=== PATIENT | female | born 1960 | race Two or more races ===

== ENCOUNTER 2020-03-27 | Outpatient (REF) | payer OTHER, SELFPAY | END 2020-03-27 00:01 | disposition home or self-care (01) | LOC: HO.MDS | PROVIDERS: PCP Internal Medicine; Visit Provider Internal Medicine Medical Oncology | DX: D50.9 Iron deficiency anemia, unspecified (principal) | CPT/HCPCS: J2916 ==

== ENCOUNTER 2020-04-03 | Outpatient (REF) | payer OTHER, SELFPAY | END 2020-04-03 00:01 | disposition home or self-care (01) | LOC: HO.MDS | PROVIDERS: PCP Internal Medicine; Visit Provider Internal Medicine Medical Oncology | DX: D50.9 Iron deficiency anemia, unspecified (principal) | CPT/HCPCS: J2916 ==

== ENCOUNTER 2020-04-06 | Outpatient (REF) | payer OTHER, SELFPAY ==
[2020-04-06 12:04] LABS: Eosinophils Absolute Auto 0.1 X10*3/uL (0.0-0.4); Imm Gran Abs Auto 0.01 X10*3/uL (0.00-0.03); Imm Gran Pct Auto 0.2 % (0.0-0.4); MANUAL DIFF FLAG SCAN; PLT CLUMP 1; SCAN SMEAR FLAG 1
[2020-04-06 12:06] LABS: Basophils Percent Auto 0.2 % (0-2); Eosinophils Percent Auto 2.7 % (0-4); Hemoglobin 9.5 g/dl (12.0-16.0); Lymphocytes Absolute Auto 1.9 X10*3/uL (1.2-4.9); Lymphocytes Percent Auto 45.2 % (20-40); Mean Corpuscular HGB Conc 31.7 g/dl (31.0-35.0); Mean Corpuscular Hemoglobin 27.6 pg (27.0-33.0); Mean Corpuscular Volume 87.2 fL (80-98); Monocytes Absolute Auto 0.4 X10*3/uL (0.1-1.2); Monocytes Percent Auto 8.5 % (2-11); Neutrophils Absolute Auto 1.8 X10*3/uL (2.0-8.3); Neutrophils Percent Auto 43.2 % (45-73); Platelet Count 101 X10*3/uL (160-400); Red Blood Count 3.44 X10*6/uL (4.20-5.50); Red Cell Distribution Width 22.9 % (11.0-16.0); White Blood Count 4.1 X10*3/uL (4.8-10.8)
[2020-04-06 12:11] LABS: PLT ABN DIST 1
== END 2020-04-06 00:01 | disposition home or self-care (01) ==
LOC: HO.MDS
PROVIDERS: PCP Internal Medicine; Visit Provider Internal Medicine Medical Oncology
DX: D50.9 Iron deficiency anemia, unspecified (principal)
CPT/HCPCS: 36415; 85025; J2916

== ENCOUNTER 2020-04-08 | Outpatient (REF) | payer OTHER, SELFPAY | END 2020-04-08 00:01 | disposition home or self-care (01) | LOC: HO.MDS | PROVIDERS: PCP Internal Medicine; Visit Provider Internal Medicine Medical Oncology | DX: D50.9 Iron deficiency anemia, unspecified (principal) | CPT/HCPCS: J2916 ==

== ENCOUNTER 2020-04-08 09:43 | Outpatient (REF) | payer OTHER, SELFPAY | END 2020-04-08 09:44 | disposition home or self-care (01) | LOC: HO.MDS 09:43 | PROVIDERS: Visit Provider Internal Medicine Medical Oncology | DX: J45.909 Unspecified asthma, uncomplicated (principal) | CPT/HCPCS: J2916 ==

== ENCOUNTER 2020-04-13 08:36 | Outpatient (REF) | payer OTHER, SELFPAY | END 2020-04-13 08:37 | disposition home or self-care (01) | LOC: HO.MDS 08:36 | PROVIDERS: PCP Internal Medicine; Visit Provider Internal Medicine Gastroenterology | DX: D50.9 Iron deficiency anemia, unspecified (principal) | CPT/HCPCS: 96365; J2916 ==

== ENCOUNTER → 2020-04-20 10:18 | Outpatient (BNVA) | payer OTHER, SELFPAY | PROVIDERS: PCP Internal Medicine; Referring Provider Internal Medicine; Visit Provider Internal Medicine Gastroenterology | DX: Z76.89 Persons encountering health services in other specified circumstances (principal) ==

== ENCOUNTER 2020-04-20 14:00 | Outpatient (REF) | payer OTHER, SELFPAY | END 2020-04-20 14:01 | disposition home or self-care (01) | LOC: HO.MDS 14:00 | PROVIDERS: PCP Internal Medicine; Visit Provider Internal Medicine Medical Oncology | DX: D50.9 Iron deficiency anemia, unspecified (principal) | CPT/HCPCS: 96365; 99212; J2916 ==

== ENCOUNTER 2020-04-20 14:34 | Outpatient (REF) | payer OTHER, SELFPAY | END 2020-04-20 14:35 | disposition home or self-care (01) | LOC: HO.MDS 14:34 | PROVIDERS: PCP Internal Medicine; Visit Provider Internal Medicine Medical Oncology | DX: D50.9 Iron deficiency anemia, unspecified (principal) | CPT/HCPCS: 96365; J2916 ==

== ENCOUNTER 2020-04-21 13:45 | Outpatient (REF) | payer OTHER, SELFPAY | END 2020-04-21 13:46 | disposition home or self-care (01) | LOC: HO.MDS 13:45 | PROVIDERS: PCP Internal Medicine; Visit Provider Internal Medicine Medical Oncology | DX: D50.9 Iron deficiency anemia, unspecified (principal) | CPT/HCPCS: 96365; J2916 ==

== ENCOUNTER 2020-05-18 16:13 | Outpatient (REF) | payer OTHER, SELFPAY | END 2020-05-18 16:14 | disposition home or self-care (01) | LOC: HO.LAB 16:13 | PROVIDERS: PCP Internal Medicine; Visit Provider Internal Medicine | DX: Z20.828 Contact with and (suspected) exposure to other viral communicable diseases (principal) | CPT/HCPCS: C9803; U0003 ==

== ENCOUNTER → 2020-10-09 09:20 | Outpatient (BNV) | payer OTHER, SELFPAY | PROVIDERS: PCP Internal Medicine; Visit Provider Internal Medicine Medical Oncology | DX: D50.9 Iron deficiency anemia, unspecified (principal); Z86.711 Personal history of pulmonary embolism; K75.4 Autoimmune hepatitis | CPT/HCPCS: 99213; 99214 ==

== ENCOUNTER 2021-01-14 14:50 | Emergency (ER) | payer OTHER, SELFPAY ==
[2021-01-14 15:02] VITALS: BP 161/63; PULSE 62; RESP 18; TEMP 36.6; O2SAT 100; BMI 32.3
== END 2021-01-14 17:36 | disposition left against medical advice (07) ==
PROVIDERS: Emergency Provider Emergency Medicine; PCP Internal Medicine
DX: R79.89 Other specified abnormal findings of blood chemistry (principal)
CPT/HCPCS: 99282

== ENCOUNTER → 2021-03-22 13:37 | Outpatient (BNVA) | payer OTHER, SELFPAY | PROVIDERS: PCP Internal Medicine; Referring Provider Internal Medicine; Visit Provider Internal Medicine Gastroenterology | DX: K75.4 Autoimmune hepatitis (principal); K21.9 Gastro-esophageal reflux disease without esophagitis; K59.09 Other constipation; D50.9 Iron deficiency anemia, unspecified; D12.6 Benign neoplasm of colon, unspecified; Z83.71 Family history of colonic polyps | CPT/HCPCS: 99212 ==

== ENCOUNTER 2021-04-20 11:14 | Outpatient (REF) | payer OTHER, SELFPAY | END 2021-04-20 11:15 | disposition home or self-care (01) | LOC: HO.MDS 11:14 | PROVIDERS: PCP Internal Medicine; Visit Provider Internal Medicine Medical Oncology | DX: D50.9 Iron deficiency anemia, unspecified (principal) | CPT/HCPCS: 96365; J2916 ==

== ENCOUNTER 2021-05-10 16:43 | Outpatient (REF) | payer OTHER, SELFPAY ==
[2021-05-10 18:54] LABS: Influenza A PCR NEGATIVE (Negative); Influenza B PCR NEGATIVE (Negative); Resp Syncy Virus RNA Qual PCR NEGATIVE (Negative); SARS COV2 PCR INHOUSE NEGATIVE (Negative)
== END 2021-05-10 16:44 | disposition home or self-care (01) ==
LOC: HO.LNP 16:43
PROVIDERS: Visit Provider Internal Medicine
DX: Z20.822 Contact with and (suspected) exposure to COVID-19 (principal); R43.9 Unspecified disturbances of smell and taste
CPT/HCPCS: 0241U

== ENCOUNTER 2021-05-12 08:09 | Outpatient (REF) | payer OTHER, SELFPAY | END 2021-05-12 08:10 | disposition home or self-care (01) | LOC: HO.MDS 08:09 | PROVIDERS: PCP Internal Medicine; Visit Provider Internal Medicine Medical Oncology | DX: D50.9 Iron deficiency anemia, unspecified (principal) | CPT/HCPCS: 96365; 96366; J1200; J1750 ==

== ENCOUNTER 2021-10-11 11:12 | Outpatient (REF) | payer OTHER, SELFPAY ==
[2021-10-11 11:56] LABS: Estimated Average Glucose 100 mg/dL; Hemoglobin A1c % 5.1 %
[2021-10-11 11:58] LABS: Lymphocytes Percent Auto 27.8 % (20-40); Mean Corpuscular Hemoglobin 29.6 pg (27.0-33.0); PLT CLUMP 1; Red Blood Count 3.38 X10*6/uL (4.20-5.50); SCAN SMEAR FLAG 1
[2021-10-11 12:01] LABS: Basophils Percent Auto 0.3 % (0-2); Eosinophils Absolute Auto 0.1 X10*3/uL (0.0-0.4); Eosinophils Percent Auto 3.6 % (0-4); Hematocrit 31.2 % (37.0-47.0); Lymphocytes Absolute Auto 0.9 X10*3/uL (1.2-4.9); Mean Corpuscular HGB Conc 32.1 g/dl (31.0-35.0); Mean Corpuscular Volume 92.3 fL (80.0-98.0); Monocytes Absolute Auto 0.2 X10*3/uL (0.1-1.2); Monocytes Percent Auto 5.9 % (2-11); Neutrophils Absolute Auto 2.1 x10*3/uL (2.0-8.3); Neutrophils Percent Auto 62.4 % (45-73)
[2021-10-11 12:03] LABS: MANUAL DIFF FLAG NO; Platelet Count 70 X10*3/uL (160-400); White Blood Count 3.4 X10*3/uL (4.8-10.8)
[2021-10-11 12:24] LABS: Alanine Aminotransferase 31 U/L (0-31); Albumin Level 3.4 g/dL (3.5-5.0); Alkaline Phosphatase 117 U/L (39-117); Anion Gap 10 (12-20); Aspartate Amino Transferase 51 U/L (5-31); Bilirubin Total 0.4 mg/dL (0.0-1.0); Blood Urea Nitrogen 23 mg/dL (9-16); Calcium 9.5 mg/dL (8.4-10.2); Carbon Dioxide 18 mmol/L (22-29); Chloride 118 mmol/L (96-108); Cholesterol 232 mg/dL; Estimated Glomerular Filt Rate 23; Glucose Fasting 84 mg/dL (60-99); HDL Cholesterol 31 mg/dL; Iron 93 mcg/dL (30-160); LDL Cholesterol Calculated 171 mg/dl; Percent Iron Saturation 42 % (15-50); Potassium 4.2 mmol/L (3.3-5.1); Sodium 142 mmol/L (135-145); Total Iron Binding Capacity 224 mcg/dL (228-428); Total Protein 8.5 g/dL (6.5-8.0); Triglycerides 152 mg/dL; Unsaturated Iron Binding 131 ug/dL
[2021-10-11 12:46] LABS: Thyroid Stimulating Hormone 99.76 uIU/mL (0.32-4.0)
[2021-10-11 13:09] LABS: Folate 8.3 ng/mL (> or = 4.0); Vitamin B12 336 pg/mL (200-900)
[2021-10-11 13:49] LABS: TSH reflex Free T4 99.72 uIU/mL (0.32-4.0)
[2021-10-11 14:23] LABS: Free T4 (Free Thyroxine) 0.47 ng/dL (0.71-1.85)
[2021-10-13 05:57] LABS: Thyroglobulin Antibodies >1000 IU/mL (< or = 1); Thyroid Peroxidase Antibodies 184 IU/mL (<9)
[2021-10-15 12:47] LABS: Vitamin D 25-OH, D2 5 ng/mL; Vitamin D 25-OH, D3 24 ng/mL; Vitamin D 25-OH, Total 29 ng/mL (30-100)
== END 2021-10-11 11:13 | disposition home or self-care (01) ==
LOC: HO.LAB 11:12
PROVIDERS: PCP Internal Medicine; Visit Provider Nurse Practitioner Family
DX: E11.9 Type 2 diabetes mellitus without complications (principal); M79.671 Pain in right foot; M79.672 Pain in left foot; E03.9 Hypothyroidism, unspecified; E55.9 Vitamin D deficiency, unspecified; D64.9 Anemia, unspecified; K75.4 Autoimmune hepatitis; E78.5 Hyperlipidemia, unspecified
CPT/HCPCS: 36415; 80053; 80061; 82306; 82607; 82746; 83036; 83540; 84439; 84443; 85025; 86376; 86800

== ENCOUNTER 2021-10-13 13:21 | Outpatient (REF) | payer OTHER, SELFPAY ==
--- NOTE | ~2021-10-13 | MM_ITS ---
EXAMINATION: MM SCREENING DIGITAL BREAST TOMOSYNTHESIS, BILATERAL CLINICAL INFORMATION: Screening. Asymptomatic. The lifetime risk of breast cancer based on the Tyrer-Cuzick Model is 4%. COMPARISON: Mammography: 04/06/2018, 03/15/2017, 12/30/2015 TECHNIQUE: Digital breast tomosynthesis is performed in both the craniocaudal and mediolateral oblique views along with computer-aided detection (CAD). Synthesized 2D images are generated from the tomosynthesis. FINDINGS: There are scattered areas of fibroglandular density (ACR BI-RADS breast composition Category b). Breast tissue composition borders on predominantly fatty. Background stromal markings and some scattered fibroglandular densities anterior upper outer right breast are similar to prior exams. There is no significant mass or architectural abnormality. No abnormal calcifications. Skin contours are smooth. No significant changes. MM/MM tomosynthesis screening BI IMPRESSION: No mammographic evidence of malignancy. ASSESSMENT: BI-RADS 2: Benign RECOMMENDATION: Routine annual mammography screening. This patient's information was entered into a reminder system with a target due date for their next mammogram.
== END 2021-10-13 13:22 | disposition home or self-care (01) ==
LOC: HO.MAMMO 13:21
PROVIDERS: PCP Internal Medicine; Visit Provider Nurse Practitioner Family
DX: Z12.31 Encounter for screening mammogram for malignant neoplasm of breast (principal)
CPT/HCPCS: 77063; 77067

== ENCOUNTER 2021-10-25 07:55 | Outpatient (REF) | payer OTHER, SELFPAY | END 2021-10-25 07:56 | disposition home or self-care (01) | LOC: HO.MDS 07:55 | PROVIDERS: PCP Internal Medicine; Visit Provider Internal Medicine Medical Oncology | DX: D50.9 Iron deficiency anemia, unspecified (principal) | CPT/HCPCS: 96365; 96366; J1200; J1750; Q0163 ==

== ENCOUNTER 2022-01-14 12:09 | Emergency (ER) | payer OTHER, SELFPAY ==
--- NOTE | ~2022-01-14 | CT_ITS ---
EXAMINATION: CT ABDOMEN AND PELVIS WITHOUT CONTRAST CLINICAL INFORMATION: Left flank pain. COMPARISON: Abdominal ultrasound 02/05/2019. CT abdomen/pelvis 11/24/2017. TECHNIQUE: Multidetector volumetric imaging was performed from the superior aspect of the liver through the pubic symphysis. Sagittal and coronal reformatted images were obtained on the technologist's workstation. This CT examination was performed using dose optimization techniques as appropriate, variously including the following: *Automated exposure control *Adjustment of mA and/or kV according to patient size (this includes techniques or standardized protocols for targeted exams where dose is matched to indication/reason for exam; i.e. extremities or head) *Use of iterative reconstruction technique DLP: 460 mGy-cm FINDINGS: LUNG BASES: Focal parenchymal thickening in the lingula (6:91) favoring to represent subsegmental atelectasis or scarring. No focal consolidation or pleural effusion. LIVER, GALLBLADDER, AND BILIARY TREE: Increased heterogeneity of the liver parenchyma with multifocal band-like hypodensities, nodular contour and atrophic left hepatic lobe. Evaluation of liver lesions is limited in the absence of intravenous contrast. There is a 0.3 cm stone versus polyp in the gallbladder fundus. No evidence of gallbladder wall thickening or pericholecystic inflammatory changes. No biliary ductal dilatation. PANCREAS: Limited non-contrast examination. The main pancreatic duct is nondilated. Fullness of the ailyn hepatis with mild fat stranding and periportal lymphadenopathy. The pancreatic head and duodenum are not well delineated in the absence of intravenous contrast (3:30). SPLEEN: Limited non-contrast examination. No discrete focal abnormality. ADRENAL GLANDS: No adrenal mass. KIDNEYS AND URETERS: Limited non-contrast examination. No evidence of hydronephrosis or nephrolithiasis. No perinephric fat stranding. BLADDER: Unremarkable. GASTROINTESTINAL TRACT: The stomach and the small bowel are nondilated. Normal appendix. No evidence of acute colitis, diverticulitis or bowel obstruction. ABDOMINAL WALL: No significant hernia is appreciated. LYMPH NODES: Periportal lymphadenopathy, not significantly changed since 2018, for example a 0.9 cm short axis lymph node on image 21 of series 3 and a 0.8 cm short axis lymph node on image 25 of series 3. Lymphadenopathy along the epicardial fat pad, for instance a 1.8 x 0.7 cm lymph node on image 14 of series 3, is unchanged. Prominent retroperitoneal and pelvic lymph nodes are also not significantly changed, for example a 0.8 cm short axis right external iliac lymph node on image 81 of series 3. VASCULAR: Limited evaluation in the absence of intravenous contrast. IVC filter noted. Normal caliber of the abdominal aorta. Atherosclerotic disease of the aortoiliac vessels. PELVIC VISCERA: Trace amount of free fluid in the pelvis, nonspecific. OSSEOUS STRUCTURES: No acute or aggressive-appearing osseous abnormalities. CT/CT abdomen pelvis wo con IMPRESSION: No hydronephrosis or nephrolithiasis. Abnormal appearance of the liver with progression of left hepatic lobe atrophy and new heterogeneity of the right hepatic lobe with multiple band-like hypodensities and nodular contour concerning for hepatocellular disease and cirrhosis. Recommend correlation with an MR of the abdomen with and without intravenous contrast to further characterize and rule out underlying lesions which are not well assessed in this examination in the absence of intravenous contrast. Limited evaluation of the structures within the ailyn hepatis in the absence of intravenous contrast. There is mild fat stranding, nonspecific, and grossly stable lymphadenopathy. This region could be assessed further with the above recommended MRI of the abdomen. A 0.3 cm gallbladder fundal polyp versus stone.
[2022-01-14 12:11] VITALS: BP 176/83; PULSE 80; RESP 18; TEMP 36.8; O2SAT 100; BMI 30.2
[2022-01-14 12:22] LABS: Hematocrit 31.5 % (37.0-47.0); Hemoglobin 10.3 g/dl (12.0-16.0); Mean Corpuscular HGB Conc 32.7 g/dl (31.0-35.0); Mean Corpuscular Hemoglobin 31.6 pg (27.0-33.0); Mean Corpuscular Volume 96.6 fL (80.0-98.0); Mean Platelet Volume 10.9 fL (9.4-12.3); Red Blood Count 3.26 X10*6/uL (4.20-5.50); Red Cell Distribution Width 16.2 % (11.0-16.0); White Blood Count 5.3 X10*3/uL (4.8-10.8)
[2022-01-14 12:23] LABS: Platelet Count 99 X10*3/uL (160-400)
[2022-01-14 12:39] LABS: Anion Gap 14 (12-20); Blood Urea Nitrogen 30 mg/dL (9-16); Calcium 9.3 mg/dL (8.4-10.2); Carbon Dioxide 16 mmol/L (22-29); Chloride 113 mmol/L (96-108); Creatinine Clr Calc Pharmacy 23.5; Estimated Glomerular Filt Rate 24; Glucose Random 118 mg/dL (60-115); Potassium 3.8 mmol/L (3.3-5.1); Sodium 139 mmol/L (135-145)
[2022-01-14 12:49] LABS: Appearance Urine CLEAR; Color Urine YELLOW; Glucose Urine UA NEG (NEG); Leukocyte Esterase Urine 1+ (NEG); Nitrite Urine NEG (NEG); UACC Culture Trigger YES; Urine Blood NEG (NEG); Urine Ketones NEG (NEG); Urine Protein NEG (NEG-TRACE)
[2022-01-14 13:04] LABS: Bacteria Urine 1+ /LPF; RBC Urine 0 /HPF (0); Squamous Epithelial Cell Urine 2+ /LPF
--- NOTE | 2022-01-14 14:18 | ED.FEMALEGU ---
HPI - Female Genitourinary General Chief complaint: Urogenital-Female Stated complaint: kidney stones/UTI Time Seen by Provider: 01/14/22 13:14 History of Present Illness HPI Narrative: Patient complains of some left-sided back and flank pain over past several days, she was seen in an urgent care and is being treated with 750 of Levaquin once a day for a possible kidney infection. Patient does have pre-existing renal insufficiency, she denies any blood in the urine no vomiting and no dysuria today The only complaint today is some back pain with bending and moving, she is eating and drinking normally and feels in her normal state of health Related Data Home Medications Medication Instructions Recorded Confirmed escitalopram oxalate 10 mg tablet 10 mg PO DAILY 10/07/21 01/19/22 (Lexapro) metoclopramide HCl 5 mg tablet 5 mg PO BID 10/07/21 01/19/22 (Reglan) Previous Rx's Medication Instructions Recorded omeprazole 40 mg capsule,delayed 40 mg PO DAILY 90 days #90 caps 04/20/21 release cholecalciferol (vitamin D3) 50 50 mcg PO DAILY 90 days #90 caps 07/21/21 mcg (2,000 unit) capsule levothyroxine 100 mcg tablet 100 mcg PO QAM #30 tabs 10/13/21 sennosides 8.6 mg tablet (senna) 8.6 mg PO BID 30 days #60 tabs 01/05/22 linaclotide 145 mcg capsule 145 mcg PO DAILY 30 days #30 caps 01/10/22 (Linzess) loratadine 10 mg tablet 10 mg PO DAILY 90 days #90 tabs 01/10/22 tramadol 50 mg tablet 50 mg PO BID PRN pain 30 days #60 01/19/22 tabs Allergies Allergy/AdvReac Type Severity Reaction Status Date / Time cefuroxime [From Ceftin] Allergy Intermediate rash Verified 01/19/22 09:24 Gonfhro-SKG-UnO Reductase Allergy Intermediate transaminit Verified 01/19/22 09:24 Inhibitor is [Axznvus-Jnd-Onr Reductase Inhibitor] Review of Systems Review of Systems: Positive for back pain Negatives are no fever no chills no dizziness no confusion no weakness no fainting no feeling faint no headache no neck pain no chest pain no shortness of breath no abdominal pain no nausea vomiting or diarrhea no dysuria no incontinence no frequency, no radiation of back pain no numbness weakness or tingling no skin rash Yes all other systems are reviewed and are negative ON LICENSE OF [facility] Past Medical History Source: nursing notes reviewed Medical History Arthritis Asthma Autoimmune hepatitis Back pain Chest pain CKD (chronic kidney disease) Depression Elevated cholesterol GERD (gastroesophageal reflux disease) History of depression History of DVT (deep vein thrombosis) Hx pulmonary embolism Hypertension Hypothyroid Iron deficiency anemia Mild recurrent major depression Right ankle injury (~2000) Seasonal allergies Surgical History History of ankle surgery History of colonoscopy (~2018) History of liver biopsy Hx of endoscopy (06/26/17) Family History Family History Father Myocardial infarction Hypertension H/O ETOH abuse Mother Hypertension Stroke Diabetes High cholesterol Paternal Aunt Mental health disorder Paternal Uncle Mental health disorder Social History Social History Household Members: None Housing: Apartment Are you a primary medicare contact specialist to a significant other at home: No Do you presently have visiting nurse or other home services: Yes Alcohol intake: never Patient Tobacco Use Status: Never used Tobacco e-Cigarette/Vaping Use: Never Used Second Hand Smoke Exposure: No service: No Current occupational status: unemployed Cognitive needs: No Hearing needs: No Vision needs: Yes (glasses) Physical Exam Vital Signs: Vital Signs: Last Vital Signs Temp 98.1 F 01/14/22 15:03 Pulse 69 01/14/22 18:14 Resp 16 01/14/22 18:14 BP 172/68 H 01/14/22 18:14 Pulse Ox 99 01/14/22 18:14 O2 Del Method 01/14/22 18:14 BMI result Body Mass Index 30.2 General appearance is no acute distress The eyes pupils equal round reactive to light, anicteric no pallor The pharynx is clear no redness swelling or exudate, mucous membranes are moist Neck is supple Chest clear to auscultation bilateral Heart no murmur Abdomen soft nontender The back had left-sided lower and upper lumbar tenderness, pain is reproduced with movement, skin was normal, no focal bony tenderness Extremities full range of motion x4 Neuro no focal motor or sensory deficits Course Course Course Narrative: Patient has BUN of 30 and creatinine of 2.1, normal potassium on lab work done 01/14/2022 Patient had been prescribed Levaquin 750 once a day from urgent care I looked up adjusted dose for renal insufficiency and changed her dosing of Levaquin Patient is otherwise well with no urinary symptoms no fever no vomiting She will finish her adjusted course of antibiotics and is otherwise well appearing and is discharged MDM - Female Genitourinary Lab Data Attestation: I reviewed the patient's lab results. Result diagrams: 01/14/22 12:17 01/14/22 12:17 Labs: Lab Results 01/14/22 01/14/22 01/14/22 Range/Units 12:17 12:17 12:23 WBC 5.3 (4.8-10.8) X10*3/uL RBC 3.26 L (4.20-5.50) X10*6/uL Hgb 10.3 L (12.0-16.0) g/dl Hct 31.5 L (37.0-47.0) % MCV 96.6 (80.0-98.0) fL MCH 31.6 (27.0-33.0) pg MCHC 32.7 (31.0-35.0) g/dl RDW 16.2 H (11.0-16.0) % Plt Count 99 L D (160-400) X10*3/uL MPV 10.9 (9.4-12.3) fL Absolute Nucleated RBC 0.000 (0.0-0.012) X10*3/uL Nucleated RBC % (auto) 0.0 (0.0-0.2) /100WBC Sodium 139 (135-145) mmol/L Potassium 3.8 (3.3-5.1) mmol/L Chloride 113 H (96-108) mmol/L Carbon Dioxide 16 L (22-29) mmol/L Anion Gap 14 (12-20) BUN 30 H (9-16) mg/dL Creatinine 2.11 H (0.5-1.4) mg/dL Estim Creat Clear Calc 23.5 Estimated GFR 24 Random Glucose 118 H (60-115) mg/dL Calcium 9.3 (8.4-10.2) mg/dL Total Bilirubin 0.3 (0.0-1.0) mg/dL Direct Bilirubin 0.2 (0.0-0.5) mg/dL AST 23 D (5-31) U/L ALT 16 (0-31) U/L Alkaline Phosphatase 134 H (39-117) U/L Total Protein 8.7 H (6.5-8.0) g/dL Albumin 3.6 (3.5-5.0) g/dL Urine Color YELLOW Urine Appearance CLEAR Urine pH 6.0 (5.0-8.0) Ur Specific [place] 1.020 (1.005-1.025) Urine Protein NEG (NEG-TRACE) MG/DL Urine Glucose (UA) NEG (NEG) MG/DL Urine Ketones NEG (NEG) MG/DL Urine Blood NEG (NEG) Urine Nitrite NEG (NEG) Ur Leukocyte Esterase 1+ H (NEG) Urine RBC 0 (0) /HPF Urine WBC 1-4 (0-4) /HPF Ur Squamous Epith Cells 2+ /LPF Urine Bacteria 1+ /LPF Discharge Plan Discharge Clinical Impression: UTI (urinary tract infection), Back pain, Renal insufficiency Patient Disposition: Home, Self-Care Additional Instructions: We did a CT which did not find any kidney stones or any mass For the back pain which may be muscles or discs in her back follow with primary doctor use Tylenol as needed Levaquin 750 once a day should be stopped today no more of that as it can be damaging to her kidneys Best plan is do not take any antibiotic tomorrow and then Monday and Monday take once a day 250 mg of Levaquin Return any time any worse condition or any concerns Prescriptions: No Action omeprazole 40 mg capsule,delayed release(DR/EC) 40 mg PO DAILY 90 Days Qty: 90 2RF cholecalciferol (vitamin D3) 50 mcg (2,000 unit) capsule 50 mcg PO DAILY 90 Days Qty: 90 3RF levothyroxine 100 mcg tablet 100 mcg PO QAM Qty: 30 3RF sennosides [senna] 8.6 mg tablet 8.6 mg PO BID 30 Days Qty: 60 2RF Linzess 145 mcg capsule 145 mcg PO DAILY 30 Days Qty: 30 3RF loratadine 10 mg tablet 10 mg PO DAILY 90 Days Qty: 90 1RF metoclopramide HCl [Reglan] 5 mg tablet 5 mg PO BID escitalopram oxalate [Lexapro] 10 mg tablet 10 mg PO DAILY tramadol 50 mg tablet 50 mg PO BID PRN (Reason: pain) 30 Days Qty: 60 0RF Interventions: ED Discharge Assessment Last Done: 01/14/22 19:39 Discharge Date/Time: 01/14/22 19:51
--- NOTE | 2022-01-14 14:44 | PC.NURSE ---
pt ambulating at bedside, pt in no dsiress. pt reports pain to l upper back/flank. pt brotght to ct.
[2022-01-14 15:03] VITALS: BP 144/54; PULSE 68; RESP 18; TEMP 36.7; O2SAT 100
[2022-01-14 17:45] LABS: Alanine Aminotransferase 16 U/L (0-31); Albumin Level 3.6 g/dL (3.5-5.0); Alkaline Phosphatase 134 U/L (39-117); Aspartate Amino Transferase 23 U/L (5-31); Bilirubin Direct 0.2 mg/dL (0.0-0.5); Bilirubin Total 0.3 mg/dL (0.0-1.0); Total Protein 8.7 g/dL (6.5-8.0)
[2022-01-14 18:14] VITALS: BP 172/68; PULSE 69; RESP 16; O2SAT 99
== END 2022-01-14 19:51 | disposition home or self-care (01) ==
PROVIDERS: Physician Assistant Medical; Emergency Provider Student in an Organized Health Care Education/Training Program; PCP Internal Medicine
DX: N39.0 Urinary tract infection, site not specified (principal); M54.9 Dorsalgia, unspecified; R10.9 Unspecified abdominal pain; I12.9 Hypertensive chronic kidney disease with stage 1 through stage 4 chronic kidney disease, or unspecified chronic kidney disease; N18.4 Chronic kidney disease, stage 4 (severe); N28.9 Disorder of kidney and ureter, unspecified; E78.5 Hyperlipidemia, unspecified
CPT/HCPCS: 36415; 74176; 80048; 80076; 81001; 85027; 87086; 99282; 99284

== ENCOUNTER 2022-01-19 09:58 | Outpatient (REF) | payer OTHER, SELFPAY ==
[2022-01-19 11:12] LABS: Vitamin D 25-OH Total 19.5 ng/mL (>30)
[2022-01-19 11:15] LABS: Free T4 (Free Thyroxine) 1.37 ng/dL (0.71-1.85)
[2022-01-19 12:20] LABS: Thyroid Stimulating Hormone 4.62 uIU/mL (0.32-4.0)
== END 2022-01-19 09:59 | disposition home or self-care (01) ==
LOC: HO.LAB 09:58
PROVIDERS: Internal Medicine Endocrinology, Diabetes & Metabolism; PCP Internal Medicine; Visit Provider Internal Medicine
DX: E03.9 Hypothyroidism, unspecified (principal); E55.9 Vitamin D deficiency, unspecified
CPT/HCPCS: 36415; 82306; 84439; 84443

== ENCOUNTER → 2022-01-25 09:02 | Outpatient (BNVA) | payer OTHER, SELFPAY | PROVIDERS: PCP Internal Medicine; Referring Provider Internal Medicine; Visit Provider Surgery | DX: K74.60 Unspecified cirrhosis of liver (principal); K82.4 Cholesterolosis of gallbladder; K75.4 Autoimmune hepatitis; R10.11 Right upper quadrant pain; R63.4 Abnormal weight loss; R13.10 Dysphagia, unspecified; Z86.711 Personal history of pulmonary embolism; Z79.899 Other long term (current) drug therapy; Z79.891 Long term (current) use of opiate analgesic | CPT/HCPCS: 99202 ==

== ENCOUNTER 2022-02-09 07:43 | Outpatient (REF) | payer OTHER, SELFPAY ==
[2022-02-09 08:09] LABS: MANUAL DIFF FLAG NO
[2022-02-09 08:19] LABS: Basophils Percent Auto 0.3 % (0-2); Eosinophils Absolute Auto 0.1 X10*3/uL (0.0-0.4); Eosinophils Percent Auto 3.3 % (0-4); Hematocrit 30.4 % (37.0-47.0); Hemoglobin 10.2 g/dl (12.0-16.0); Imm Gran Abs Auto 0.01 X10*3/uL (0.00-0.03); Imm Gran Pct Auto 0.3 % (0.0-0.4); Lymphocytes Absolute Auto 0.9 X10*3/uL (1.2-4.9); Lymphocytes Percent Auto 30.7 % (20-40); Mean Corpuscular HGB Conc 33.6 g/dl (31.0-35.0); Mean Corpuscular Hemoglobin 32.6 pg (27.0-33.0); Mean Corpuscular Volume 97.1 fL (80.0-98.0); Mean Platelet Volume 12.1 fL (9.4-12.3); Monocytes Absolute Auto 0.2 X10*3/uL (0.1-1.2); Monocytes Percent Auto 7.3 % (2-11); Neutrophils Absolute Auto 1.8 x10*3/uL (2.0-8.3); Neutrophils Percent Auto 58.1 % (45-73); Red Blood Count 3.13 X10*6/uL (4.20-5.50); Red Cell Distribution Width 16.3 % (11.0-16.0)
[2022-02-09 08:28] LABS: Platelet Count 72 X10*3/uL (160-400)
[2022-02-09 08:45] LABS: Albumin Level 3.3 g/dL (3.5-5.0); Anion Gap 15 (12-20); Blood Urea Nitrogen 29 mg/dL (9-16); Calcium 9.1 mg/dL (8.4-10.2); Carbon Dioxide 16 mmol/L (22-29); Chloride 116 mmol/L (96-108); Estimated Glomerular Filt Rate 28; Magnesium 2.1 mg/dL (1.6-2.6); Phosphorus 4.2 mg/dL (2.7-4.5); Potassium 4.1 mmol/L (3.3-5.1); Sodium 143 mmol/L (135-145)
[2022-02-09 09:01] LABS: HBc Num1 0.11 S/CO (0.00-0.79); HBsAGNum1 0.19 S/CO (0.00-0.99); Hepatitis B Core Antibody Nonreactive (Nonreactive); Hepatitis B Surface Antigen Negative (Negative); ~HepC Num1 0.67 S/CO (0.00-0.79); ~Hepatitis B Surface Antibody NONREACTIVE (Nonreactive); ~Hepatitis C Antibody Nonreactive (Nonreactive)
[2022-02-09 09:07] LABS: Vitamin D 25-OH Total 19.3 ng/mL (>30)
[2022-02-09 10:20] LABS: Appearance Urine Clear; Color Urine Yellow; Glucose Urine UA Negative (Negative); Leukocyte Esterase Urine Small (1+) (Negative); Nitrite Urine Negative (Negative); Specific Gravity - Urine 1.015 (1.005-1.025); Urine Blood Negative (Negative); Urine Ketones Negative (Negative); Urine Protein Trace mg/dL (Neg-Trace)
[2022-02-09 10:31] LABS: Bacteria Urine None Seen (None Seen); Hyaline Casts Urine 0-2 /LPF (0-2); RBC Urine 0-2 /HPF (0-2); UACC Culture Trigger YES; WBC Urine 0-5 /HPF (0-5)
[2022-02-09 11:53] LABS: Microalbumin Urine < 5.0 mg/L; Protein/Creatinine Ratio, Ur 0.12 (<0.2); Total Protein Urine Random 13 mg/dL (<12)
[2022-02-10 13:07] LABS: Complement C3 80 mg/dL (83-193)
[2022-02-10 16:13] LABS: Calcium (PTHI) 9.3 mg/dL (8.6-10.4); PTHI 47 pg/mL (16-77)
[2022-02-12 19:17] LABS: Prot Elec - Albumin 3.4 g/dL (3.8-4.8); Prot Elec - Alpha1 0.3 g/dL (0.2-0.3); Prot Elec - Alpha2 0.8 g/dL (0.5-0.9); Prot Elec - Beta 1 0.5 g/dL (0.4-0.6); Prot Elec - Beta 2 0.8 g/dL (0.2-0.5); Prot Elec - Gamma 2.1 g/dL (0.8-1.7); Prot Elec - Total Protein 7.9 g/dL (6.1-8.1)
[2022-02-16 14:25] LABS: Anti Nuclear Antibody Pattern Nuclear, Speckled; Anti Nuclear Antibody Screen POSITIVE (NEGATIVE)
[2022-02-16 15:26] LABS: Kappa, Serum 504 mg/dL (176-443); Kappa/Lambda Ratio, Serum 1.28 (1.29-2.55); Lambda, Serum 394 mg/dL (91-240)
== END 2022-02-09 07:44 | disposition home or self-care (01) ==
LOC: HO.LAB 07:43
PROVIDERS: Internal Medicine Nephrology; PCP Internal Medicine; Visit Provider Internal Medicine Endocrinology, Diabetes & Metabolism
DX: E03.9 Hypothyroidism, unspecified (principal)
CPT/HCPCS: 36415; 80051; 81001; 81003; 82040; 82043; 82306; 82310; 82565; 83735; 83883; 83970; 84100; 84156; 84165; 84520; 85025; 86038; 86039; 86160; 86704; 86706; 86803; 87086; 87340

== ENCOUNTER 2022-02-14 08:25 | Outpatient (REF) | payer OTHER, SELFPAY ==
--- NOTE | ~2022-02-14 | US_ITS ---
EXAMINATION: US ABDOMEN COMPLETE CLINICAL INFORMATION: Autoimmune hepatitis. COMPARISON: CT abdomen and pelvis without contrast 01/14/2022. US abdomen complete 02/05/2019. US abdomen limited 10/22/2017. MRI abdomen without and with contrast 10/23/2017. TECHNIQUE: Real-time imaging of the abdominal viscera. Technically limited study secondary to body habitus. FINDINGS: PANCREAS: Normal. ABDOMINAL AORTA: The proximal, mid, and distal segments are normal in caliber. INFERIOR VENA CAVA: Visualized portions are normal. LIVER: The liver is somewhat diminutive, with a right longitudinal span of 13.2 cm and left of 6.9 cm. The hepatic contour is somewhat macrolobulated. Parenchymal echogenicity is normal. No focal hepatic lesion. There is no intrahepatic biliary duct dilatation seen. GALLBLADDER: There are shadowing gallstones. The gallbladder is physiologically distended. No evidence of gallbladder wall thickening or pericholecystic fluid. COMMON BILE DUCT: Normal in caliber measuring 0.3 cm in diameter. RIGHT KIDNEY: Normal. No hydronephrosis. No renal calculi or focal parenchymal lesions. The kidney measures 11.6 cm in maximum dimension. LEFT KIDNEY: Normal. No hydronephrosis. No renal calculi or focal parenchymal lesions. The kidney measures 9.8 cm in maximum dimension. SPLEEN: Normal. The spleen measures 11.7 cm in maximum dimension. FREE FLUID: None. US/US abdomen complete IMPRESSION: 1. Hepatic echotexture is unremarkable; however, the liver is somewhat diminutive and shows a macrolobulated border, which can be seen in association with cirrhosis. Further work-up may be indicated. No focal hepatic mass or intrahepatic biliary ductal dilatation is seen. 2. There is cholelithiasis, without cholecystitis or choledocholithiasis.
== END 2022-02-14 08:26 | disposition home or self-care (01) ==
LOC: HO.US 08:25
PROVIDERS: Visit Provider Surgery
DX: R10.11 Right upper quadrant pain (principal); K75.4 Autoimmune hepatitis
CPT/HCPCS: 76700

== ENCOUNTER 2022-02-17 11:28 | Outpatient (REF) | payer OTHER, SELFPAY ==
[2022-02-17 13:01] LABS: Free T4 (Free Thyroxine) 1.17 ng/dL (0.71-1.85); Thyroid Stimulating Hormone 1.69 uIU/mL (0.32-4.0)
== END 2022-02-17 11:29 | disposition home or self-care (01) ==
LOC: HO.LAB 11:28
PROVIDERS: Visit Provider Internal Medicine Endocrinology, Diabetes & Metabolism
DX: E03.9 Hypothyroidism, unspecified (principal)
CPT/HCPCS: 36415; 84439; 84443

== ENCOUNTER 2022-03-02 13:13 | Outpatient (REF) | payer OTHER, SELFPAY ==
[2022-03-02 14:02] LABS: Binax Internal Control QC Valid; Binax Now Covid-19 Ag Positive (Negative)
== END 2022-03-02 13:14 | disposition home or self-care (01) ==
LOC: HO.HMGCLDS 13:13
PROVIDERS: Visit Provider Emergency Medicine
DX: Z20.822 Contact with and (suspected) exposure to COVID-19 (principal); J06.9 Acute upper respiratory infection, unspecified
CPT/HCPCS: 87811; C9803

== ENCOUNTER 2022-03-10 20:25 | Inpatient (IN) | payer OTHER, SELFPAY ==
--- NOTE | ~2022-03-10 | CT_ITS ---
EXAMINATION: CT HEAD WITHOUT CONTRAST CLINICAL INFORMATION: Weakness. Altered mental status. COMPARISON: None. TECHNIQUE: Contiguous axial imaging was performed from the skull base to vertex without intravenous administration of contrast. Coronal and sagittal reformatted images are performed at the CT scanner. [This CT examination was performed using dose optimization techniques as appropriate, variously including the following: *Automated exposure control *Adjustment of mA and/or kV according to patient size (this includes techniques or standardized protocols for targeted exams where dose is matched to indication/reason for exam; i.e. extremities or head) *Use of iterative reconstruction technique] DLP: 677 mGy-cm. FINDINGS: There is no evidence of acute intracranial hemorrhage or territorial infarction. No abnormal mass-effect or midline shift is seen. [place] to white matter differentiation is well preserved. No extra-axial fluid collections are identified. The ventricles are normal in size. There is no abnormal attenuation within the brain parenchyma. There is no osseous abnormality. Mucosal disease and small fluid levels in the sphenoid sinuses bilateral. Mastoid air cells and middle ear cavities are normally aerated CT/CT head/brain wo IV con IMPRESSION: No acute intracranial abnormality.
[2022-03-10 21:05] VITALS: BP 129/62; BP 133/83; PULSE 69; PULSE 70; RESP 15; TEMP 37; O2SAT 100; O2SAT 96; BMI 29.2
[2022-03-10 21:08] VITALS: BP 129/62; PULSE 71; RESP 15; TEMP 37; O2SAT 100
--- NOTE | 2022-03-10 21:30 | ECG_ITS ---
Test Reason : WEAKNESS Blood Pressure : / mmHG Vent. Rate : 067 BPM Atrial Rate : 067 BPM P-R Int : 144 ms QRS Dur : 080 ms QT Int : 404 ms P-R-T Axes : 034 020 051 degrees QTc Int : 426 ms Normal sinus rhythm Normal ECG When compared with ECG of 26-OCT-2018 12:44, Vent. rate has decreased BY 45 BPM Referred By: Yfn Perez Electronically Signed By:ANA LONG
--- NOTE | 2022-03-10 21:36 | ED_ITS ---
HPI - General Adult General Chief complaint: Weakness Stated complaint: weakness Time Seen by Provider: 03/10/22 21:30 Source: patient and family Limitations: no limitations History of Present Illness HPI narrative: This is a 62-year-old female with history of autoimmune hepatitis, chronic kidney disease, anemia, Minal's disease, hypertension, depression, chronic constipation, dysphagia, depression, who had COVID 2 weeks ago and since then has been progressively weak. The patient usually speaks normally and is active, loves to cook and bake and speaks normally. More recently the patient has been more slow to speak, complained of weakness. Patient's niece notes that the patient was assessed at home and had a normal set of vital signs. She is chronically cold. Patient has a mild headache. She denies any nasal congestion or sore throat. She denies any cough or shortness of breath. She denies abdominal pain. She has had constipation, last bowel movement a few weeks ago. She denies any dysuria, fleas she is urinating less. Her appetite has been decreased. She denies any lower extremity swelling. Related Data Home Medications Medication Instructions Recorded Confirmed metoclopramide HCl 5 mg tablet 5 mg PO BID 10/07/21 03/08/22 (Reglan) Previous Rx's Medication Instructions Recorded cholecalciferol (vitamin D3) 50 50 mcg PO DAILY 90 days #90 caps 07/21/21 mcg (2,000 unit) capsule sennosides 8.6 mg tablet (senna) 8.6 mg PO BID 30 days #60 tabs 01/05/22 linaclotide 145 mcg capsule 145 mcg PO DAILY 30 days #30 caps 01/10/22 (Linzess) loratadine 10 mg tablet 10 mg PO DAILY 90 days #90 tabs 01/10/22 levothyroxine 100 mcg tablet 100 mcg PO QAM #30 tabs 02/03/22 omeprazole 40 mg capsule,delayed 40 mg PO DAILY 90 days #90 caps 02/06/22 release escitalopram oxalate 10 mg tablet 10 mg PO DAILY 90 days #90 tabs 02/24/22 guaifenesin 600 mg tablet, 600 mg PO BID 5 days #10 tabs 03/03/22 extended release 12 hr (Mucinex) Allergies Allergy/AdvReac Type Severity Reaction Status Date / Time cefuroxime [From Ceftin] Allergy Intermediate rash Verified 03/08/22 11:18 Ukcnwnb-MVC-ZfB Reductase Allergy Intermediate transaminit Verified 03/08/22 11:18 Inhibitor is [Gtwehbq-Epi-Fnq Reductase Inhibitor] Review of Systems Review of Systems: Yes all other systems are reviewed and are negative Constitutional: Constitutional: Reports as per HPI, Denies fever(s), Reports poor appetite and Reports weakness Eyes: Eyes: Reports as per HPI and Reports no additional eye complaints ENT: Reports system reviewed and no additional complaints, except as documented, Reports as per HPI, Denies nasal congestion, Denies nasal discharge and Denies sore throat Cardiovascular: Cardiovascular: Reports as per HPI, Denies chest pain and Denies dyspnea Respiratory: Respiratory: Reports as per HPI, Denies cough and Denies dyspnea Gastrointestinal: Gastrointestinal: Reports as per HPI, Denies abdominal pain, Reports constipation, Denies diarrhea and Denies vomiting Genitourinary: Genitourinary: Reports as per HPI, Denies hematuria, Denies urinary frequency and Denies dysuria Musculoskeletal: Musculoskeletal: Reports no additional musculoskeletal complaints and Denies numbness Integumentary/Breasts: Skin/Breast: Reports as per HPI and Denies rash Neurologic: Reports as per HPI, Denies focal weakness, Denies numbness and Reports weakness Psychiatric: Psychiatric: Reports no additional psychiatric complaints and Rep orts as per HPI Endocrine: Endocrine: Reports no additional endocrine complaints and Reports as per HPI Hematologic/Lymphatic: Hematologic/Lymphatic: Reports no additional hematologic/lymphatic complaints, Reports as per HPI and Reports other (No peripheral edema) [facility] Past Medical History Medical History Arthritis Asthma Autoimmune hepatitis Back pain Chest pain CKD (chronic kidney disease) Depression Elevated cholesterol GERD (gastroesophageal reflux disease) History of depression History of DVT (deep vein thrombosis) Hx pulmonary embolism Hypertension Hypothyroid Iron deficiency anemia Mild recurrent major depression Right ankle injury (~2000) Seasonal allergies Surgical History History of ankle surgery History of colonoscopy (~2018) History of liver biopsy Hx of endoscopy (06/26/17) Family History Family History Father Myocardial infarction Hypertension H/O ETOH abuse Mother Hypertension Stroke Diabetes High cholesterol Paternal Aunt Mental health disorder Paternal Uncle Mental health disorder Social History Social History Household Members: None Housing: Apartment Are you a primary medicare insurance specialist to a significant other at home: No Do you presently have visiting nurse or other home services: Yes Alcohol intake: never Patient Tobacco Use Status: Never used Tobacco e-Cigarette/Vaping Use: Never Used Second Hand Smoke Exposure: No Use of substances other than those prescribed or required for medical reasons: No Advance Directives: No Advance Directives Information Provided: No Patient : No service: No Current occupational status: unemployed Cognitive needs: No Hearing needs: No Vision needs: Yes (glasses) Physical Exam ED Vital Signs: Vital Signs - 24 hr 03/10/22 21:05 03/10/22 21:08 Temperature 98.6 F 98.6 F Pulse Rate 70 71 Respiratory Rate 15 15 Blood Pressure 129/62 129/62 Pulse Oximetry 100 100 Oxygen Delivery Method Room Air Room Air BMI result Body Mass Index 29.2 Const Other: Patient chronically ill appearing, has a depressed affect General: no acute distress Orientation/consciousness: patient oriented x3 HENMT Head: Yes normal to inspection General nose exam: Normal external nose present Mouth: moist mucous membranes Throat: Yes posterior oropharynx normal, Yes tonsils normal and Yes uvula midline Eyes Eyelids: Yes eyelids normal Conjunctivae: conjunctivae normal Pupils: Equal, round and reactive pupils present Neck Neck: Yes supple Resp Effort & Inspection: normal respiratory effort Auscultation: clear to auscultation bilaterally Cardio Rate: regular rate Rhythm: regular rhythm Heart sounds: S1 normal heart sound present, S2 normal heart sound present, no gallops, no murmurs and no rubs GI Inspection: No distended Palpation (GI): Soft to palpation and nontender Auscultation: normal bowel sounds Skin General skin exam: other (Warm and dry) Neuro General: patient oriented x3 and CN's II-XI intact bilaterally Cranial nerves: Yes Equal, round and reactive pupils present Extrem General: Yes no pedal edema Psych Speech and movement: Slowed speech present (Psych) and Other speech and movement exam findings present (Psych) (Low volume when vocalizing); No Normal speech and movement present Affect: normal affect and Depressed mood present Attitude: cooperative Medical Decision Making MDM Narrative Medical decision making narrative: Patient with multiple medical problems, including hypothyroidism, noted by Endocrine and her most recent note to be noncompliant with medication. Patient COVID 2 weeks ago and since then has had gradual decline in function, has been noted be weak, speaking more slowly, more withdrawn, has had falls. Patient does appear chronically ill and is somewhat slow to respond, has a somewhat faint voice. Vital signs normal. Anemia at baseline. Renal function about at baseline, perhaps mildly dehydrated. Patient also has history of depression but denies feeling depressed. She does admit to poor sleep, poor appetite, and there could be an element of major depressive episode. Patient's TSH is markedly elevated at 34, though the free T4 is 0.8 which is low normal. CT of the brain was negative. Patient is to be admitted to the Medical Service, Dr. Larsen accepting Lab Data Lab results reviewed: Yes I reviewed the patient's lab results. Result diagrams: 03/10/22 21:45 03/10/22 21:45 Labs: Lab Results 03/10/22 03/10/22 Range/Units 21:45 21:45 WBC 7.4 (4.8-10.8) X10*3/uL RBC 3.28 L (4.20-5.50) X10*6/uL Hgb 10.6 L (12.0-16.0) g/dl Hct 32.1 L (37.0-47.0) % MCV 97.9 (80.0-98.0) fL MCH 32.3 (27.0-33.0) pg MCHC 33.0 (31.0-35.0) g/dl RDW 17.2 H (11.0-16.0) % Plt Count 98 L D (160-400) X10*3/uL MPV 10.8 (9.4-12.3) fL Immature Gran % (Auto) 1.2 H (0.0-0.4) % Neut % (Auto) 66.2 (45-73) % Lymph % (Auto) 23.3 (20-40) % [place] % (Auto) 7.4 (2-11) % Eos % (Auto) 1.6 (0-4) % Baso % (Auto) 0.3 (0-2) % Lymph # (Auto) 1.7 (1.2-4.9) X10*3/uL [place] # (Auto) 0.6 (0.1-1.2) X10*3/uL Eos # (Auto) 0.1 (0.0-0.4) X10*3/uL Baso # (Auto) 0.0 (0.0-0.2) X10*3/uL Abs Immat Gran (auto) 0.09 H (0.00-0.03) X10*3/uL Absolute Neuts (auto) 4.9 (2.0-8.3) x10*3/uL Absolute Nucleated RBC 0.000 (0.0-0.012) X10*3/uL Nucleated RBC % (auto) 0.0 (0.0-0.2) /100WBC Sodium 138 (135-145) mmol/L Potassium 3.9 (3.3-5.1) mmol/L Chloride 115 H (96-108) mmol/L Carbon Dioxide 9 L* D (22-29) mmol/L Anion Gap 18 (12-20) BUN 37 H (9-16) mg/dL Creatinine 2.06 H (0.5-1.4) mg/dL Estim Creat Clear Calc 23.3 Estimated GFR 24 Random Glucose 85 (60-115) mg/dL Calcium 10.1 D (8.4-10.2) mg/dL Total Bilirubin 0.5 (0.0-1.0) mg/dL AST 23 (5-31) U/L ALT 11 (0-31) U/L Alkaline Phosphatase 203 H D (39-117) U/L Total Protein 8.7 H (6.5-8.0) g/dL Albumin 3.5 (3.5-5.0) g/dL TSH 34.22 H (0.32-4.0) uIU/mL Free T4 0.81 (0.71-1.85) ng/dL Imaging Data CT scan - head: Radiologist's impression: IMPRESSION: No acute intracranial abnormality. ECG Data Attestation: I personally reviewed and interpreted this ECG as follows: Interpretation: Sinus rhythm with a rate of 67. No ST elevation or depression. Normal QRS axis. Normal EKG. Discharge Plan Discharge Clinical Impression: Chronic iron deficiency anemia, Chronic constipation, Depression, Hypothyroidism, Chronic renal insufficiency Patient Disposition: Admitted As Inpatient
[2022-03-10 21:48] LABS: MANUAL DIFF FLAG NO
[2022-03-10 21:50] LABS: Basophils Percent Auto 0.3 % (0-2); Eosinophils Absolute Auto 0.1 X10*3/uL (0.0-0.4); Eosinophils Percent Auto 1.6 % (0-4); Hematocrit 32.1 % (37.0-47.0); Hemoglobin 10.6 g/dl (12.0-16.0); Imm Gran Abs Auto 0.09 X10*3/uL (0.00-0.03); Imm Gran Pct Auto 1.2 % (0.0-0.4); Lymphocytes Absolute Auto 1.7 X10*3/uL (1.2-4.9); Lymphocytes Percent Auto 23.3 % (20-40); Mean Corpuscular Hemoglobin 32.3 pg (27.0-33.0); Mean Corpuscular Volume 97.9 fL (80.0-98.0); Mean Platelet Volume 10.8 fL (9.4-12.3); Monocytes Absolute Auto 0.6 X10*3/uL (0.1-1.2); Monocytes Percent Auto 7.4 % (2-11); Neutrophils Absolute Auto 4.9 x10*3/uL (2.0-8.3); Neutrophils Percent Auto 66.2 % (45-73); Red Blood Count 3.28 X10*6/uL (4.20-5.50); Red Cell Distribution Width 17.2 % (11.0-16.0); White Blood Count 7.4 X10*3/uL (4.8-10.8)
[2022-03-10 21:52] LABS: Platelet Count 98 X10*3/uL (160-400)
[2022-03-10 22:29] LABS: Alanine Aminotransferase 11 U/L (0-31); Albumin Level 3.5 g/dL (3.5-5.0); Alkaline Phosphatase 203 U/L (39-117); Anion Gap 18 (12-20); Aspartate Amino Transferase 23 U/L (5-31); Bilirubin Total 0.5 mg/dL (0.0-1.0); Blood Urea Nitrogen 37 mg/dL (9-16); Calcium 10.1 mg/dL (8.4-10.2); Carbon Dioxide 9 mmol/L (22-29); Chloride 115 mmol/L (96-108); Creatinine Clr Calc Pharmacy 23.3; Estimated Glomerular Filt Rate 24; Glucose Random 85 mg/dL (60-115); Potassium 3.9 mmol/L (3.3-5.1); Sodium 138 mmol/L (135-145); Total Protein 8.7 g/dL (6.5-8.0)
[2022-03-10 22:36] LABS: TSH reflex Free T4 34.22 uIU/mL (0.32-4.0)
[2022-03-10] MEDS: 0.9 % Sodium Chloride 1,000 ML 999 ML IV (23:05)
[2022-03-10 23:28] LABS: Free T4 (Free Thyroxine) 0.81 ng/dL (0.71-1.85)
--- NOTE | 2022-03-10 23:33 | PM.IMHP ---
History of Present Illness Date of Service: 03/10/22 Chief Complaint: weakness this is a 62-year-old female with past medical history of hypothyroidism, CKD, history of Minal's disease, depression, HTN, chronic iron deficiency anemia, autoimmune hepatitis, GERD, around others who presents to the hospital with complaints of severe weakness. Patient reports that she was diagnosed with COVID infection about 2 weeks ago and ever since she has had worsening weakness to the point that she has not had the ability to get out of her bed or ambulate around her house for the past 1 week. She reports low appetite and decreased oral intake, patient also reports that she has not been compliant with any of her medications including her levothyroxine for unknown amount of time. She does not give a good reason for why she does not take her medications. she does report decreased urine output. Patient otherwise denies any chest pain, no shortness of breath, no abdominal pain, No diarrhea constipation, and no lower extremity edema. No headache or change in vision. No new numbness or tingling on arrival to the ED patient with dynamic least stable no significant abnormal vitals labs are significant for WBC count 7.4, hemoglobin 10.6, creatinine of 2.06 which is around her baseline, bicarb of 9, TSH of 34.2, UA shows positive leukocyte Estrace and WBC Head CT shows no acute intracranial abnormality given the severe depression and weakness this patient is experiencing she will be treated for hypothyroidism with IV levothyroxine, hydrocortisone, will be admitted for further management Review of Systems Review of Systems: Yes all other systems are reviewed and are negative [facility] Medical History Arthritis Asthma Autoimmune hepatitis Back pain Chest pain CKD (chronic kidney disease) Depression Elevated cholesterol GERD (gastroesophageal reflux disease) History of depression History of DVT (deep vein thrombosis) Hx pulmonary embolism Hypertension Hypothyroid Iron deficiency anemia Mild recurrent major depression Right ankle injury (~2000) Seasonal allergies Family History Father Myocardial infarction Hypertension H/O ETOH abuse Mother Hypertension Stroke Diabetes High cholesterol Paternal Aunt Mental health disorder Paternal Uncle Mental health disorder Surgical History History of ankle surgery History of colonoscopy (~2018) History of liver biopsy Hx of endoscopy (06/26/17) Social History Household Members: None Housing: Apartment Are you a primary children's zoo caretaker to a significant other at home: No Do you presently have visiting nurse or other home services: Yes Alcohol intake: never Patient Tobacco Use Status: Never used Tobacco e-Cigarette/Vaping Use: Never Used Second Hand Smoke Exposure: No Use of substances other than those prescribed or required for medical reasons: No Advance Directives: No Advance Directives Information Provided: No Patient : No service: No Current occupational status: unemployed Cognitive needs: No Hearing needs: No Vision needs: Yes (glasses) Meds Allergies Allergy/AdvReac Type Severity Reaction Status Date / Time cefuroxime [From Ceftin] Allergy Intermediate rash Verified 03/08/22 11:18 Yprlfvu-QCI-VzC Reductase Allergy Intermediate transaminit Verified 03/08/22 11:18 Inhibitor is [Gjdgtxo-Mwt-Khk Reductase Inhibitor] Active Medications: Current Medications Sodium Chloride (Ns) 1,000 mls @ 999 mls/hr IV .Q1H1M [place] Stop: 03/10/22 23:45 Last Admin: 03/10/22 23:05 Dose: 999 mls/hr Home Medications Medication Instructions Recorded Confirmed Last Taken Type metoclopramide HCl 5 mg tablet 5 mg PO BID 10/07/21 03/11/22 Unknown History (Reglan) tramadol 50 mg tablet 1 tab PO BID PRN pain 03/11/22 03/11/22 Unknown History Physical Exam Vital Signs and Narrative: Vital Signs: Last Vital Signs Temp 98.6 F 03/10/22 21:08 Pulse 71 03/10/22 21:08 Resp 15 03/10/22 21:08 BP 129/62 03/10/22 21:08 Pulse Ox 100 03/10/22 21:08 O2 Del Method 03/10/22 21:08 BMI result Body Mass Index 29.2 Const: Other: appears cachectic ill-appearing General: cooperative Orientation/consciousness: patient oriented x3 Eyes: General: appearance normal, both eyes and all related structures Resp: Effort & Inspection: normal respiratory effort Auscultation: clear to auscultation bilaterally Cardio: Rate: regular rate Rhythm: regular rhythm GI: Palpation (GI): Soft to palpation Auscultation: normal bowel sounds Skin: General skin exam: no rashes or lesions noted Neuro: General: patient oriented x3 Cognition (Neuro): normal cognition Extrem: General: Yes normal to inspection and Yes no pedal edema Psych: Other: significantly depressed mood Results Labs CBC and Chem 7: 03/10/22 21:45 03/10/22 21:45 Labs: Laboratory Results - last 24 hr 03/10/22 03/10/22 21:45 21:45 MCV 97.9 MCH 32.3 MCHC 33.0 RDW 17.2 H Plt Count 98 L D MPV 10.8 Immature Gran % (Auto) 1.2 H Neut % (Auto) 66.2 Lymph % (Auto) 23.3 [place] % (Auto) 7.4 Eos % (Auto) 1.6 Baso % (Auto) 0.3 Lymph # (Auto) 1.7 Will # (Auto) 0.6 Eos # (Auto) 0.1 Baso # (Auto) 0.0 Abs Immat Gran (auto) 0.09 H Absolute Neuts (auto) 4.9 Absolute Nucleated RBC 0.000 Nucleated RBC % (auto) 0.0 Anion Gap 18 Estim Creat Clear Calc 23.3 Estimated GFR 24 Random Glucose 85 Calcium 10.1 D Total Bilirubin 0.5 AST 23 ALT 11 Alkaline Phosphatase 203 H D Total Protein 8.7 H Albumin 3.5 TSH 34.22 H Free T4 0.81 Imaging Radiologist's Impressions: Impressions Head CT 03/10/22 22:30 IMPRESSION: No acute intracranial abnormality. Assessment and Plan (1) Myxedema coma: Status: Acute (2) Depression: Status: Acute (3) Hypothyroidism: Status: Acute (4) Noncompliance with medication regimen: Status: Acute Plan this is a 62-year-old female past medical history of hypothyroidism and history of noncompliance with medication presents to the hospital in severe weakness and depression found to have an elevated TSH level # hypothyroidism - patient has evidence of myxedema coma including depression, severe weakness, likely brought on by acute illness in the setting of recent COVID infection and noncompliance with medications - she has Hypoglycemia, hypertension, no bradycardia or hypothermia at this time - T3 pending, cortisol level pending - will treat with IV steroids, as well as IV levothyroxine high-dose - that IV levothyroxine daily, continue IV hydrocortisone q.8- until cortisol random level is resulted - monitor mental status - admit to telemetry # depression - likely multifactorial in the setting of hypothyroidism as well as underlying depressive disorder - psychiatry consulted # noncompliance with medications - history with noncompliance with her levothyroxine - psych consulted to evaluate underlying etiology for her depression/ noncompliance # CKD - stable at baseline - continue BMP daily DVT prophylaxis: Heparin subQ Pt will require a minimum 2 night hospital stay for myxedema coma Quality Stroke Does the patient have a stroke diagnosis?: No VTE Prior VTE?: No VTE Risk Level:: Medical - moderate - high VTE Device Contraindication: Treatment Not Indicated VTE Drug Contraindication: N/A - Med Ordered
[2022-03-10] MEDS: Heparin Sodium,Porcine 5,000 UNIT/ML VIAL 5000 UNIT SUBCUT (23:53)
[2022-03-10] MEDS: Hydrocortisone Sod Succ/PF 100 MG VIAL IVPUSH (23:54)
[2022-03-10] MEDS: Levothyroxine Sodium 100 MCG/5 ML VIAL 300 MCG IVPUSH (23:54)
[2022-03-11 00:28] VITALS: BP 140/58; PULSE 69; RESP 18; TEMP 37; O2SAT 100
[2022-03-11 01:04] LABS: Cortisol Random 10.2 ug/dL
[2022-03-11 01:31] LABS: Appearance Urine Clear; Color Urine Yellow; Glucose Urine UA Negative (Negative); Leukocyte Esterase Urine Small (1+) (Negative); Nitrite Urine Negative (Negative); Specific Gravity - Urine 1.015 (1.005-1.025); UMIC TRIGGER UACC YES; Urine Blood Negative (Negative); Urine Ketones Trace mg/dL (Negative); Urine Protein 30 (1+) mg/dL (Neg-Trace)
[2022-03-11 01:33] LABS: Bacteria Urine None Seen (None Seen); RBC Urine 0-2 /HPF (0-2); Squamous Epithelial Cell Urine 0-2 /HPF (0-2); UACC Culture Trigger YES
[2022-03-11 02:01] LABS: COVID-19 Test Negative (Negative); IDNOW Serial# 9DB6401D
[2022-03-11] MEDS: Lactated Ringers 1,000 ML 100 ML IVCONT ×2 (02:02→16:35)
--- NOTE | 2022-03-11 05:02 | PC.NURSE ---
Pt came in via EMS for weakness. Pt family stated she had covid 2 weeks ago and she has had increasing weakness since. Two weeks ago, pt was reportedly up, walking around, helping at a soup kitchen. Today, pt can hardly walk on her own. Pt is A&Ox4 but slow to answer Pt is very hushed and short with her responses. Pt has been comfortable in bed all nigth with no complaints.
[2022-03-11] MEDS: Levothyroxine Sodium 100 MCG/5 ML VIAL IVPUSH (06:18)
[2022-03-11] MEDS: levoFLOXacin/D5W 750 MG/150 ML PIGGYBACK 100 MG IV (06:40)
[2022-03-11 06:52] LABS: MANUAL DIFF FLAG NO
[2022-03-11 06:54] LABS: Basophils Percent Auto 0.4 % (0-2); Eosinophils Percent Auto 0.4 % (0-4); Hematocrit 28.8 % (37.0-47.0); Hemoglobin 9.4 g/dl (12.0-16.0); Imm Gran Abs Auto 0.17 X10*3/uL (0.00-0.03); Imm Gran Pct Auto 3.2 % (0.0-0.4); Lymphocytes Percent Auto 18.2 % (20-40); Mean Corpuscular HGB Conc 32.6 g/dl (31.0-35.0); Mean Corpuscular Hemoglobin 32.3 pg (27.0-33.0); Mean Platelet Volume 11.1 fL (9.4-12.3); Monocytes Absolute Auto 0.3 X10*3/uL (0.1-1.2); Monocytes Percent Auto 4.6 % (2-11); Neutrophils Percent Auto 73.2 % (45-73); Red Blood Count 2.91 X10*6/uL (4.20-5.50); Red Cell Distribution Width 16.6 % (11.0-16.0); White Blood Count 5.4 X10*3/uL (4.8-10.8)
[2022-03-11 06:55] LABS: Platelet Count 77 X10*3/uL (160-400)
[2022-03-11 06:56] LABS: Venous Blood Gas Refer to POC result
[2022-03-11 06:58] LABS: VBG Base Excess -16.7 mmol/L; VBG HCO3 9 mmol/L (22-26); VBG pCO2 25 mmHg; VBG pH 7.18 (7.32-7.43); VBG pO2 51 mmHg
--- NOTE | 2022-03-11 06:58 | PHA.MEDREC ---
Pharmacy Consult ? Medication Reconciliation Pharmacy has completed the medication reconciliation.Med rec done by nursing, verified by pharmacy Justyna Trinidad
[2022-03-11 07:40] LABS: Anion Gap 16 (12-20); Blood Urea Nitrogen 33 mg/dL (9-16); Calcium 9.2 mg/dL (8.4-10.2); Carbon Dioxide 9 mmol/L (22-29); Chloride 119 mmol/L (96-108); Creatinine Clr Calc Pharmacy 28.7; Estimated Glomerular Filt Rate 31; Glucose Random 99 mg/dL (60-115); Sodium 140 mmol/L (135-145)
--- NOTE | 2022-03-11 07:47 | PC.NURSE ---
Critical result received from the lab. Sodium Dioxide = 9. [place] text sent to Dr. Becker.
[2022-03-11 08:36] VITALS: BP 129/66; PULSE 74; RESP 19; TEMP 36.4; O2SAT 94
[2022-03-11] MEDS: Sodium Bicarbonate 8.4% 150 MEQ in Dextrose 5 % 850 ML 50 MEQ IV (08:36)
--- NOTE | 2022-03-11 09:18 | HO.PM.IMPN ---
Subjective Subjective Date of Service: 03/11/22 Interval History: Seen in f/u d/t weakness, metabolic acidosis and severe hypothyroidism interval history: bicab remains, she states she was not taking meds because she could not swallow Review of Systems weakness, no fever,no sob Physical Exam Vital Signs: Vital Signs: Last Vital Signs Temp 97.6 F 03/11/22 08:36 Pulse 74 03/11/22 08:36 Resp 19 03/11/22 08:36 BP 129/66 03/11/22 08:36 Pulse Ox 94 03/11/22 08:36 O2 Del Method 03/11/22 08:36 BMI result Body Mass Index 29.2 Const: Other: , General: AO X 3, no acute distress Resp: CTA bilateral CVS: S1,S2,RRR GI: +BS, NT, no distention Skin: No rash Neuro: motor grossly intact Psych: appropriate affect Objective Data Active Medications Acetaminophen (Acetaminophen 325 Mg Tablet) 650 mg PO Q6H PRN PRN Reason: Pain, Mild (Pain Scale 1-3) Docusate Sodium (Docusate Sodium 100 Mg Capsule) 100 mg PO DAILY PRN PRN Reason: Constipation Escitalopram Oxalate (Escitalopram Oxalate 10 Mg Tablet) 10 mg PO DAILY [facility] Heparin Sodium (Porcine) (Heparin Sodium,Porcine 5,000 Unit/Ml Vial) 5,000 unit SUBCUT Q12H [facility] Last Admin: 03/10/22 23:53 Dose: 5,000 unit Documented By: JENN Hydrocortisone Sodium Succinate (Hydrocortisone Sod Succ/Pf 100 Mg Vial) 100 mg IVPUSH Q8H [facility] Last Admin: 03/10/22 23:54 Dose: 100 mg Documented By: JENN Lactated Ringer's (Lr) 1,000 mls @ 100 mls/hr IVCONT .Q10H [facility] Last Admin: 03/11/22 02:02 Dose: 100 mls/hr Documented By: JENN Levofloxacin (Levaquin) 750 mg in 150 mls @ 100 mls/hr IV Q48H [facility] Last Admin: 03/11/22 06:40 Dose: 100 mls/hr Documented By: JENN Sodium Bicarbonate 150 meq/ (Dextrose) 1,000 mls @ 50 mls/hr IV .Q20H [facility] Last Admin: 03/11/22 08:36 Dose: 50 mls/hr Documented By: SELVIN Levothyroxine Sodium (Levothyroxine Sodium 100 Mcg/5 Ml Vial) 100 mcg IVPUSH DAILY@0600 [facility] Last Admin: 03/11/22 06:18 Dose: 100 mcg Documented By: JENN Loratadine (Loratadine 10 Mg Tablet) 10 mg PO DAILY [facility] Non-Formulary Medication (Linaclotide [Linzess]) 145 mcg PO DAILY [facility] Omeprazole (Omeprazole 40 Mg Capsule.Dr) 40 mg PO DAILY [facility] Ondansetron HCl (Ondansetron Hcl 4 Mg/2 Ml Vial) 4 mg IVPUSH Q8H PRN PRN Reason: Nausea and Vomiting Senna (Sennosides 8.6 Mg Tablet) 8.6 mg PO BID [facility] Sodium Chloride (0.9 % Sodium Chloride Flush 3 Ml Syringe) 3 ml IVFLUSH QSHIFT [facility] Last Admin: 03/11/22 01:36 Dose: Not Given Documented By: JENN Non-Admin Reason: IV Running Vitamin D (Cholecalciferol (Vitamin D3) 25 Mcg Tablet) 50 mcg PO DAILY [facility] Labs CBC & Chem 7: 03/11/22 06:08 03/11/22 06:08 Labs: Laboratory Results - last 24 hr 03/10/22 03/10/22 03/10/22 21:45 21:45 21:45 MCV 97.9 MCH 32.3 MCHC 33.0 RDW 17.2 H Plt Count 98 L D MPV 10.8 Immature Gran % (Auto) 1.2 H Neut % (Auto) 66.2 Lymph % (Auto) 23.3 [place] % (Auto) 7.4 Eos % (Auto) 1.6 Baso % (Auto) 0.3 Lymph # (Auto) 1.7 [place] # (Auto) 0.6 Eos # (Auto) 0.1 Baso # (Auto) 0.0 Abs Immat Gran (auto) 0.09 H Absolute Neuts (auto) 4.9 Absolute Nucleated RBC 0.000 Nucleated RBC % (auto) 0.0 VBG pH VBG pCO2 VBG pO2 VBG HCO3 VBG O2 Saturation VBG Base Excess Anion Gap 18 Estim Creat Clear Calc 23.3 Estimated GFR 24 Random Glucose 85 Calcium 10.1 D Total Bilirubin 0.5 AST 23 ALT 11 Alkaline Phosphatase 203 H D Total Protein 8.7 H Albumin 3.5 TSH 34.22 H Free T4 0.81 Random Cortisol 10.2 Urine Color Urine Appearance Urine pH Ur Specific [place] Urine Protein Urine Glucose (UA) Urine Ketones Urine Blood Urine Nitrite Ur Leukocyte Esterase Urine RBC Urine WBC Ur Squamous Epith Cells Urine Bacteria Hyaline Casts COVID-19 (ONUR) COVID-19 Clin Com 03/11/22 03/11/22 03/11/22 01:22 01:22 06:08 MCV 99.0 H MCH 32.3 MCHC 32.6 RDW 16.6 H Plt Count 77 L MPV 11.1 Immature Gran % (Auto) 3.2 H Neut % (Auto) 73.2 H Lymph % (Auto) 18.2 L [place] % (Auto) 4.6 Eos % (Auto) 0.4 Baso % (Auto) 0.4 Lymph # (Auto) 1.0 L [place] # (Auto) 0.3 Eos # (Auto) 0.0 Baso # (Auto) 0.0 Abs Immat Gran (auto) 0.17 H Absolute Neuts (auto) 4.0 Absolute Nucleated RBC 0.000 Nucleated RBC % (auto) 0.0 VBG pH VBG pCO2 VBG pO2 VBG HCO3 VBG O2 Saturation VBG Base Excess Anion Gap Estim Creat Clear Calc Estimated GFR Random Glucose Calcium Total Bilirubin AST ALT Alkaline Phosphatase Total Protein Albumin TSH Free T4 Random Cortisol Urine Color Yellow Urine Appearance Clear Urine pH 6.0 Ur Specific [place] 1.015 Urine Protein 30 (1+) H Urine Glucose (UA) Negative Urine Ketones Trace Urine Blood Negative Urine Nitrite Negative Ur Leukocyte Esterase Small (1+) H Urine RBC 0-2 Urine WBC 6-10 H Ur Squamous Epith Cells 0-2 Urine Bacteria None Seen Hyaline Casts 3-5 COVID-19 (ONUR) Negative COVID-19 Clin Com See Note 03/11/22 03/11/22 06:08 06:49 MCV MCH MCHC RDW Plt Count MPV Immature Gran % (Auto) Neut % (Auto) Lymph % (Auto) [place] % (Auto) Eos % (Auto) Baso % (Auto) Lymph # (Auto) [place] # (Auto) Eos # (Auto) Baso # (Auto) Abs Immat Gran (auto) Absolute Neuts (auto) Absolute Nucleated RBC Nucleated RBC % (auto) VBG pH 7.18 L* VBG pCO2 25 VBG pO2 51 VBG HCO3 9 L VBG O2 Saturation 80.0 VBG Base Excess -16.7 Anion Gap 16 Estim Creat Clear Calc 28.7 Estimated GFR 31 Random Glucose 99 Calcium 9.2 D Total Bilirubin AST ALT Alkaline Phosphatase Total Protein Albumin TSH Free T4 Random Cortisol Urine Color Urine Appearance Urine pH Ur Specific [place] Urine Protein Urine Glucose (UA) Urine Ketones Urine Blood Urine Nitrite Ur Leukocyte Esterase Urine RBC Urine WBC Ur Squamous Epith Cells Urine Bacteria Hyaline Casts COVID-19 (ONUR) COVID-19 Clin Com Assessment and Plan (1) Noncompliance with medication regimen: Status: Acute (2) Hypothyroidism: Status: Acute (3) Chronic renal insufficiency: Status: Acute Plan this is a 62-year-old female past medical history of hypothyroidism and history of noncompliance with medication presents to the hospital in severe weakness and depression found to have an elevated TSH level # hypothyroidism - patient has evidence of myxedema coma including depression, severe weakness, likely brought on by acute illness in the setting of recent COVID infection and noncompliance with medications - she has Hypoglycemia, hypertension, no bradycardia or hypothermia at this time ..T4 is normal at 0.81, [id number], random cortisol 10. Her TSH feb 1 was 1.69 - will treat with IV steroids for now, IV levothyroxine but can be changed to oral if able to swallow - monitor mental status - admit to telemetry #CKD3 with mild SHELLEY that has resolved with IVF #Metabolic acidosis with bicab of 9 -- Bicab replacement and Nephrology conslt # depression - likely multifactorial in the setting of hypothyroidism as well as underlying depressive disorder - psychiatry consulted # noncompliance with medications - history with noncompliance with her levothyroxine - psych consulted to evaluate underlying etiology for her depression/ noncompliance # Claim of not able to swallow, will get swallow eval DVT prophylaxis: Heparin subQ Need for inpatient : severe hypothyrosidims needing IV replacement, metabolic acidosis severe and need IVF and bicab replacement and close monitoring Quality Stroke Does the patient have a stroke diagnosis?: No VTE Prior VTE?: No VTE Risk Level:: Medical - moderate - high VTE Device Contraindication: Treatment Not Indicated VTE Drug Contraindication: N/A - Med Ordered
[2022-03-11] MEDS: Hydrocortisone Sod Succ/PF 100 MG VIAL 50 MG IVPUSH ×2 (10:02→21:31)
[2022-03-11] MEDS: Escitalopram Oxalate 10 MG TABLET PO (10:03)
[2022-03-11] MEDS: Omeprazole 40 MG CAPSULE.DR PO (10:03)
[2022-03-11] MEDS: Loratadine 10 MG TABLET PO (10:03)
[2022-03-11] MEDS: Cholecalciferol (Vitamin D3) 25 MCG TABLET 50 MCG PO (10:04)
[2022-03-11] MEDS: Sennosides 8.6 MG TABLET PO ×2 (10:04→21:30)
[2022-03-11] MEDS: 0.9 % Sodium Chloride Flush 3 ML SYRINGE IVFLUSH ×2 (10:05→21:31)
--- NOTE | 2022-03-11 11:25 | PC.NURSE ---
Pt being transferred to room 472. RN to RN report given to
--- NOTE | 2022-03-11 11:52 | MHC.CM.PN ---
met with pt an sister in ed pt has a check airman daily and a vna unsure of agencey pt covid vax x 3 pts pcp is esthela has transport home filed hcp naming sister
[2022-03-11 12:00] VITALS: BP 136/60; PULSE 61; RESP 17; TEMP 37; O2SAT 100
[2022-03-11] MEDS: Heparin Sodium,Porcine 5,000 UNIT/ML VIAL 5000 UNIT SUBCUT ×2 (12:33→21:30)
[2022-03-11 15:14] VITALS: BP 146/62; PULSE 61; RESP 18; TEMP 36.3; O2SAT 100
--- NOTE | 2022-03-11 16:25 | PM.PSYCN ---
History of Present Illness Date of Service: 03/11/2022 Chief Complaint: Severe Hypothyrodsim Reason for Consult: medication Requesting physician: Pascual Larsen Sources of Information: patient interviewed and chart reviewed HPI Narrative: Becky is a 62-year-old female with past medical history of hypothyroidism, CKD, history of Minal's disease, depression, HTN, chronic iron deficiency anemia, autoimmune hepatitis, and GERD. She presented to [facility] on 03/10/2022 due to severe weakness. Pt was positive for COVID infection about 2 weeks ago and felt weak to the point that she would not get out of her bed or ambulate around her house. She was not adequately feeding herself, non-adherent with her meds including levothyroxine and lexapro during this time. Pt was admitted to [facility] for hypothyroidism, s/s of myxedema coma including depression, severe weakness. Psych consult placed for medication due to pt presenting with depression. I spoke with pt?s RN, who reports pt presents with low affect, delayed responses. I spoke with the pt, she says ?Im okay.? She has not been taking lexapro 2 weeks, started by her PCP for worsening anxiety. Pt says she had actually stopped taking lexapro because she did not think it was working, however she had only been on it x one month, ?I dont see no difference so i stopped it.? She reports she has always been anxious and depressed but was able to cope through it and manage without psych attention. She denies hx of OP psych treatment or hx of psych IPLOC. Says she has always had issues with getting enough sleep, energy is low, this is a long standing issue. Her appetite is also low. Says she feels anxious before sleep, worries about her nephew who has cancer, misses her grandkids. She reports hx of panic attacks, ?I end up panicking when i go and take a bath and go into bed.? Also reports worsening agoraphobia x a few years due to panicking when she leaves the house. Says her sister helps her by bringing her groceries. She denies SI/SIB, protective factor includes her grandkids. Pt endorses AH, hears voices, ?they talk about my grandkids.? The voices are negative, she hears them when she watches tv. Says she can ignore them, ?I just tell them to knock it off and that?s it.? Has had AH for years, ?I get it when im depressed.?? Past Psychiatric History: -Denies Medical Evaluation Reviewed: Yes [facility] Medical History Arthritis Asthma Autoimmune hepatitis Back pain Chest pain CKD (chronic kidney disease) Depression Elevated cholesterol GERD (gastroesophageal reflux disease) History of depression History of DVT (deep vein thrombosis) Hx pulmonary embolism Hypertension Hypothyroid Iron deficiency anemia Mild recurrent major depression Right ankle injury (~2000) Seasonal allergies Surgical History History of ankle surgery History of colonoscopy (~2018) History of liver biopsy Hx of endoscopy (06/26/17) Diagnostics Vital Signs (24Hr): Vital Signs - 24 hr 03/10/22 21:05 03/10/22 21:08 03/11/22 00:28 Temperature 98.6 F 98.6 F 98.6 F Pulse Rate 70 71 69 Respiratory Rate 15 15 18 Blood Pressure 129/62 129/62 140/58 H Pulse Oximetry 100 100 100 Oxygen Delivery Method Room Air Room Air Room Air 03/11/22 08:36 03/11/22 12:00 03/11/22 15:14 Temperature 97.6 F 98.6 F 97.4 F Pulse Rate 74 61 61 Respiratory Rate 19 17 18 Blood Pressure 129/66 136/60 146/62 H Pulse Oximetry 94 100 100 Oxygen Delivery Method Room Air Room Air Room Air BMI result Body Mass Index 29.2 Labs Results: 03/11/22 06:08 03/11/22 06:08 Labs: Laboratory Results - last 48 hr 03/10/22 03/10/22 03/10/22 21:45 21:45 21:45 WBC 7.4 RBC 3.28 L Hgb 10.6 L Hct 32.1 L MCV 97.9 MCH 32.3 MCHC 33.0 RDW 17.2 H Plt Count 98 L D MPV 10.8 Immature Gran % (Auto) 1.2 H Neut % (Auto) 66.2 Lymph % (Auto) 23.3 [place] % (Auto) 7.4 Eos % (Auto) 1.6 Baso % (Auto) 0.3 Lymph # (Auto) 1.7 [place] # (Auto) 0.6 Eos # (Auto) 0.1 Baso # (Auto) 0.0 Abs Immat Gran (auto) 0.09 H Absolute Neuts (auto) 4.9 Absolute Nucleated RBC 0.000 Nucleated RBC % (auto) 0.0 VBG pH VBG pCO2 VBG pO2 VBG HCO3 VBG O2 Saturation VBG Base Excess Sodium 138 Potassium 3.9 Chloride 115 H Carbon Dioxide 9 L* D Anion Gap 18 BUN 37 H Creatinine 2.06 H Estim Creat Clear Calc 23.3 Estimated GFR 24 Random Glucose 85 Calcium 10.1 D Total Bilirubin 0.5 AST 23 ALT 11 Alkaline Phosphatase 203 H D Total Protein 8.7 H Albumin 3.5 TSH 34.22 H Free T4 0.81 Random Cortisol 10.2 Urine Color Urine Appearance Urine pH Ur Specific [place] Urine Protein Urine Glucose (UA) Urine Ketones Urine Blood Urine Nitrite Ur Leukocyte Esterase Urine RBC Urine WBC Ur Squamous Epith Cells Urine Bacteria Hyaline Casts COVID-19 (ONUR) COVID-19 Clin Com 03/11/22 03/11/22 03/11/22 01:22 01:22 06:08 WBC 5.4 RBC 2.91 L Hgb 9.4 L Hct 28.8 L MCV 99.0 H MCH 32.3 MCHC 32.6 RDW 16.6 H Plt Count 77 L MPV 11.1 Immature Gran % (Auto) 3.2 H Neut % (Auto) 73.2 H Lymph % (Auto) 18.2 L [place] % (Auto) 4.6 Eos % (Auto) 0.4 Baso % (Auto) 0.4 Lymph # (Auto) 1.0 L [place] # (Auto) 0.3 Eos # (Auto) 0.0 Baso # (Auto) 0.0 Abs Immat Gran (auto) 0.17 H Absolute Neuts (auto) 4.0 Absolute Nucleated RBC 0.000 Nucleated RBC % (auto) 0.0 VBG pH VBG pCO2 VBG pO2 VBG HCO3 VBG O2 Saturation VBG Base Excess Sodium Potassium Chloride Carbon Dioxide Anion Gap BUN Creatinine Estim Creat Clear Calc Estimated GFR Random Glucose Calcium Total Bilirubin AST ALT Alkaline Phosphatase Total Protein Albumin TSH Free T4 Random Cortisol Urine Color Yellow Urine Appearance Clear Urine pH 6.0 Ur Specific [place] 1.015 Urine Protein 30 (1+) H Urine Glucose (UA) Negative Urine Ketones Trace Urine Blood Negative Urine Nitrite Negative Ur Leukocyte Esterase Small (1+) H Urine RBC 0-2 Urine WBC 6-10 H Ur Squamous Epith Cells 0-2 Urine Bacteria None Seen Hyaline Casts 3-5 COVID-19 (ONUR) Negative COVID-19 Clin Com See Note 03/11/22 03/11/22 06:08 06:49 WBC RBC Hgb Hct MCV MCH MCHC RDW Plt Count MPV Immature Gran % (Auto) Neut % (Auto) Lymph % (Auto) [place] % (Auto) Eos % (Auto) Baso % (Auto) Lymph # (Auto) [place] # (Auto) Eos # (Auto) Baso # (Auto) Abs Immat Gran (auto) Absolute Neuts (auto) Absolute Nucleated RBC Nucleated RBC % (auto) VBG pH 7.18 L* VBG pCO2 25 VBG pO2 51 VBG HCO3 9 L VBG O2 Saturation 80.0 VBG Base Excess -16.7 Sodium 140 Potassium 4.0 Chloride 119 H Carbon Dioxide 9 L* Anion Gap 16 BUN 33 H Creatinine 1.67 H Estim Creat Clear Calc 28.7 Estimated GFR 31 Random Glucose 99 Calcium 9.2 D Total Bilirubin AST ALT Alkaline Phosphatase Total Protein Albumin TSH 14.80 H Free T4 Random Cortisol Urine Color Urine Appearance Urine pH Ur Specific [place] Urine Protein Urine Glucose (UA) Urine Ketones Urine Blood Urine Nitrite Ur Leukocyte Esterase Urine RBC Urine WBC Ur Squamous Epith Cells Urine Bacteria Hyaline Casts COVID-19 (ONUR) COVID-19 Clin Com Imaging Radiology Impressions: ITS Impressions Head CT 03/10/22 22:30 IMPRESSION: No acute intracranial abnormality. Mental Status Exam Mental Status Exam Patient Appearance: Fatigued Patient Orientation: Person, Place, Time and Situation Level of Consciousness: Awake and Drowsy Patient Behavior: Anxious and Fatigued Mood Description: Anxious Affect Description: Anxious Patient Cognition Impaired: No Ability to Follow Directions: Good Speech Pattern: Soft-Spoken and Delayed Memory Description: Intact Hallucinations: Auditory Delusions: Not Present Thought Process: Slowed Thinking Thought Content: positive for Preoccupation Depressive Symptoms: Increased Anxiety, Difficulty Sleeping, Increased Fatigue, Loss of Energy and Difficulty Concentrating Judgement: Fair Medications Medications Current Medications Acetaminophen (Acetaminophen 325 Mg Tablet) 650 mg PO Q6H PRN PRN Reason: Pain, Mild (Pain Scale 1-3) Docusate Sodium (Docusate Sodium 100 Mg Capsule) 100 mg PO DAILY PRN PRN Reason: Constipation Escitalopram Oxalate (Escitalopram Oxalate 10 Mg Tablet) 10 mg PO DAILY [facility] Last Admin: 03/11/22 10:03 Dose: 10 mg Heparin Sodium (Porcine) (Heparin Sodium,Porcine 5,000 Unit/Ml Vial) 5,000 unit SUBCUT Q12H [facility] Last Admin: 03/11/22 12:33 Dose: 5,000 unit Hydrocortisone Sodium Succinate (Hydrocortisone Sod Succ/Pf 100 Mg Vial) 50 mg IVPUSH Q12H [facility] Last Admin: 03/11/22 10:02 Dose: 50 mg Lactated Ringer's (Lr) 1,000 mls @ 100 mls/hr IVCONT .Q10H [facility] Last Admin: 03/11/22 02:02 Dose: 100 mls/hr Levofloxacin (Levaquin) 750 mg in 150 mls @ 100 mls/hr IV Q48H [facility] Last Infusion: 03/11/22 11:56 Dose: Infused Sodium Bicarbonate 150 meq/ (Dextrose) 1,000 mls @ 50 mls/hr IV .Q20H [facility] Last Admin: 03/11/22 08:36 Dose: 50 mls/hr Levothyroxine Sodium (Levothyroxine Sodium 100 Mcg/5 Ml Vial) 100 mcg IVPUSH DAILY@0600 [facility] Last Admin: 03/11/22 06:18 Dose: 100 mcg Loratadine (Loratadine 10 Mg Tablet) 10 mg PO DAILY [facility] Last Admin: 03/11/22 10:03 Dose: 10 mg Non-Formulary Medication (Linaclotide [Linzess]) 145 mcg PO DAILY [facility] Omeprazole (Omeprazole 40 Mg Capsule.Dr) 40 mg PO DAILY [facility] Last Admin: 03/11/22 10:03 Dose: 40 mg Ondansetron HCl (Ondansetron Hcl 4 Mg/2 Ml Vial) 4 mg IVPUSH Q8H PRN PRN Reason: Nausea and Vomiting Senna (Sennosides 8.6 Mg Tablet) 8.6 mg PO BID [facility] Last Admin: 03/11/22 10:04 Dose: 8.6 mg Sodium Chloride (0.9 % Sodium Chloride Flush 3 Ml Syringe) 3 ml IVFLUSH QSHIFT [facility] Last Admin: 03/11/22 16:02 Dose: Not Given Vitamin D (Cholecalciferol (Vitamin D3) 25 Mcg Tablet) 50 mcg PO DAILY [place] Last Admin: 03/11/22 10:04 Dose: 50 mcg Allergies Allergies Allergy/AdvReac Type Severity Reaction Status Date / Time cefuroxime [From Ceftin] Allergy Intermediate rash Verified 03/08/22 11:18 [id number] Reductase Allergy Intermediate transaminit Verified 03/08/22 11:18 Inhibitor is [Vnfrfmj-Gwk-Waj Reductase Inhibitor] Assessment & Plan Assessment & Plan (1) Myxedema coma: Status: Acute Code(s): E03.5 - Myxedema coma (2) MDD (major depressive disorder), recurrent, severe, with psychosis: Status: Acute Code(s): F33.3 - Major depressive disorder, recurrent, severe with psychotic symptoms (3) Panic disorder: Status: Acute Code(s): F41.0 - Panic disorder [episodic paroxysmal anxiety] Plan Plan: Discussed with pt that her trial on lexapro was probably too brief to notice a difference, as she was on it x one month and evidence based data shows for anxiety, medication may take 6-8 weeks. Pt is willing to re-trial it, was re-started on admission. Will start risperdal 0.5 mg BID for panic, agoraphobia, and AH. Discussed with pt risks and side effects. Will monitor for benefit. Attempted to obtain collateral info from pt's sister, however she did not answer phone and I left a VM. Psych will follow. At this time pt has capacity to make medical decisions. She is also not meeting criteria for IPLOC as there is no risk for imminent harm. However, pt may benefit from OP therapy and psych services, would consult CARE team for referrals upon medical clearance. Thank you for this consultation. If you have any questions or concerns, please do not hesitate to contact psychiatry service. I spent minutes with the patient and/or on the patient floor today, greater than?50% of which was spent counseling/coordinating care. Patient educated on: diagnosis, medication risk/benefits and therapeutic strategies
[2022-03-11 19:20] VITALS: BP 142/64; PULSE 56; RESP 17; TEMP 36.8; O2SAT 100
[2022-03-11] MEDS: risperiDONE 0.5 MG TABLET PO (21:30)
[2022-03-11] MEDS: Acetaminophen 325 MG TABLET 650 MG PO (21:36)
[2022-03-11 23:36] VITALS: BP 126/58; PULSE 58; RESP 18; TEMP 36.4; O2SAT 99
[2022-03-12] VITALS (7 sets, daily range): BP systolic 106–133; BP diastolic 53–63; PULSE 61–92; RESP 17–20; TEMP 36.3–36.9; O2SAT 92–100
[2022-03-12] MEDS: Sodium Bicarbonate 8.4% 150 MEQ in Dextrose 5 % 850 ML 50 MEQ IV (05:52)
[2022-03-12] MEDS: Levothyroxine Sodium 100 MCG/5 ML VIAL IVPUSH (05:52)
[2022-03-12] MEDS: Lactated Ringers 1,000 ML 100 ML IVCONT ×2 (05:52→16:28)
--- NOTE | 2022-03-12 09:09 | HO.PM.IMPN ---
Subjective Subjective Date of Service: 03/12/22 Interval History: Seen for followup for myxedema coma Pt reports fatigue and generalized weakness. Also constipation. Reports last BM 2 weeks ago. Denies abd pain, n/v. Physical Exam Vital Signs: Vital Signs: Last Vital Signs Temp 97.4 F 03/12/22 07:49 Pulse 63 03/12/22 07:49 Resp 20 03/12/22 07:49 BP 117/62 03/12/22 07:49 Pulse Ox 98 03/12/22 07:49 O2 Del Method 03/12/22 07:49 BMI result Body Mass Index 29.2 Constitutional - Awake and Alert, No apparent distress Eyes - PERRLA, EOMI Cardiovascular - S1S2, RRR, No edema Respiratory - Normal lung expansion, Normal respiratory effort, No respiratory distress, CTA bilaterally Gastrointestinal - b/l lower abd ttp without guarding or rebound. ND; +BS Skin - Warm/Dry. Hair thinning Neurological - Alert & oriented x3, CN II-XII in tact, 3/5 strength BUE and BLE Psychological -depressed mood, flat affect Objective Data Active Medications Acetaminophen (Acetaminophen 325 Mg Tablet) 650 mg PO Q6H PRN PRN Reason: Pain, Mild (Pain Scale 1-3) Last Admin: 03/11/22 21:36 Dose: 650 mg Documented By: ANTJULIA Docusate Sodium (Docusate Sodium 100 Mg Capsule) 100 mg PO DAILY PRN PRN Reason: Constipation Escitalopram Oxalate (Escitalopram Oxalate 10 Mg Tablet) 10 mg PO DAILY [facility] Last Admin: 03/11/22 10:03 Dose: 10 mg Documented By: SELVIN Heparin Sodium (Porcine) (Heparin Sodium,Porcine 5,000 Unit/Ml Vial) 5,000 unit SUBCUT Q12H [facility] Last Admin: 03/11/22 21:30 Dose: 5,000 unit Documented By: MADELYN Hydrocortisone Sodium Succinate (Hydrocortisone Sod Succ/Pf 100 Mg Vial) 50 mg IVPUSH Q12H [facility] Last Admin: 03/11/22 21:31 Dose: 50 mg Documented By: MADELYN Lactated Ringer's (Lr) 1,000 mls @ 100 mls/hr IVCONT .Q10H [facility] Last Admin: 03/12/22 05:52 Dose: 100 mls/hr Documented By: MOLINAOIC Levofloxacin (Levaquin) 750 mg in 150 mls @ 100 mls/hr IV Q48H [facility] Last Infusion: 03/11/22 11:56 Dose: 0 mls/hr Documented By: LEON Sodium Bicarbonate 150 meq/ (Dextrose) 1,000 mls @ 50 mls/hr IV .Q20H [facility] Last Admin: 03/12/22 05:52 Dose: 50 mls/hr Documented By: MADELYN Levothyroxine Sodium (Levothyroxine Sodium 100 Mcg/5 Ml Vial) 100 mcg IVPUSH DAILY@0600 [facility] Last Admin: 03/12/22 05:52 Dose: 100 mcg Documented By: MADELYN Loratadine (Loratadine 10 Mg Tablet) 10 mg PO DAILY [facility] Last Admin: 03/11/22 10:03 Dose: 10 mg Documented By: SELVIN Non-Formulary Medication (Linaclotide [Linzess]) 145 mcg PO DAILY [facility] Omeprazole (Omeprazole 40 Mg Capsule.Dr) 40 mg PO DAILY [facility] Last Admin: 03/11/22 10:03 Dose: 40 mg Documented By: SELVIN Ondansetron HCl (Ondansetron Hcl 4 Mg/2 Ml Vial) 4 mg IVPUSH Q8H PRN PRN Reason: Nausea and Vomiting Risperidone (Risperidone 0.5 Mg Tablet) 0.5 mg PO BID [facility] Last Admin: 03/11/22 21:30 Dose: 0.5 mg Documented By: MADELYN Senna (Sennosides 8.6 Mg Tablet) 8.6 mg PO BID [facility] Last Admin: 03/11/22 21:30 Dose: 8.6 mg Documented By: MADELYN Sodium Chloride (0.9 % Sodium Chloride Flush 3 Ml Syringe) 3 ml IVFLUSH QSHIFT [facility] Last Admin: 03/11/22 21:31 Dose: 3 ml Documented By: MADELYN Vitamin D (Cholecalciferol (Vitamin D3) 25 Mcg Tablet) 50 mcg PO DAILY [facility] Last Admin: 03/11/22 10:04 Dose: 50 mcg Documented By: SELVIN Labs CBC & Chem 7: 03/11/22 06:08 03/12/22 10:47 Labs: Laboratory Results - last 24 hr 03/11/22 06:08 TSH 14.80 H Assessment and Plan (1) Noncompliance with medication regimen: Status: Acute (2) Hypothyroidism: Status: Acute (3) Chronic renal insufficiency: Status: Acute Plan this is a 62-year-old female past medical history of hypothyroidism and history of noncompliance with medication presents to the hospital in severe weakness and depression found to have an elevated TSH level 1. hypothyroidism - patient has evidence of myxedema coma including depression, severe weakness, likely brought on by acute illness in the setting of recent COVID infection and noncompliance with medications - Vital signs improved- bradycardia and hypothermia resolved. Glucose 85, Cortisol 10.2. TSH continues to improve to 8.08, free T4 1.44, free T3 pending - Transition to PO levothyroxine tomorrow. Swallow eval passed - No adrenal insufficiency. D/C hydrocortisone - currently A&ox3. monitor mental status 2. CKD3 with mild SHELLEY that has resolved with IVF -Renal function improved, creat 1.46, BUN 32 -Metabolic acidosis with bicab of 9- bicarb improved 15. Recheck VBG. Consider addl bicarb if acidotic, otherwise continue LR. -Nephrology consult pending -Continue fluids 3. Hypokalemia secondary to bicarb infusion -Replete with 40meq potassium. Continue LR -Nephrology consult pending -Recheck chemistries 4. depression - likely multifactorial in the setting of hypothyroidism as well as underlying depressive disorder - psychiatry consulted 5. noncompliance with medications - history with noncompliance with her levothyroxine - psych consulted to evaluate underlying etiology for her depression/ noncompliance 6. Constipation -Continue senna and docusate and daily miralax 7. UA with 1+ leuks, no bacteria -Pt asymptomatic -UC still pending DVT prophylaxis: Heparin subQ Need for inpatient : severe hypothyrosidism needing IV replacement, metabolic acidosis severe and need IVF and bicab replacement and close monitoring Quality Stroke Does the patient have a stroke diagnosis?: No VTE Prior VTE?: No VTE Risk Level:: Medical - moderate - high VTE Device Contraindication: Treatment Not Indicated VTE Drug Contraindication: N/A - Med Ordered
[2022-03-12] MEDS: Hydrocortisone Sod Succ/PF 100 MG VIAL 50 MG IVPUSH (11:00)
[2022-03-12] MEDS: Omeprazole 40 MG CAPSULE.DR PO (11:01)
[2022-03-12] MEDS: Heparin Sodium,Porcine 5,000 UNIT/ML VIAL 5000 UNIT SUBCUT ×2 (11:01→20:04)
[2022-03-12] MEDS: risperiDONE 0.5 MG TABLET PO ×2 (11:02→20:04)
[2022-03-12] MEDS: Cholecalciferol (Vitamin D3) 25 MCG TABLET 50 MCG PO (11:02)
[2022-03-12] MEDS: Sennosides 8.6 MG TABLET PO ×2 (11:02→20:04)
[2022-03-12] MEDS: Escitalopram Oxalate 10 MG TABLET PO (11:02)
[2022-03-12] MEDS: Loratadine 10 MG TABLET PO (11:02)
[2022-03-12] MEDS: 0.9 % Sodium Chloride Flush 3 ML SYRINGE IVFLUSH ×3 (11:08→20:04)
[2022-03-12 11:33] LABS: Blood Urea Nitrogen 32 mg/dL (9-16); Calcium 9.3 mg/dL (8.4-10.2); Creatinine Clr Calc Pharmacy 32.9; Estimated Glomerular Filt Rate 36; Glucose Random 110 mg/dL (60-115)
[2022-03-12 11:46] LABS: TSH reflex Free T4 8.06 uIU/mL (0.32-4.0)
[2022-03-12 12:01] LABS: Anion Gap 19 (12-20); Carbon Dioxide 15 mmol/L (22-29); Chloride 109 mmol/L (96-108); Sodium 140 mmol/L (135-145)
[2022-03-12 12:32] LABS: Free T4 (Free Thyroxine) 1.44 ng/dL (0.71-1.85)
[2022-03-12 13:37] LABS: Magnesium 2.1 mg/dL (1.6-2.6)
[2022-03-12 13:52] LABS: VBG Base Excess -6.1 mmol/L; VBG HCO3 17 mmol/L (22-26); VBG pCO2 28 mmHg; VBG pH 7.39 (7.32-7.43); VBG pO2 71 mmHg
[2022-03-12 13:53] LABS: Venous Blood Gas Refer to POC result
[2022-03-12] MEDS: Potassium Chloride Packet 20 MEQ PACKET 40 MEQ PO (13:57)
[2022-03-12] MEDS: Acetaminophen 325 MG TABLET 650 MG PO (20:04)
--- NOTE | 2022-03-12 22:31 | P.CONNP_ITS ---
History of Present Illness Reason for Consult Consult date: 03/12/22 Reason for consult: SHELLEY, metabolic acidosis Chief Complaint Chief complaint: Severe Hypothyrodsim History of Present Illness Narrative: The patient is a 62-year-old female with past medical history of CKD IIIb, hypothyroidism, depression, HTN, chronic iron deficiency anemia, autoimmune hepatitis, GERD, and medication non- compliance who presented to [facility] with severe weakness and depression found to have an elevated TSH level. Review of chart reveals she had not been taking her levothyroxine for unknown amount of time. In the ED, workup revealed, creatinine of 2.06 bicarb of 9, TSH of 34.2, UA shows positive leukocyte Estrace and WBC Head CT shows no acute intracranial abnormality. She was started on IV levothyroxine, isotonic ivf's, and bicarbonate infusion. Her S-Cr has improved to 1.46 mg/dL and bicarbonate level is now 15. Patient appears fatigued and offers few complaints. ROS is otherwise negative. Review of Systems Constitutional: Reports as per HPI [facility] Past Medical History Medical History Arthritis Asthma Autoimmune hepatitis Back pain Chest pain CKD (chronic kidney disease) Depression Elevated cholesterol GERD (gastroesophageal reflux disease) History of depression History of DVT (deep vein thrombosis) Hx pulmonary embolism Hypertension Hypothyroid Iron deficiency anemia Mild recurrent major depression Right ankle injury (~2000) Seasonal allergies Family History Family History Father Myocardial infarction Hypertension H/O ETOH abuse Mother Hypertension Stroke Diabetes High cholesterol Paternal Aunt Mental health disorder Paternal Uncle Mental health disorder Surgical History Surgical History History of ankle surgery History of colonoscopy (~2018) History of liver biopsy Hx of endoscopy (06/26/17) Social History Social History Household Members: None Housing: Apartment Are you a primary career placement services counselor to a significant other at home: No Do you presently have visiting nurse or other home services: Yes Alcohol intake: never Patient Tobacco Use Status: Never used Tobacco e-Cigarette/Vaping Use: Never Used Second Hand Smoke Exposure: No service: No Current occupational status: unemployed Cognitive needs: No Hearing needs: No Vision needs: Yes (glasses) Meds Allergies Allergy/AdvReac Type Severity Reaction Status Date / Time cefuroxime [From Ceftin] Allergy Intermediate rash Verified 03/08/22 11:18 [id number] Reductase Allergy Intermediate transaminit Verified 03/08/22 11:18 Inhibitor is [[id number] Reductase Inhibitor] Active Medications: Current Medications Acetaminophen (Acetaminophen 325 Mg Tablet) 650 mg PO Q6H PRN PRN Reason: Pain, Mild (Pain Scale 1-3) Last Admin: 03/12/22 20:04 Dose: 650 mg Docusate Sodium (Docusate Sodium 100 Mg Capsule) 100 mg PO DAILY PRN PRN Reason: Constipation Escitalopram Oxalate (Escitalopram Oxalate 10 Mg Tablet) 10 mg PO DAILY [facility] Last Admin: 03/12/22 11:02 Dose: 10 mg Heparin Sodium (Porcine) (Heparin Sodium,Porcine 5,000 Unit/Ml Vial) 5,000 unit SUBCUT Q12H [facility] Last Admin: 03/12/22 20:04 Dose: 5,000 unit Lactated Ringer's (Lr) 1,000 mls @ 100 mls/hr IVCONT .Q10H [facility] Last Admin: 03/12/22 16:28 Dose: 100 mls/hr Levofloxacin (Levaquin) 750 mg in 150 mls @ 100 mls/hr IV Q48H [facility] Last Infusion: 03/11/22 11:56 Dose: Infused Levothyroxine Sodium (Levothyroxine Sodium 100 Mcg Tablet) 100 mcg PO DAILY@0600 [facility] Loratadine (Loratadine 10 Mg Tablet) 10 mg PO DAILY [facility] Last Admin: 03/12/22 11:02 Dose: 10 mg Non-Formulary Medication (Linaclotide [Linzess]) 145 mcg PO DAILY [facility] Omeprazole (Omeprazole 40 Mg Capsule.Dr) 40 mg PO DAILY [facility] Last Admin: 03/12/22 11:01 Dose: 40 mg Ondansetron HCl (Ondansetron Hcl 4 Mg/2 Ml Vial) 4 mg IVPUSH Q8H PRN PRN Reason: Nausea and Vomiting Polyethylene Glycol (Polyethylene Glycol 3350 17 Gm Powd.Pack) 17 gm PO DAILY [facility] Last Admin: 03/12/22 13:54 Dose: Not Given Risperidone (Risperidone 0.5 Mg Tablet) 0.5 mg PO BID [facility] Last Admin: 03/12/22 20:04 Dose: 0.5 mg Senna (Sennosides 8.6 Mg Tablet) 8.6 mg PO BID [facility] Last Admin: 03/12/22 20:04 Dose: 8.6 mg Sodium Chloride (0.9 % Sodium Chloride Flush 3 Ml Syringe) 3 ml IVFLUSH QSHIFT [facility] Last Admin: 03/12/22 20:04 Dose: 3 ml Vitamin D (Cholecalciferol (Vitamin D3) 25 Mcg Tablet) 50 mcg PO DAILY [facility] Last Admin: 03/12/22 11:02 Dose: 50 mcg Home Medications Medication Instructions Recorded Confirmed Last Taken Type tramadol 50 mg tablet 1 tab PO BID PRN pain 03/11/22 03/11/22 Unknown History Physical Exam Vital Signs: Last Vital Signs Temp 98.4 F 03/12/22 19:11 Pulse 92 03/12/22 19:11 Resp 18 03/12/22 19:11 BP 126/61 03/12/22 19:11 Pulse Ox 92 03/12/22 19:11 O2 Del Method 03/12/22 19:11 BMI result Body Mass Index 29.2 Const General: no acute distress HEENT Head: Yes normocephalic Neck Neck: Yes no JVD Resp Auscultation: clear to auscultation bilaterally Cardio Jugular venous distension: no JVD Rate: regular rate Rhythm: regular rhythm Heart sounds: S1 normal heart sound present and S2 normal heart sound present GI Auscultation: normal bowel sounds Neuro General: moves all extremities Extrem General: Yes no clubbing, cyanosis or edema Results Lab Results Result Diagrams: 03/11/22 06:08 03/12/22 10:47 Lab results: Chemistry 03/10/22 03/11/22 03/12/22 21:45 06:08 10:47 Sodium 138 140 140 Potassium 3.9 4.0 3.0 L D Carbon Dioxide 9 L* D 9 L* 15 L BUN 37 H 33 H 32 H Creatinine 2.06 H 1.67 H 1.46 H Calcium 10.1 D 9.2 D 9.3 Hematology 03/10/22 03/11/22 21:45 06:08 WBC 7.4 5.4 Hgb 10.6 L 9.4 L Plt Count 98 L D 77 L Urinalysis 03/11/22 01:22 Urine Color Yellow Urine Appearance Clear Urine pH 6.0 Ur Specific [place] 1.015 Urine Protein 30 (1+) H Urine Glucose (UA) Negative Urine Ketones Trace Urine Blood Negative Urine Nitrite Negative Ur Leukocyte Esterase Small (1+) H Urine RBC 0-2 Urine WBC 6-10 H Ur Squamous Epith Cells 0-2 Hyaline Casts 3-5 Assessment and Plan (1) Myxedema coma: Status: Acute (2) CKD (chronic kidney disease) stage 4, GFR 15-29 ml/min: Status: Acute Plan The patient is a 62-year-old female with past medical history of CKD IIIb, hypothyroidism, depression, HTN, chronic iron deficiency anemia, autoimmune hepatitis, GERD, and medication non- compliance who presented to [facility] with severe weakness and depression found to have an elevated TSH level. Review of chart reveals she had not been taking her levothyroxine for unknown amount of time. In the ED, workup revealed, creatinine of 2.06 bicarb of 9, TSH of 34.2, UA shows positive leukocyte Estrace and WBC Head CT shows no acute intracranial abnormality. She was started on IV levothyroxine, isotonic ivf's, and bicarbonate infusion. H er S-Cr has improved to 1.46 mg/dL and bicarbonate level is now 15. Problem List: HAGMA SHELLEY, non-oliguric CKD IIIb/IV (BL1.8-2.2 mg/dL) Anemia hypokalemia #) HAGMA: Patient has been receiving bicarbonate infusion with noted improvement in bicarbonate. Monitor K for prn replacement as metabolic acidosis resolves. #) SHELLEY, non-oliguric: continue to monitor I/O's. NO evidence of hydronephrosis, nephrolithiasis on CT WOuld monitor volume status and keep I=O. iF tolerating po she can be placed on 650 Na-HCO3 tabs tid. #) CKD IIb appears to now be at her prior BL. #) Anemia - chronic iron deficiency anemia. Can check iron stores. May benefit from darryl if iron replete Procedures Date of Service Date of Service: 03/12/22
[2022-03-13 04:00] VITALS: BP 103/53; PULSE 55; RESP 20; TEMP 36.9; O2SAT 97
[2022-03-13] MEDS: Levothyroxine Sodium 100 MCG TABLET PO (05:31)
[2022-03-13] MEDS: Lactated Ringers 1,000 ML 100 ML IVCONT (05:32)
[2022-03-13 07:19] LABS: Anion Gap 11 (12-20); Blood Urea Nitrogen 32 mg/dL (9-16); Carbon Dioxide 19 mmol/L (22-29); Chloride 115 mmol/L (96-108); Creatinine Clr Calc Pharmacy 35.9; Estimated Glomerular Filt Rate 40; Glucose Fasting 87 mg/dL (60-99); Potassium 3.1 mmol/L (3.3-5.1); Sodium 142 mmol/L (135-145); TSH reflex Free T4 8.47 uIU/mL (0.32-4.0)
[2022-03-13] MEDS: levoFLOXacin/D5W 750 MG/150 ML PIGGYBACK 100 MG IV (07:24)
[2022-03-13] MEDS: Escitalopram Oxalate 10 MG TABLET PO (07:25)
[2022-03-13] MEDS: Sennosides 8.6 MG TABLET PO ×2 (07:26→21:10)
[2022-03-13] MEDS: risperiDONE 0.5 MG TABLET PO ×2 (07:26→21:10)
[2022-03-13] MEDS: Loratadine 10 MG TABLET PO (07:26)
[2022-03-13] MEDS: Cholecalciferol (Vitamin D3) 25 MCG TABLET 50 MCG PO (07:26)
[2022-03-13] MEDS: Omeprazole 40 MG CAPSULE.DR PO (07:26)
[2022-03-13] MEDS: Potassium Chloride Packet 20 MEQ PACKET 40 MEQ PO ×2 (07:53→17:01)
[2022-03-13] MEDS: Sodium Bicarbonate 650 MG TABLET PO ×3 (07:53→21:10)
[2022-03-13] MEDS: Levothyroxine Sodium 25 MCG TABLET 12.5 MCG PO (07:55)
[2022-03-13 08:00] VITALS: BP 120/58; PULSE 62; RESP 20; TEMP 36.6; O2SAT 97
--- NOTE | 2022-03-13 10:00 | P.PNIM_ITS ---
Subjective Subjective Date of Service: 03/13/22 Interval History: Seen for followup for myxedema coma Pt reports fatigue and generalized weakness. Constipation resolved, BM this morning. Denies depression, wants to see her family. Review of Systems General: No fevers, malaise, unintentional weight loss HEENT: No blurred vision, diplopia Cardiovascular: No chest pain, palpitations, or leg edema Respiratory: No shortness of breath, wheezing, cough GI: No abdominal pain, nausea, vomiting, diarrhea, constipation, melena, hematochezia Neuro: +generalized weakness. No headaches, paresthesias Skin: No rashes or lesions Physical Exam Vital Signs: Vital Signs: Last Vital Signs Temp 97.8 F 03/13/22 08:00 Pulse 62 03/13/22 08:00 Resp 20 03/13/22 08:00 BP 120/58 L 03/13/22 08:00 Pulse Ox 97 03/13/22 08:00 O2 Del Method 03/13/22 08:00 BMI result Body Mass Index 29.2 Constitutional - Awake and tired/weak appearing Eyes - PERRLA, EOMI Cardiovascular - S1S2, RRR, No edema Respiratory - Normal lung expansion, Normal respiratory effort, No respiratory distress, CTA bilaterally Gastrointestinal - NT / ND; +BS; No rebound or guarding Extremities - no calf tenderness bilaterally, no swelling Skin - Warm/Dry Neurological - Alert & oriented x3, 3/5 strength BLE and BUE. Psychological - Appropriate affect Objective Data Active Medications Acetaminophen (Acetaminophen 325 Mg Tablet) 650 mg PO Q6H PRN PRN Reason: Pain, Mild (Pain Scale 1-3) Last Admin: 03/12/22 20:04 Dose: 650 mg Documented By: MADELYN Docusate Sodium (Docusate Sodium 100 Mg Capsule) 100 mg PO DAILY PRN PRN Reason: Constipation Escitalopram Oxalate (Escitalopram Oxalate 10 Mg Tablet) 10 mg PO DAILY [facility] Last Admin: 03/13/22 07:25 Dose: 10 mg Documented By: KHLOE Heparin Sodium (Porcine) (Heparin Sodium,Porcine 5,000 Unit/Ml Vial) 5,000 unit SUBCUT Q12H [facility] Last Admin: 03/12/22 20:04 Dose: 5,000 unit Documented By: MADELYN Lactated Ringer's (Lr) 1,000 mls @ 100 mls/hr IVCONT .Q10H [facility] Last Admin: 03/13/22 05:32 Dose: 100 mls/hr Documented By: MOLINAOIC Levofloxacin (Levaquin) 750 mg in 150 mls @ 100 mls/hr IV Q48H [facility] Last Admin: 03/13/22 07:24 Dose: 100 mls/hr Documented By: KHLOE Levothyroxine Sodium (Levothyroxine Sodium 112 Mcg Tablet) 112 mcg PO DAILY@0600 [facility] Loratadine (Loratadine 10 Mg Tablet) 10 mg PO DAILY [facility] Last Admin: 03/13/22 07:26 Dose: 10 mg Documented By: KHLOE Non-Formulary Medication (Linaclotide [Linzess]) 145 mcg PO DAILY [facility] Omeprazole (Omeprazole 40 Mg Capsule.Dr) 40 mg PO DAILY [facility] Last Admin: 03/13/22 07:26 Dose: 40 mg Documented By: KHLOE Ondansetron HCl (Ondansetron Hcl 4 Mg/2 Ml Vial) 4 mg IVPUSH Q8H PRN PRN Reason: Nausea and Vomiting Polyethylene Glycol (Polyethylene Glycol 3350 17 Gm Powd.Pack) 17 gm PO DAILY [facility] Last Admin: 03/13/22 07:25 Dose: Not Given Documented By: KHLOE Non-Admin Reason: Patient Refused Risperidone (Risperidone 0.5 Mg Tablet) 0.5 mg PO BID [facility] Last Admin: 03/13/22 07:26 Dose: 0.5 mg Documented By: KHLOE Senna (Sennosides 8.6 Mg Tablet) 8.6 mg PO BID [facility] Last Admin: 03/13/22 07:26 Dose: 8.6 mg Documented By: KHLOE Sodium Bicarbonate (Sodium Bicarbonate 650 Mg Tablet) 650 mg PO TID [facility] Last Admin: 03/13/22 07:53 Dose: 650 mg Documented By: KHLOE Sodium Chloride (0.9 % Sodium Chloride Flush 3 Ml Syringe) 3 ml IVFLUSH QSHIFT [facility] Last Admin: 03/13/22 07:24 Dose: Not Given Documented By: KHLOE Non-Admin Reason: IV Running Vitamin D (Cholecalciferol (Vitamin D3) 25 Mcg Tablet) 50 mcg PO DAILY [facility] Last Admin: 03/13/22 07:26 Dose: 50 mcg Documented By: KHLOE Labs CBC & Chem 7: 03/11/22 06:08 03/13/22 05:48 Labs: Laboratory Results - last 24 hr 03/12/22 03/12/22 03/12/22 10:47 10:47 13:47 VBG pH 7.39 VBG pCO2 28 VBG pO2 71 VBG HCO3 17 L VBG O2 Saturation 94.0 VBG Base Excess -6.1 Anion Gap 19 Estim Creat Clear Calc 32.9 Estimated GFR 36 Random Glucose 110 Fasting Glucose Calcium 9.3 Magnesium 2.1 TSH 8.06 H Free T4 1.44 03/13/22 05:48 VBG pH VBG pCO2 VBG pO2 VBG HCO3 VBG O2 Saturation VBG Base Excess Anion Gap 11 L Estim Creat Clear Calc 35.9 Estimated GFR 40 Random Glucose Fasting Glucose 87 Calcium 9.0 Magnesium TSH 8.47 H Free T4 Microbiology Microbiology Results: Microbiology 03/11/22 00:00 Urine Culture - Final Urine clean catch - Urine haas top Assessment and Plan (1) Noncompliance with medication regimen: Status: Acute (2) Hypothyroidism: Status: Acute (3) Chronic renal insufficiency: Status: Acute Plan this is a 62-year-old female past medical history of hypothyroidism and history of noncompliance with medication presents to the hospital in severe weakness and depression found to have an elevated TSH level 1. hypothyroidism - Myxedema coma resolved - TSH still mildly elevated, free T4 normal. Increase levothyroxine to 112mcg daily. Recheck TSH am - No adrenal insufficiency, hydrocortisone resolved - currently A&ox3. monitor mental status 2. CKD3 with mild SHELLEY that has resolved with IVF -Renal function improved to baseline, creat 1.34, BUN 32 -Continue LR -Follow BMP 3. HAGMA- resolved -VBG with pH 7.39, AG 11, bicarb still borderline low 19. Add Na-HCO3 PO TID per nephrology -Nephrology input appreciated -Continue fluids 3. Hypokalemia secondary to bicarb infusion -Minimal improvement in K, 3.1. Add 40meq potassium. Recheck K in couple of hours. -Nephrology input appreciated -Follow BMP 4. depression - likely multifactorial in the setting of hypothyroidism as well as underlying depressive disorder - psychiatry consulted 5. noncompliance with medications - history with noncompliance with her levothyroxine - psych consulted to evaluate underlying etiology for her depression/ noncompliance 6. Constipation -Pt with BM this morning, now soft/watery stool. Constipation possibly secondary to hypothyroidism that is improving -Docusate PRN. 7. UA with 1+ leuks, no bacteria -Pt asymptomatic -UC neagtive 8. Generalized weakness -possibly secondary to hypokalemia vs hypothyroidism -PT eval ordered DVT prophylaxis: Heparin subQ Need for inpatient : severe hypothyrosidism needing IV replacement, metabolic acidosis severe and need IVF and bicab replacement and close monitoring Quality Stroke Does the patient have a stroke diagnosis?: No VTE Prior VTE?: No VTE Risk Level:: Medical - moderate - high VTE Device Contraindication: Treatment Not Indicated VTE Drug Contraindication: N/A - Med Ordered
[2022-03-13 11:27] VITALS: BP 110/54; PULSE 57; RESP 18; TEMP 36.6; O2SAT 98
[2022-03-13] MEDS: Heparin Sodium,Porcine 5,000 UNIT/ML VIAL 5000 UNIT SUBCUT (11:50)
[2022-03-13 14:45] LABS: Potassium 3.4 mmol/L (3.3-5.1)
[2022-03-13 15:26] VITALS: BP 102/50; PULSE 64; RESP 17; TEMP 37.1; O2SAT 98
--- NOTE | 2022-03-13 15:35 | PM.EVENT ---
Event Note Date of Service: 03/13/22 Event Note: IV access lost. No further attempts to regain access per policy. Pt does not require PO meds at this time. IV levaquin dc'd. Urine culture negative for UTI and pt asymptomatic, afebrile. SHELLEY resolved, LR dc'd. Encourage PO fluids. Continue PO potassium repletion and PO Na-HCO3. If further IV needed, consider IJ.
[2022-03-13 19:47] LABS: Triiodothyronine T3 Free 1.7 pg/mL (2.3-4.2)
[2022-03-13 20:00] VITALS: BP 139/74; PULSE 84; RESP 18; TEMP 37.1; O2SAT 98
--- NOTE | 2022-03-13 21:02 | PM.PNNEP ---
Subjective Subjective Date of Service: 03/13/22 Interval history: Seen for followup for myxedema coma Pt reports fatigue and generalized weakness. Constipation resolved, BM this morning. Denies depression, wants to see her family. Physical Exam Vital Signs: Vital Signs: Last Vital Signs Temp 98.7 F 03/13/22 20:00 Pulse 84 03/13/22 20:00 Resp 18 03/13/22 20:00 BP 139/74 03/13/22 20:00 Pulse Ox 98 03/13/22 20:00 O2 Del Method 03/13/22 20:00 BMI result Body Mass Index 29.2 Objective Data Labs CBC & Chem 7: 03/11/22 06:08 03/13/22 14:23 Labs: Laboratory Results - last 24 hr 03/12/22 03/13/22 03/13/22 10:47 05:48 14:23 Sodium 142 Potassium 3.1 L 3.4 Chloride 115 H Carbon Dioxide 19 L Anion Gap 11 L BUN 32 H Creatinine 1.34 Estim Creat Clear Calc 35.9 Estimated GFR 40 Fasting Glucose 87 Calcium 9.0 TSH 8.47 H Free T3 1.7 L Microbiology Microbiology Results: Microbiology 03/11/22 00:00 Urine clean catch - Urine haas top Urine Culture - Final Procedures Date of Service Date of Service: 03/13/22 Assessment & Plan Assessment and plan (1) CKD (chronic kidney disease): Status: Acute Assessment and Plan: The patient is a 62-year-old female with past medical history of CKD IIIb, hypothyroidism, depression, HTN, chronic iron deficiency anemia, autoimmune hepatitis, GERD, and medication non-compliance who presented to [facility] ED with severe weakness and depression found to have an elevated TSH level. Review of chart reveals she had not been taking her levothyroxine for unknown amount of time. In the ED, workup revealed, creatinine of 2.06 bicarb of 9, TSH of 34.2, UA shows positive leukocyte Estrace and WBC Head CT shows no acute intracranial abnormality. She was started on IV levothyroxine, isotonic ivf's, and bicarbonate infusion. Her S-Cr has improved with ivf's. Problem List: HAGMA SHELLEY, non-oliguric CKD IIIb/IV (BL1.8-2.2 mg/dL) Anemia hypokalemia #) HAGMA: hagma secondary to shelley in setting of hypothyroidism Patient received bicarbonate infusion with noted improvement Cont. 650 Na-HCO3 tabs tid. Monitor K for prn replacement as metabolic acidosis resolves. #) SHELLEY, non-oliguric: continue to monitor I/O's. NO evidence of hydronephrosis, nephrolithiasis on CT Would monitor volume status and keep I=O. Cont. 650 Na-HCO3 tabs tid. Time Spent With Patient Time: Total time spent is greater than 50% in coordination of care (as documented) at patient's floor/unit and/or counseling patient: Progress Note: Quality Stroke Does the patient have a stroke diagnosis?: No
[2022-03-13 23:23] VITALS: BP 117/57; PULSE 67; RESP 20; TEMP 36.4; O2SAT 96
[2022-03-14] MEDS: Heparin Sodium,Porcine 5,000 UNIT/ML VIAL 5000 UNIT SUBCUT ×2 (00:30→16:54)
[2022-03-14 03:44] VITALS: BP 108/54; PULSE 60; RESP 20; TEMP 36.8; O2SAT 96
[2022-03-14] MEDS: Levothyroxine Sodium 112 MCG TABLET PO (05:53)
[2022-03-14 07:32] VITALS: BP 103/55; PULSE 68; RESP 16; TEMP 36.3; O2SAT 97
[2022-03-14] MEDS: Sodium Bicarbonate 650 MG TABLET PO ×2 (08:27→16:54)
[2022-03-14] MEDS: Cholecalciferol (Vitamin D3) 25 MCG TABLET 50 MCG PO (08:27)
[2022-03-14] MEDS: Omeprazole 40 MG CAPSULE.DR PO (08:28)
[2022-03-14] MEDS: Sennosides 8.6 MG TABLET PO (08:28)
[2022-03-14] MEDS: risperiDONE 0.5 MG TABLET PO (08:28)
[2022-03-14] MEDS: Loratadine 10 MG TABLET PO (08:28)
[2022-03-14] MEDS: Escitalopram Oxalate 10 MG TABLET PO (08:28)
[2022-03-14 08:29] LABS: Anion Gap 12 (12-20); Blood Urea Nitrogen 26 mg/dL (9-16); Calcium 8.7 mg/dL (8.4-10.2); Carbon Dioxide 19 mmol/L (22-29); Chloride 115 mmol/L (96-108); Creatinine Clr Calc Pharmacy 35.4; Estimated Glomerular Filt Rate 39; Glucose Random 85 mg/dL (60-115); Potassium 3.6 mmol/L (3.3-5.1); Sodium 142 mmol/L (135-145)
[2022-03-14 08:51] LABS: TSH reflex Free T4 9.23 uIU/mL (0.32-4.0)
[2022-03-14 09:35] LABS: Free T4 (Free Thyroxine) 1.37 ng/dL (0.71-1.85)
[2022-03-14 10:34] VITALS: BP 103/55; PULSE 68; O2SAT 97
[2022-03-14 11:12] VITALS: BP 129/60; PULSE 84; RESP 18; TEMP 36.6; O2SAT 99
--- NOTE | 2022-03-14 11:31 | PM.DS ---
DS: Providers Provider Date of Service: 03/14/22 Date of admission: 03/10/22 23:23 Primary care physician: Nanda Alaniz MD Consults: 03/10/22 23:30 Consult to Psychiatry Routine Consulting Provider: Psych Covering Reason for consultation: Depressed mood 03/11/22 08:26 Consult to Nephrology Routine Consulting Provider: Miguel Caldera Reason for consultation: renal failure with metabolic acidosis Has provider been notified: No Attending physician on discharge: Tereso Baker Discharging clinician: Tania Dorsey DS: Diagnosis Discharge Diagnosis (1) CKD (chronic kidney disease): Status: Acute DS: Summary Hospital Course Hospital Course: HP as per admitting provider this is a 62-year-old female with past medical history of hypothyroidism, CKD, history of Minal's disease, depression, HTN, chronic iron deficiency anemia, autoimmune hepatitis, GERD, around others who presents to the hospital with complaints of severe weakness.? Patient reports that she was diagnosed with COVID infection about 2 weeks ago and ever since she has had worsening weakness to the point that she has not had the ability to get out of her bed or ambulate around her house for the past 1 week.? She reports low appetite and decreased oral intake,? patient also reports that she has not been compliant with any of her medications including her levothyroxine for unknown amount of time.? She does not give a good reason for why she does not take her medications. ? she does report decreased urine output. Patient otherwise denies any chest pain, no shortness of breath, no abdominal pain,? No diarrhea constipation,? and no lower extremity edema.? No headache or change in vision.? No new numbness or tingling on arrival to the ED patient with dynamic least stable no significant abnormal vitals?labs are significant for WBC count 7.4, hemoglobin 10.6,? creatinine of 2.06? which is around her baseline, bicarb of 9, TSH of 34.2, UA shows positive leukocyte Estrace and WBC Head CT shows no acute intracranial abnormality given the severe depression and weakness this patient is experiencing she will be treated for hypothyroidism with IV? levothyroxine, hydrocortisone, will be admitted for further management . Myxedema coma secondary to hypothyroidism. Resolved. TSH 9.23 Normal free T4, national TSH 34.22 Non adherence to levothyroxine, increased to 112 mcg daily, encouraged to take daily SHELLEY on CKD stage resolved with IV fluids Follow-up with Nephrology outpatient for possible renal biopsy for SLE High anion gap metabolic acidosis. Resolved Secondary to myxedema Seen and evaluated by Nephrology with recommendation to continue oral bicarb t.i.d. Hypokalemia. Resolved Likely secondary to bicarb infusion Constipation. Secondary to hypothyroidism Positive bowel movement, continue Colace as needed Generalized weakness Secondary to myxedema Time Spent with Patient Time attestation: Total time spent providing and/or coordinating discharge services: Discharge coordination time: Greater than 30 minutes Quality: Safe Use of Opioids Does Pt have an Active Cancer Diagnosis on the Problem List?: No Quality: Stroke Does the patient have a stroke diagnosis?: No Physical Exam Vital Signs: Vital Signs: Last Vital Signs Temp 97.9 F 03/14/22 11:12 Pulse 84 03/14/22 11:12 Resp 18 03/14/22 11:12 BP 129/60 03/14/22 11:12 Pulse Ox 99 03/14/22 11:12 O2 Del Method 03/14/22 11:12 BMI result Body Mass Index 29.2 Appearing in no acute distress head is normocephalic atraumatic eyes pupils are PERRLA sclera is anicteric mouth throat mucous membranes are intact and moist neck is supple no lymphadenopathy, no JVD noted lung sounds are clear to auscultation heart regular rate rhythm, clear S1, S2 positive bowel sounds, abdomen is soft, nontender neuro patient is alert x3, no focal deficits DS: Data Data Completed and Pending Labs on day of discharge: Laboratory Results - last 24 hr 03/12/22 03/13/22 03/14/22 10:47 14:23 07:32 Sodium 142 Potassium 3.4 3.6 Chloride 115 H Carbon Dioxide 19 L Anion Gap 12 BUN 26 H Creatinine 1.36 Estim Creat Clear Calc 35.4 Estimated GFR 39 Random Glucose 85 Calcium 8.7 TSH 9.23 H Free T4 1.37 Free T3 1.7 L Discharge Plan Discharge Anticipated Discharge Date/Time: 03/14/22 11:33 Patient Disposition: Home Health Service Discharge Diagnosis: Myxedema coma SHELLEY on CKD Metabolic acidosis Hypokalemia Depression Referrals: Harshil DELATORRE [Outside] - 1 Week Nanda Fiore MD [Primary Care Provider] - 1 Week Miguel Caldera MD [Physician] - 1 Week (Outpatient renal biopsy) Discharge Medications: New sodium bicarbonate 650 mg Tablet 650 mg PO TID Qty: 12 0RF risperidone 0.5 mg Tablet 0.5 mg PO BID Qty: 60 0RF levothyroxine 112 mcg Tablet 112 mcg PO DAILY@0600 Qty: 30 0RF Continued cholecalciferol (vitamin D3) 50 mcg (2,000 unit) capsule 50 mcg PO DAILY 90 Days Qty: 90 3RF sennosides [senna] 8.6 mg tablet 8.6 mg PO BID 30 Days Qty: 60 2RF Linzess 145 mcg capsule 145 mcg PO DAILY 30 Days Qty: 30 3RF loratadine 10 mg tablet 10 mg PO DAILY 90 Days Qty: 90 1RF omeprazole 40 mg capsule,delayed release(DR/EC) 40 mg PO DAILY 90 Days Qty: 90 2RF escitalopram oxalate 10 mg tablet 10 mg PO DAILY 90 Days Qty: 90 1RF guaifenesin [Mucinex] 600 mg tablet extended release 12hr 600 mg PO BID 5 Days Qty: 10 0RF tramadol 50 mg tablet 1 tab PO BID PRN (Reason: pain) Discontinued levothyroxine 100 mcg tablet 100 mcg PO QAM Qty: 30 3RF Discharge Orders: Discharge Order (Routine); Ordered 03/14/22 Ordered By: Tania Dorsey Diet: Advance to usual diet Activity on Discharge: As tolerated Stand Alone Forms: Patient Portal Discharge page Other Ambulatory Orders: Basic Metabolic Panel (Routine) Timeframe: [id number] Facility: [facility] - Location: Laboratory Ordered By: Tania Dorsey Care Plan Goals: Take all medications as prescribed and on time to avoid side effects Health Concerns: Myxedema coma SHELLEY on CKD Metabolic acidosis Hypokalemia Depression Plan of Treatment: Follow-up with primary care provider as needed Please make a follow-up appointment with the snow plow operator Dr. Caldera Remember to take all medications as prescribed especially your levothyroxine which was increased continue Continue sodium bicarbonate tablets and check labs on Monday Assessment: See discharge summary
--- NOTE | 2022-03-14 11:34 | MHC.CM.PN ---
Per ROUNDS discussion, Patient is not yet medically cleared for dc (needs IV Replacement); PT is recommending STR and CM will continue to follow.
--- NOTE | 2022-03-14 11:40 | PM.PNNEP ---
Subjective Subjective Date of Service: 03/14/22 Interval history: Seen and examiend, zee espinoza Physical Exam Vital Signs: Vital Signs: Last Vital Signs Temp 97.9 F 03/14/22 11:12 Pulse 84 03/14/22 11:12 Resp 18 03/14/22 11:12 BP 129/60 03/14/22 11:12 Pulse Ox 99 03/14/22 11:12 O2 Del Method 03/14/22 11:12 BMI result Body Mass Index 29.2 Const: General: no acute distress HEENT: Head: Yes normocephalic Neck: Neck: Yes no JVD Resp: Auscultation: clear to auscultation bilaterally Cardio: Jugular venous distension: no JVD Rate: regular rate Rhythm: regular rhythm Heart sounds: S1 normal heart sound present and S2 normal heart sound present GI: Auscultation: normal bowel sounds Neuro: General: moves all extremities Extrem: General: Yes no clubbing, cyanosis or edema Objective Data Labs CBC & Chem 7: 03/11/22 06:08 03/14/22 07:32 Labs: Laboratory Results - last 24 hr 03/12/22 03/13/22 03/14/22 10:47 14:23 07:32 Sodium 142 Potassium 3.4 3.6 Chloride 115 H Carbon Dioxide 19 L Anion Gap 12 BUN 26 H Creatinine 1.36 Estim Creat Clear Calc 35.4 Estimated GFR 39 Random Glucose 85 Calcium 8.7 TSH 9.23 H Free T4 1.37 Free T3 1.7 L Microbiology Microbiology Results: Microbiology 03/11/22 00:00 Urine clean catch - Urine haas top Urine Culture - Final Procedures Date of Service Date of Service: 03/14/22 Assessment & Plan Assessment and plan (1) CKD (chronic kidney disease): Status: Acute Assessment and Plan: 1. SHELLEY: resolving with SCr better than her previous BSL ( Scr 1.5-2.0) 2. CKD 3/4: SCr has been 1.5-2.0 for past year and ? etiol 3. Hypothyroid 4. NAGMA REC: ocnt tot rack renal func; avoid NTOXINS; additional sero as ordered Time Spent With Patient Time: Total time spent is greater than 50% in coordination of care (as documented) at patient's floor/unit and/or counseling patient: Progress Note: Quality Stroke Does the patient have a stroke diagnosis?: No
--- NOTE | 2022-03-14 12:15 | MHC.CM.PN ---
Patient has been medically cleared for dc to home today with services. A referral has been made to [facility] who has been made aware of today's dc.,
[2022-03-14 15:18] VITALS: BP 116/57; PULSE 68; RESP 18; TEMP 36.2; O2SAT 100
--- NOTE | 2022-03-14 15:38 | W.MHC.F2F ---
Service Date Service Date: 03/14/22 Encounter Date of encounter: 03/14/22 Reasons for Services Signs and symptoms assessed: Weakness Reason for physical therapy: home safety and mobility Homebound: Leaving the home is medically contraindicated at this time without the asist of a device and/or another person due th the listed conditions above and below. Reason homebound: unsteady gait / fall risk Certification: Based on the above findings, I certify that this patient is confined to the home and needs intermittent penitentiary care, physical therapy and/or speech therapy, or continues to need occupational therapy. The patient is under my care, and I have initiated the establishment of the plan of care. The patient will be followed by a physician who will periodically review the plan of care.
[2022-03-14 19:42] LABS: Creatinine Urine 130.86 mg/dL; Microalbumin Urine < 5.0 mg/L; Total Protein Urine Random 18 mg/dL (<12)
[2022-03-15 10:22] LABS: Complement C3 59 mg/dL (83-193)
[2022-03-17 11:33] LABS: ANA Pattern 2 Nuclear, Homogeneous; Anti Nuclear Antibody Screen POSITIVE (NEGATIVE)
[2022-03-18 15:38] LABS: Anti DNA DS Antibody 19 IU/mL
== END 2022-03-14 19:15 | disposition home health service (06) | DRG 59 ==
LOC: HO.ED 22:29 → HO.EDOVER 23:37 → HO.IMC 03-11 11:13
PROVIDERS: Internal Medicine; Internal Medicine Nephrology; Physician Assistant; Admitting Provider Internal Medicine; Emergency Provider Emergency Medicine; PCP Internal Medicine; Visit Provider Nurse Practitioner Acute Care
DX: E03.5 Myxedema coma (principal); N17.9 Acute kidney failure, unspecified; E87.2 Acidosis; F33.3 Major depressive disorder, recurrent, severe with psychotic symptoms; D63.1 Anemia in chronic kidney disease; K75.4 Autoimmune hepatitis; E03.9 Hypothyroidism, unspecified; E86.0 Dehydration; M19.90 Unspecified osteoarthritis, unspecified site; D50.9 Iron deficiency anemia, unspecified; I12.9 Hypertensive chronic kidney disease with stage 1 through stage 4 chronic kidney disease, or unspecified chronic kidney disease; F41.0 Panic disorder [episodic paroxysmal anxiety]; K59.09 Other constipation; E87.6 Hypokalemia; Z20.822 Contact with and (suspected) exposure to COVID-19; Z86.16 Personal history of COVID-19; N18.32 Chronic kidney disease, stage 3b; Z91.14 Patient's other noncompliance with medication regimen; Z86.718 Personal history of other venous thrombosis and embolism; Z86.711 Personal history of pulmonary embolism; Z88.8 Allergy status to other drugs, medicaments and biological substances; Z79.890 Hormone replacement therapy; Z79.899 Other long term (current) drug therapy
CPT/HCPCS: 36415; 70450; 80048; 80053; 81001; 82043; 82533; 82803; 83735; 84132; 84156; 84439; 84443; 84481; 85025; 86038; 86039; 86160; 86225; 87086; 87635; 93005; 96374; 97116; 97162; 99285; J1956

== ENCOUNTER 2022-03-16 15:49 | Outpatient (REF) | payer OTHER, SELFPAY ==
[2022-03-16 16:18] LABS: Anion Gap 14 (12-20); Blood Urea Nitrogen 20 mg/dL (9-16); Calcium 8.9 mg/dL (8.4-10.2); Carbon Dioxide 19 mmol/L (22-29); Chloride 111 mmol/L (96-108); Estimated Glomerular Filt Rate 35; Glucose Random 85 mg/dL (60-115); Potassium 3.2 mmol/L (3.3-5.1); Sodium 141 mmol/L (135-145)
== END 2022-03-16 15:50 | disposition home or self-care (01) ==
LOC: HO.HVNA 15:49
PROVIDERS: Visit Provider Internal Medicine
DX: E03.9 Hypothyroidism, unspecified (principal)
CPT/HCPCS: 36415; 80048

== ENCOUNTER 2022-03-21 15:49 | Outpatient (REF) | payer OTHER, SELFPAY ==
[2022-03-21 16:06] LABS: MANUAL DIFF FLAG NO
[2022-03-21 16:19] LABS: Basophils Percent Auto 0.3 % (0-2); Eosinophils Percent Auto 1.4 % (0-4); Hematocrit 27.9 % (37.0-47.0); Hemoglobin 9.1 g/dl (12.0-16.0); Imm Gran Abs Auto 0.01 X10*3/uL (0.00-0.03); Imm Gran Pct Auto 0.3 % (0.0-0.4); Lymphocytes Absolute Auto 0.7 X10*3/uL (1.2-4.9); Lymphocytes Percent Auto 25.2 % (20-40); Mean Corpuscular HGB Conc 32.6 g/dl (31.0-35.0); Mean Corpuscular Hemoglobin 33.3 pg (27.0-33.0); Mean Corpuscular Volume 102.2 fL (80.0-98.0); Monocytes Absolute Auto 0.3 X10*3/uL (0.1-1.2); Monocytes Percent Auto 10.8 % (2-11); Neutrophils Absolute Auto 1.8 x10*3/uL (2.0-8.3); Red Blood Count 2.73 X10*6/uL (4.20-5.50); Red Cell Distribution Width 16.7 % (11.0-16.0); White Blood Count 2.9 X10*3/uL (4.8-10.8)
[2022-03-21 16:22] LABS: Prothrombin Time 11.7 SEC (10.0-13.1)
[2022-03-21 16:25] LABS: Platelet Count 61 X10*3/uL (160-400)
[2022-03-21 16:40] LABS: Anion Gap 15 (12-20); Blood Urea Nitrogen 17 mg/dL (9-16); Calcium 8.2 mg/dL (8.4-10.2); Carbon Dioxide 16 mmol/L (22-29); Chloride 113 mmol/L (96-108); Estimated Glomerular Filt Rate 34; Glucose Random 86 mg/dL (60-115); Potassium 3.6 mmol/L (3.3-5.1); Sodium 140 mmol/L (135-145)
[2022-03-21 16:48] LABS: Anion Gap 14 (12-20); Blood Urea Nitrogen 17 mg/dL (9-16); Calcium 8.1 mg/dL (8.4-10.2); Carbon Dioxide 16 mmol/L (22-29); Chloride 114 mmol/L (96-108); Estimated Glomerular Filt Rate 34; Potassium 3.4 mmol/L (3.3-5.1); Sodium 141 mmol/L (135-145)
[2022-03-21 17:16] LABS: Appearance Urine Cloudy; Color Urine Yellow; Glucose Urine UA Negative (Negative); Leukocyte Esterase Urine Moderate (2+) (Negative); Nitrite Urine Negative (Negative); UMIC TRIGGER UA YES; Urine Blood Negative (Negative); Urine Ketones Negative (Negative); Urine Protein Trace mg/dL (Neg-Trace)
[2022-03-21 17:33] LABS: Bacteria Urine 2+ (None Seen); Hyaline Casts Urine 0-2 /LPF (0-2); RBC Urine 0-2 /HPF (0-2); Renal Epithelial Cells Urine Present; Transitional Epi Cells Urine Present
[2022-03-21 17:48] LABS: Creatinine Urine 117.43 mg/dL; Microalbumin Urine < 5.0 mg/L; Protein/Creatinine Ratio, Ur 0.21 (<0.2); Total Protein Urine Random 25 mg/dL (<12)
== END 2022-03-21 15:50 | disposition home or self-care (01) ==
LOC: HO.LAB 15:49
PROVIDERS: Nurse Practitioner Acute Care; PCP Internal Medicine; Visit Provider Internal Medicine Nephrology
DX: N18.32 Chronic kidney disease, stage 3b (principal); N25.0 Renal osteodystrophy; D63.1 Anemia in chronic kidney disease; E87.20 Acidosis, unspecified
CPT/HCPCS: 36415; 80048; 80051; 81001; 82043; 82310; 82565; 84156; 84520; 85025; 85610

== ENCOUNTER 2022-04-24 16:39 | Emergency (ER) | payer OTHER, SELFPAY ==
--- NOTE | ~2022-04-24 | CT_ITS ---
EXAMINATION: CT SOFT TISSUE NECK WITHOUT CONTRAST CLINICAL INFORMATION: Right neck swelling, pain COMPARISON: None TECHNIQUE: Helical imaging was performed in the axial plane with generation of coronal and sagittal reformatted images. This CT examination was performed using dose optimization techniques as appropriate, variously including the following: *Automated exposure control *Adjustment of mA and/or kV according to patient size (this includes techniques or standardized protocols for targeted exams where dose is matched to indication/reason for exam; i.e. extremities or head) *Use of iterative reconstruction technique DLP: 458 mGy-cm FINDINGS: There is right-sided edema which appears most severe in the parotid gland, with stranding extending into the brake rider space, parapharyngeal fat, and submandibular region. Tiny right parotid calcification is noted. No discrete collection is seen, though assessment for this is limited without intravenous contrast. There are multiple mildly prominent cervical lymph nodes bilaterally, predominantly in the upper neck, favored to be reactive. The nasopharynx, oropharynx, and hypopharynx are patent. The thyroid gland is grossly unremarkable. The lung apices are aerated though detailed evaluation is limited due to motion artifact. Visualized portions of the brain parenchyma are grossly unremarkable. The mastoid air cells are well aerated. There is near complete opacification of the left maxillary sinus. Partially opacified sphenoid sinuses and left greater than right ethmoid air cells. Mucosal thickening of the left frontal sinus. The visualized orbits are unremarkable. The mandibular condyles are well-seated in the condylar fossa. Right-sided facet arthropathy in the mid cervical spine. No acute fracture is seen. CT/CT soft tissue neck wo IV con IMPRESSION: 1. Right-sided inflammation which appears most severe in the parotid gland concerning for parotitis, with stranding extending into the right brake rider space, parapharyngeal fat, and submandibular region. No discrete collection is seen, though assessment for this is limited without intravenous contrast. 2. Mildly prominent cervical lymph nodes bilaterally, favored to be reactive. 3. Paranasal sinus disease as described above.
[2022-04-24 18:11] VITALS: BP 159/62; PULSE 95; RESP 16; TEMP 37.9; O2SAT 100; BMI 28.3
[2022-04-24 19:29] LABS: Eosinophils Percent Auto 0.1 % (0-4); SCAN SMEAR FLAG 1
[2022-04-24 19:30] LABS: Basophils Percent Auto 0.2 % (0-2); Hematocrit 26.5 % (37.0-47.0); Hemoglobin 8.4 g/dl (12.0-16.0); Imm Gran Abs Auto 0.14 X10*3/uL (0.00-0.03); Imm Gran Pct Auto 1.2 % (0.0-0.4); Lymphocytes Absolute Auto 1.5 X10*3/uL (1.2-4.9); Lymphocytes Percent Auto 13.1 % (20-40); Mean Corpuscular HGB Conc 31.7 g/dl (31.0-35.0); Mean Corpuscular Hemoglobin 32.4 pg (27.0-33.0); Mean Corpuscular Volume 102.3 fL (80.0-98.0); Mean Platelet Volume 12.2 fL (9.4-12.3); Monocytes Absolute Auto 0.7 X10*3/uL (0.1-1.2); Monocytes Percent Auto 6.3 % (2-11); Neutrophils Absolute Auto 8.9 x10*3/uL (2.0-8.3); Neutrophils Percent Auto 79.1 % (45-73); Red Blood Count 2.59 X10*6/uL (4.20-5.50); Red Cell Distribution Width 16.3 % (11.0-16.0); White Blood Count 11.2 X10*3/uL (4.8-10.8)
[2022-04-24 19:34] LABS: INTERNATIONAL NORM RATIO 1.3 (0.9-1.1); Prothrombin Time 14.6 SEC (10.0-13.1)
[2022-04-24 19:36] LABS: MANUAL DIFF FLAG NO; PLT ABN DIST 1; Platelet Count 66 X10*3/uL (160-400)
[2022-04-24 19:42] LABS: Lactic Acid 1.5 mmol/L (0.5-2.0)
[2022-04-24 19:47] LABS: Alanine Aminotransferase 12 U/L (0-31); Albumin Level 3.1 g/dL (3.5-5.0); Alkaline Phosphatase 149 U/L (39-117); Anion Gap 16 (12-20); Aspartate Amino Transferase 22 U/L (5-31); Bilirubin Total 0.6 mg/dL (0.0-1.0); Blood Urea Nitrogen 18 mg/dL (9-16); C Reactive Protein 6.58 mg/dL (< or = 0.50); Calcium 8.6 mg/dL (8.4-10.2); Carbon Dioxide 11 mmol/L (22-29); Chloride 113 mmol/L (96-108); Creatinine Clr Calc Pharmacy 28.1; Estimated Glomerular Filt Rate 31; Glucose Random 101 mg/dL (60-115); Magnesium 1.8 mg/dL (1.6-2.6); Potassium 3.4 mmol/L (3.3-5.1); Sodium 137 mmol/L (135-145); Total Protein 7.8 g/dL (6.5-8.0)
[2022-04-24 19:50] LABS: COVID-19 Test Negative (Negative)
[2022-04-24 20:06] LABS: Erythrocyte Sedimentation Rate 114 MM/HR (0-20)
[2022-04-24 20:07] LABS: TSH reflex Free T4 0.22 uIU/mL (0.32-4.0)
[2022-04-24 20:43] LABS: Free T4 (Free Thyroxine) 1.36 ng/dL (0.71-1.85)
--- NOTE | 2022-04-24 21:18 | ED_ITS ---
HPI - General Adult General Chief complaint: General Medical Stated complaint: swelling under right ear Time Seen by Provider: 04/24/22 20:10 Source: patient Mode of arrival: ambulatory Limitations: no limitations History of Present Illness HPI narrative: 52-year-old female history of Minal's disease, CKD, colonic polyps, chronic anemia presents to the ED for swelling below right ear going into jaw and neck. Patient having symptosm since monday. Patient denies any drooling, shortness of breath, change in voice, fever, or chils. patient denies any headache, ear pain, ear dsicharge, Related Data Home Medications Medication Instructions Recorded Confirmed tramadol 50 mg tablet 1 tab PO BID PRN pain 03/11/22 04/04/22 Previous Rx's Medication Instructions Recorded cholecalciferol (vitamin D3) 50 50 mcg PO DAILY 90 days #90 caps 07/21/21 mcg (2,000 unit) capsule sennosides 8.6 mg tablet (senna) 8.6 mg PO BID 30 days #60 tabs 01/05/22 linaclotide 145 mcg capsule 145 mcg PO DAILY 30 days #30 caps 01/10/22 (Linzess) loratadine 10 mg tablet 10 mg PO DAILY 90 days #90 tabs 01/10/22 escitalopram oxalate 10 mg tablet 10 mg PO DAILY 90 days #90 tabs 02/24/22 levothyroxine 112 mcg tablet 112 mcg PO DAILY@0600 #30 tabs 04/06/22 walker #1 ea 04/06/22 omeprazole 40 mg capsule,delayed 40 mg PO DAILY 90 days #90 caps 04/20/22 release clindamycin HCl 300 mg capsule 300 mg PO QID 7 days #28 caps 04/25/22 oxycodone 5 mg capsule 5 mg PO TID PRN pain 3 days #9 caps 04/25/22 Allergies Allergy/AdvReac Type Severity Reaction Status Date / Time cefuroxime [From Ceftin] Allergy Intermediate rash Verified 04/04/22 13:29 [id number] Reductase Allergy Intermediate transaminit Verified 04/04/22 13:29 Inhibitor is [Ycumzyi-Dnn-Kmk Reductase Inhibitor] Review of Systems Review of Systems: right facial mass Yes all other systems are reviewed and are negative PMFSH Past Medical History Medical History (Updated 04/25/22 @ 00:41 by WILSON Perea) Arthritis Asthma Autoimmune hepatitis Back pain Chest pain Chronic constipation Chronic iron deficiency anemia Chronic renal insufficiency CKD (chronic kidney disease) CKD (chronic kidney disease) stage 4, GFR 15-29 ml/min Depression Depression Elevated cholesterol GERD (gastroesophageal reflux disease) History of depression History of DVT (deep vein thrombosis) Hx pulmonary embolism Hypertension Hypothyroid Hypothyroidism Iron deficiency anemia MDD (major depressive disorder), recurrent, severe, with psychosis Mild recurrent major depression Noncompliance with medication regimen Panic disorder Right ankle injury (~2000) Seasonal allergies Surgical History History of ankle surgery History of colonoscopy (~2018) History of liver biopsy Hx of endoscopy (06/26/17) Family History Family History Father Myocardial infarction H/O ETOH abuse Hypertension Mother Diabetes High cholesterol Hypertension Stroke Paternal Aunt Mental health disorder Paternal Uncle Mental health disorder Sister Cancer Ovarian cancer Social History Social History Household Members: None Housing: Apartment Are you a primary infant childcare provider to a significant other at home: No Do you presently have visiting nurse or other home services: Yes Alcohol intake: never Patient Tobacco Use Status: Never used Tobacco e-Cigarette/Vaping Use: Never Used Second Hand Smoke Exposure: No Advance Directives: No Advance Directives Information Provided: Yes service: No Current occupational status: unemployed Cognitive needs: No Hearing needs: No Vision needs: Yes (glasses) Physical Exam ED Vital Signs: Vital Signs - 24 hr 04/24/22 18:11 04/24/22 23:29 Temperature 100.2 F 101.4 F H Pulse Rate 95 91 Respiratory Rate 16 14 Blood Pressure 159/62 H 142/63 H Pulse Oximetry 100 100 Oxygen Delivery Method Room Air Room Air BMI result Body Mass Index 28.3 Const General: cooperative, healthy appearing, comfortable, no acute distress, well developed, alert and awake Orientation/consciousness: patient oriented x3 HENMT Other: Oral exam negative for swelling, redness drooling, change in voice, or gu m/dental abscesses. Negative for signs of HRIS ANALYST Head: Yes normal to inspection, Yes No palpable skull fracture present, Yes normocephalic, Yes atraumatic and No abrasion Head images: 1. swelling on palpation. NEgative for redness. Positive for slight tenderness on palpation. Eyes General: appearance normal, both eyes and all related structures Neck Neck: Yes normal visual inspection, Yes full ROM, Yes no lymphadenopathy, Yes no meningeal signs, Yes trachea midline, Yes supple, No anterior neck swelling and No tender Chest Chest palpation & inspection: normal inspection of the chest and normal palpation of entire chest wall Resp Effort & Inspection: normal respiratory effort and able to speak in complete sentences Auscultation: clear to auscultation bilaterally Cardio Jugular venous distension: no JVD Heart sounds: S1 normal heart sound present and S2 normal heart sound present GI Inspection: Yes normal to inspection and No abdominal wall ecchymosis Palpation (GI): Soft to palpation, not firm, nontender, no guarding and not rigid General: No CVA tenderness and Yes no CVA tenderness Back/Spine/Pelvis Back: no CVA tenderness, No CVA tenderness and No back tenderness Skin General skin exam: no rashes or lesions noted and elasticity normal Neuro General: patient oriented x3, gait normal, no meningeal signs and CN's II-XI intact bilaterally Cranial nerves: Yes CN's II-XII intact bilaterally Extrem General: Yes normal to inspection and Yes full ROM Psych Appearance: grossly normal, well kempt and not disheveled Course Course Course Narrative: Labs imaging ordered. Reevaluation(s) Reevaluation #1: Due to patient's kidney function not able to do CT scan with IV contrast. Case discussed with Dr. Baker radiology does not recommend IV contrast due to wilson read's creatinine clearance, creatinine and GFR. Patient is stable. Patient not in any respiratory distress Time: 23:21 Reevaluation #2: Patient labs at baseline. CT scan shows parotitis without any abscess. Patient will be given dose of clindamycin and told to follow-up with primary care provider for further workup may need biopsy. Patient informed to return to ED immediately 1st is swelling increased shortness of breath, drooling, change in voice, or any other concerning symptoms. case discussed with Dr. Viera who agreed with plan. Time: 00:30 Medical Decision Making MDM Narrative Medical decision making narrative: Parotitis Lab Data Result diagrams: 04/24/22 19:20 04/24/22 19:20 Labs: Lab Results 11/12/0804/24/22 04/24/22 Range/Units 19:20 19:20 19:20 WBC 11.2 H (4.8-10.8) X10*3/uL RBC 2.59 L (4.20-5.50) X10*6/uL Hgb 8.4 L (12.0-16.0) g/dl Hct 26.5 L (37.0-47.0) % MCV 102.3 H (80.0-98.0) fL MCH 32.4 (27.0-33.0) pg MCHC 31.7 (31.0-35.0) g/dl RDW 16.3 H (11.0-16.0) % Plt Count 66 L D (160-400) X10*3/uL MPV 12.2 (9.4-12.3) fL Immature Gran % (Auto) 1.2 H (0.0-0.4) % Neut % (Auto) 79.1 H (45-73) % Lymph % (Auto) 13.1 L (20-40) % [place] % (Auto) 6.3 (2-11) % Eos % (Auto) 0.1 (0-4) % Baso % (Auto) 0.2 (0-2) % Lymph # (Auto) 1.5 (1.2-4.9) X10*3/uL [place] # (Auto) 0.7 (0.1-1.2) X10*3/uL Eos # (Auto) 0.0 (0.0-0.4) X10*3/uL Baso # (Auto) 0.0 (0.0-0.2) X10*3/uL Abs Immat Gran (auto) 0.14 H (0.00-0.03) X10*3/uL Absolute Neuts (auto) 8.9 H (2.0-8.3) x10*3/uL Absolute Nucleated RBC 0.000 (0.0-0.012) X10*3/uL Nucleated RBC % (auto) 0.0 (0.0-0.2) /100WBC ESR 114 H (0-20) MM/HR PT 14.6 H (10.0-13.1) SEC INR 1.3 H (0.9-1.1) Sodium (135-145) mmol/L Potassium (3.3-5.1) mmol/L Chloride (96-108) mmol/L Carbon Dioxide (22-29) mmol/L Anion Gap (12-20) BUN (9-16) mg/dL Creatinine (0.5-1.4) mg/dL Estim Creat Clear Calc Estimated GFR Random Glucose (60-115) mg/dL Lactic Acid (0.5-2.0) mmol/L Calcium (8.4-10.2) mg/dL Magnesium (1.6-2.6) mg/dL Total Bilirubin (0.0-1.0) mg/dL AST (5-31) U/L ALT (0-31) U/L Alkaline Phosphatase (39-117) U/L C-Reactive Protein (< or = 0.50) mg/dL Total Protein (6.5-8.0) g/dL Albumin (3.5-5.0) g/dL TSH (0.32-4.0) uIU/mL Free T4 (0.71-1.85) ng/dL Urine Color Urine Appearance Urine pH (5.0-9.0) Ur Specific [place] (1.005-1.025) Urine Protein (Neg-Trace) mg/dL Urine Glucose (UA) (Negative) mg/dL Urine Ketones (Negative) mg/dL Urine Blood (Negative) Urine Nitrite (Negative) Ur Leukocyte Esterase (Negative) COVID-19 (ONUR) (Negative) COVID-19 Clin Com 04/24/22 04/24/22 04/24/22 Range/Units 19:20 19:20 19:20 WBC (4.8-10.8) X10*3/uL RBC (4.20-5.50) X10*6/uL Hgb (12.0-16.0) g/dl Hct (37.0-47.0) % MCV (80.0-98.0) fL MCH (27.0-33.0) pg MCHC (31.0-35.0) g/dl RDW (11.0-16.0) % Plt Count (160-400) X10*3/uL MPV (9.4-12.3) fL Immature Gran % (Auto) (0.0-0.4) % Neut % (Auto) (45-73) % Lymph % (Auto) (20-40) % [place] % (Auto) (2-11) % Eos % (Auto) (0-4) % Baso % (Auto) (0-2) % Lymph # (Auto) (1.2-4.9) X10*3/uL [place] # (Auto) (0.1-1.2) X10*3/uL Eos # (Auto) (0.0-0.4) X10*3/uL Baso # (Auto) (0.0-0.2) X10*3/uL Abs Immat Gran (auto) (0.00-0.03) X10*3/uL Absolute Neuts (auto) (2.0-8.3) x10*3/uL Absolute Nucleated RBC (0.0-0.012) X10*3/uL Nucleated RBC % (auto) (0.0-0.2) /100WBC ESR (0-20) MM/HR PT (10.0-13.1) SEC INR (0.9-1.1) Sodium 137 (135-145) mmol/L Potassium 3.4 (3.3-5.1) mmol/L Chloride 113 H (96-108) mmol/L Carbon Dioxide 11 L (22-29) mmol/L Anion Gap 16 (12-20) BUN 18 H (9-16) mg/dL Creatinine 1.68 H (0.5-1.4) mg/dL Estim Creat Clear Calc 28.1 Estimated GFR 31 Random Glucose 101 (60-115) mg/dL Lactic Acid 1.5 (0.5-2.0) mmol/L Calcium 8.6 (8.4-10.2) mg/dL Magnesium 1.8 (1.6-2.6) mg/dL Total Bilirubin 0.6 (0.0-1.0) mg/dL AST 22 (5-31) U/L ALT 12 (0-31) U/L Alkaline Phosphatase 149 H D (39-117) U/L C-Reactive Protein 6.58 H (< or = 0.50) mg/dL Total Protein 7.8 (6.5-8.0) g/dL Albumin 3.1 L (3.5-5.0) g/dL TSH 0.22 L (0.32-4.0) uIU/mL Free T4 1.36 (0.71-1.85) ng/dL Urine Color Urine Appearance Urine pH (5.0-9.0) Ur Specific [place] (1.005-1.025) Urine Protein (Neg-Trace) mg/dL Urine Glucose (UA) (Negative) mg/dL Urine Ketones (Negative) mg/dL Urine Blood (Negative) Urine Nitrite (Negative) Ur Leukocyte Esterase (Negative) COVID-19 (ONUR) Negative (Negative) COVID-19 Clin Com See Note 04/24/22 Range/Units 23:34 WBC (4.8-10.8) X10*3/uL RBC (4.20-5.50) X10*6/uL Hgb (12.0-16.0) g/dl Hct (37.0-47.0) % MCV (80.0-98.0) fL MCH (27.0-33.0) pg MCHC (31.0-35.0) g/dl RDW (11.0-16.0) % Plt Count (160-400) X10*3/uL MPV (9.4-12.3) fL Immature Gran % (Auto) (0.0-0.4) % Neut % (Auto) (45-73) % Lymph % (Auto) (20-40) % [place] % (Auto) (2-11) % Eos % (Auto) (0-4) % Baso % (Auto) (0-2) % Lymph # (Auto) (1.2-4.9) X10*3/uL [place] # (Auto) (0.1-1.2) X10*3/uL Eos # (Auto) (0.0-0.4) X10*3/uL Baso # (Auto) (0.0-0.2) X10*3/uL Abs Immat Gran (auto) (0.00-0.03) X10*3/uL Absolute Neuts (auto) (2.0-8.3) x10*3/uL Absolute Nucleated RBC (0.0-0.012) X10*3/uL Nucleated RBC % (auto) (0.0-0.2) /100WBC ESR (0-20) MM/HR PT (10.0-13.1) SEC INR (0.9-1.1) Sodium (135-145) mmol/L Potassium (3.3-5.1) mmol/L Chloride (96-108) mmol/L Carbon Dioxide (22-29) mmol/L Anion Gap (12-20) BUN (9-16) mg/dL Creatinine (0.5-1.4) mg/dL Estim Creat Clear Calc Estimated GFR Random Glucose (60-115) mg/dL Lactic Acid (0.5-2.0) mmol/L Calcium (8.4-10.2) mg/dL Magnesium (1.6-2.6) mg/dL Total Bilirubin (0.0-1.0) mg/dL AST (5-31) U/L ALT (0-31) U/L Alkaline Phosphatase (39-117) U/L C-Reactive Protein (< or = 0.50) mg/dL Total Protein (6.5-8.0) g/dL Albumin (3.5-5.0) g/dL TSH (0.32-4.0) uIU/mL Free T4 (0.71-1.85) ng/dL Urine Color Yellow Urine Appearance Clear Urine pH 6.5 (5.0-9.0) Ur Specific [place] 1.010 (1.005-1.025) Urine Protein Negative (Neg-Trace) mg/dL Urine Glucose (UA) Negative (Negative) mg/dL Urine Ketones Negative (Negative) mg/dL Urine Blood Negative (Negative) Urine Nitrite Negative (Negative) Ur Leukocyte Esterase Negative (Negative) COVID-19 (ONUR) (Negative) COVID-19 Clin Com Discharge Plan Discharge Clinical Impression: Acute parotitis Patient Disposition: Home, Self-Care Instructions: Sialoadenitis (ED) Additional Instructions: Your parotid gland was inflamed as per CT scan. There is no abscess collection. Recommend warm compression and massaged and swelling 4 times a day. You will be prescribed with antibiotics. Return to the ED immediately for increased swelling, drooling in injury voice, shortness of breath, chest pain, intractable fever, weakness, chills, or any other concerning symptoms. He will need follow- up with your primary care provider and there is no improvement for possible biopsy. Prescriptions: New clindamycin HCl 300 mg capsule 300 mg PO QID 7 Days Qty: 28 0RF oxycodone 5 mg capsule 5 mg PO TID PRN (Reason: pain) 3 Days Qty: 9 0RF Rx Instructions: Partial Fill upon patient request. No Action cholecalciferol (vitamin D3) 50 mcg (2,000 unit) capsule 50 mcg PO DAILY 90 Days Qty: 90 3RF sennosides [senna] 8.6 mg tablet 8.6 mg PO BID 30 Days Qty: 60 2RF Linzess 145 mcg capsule 145 mcg PO DAILY 30 Days Qty: 30 3RF loratadine 10 mg tablet 10 mg PO DAILY 90 Days Qty: 90 1RF escitalopram oxalate 10 mg tablet 10 mg PO DAILY 90 Days Qty: 90 1RF levothyroxine 112 mcg tablet 112 mcg PO DAILY@0600 Qty: 30 0RF (DME) walker Misc See Rx Instructions .Route Qty: 1 0RF Rx Instructions: As directed omeprazole 40 mg capsule,delayed release(DR/EC) 40 mg PO DAILY 90 Days Qty: 90 2RF tramadol 50 mg tablet 1 tab PO BID PRN (Reason: pain) Referrals: Nanda Fiore MD [Primary Care Provider] - (Parotitis. WIll need follow upw) Interventions: ED Discharge Assessment Last Done: 04/25/22 01:16 Discharge Date/Time: 04/25/22 01:18 Print Language: Portuguese
[2022-04-24 23:29] VITALS: BP 142/63; PULSE 91; RESP 14; TEMP 38.6; O2SAT 100
--- NOTE | 2022-04-24 23:43 | PC.NURSE ---
Notified Rob ORTIZ of elevated temp.
[2022-04-24 23:55] LABS: Appearance Urine Clear; Color Urine Yellow; Glucose Urine UA Negative (Negative); Leukocyte Esterase Urine Negative (Negative); Nitrite Urine Negative (Negative); PH 6.5 (5.0-9.0); Urine Blood Negative (Negative); Urine Ketones Negative (Negative); Urine Protein Negative (Neg-Trace)
[2022-04-25] MEDS: Acetaminophen 325 MG TABLET 650 MG PO (00:43)
--- NOTE | 2022-04-25 00:43 | PC.NURSE ---
waiting on cleocin to be brought by the supervisor carding.
[2022-04-25] MEDS: Clindamycin HCL 150 MG CAPSULE 450 MG PO (01:12)
[2022-04-26 18:56] LABS: Mumps Virus IgG Antibody >300.00 AU/mL
[2022-05-01 00:37] LABS: Mumps Virus IgM Antibody <1:20 titer
== END 2022-04-25 01:18 | disposition home or self-care (01) ==
PROVIDERS: Physician Assistant Medical; Emergency Provider Student in an Organized Health Care Education/Training Program; PCP Internal Medicine
DX: K11.21 Acute sialoadenitis (principal); H92.01 Otalgia, right ear; Z20.822 Contact with and (suspected) exposure to COVID-19; Z79.899 Other long term (current) drug therapy
CPT/HCPCS: 36415; 70490; 80053; 81003; 83605; 83735; 84439; 84443; 85025; 85610; 85652; 86140; 86735; 87635; 99283

== ENCOUNTER → 2022-04-25 10:10 | Outpatient (BNVA) | payer OTHER, SELFPAY | PROVIDERS: PCP Internal Medicine; Visit Provider Surgery | DX: K82.4 Cholesterolosis of gallbladder (principal); K74.60 Unspecified cirrhosis of liver; E06.3 Autoimmune thyroiditis; R13.10 Dysphagia, unspecified; R63.4 Abnormal weight loss; K11.21 Acute sialoadenitis | CPT/HCPCS: 99212 ==

== ENCOUNTER 2022-05-11 13:58 | Outpatient (REF) | payer OTHER, SELFPAY ==
--- NOTE | ~2022-05-11 | US_ITS ---
EXAMINATION: US VENOUS ULTRASOUND WITH DOPPLER LOWER EXTREMITY, LEFT CLINICAL INFORMATION: Swelling COMPARISON: 12/04/2017 TECHNIQUE: Ultrasound of the deep veins is performed from the hip to the calf with compression sonography and color and pulse Doppler assessment. Spectral analysis with color-flow imaging is performed. FINDINGS: There is normal venous compression and respiratory variation and augmented flow. The visualized common femoral vein, superficial femoral vein, profunda femoral vein, popliteal vein, and the trifurcation region shows no evidence of acute deep venous thrombosis. There does appear to be some peripheral thickening in the left tibioperitoneal trunk with incomplete total compression. I suspect this reflects chronic change .I do not see evidence of acute DVT There is no significant popliteal fossa cyst. Note is made of a prominent lymph node in the left inguinal region at 26 x 6 x 16 mm. If the patient's symptoms persist, followup ultrasound in 5 days 7 days might be of value to exclude proximal propagation from a non-visualized calf vein. US/US venous duplex LE LT IMPRESSION: No acute DVT demonstrated in the left lower extremity.
== END 2022-05-11 13:59 | disposition home or self-care (01) ==
LOC: HO.US 13:58
PROVIDERS: PCP Internal Medicine; Visit Provider Nurse Practitioner Family
DX: M79.662 Pain in left lower leg (principal)
CPT/HCPCS: 93971

== ENCOUNTER 2022-05-26 16:02 | Outpatient (REF) | payer OTHER, SELFPAY ==
[2022-05-26 17:06] LABS: Basophils Percent Auto 0.2 % (0-2); Lymphocytes Percent Auto 28.4 % (20-40); SCAN SMEAR FLAG 1
[2022-05-26 17:08] LABS: Eosinophils Absolute Auto 0.1 X10*3/uL (0.0-0.4); Eosinophils Percent Auto 2.1 % (0-4); Hematocrit 29.4 % (37.0-47.0); Hemoglobin 9.3 g/dl (12.0-16.0); Imm Gran Abs Auto 0.02 X10*3/uL (0.00-0.03); Imm Gran Pct Auto 0.5 % (0.0-0.4); Lymphocytes Absolute Auto 1.2 X10*3/uL (1.2-4.9); MANUAL DIFF FLAG SCAN; Mean Corpuscular HGB Conc 31.6 g/dl (31.0-35.0); Mean Corpuscular Hemoglobin 31.8 pg (27.0-33.0); Mean Corpuscular Volume 100.7 fL (80.0-98.0); Monocytes Absolute Auto 0.4 X10*3/uL (0.1-1.2); Monocytes Percent Auto 8.6 % (2-11); Neutrophils Absolute Auto 2.5 x10*3/uL (2.0-8.3); Neutrophils Percent Auto 60.2 % (45-73); Red Blood Count 2.92 X10*6/uL (4.20-5.50); Red Cell Distribution Width 14.9 % (11.0-16.0); White Blood Count 4.2 X10*3/uL (4.8-10.8)
[2022-05-26 17:11] LABS: Appearance Urine Clear; Color Urine Yellow; Glucose Urine UA Negative (Negative); Leukocyte Esterase Urine Trace (Negative); Nitrite Urine Negative (Negative); PH 6.5 (5.0-9.0); UMIC TRIGGER UA YES; Urine Blood Negative (Negative); Urine Ketones Negative (Negative); Urine Protein Trace mg/dL (Neg-Trace)
[2022-05-26 17:28] LABS: PLT ABN DIST 1
[2022-05-26 17:40] LABS: Platelet Count 63 X10*3/uL (160-400)
[2022-05-26 17:40] LABS: Bacteria Urine None Seen (None Seen); Hyaline Casts Urine 0-2 /LPF (0-2); RBC Urine 0-2 /HPF (0-2); Squamous Epithelial Cell Urine 0-2 /HPF (0-2); WBC Urine 0-5 /HPF (0-5)
[2022-05-26 17:42] LABS: SLIDE REVIEW VERIFIED
[2022-05-26 18:26] LABS: Creatinine Urine 80.34 mg/dL; Microalbum/Creatinine Ratio Ur 9.9 ug/mg cr; Protein/Creatinine Ratio, Ur 0.19 (<0.2); Total Protein Urine Random 15 mg/dL (<12)
[2022-05-26 18:43] LABS: Albumin Level 3.1 g/dL (3.5-5.0); Anion Gap 12 (12-20); Blood Urea Nitrogen 20 mg/dL (9-16); Calcium 9.1 mg/dL (8.4-10.2); Carbon Dioxide 19 mmol/L (22-29); Chloride 116 mmol/L (96-108); Estimated Glomerular Filt Rate 33; Ferritin 674 ng/mL (10-250); Iron 59 mcg/dL (30-160); Magnesium 1.9 mg/dL (1.6-2.6); Percent Iron Saturation 35 % (15-50); Phosphorus 3.2 mg/dL (2.7-4.5); Potassium 3.5 mmol/L (3.3-5.1); Sodium 143 mmol/L (135-145); Total Iron Binding Capacity 168 mcg/dL (228-428); Unsaturated Iron Binding 109 ug/dL; Vitamin D 25-OH Total 30.1 ng/mL (>30)
[2022-05-26 18:58] LABS: Folate 9.5 ng/mL (> or = 4.0); Vitamin B12 407 pg/mL (200-900)
[2022-05-27 11:58] LABS: Calcium (PTHI) 9.1 mg/dL (8.6-10.4); PTHI 34 pg/mL (16-77)
== END 2022-05-26 16:03 | disposition home or self-care (01) ==
LOC: HO.LAB 16:02
PROVIDERS: PCP Internal Medicine; Visit Provider Internal Medicine Nephrology
DX: I12.9 Hypertensive chronic kidney disease with stage 1 through stage 4 chronic kidney disease, or unspecified chronic kidney disease (principal); N18.32 Chronic kidney disease, stage 3b; D63.1 Anemia in chronic kidney disease; N25.0 Renal osteodystrophy
CPT/HCPCS: 36415; 80051; 81001; 82040; 82043; 82306; 82310; 82565; 82607; 82728; 82746; 83540; 83735; 83970; 84100; 84156; 84520; 85025; 87086

== ENCOUNTER 2022-07-01 12:02 | Outpatient (REF) | payer OTHER, SELFPAY | END 2022-07-01 12:03 | disposition home or self-care (01) | LOC: HO.MDS 12:02 | PROVIDERS: Visit Provider Internal Medicine Medical Oncology | DX: D50.9 Iron deficiency anemia, unspecified (principal) | CPT/HCPCS: 96365; J1756 ==

== ENCOUNTER 2022-07-05 13:59 | Outpatient (REF) | payer OTHER, SELFPAY | END 2022-07-05 14:00 | disposition home or self-care (01) | LOC: HO.MDS 13:59 | PROVIDERS: Visit Provider Internal Medicine Medical Oncology | DX: D50.9 Iron deficiency anemia, unspecified (principal) | CPT/HCPCS: 96365 ==

== ENCOUNTER 2022-07-27 12:07 | Outpatient (REF) | payer OTHER, SELFPAY ==
[2022-07-27 12:25] LABS: MANUAL DIFF FLAG NO
[2022-07-27 13:22] LABS: Basophils Percent Auto 0.2 % (0-2); Eosinophils Absolute Auto 0.2 X10*3/uL (0.0-0.4); Eosinophils Percent Auto 3.5 % (0-4); Hematocrit 32.2 % (37.0-47.0); Hemoglobin 10.3 g/dl (12.0-16.0); Imm Gran Abs Auto 0.01 X10*3/uL (0.00-0.03); Imm Gran Pct Auto 0.2 % (0.0-0.4); Lymphocytes Absolute Auto 1.4 X10*3/uL (1.2-4.9); Lymphocytes Percent Auto 32.2 % (20-40); Mean Corpuscular Hemoglobin 31.2 pg (27.0-33.0); Mean Corpuscular Volume 97.6 fL (80.0-98.0); Mean Platelet Volume 14.1 fL (9.4-12.3); Monocytes Absolute Auto 0.3 X10*3/uL (0.1-1.2); Monocytes Percent Auto 7.7 % (2-11); Neutrophils Absolute Auto 2.4 x10*3/uL (2.0-8.3); Neutrophils Percent Auto 56.2 % (45-73); Red Cell Distribution Width 13.6 % (11.0-16.0); White Blood Count 4.3 X10*3/uL (4.8-10.8)
[2022-07-27 13:24] LABS: Platelet Count 50 X10*3/uL (160-400)
[2022-07-27 14:03] LABS: Alanine Aminotransferase 15 U/L (0-31); Albumin Level 3.2 g/dL (3.5-5.0); Alkaline Phosphatase 150 U/L (39-117); Anion Gap 14 (12-20); Aspartate Amino Transferase 30 U/L (5-31); Bilirubin Total 0.5 mg/dL (0.0-1.0); Blood Urea Nitrogen 24 mg/dL (9-16); Calcium 9.3 mg/dL (8.4-10.2); Carbon Dioxide 18 mmol/L (22-29); Chloride 115 mmol/L (96-108); Cholesterol 205 mg/dL; Estimated Glomerular Filt Rate 33; Glucose Random 75 mg/dL (60-115); HDL Cholesterol 29 mg/dL; LDL Cholesterol Calculated 145 mg/dl; Potassium 3.8 mmol/L (3.3-5.1); Sodium 143 mmol/L (135-145); Total Protein 7.9 g/dL (6.5-8.0); Triglycerides 159 mg/dL
[2022-07-27 14:21] LABS: TSH reflex Free T4 7.28 uIU/mL (0.32-4.0)
== END 2022-07-27 12:08 | disposition home or self-care (01) ==
LOC: HO.LAB 12:07
PROVIDERS: Internal Medicine Medical Oncology; Absent Provider Nurse Practitioner Family; PCP Internal Medicine; Referring Provider Internal Medicine; Visit Provider Nurse Practitioner Family
DX: Z00.00 Encounter for general adult medical examination without abnormal findings (principal); I10 Essential (primary) hypertension
CPT/HCPCS: 36415; 80053; 80061; 84439; 84443; 85025

== ENCOUNTER 2022-07-27 12:51 | Outpatient (REF) | payer OTHER, SELFPAY | END 2022-07-27 12:52 | disposition home or self-care (01) | LOC: HO.MDS 12:51 | PROVIDERS: Visit Provider Internal Medicine Medical Oncology | DX: D50.9 Iron deficiency anemia, unspecified (principal) | CPT/HCPCS: 96365; J1756 ==

== ENCOUNTER 2022-08-03 13:23 | Inpatient (IN) | payer OTHER, SELFPAY ==
--- NOTE | ~2022-08-03 | US_ITS ---
EXAMINATION: US SOFT TISSUE NECK CLINICAL INFORMATION: Swelling at the left lower neck at the angle of the jaw COMPARISON: CT neck 04/24/2022 TECHNIQUE: High-frequency linear ultrasound transducer was utilized. FINDINGS: There is a solid complex vascular mass seen at left upper jaw thought to be arising from the parotid gland which measures 5.8 x 2.5 x 2.5 cm. . Normal parotid gland is not identified. There are prominent lymph nodes present in this area, the largest measuring 1.5 x 0.7 x 1.2 cm. No fluid collections are seen. US/US soft tiss head and/or neck Impression: Large vascular parotid mass. Better evaluation could be performed with neck MRI or contrast-enhanced CT scan.
[2022-08-03 13:36] VITALS: BP 146/67; PULSE 96; RESP 26; TEMP 39.6; O2SAT 100; BMI 28.3
[2022-08-03] MEDS: Acetaminophen 325 MG TABLET 650 MG PO ×2 (13:43→19:33)
--- NOTE | 2022-08-03 13:51 | ED.GENADULT ---
HPI - General Adult General Chief complaint: Fever Stated complaint: Fever ?Abscess L Side of Neck Time Seen by Provider: 08/03/22 13:36 Source: patient Mode of arrival: ambulatory History of Present Illness HPI narrative: 62-year-old female, nondiabetic, history of thyroid dysfunction presents with 2 days of worsening swelling at the left angle of her jaw and states that she has been treated at [facility] for a similar episode that occurred on the right. Patient is able to open her mouth fully and handle her secretions but states she has had fevers and chills. Related Data Previous Rx's Medication Instructions Recorded linaclotide 145 mcg capsule 145 mcg PO DAILY 30 days #30 caps 01/10/22 (Linzess) loratadine 10 mg tablet 10 mg PO DAILY 90 days #90 tabs 01/10/22 escitalopram oxalate 10 mg tablet 10 mg PO DAILY 90 days #90 tabs 02/24/22 walker #1 ea 04/06/22 omeprazole 40 mg capsule,delayed 40 mg PO DAILY 90 days #90 caps 04/20/22 release sennosides 8.6 mg tablet (Senna 8.6 mg PO BID #60 tabs 05/04/22 Laxative) cholecalciferol (vitamin D3) 50 50 mcg PO DAILY 90 days #90 caps 06/28/22 mcg (2,000 unit) capsule levothyroxine 125 mcg tablet 125 mcg PO DAILY 90 days #90 tabs 07/27/22 Allergies Allergy/AdvReac Type Severity Reaction Status Date / Time cefuroxime [From Ceftin] Allergy Intermediate rash Verified 07/19/22 15:13 Wrhpmwr-GJX-SxF Reductase Allergy Intermediate transaminit Verified 07/19/22 15:13 Inhibitor is [Ehdeiqp-Iwt-Frp Reductase Inhibitor] Review of Systems Review of Systems: Pertinent positives and negatives as stated in HPI PMFSH Past Medical History Source: nursing notes reviewed Medical History Arthritis Asthma Autoimmune hepatitis Back pain Chest pain Chronic constipation Chronic iron deficiency anemia Chronic renal insufficiency CKD (chronic kidney disease) CKD (chronic kidney disease) stage 4, GFR 15-29 ml/min Depression Depression Elevated cholesterol GERD (gastroesophageal reflux disease) History of depression History of DVT (deep vein thrombosis) Hx pulmonary embolism Hypertension Hypothyroid Hypothyroidism Iron deficiency anemia MDD (major depressive disorder), recurrent, severe, with psychosis Mild recurrent major depression Noncompliance with medication regimen Panic disorder Right ankle injury (~2000) Seasonal allergies Surgical History History of ankle surgery History of colonoscopy (~2018) History of liver biopsy Hx of endoscopy (06/26/17) Family History Family History Father Myocardial infarction H/O ETOH abuse Hypertension Mother Diabetes High cholesterol Hypertension Stroke Paternal Aunt Mental health disorder Paternal Uncle Mental health disorder Sister Cancer Ovarian cancer Social History Social History Household Members: None Housing: Apartment Are you a primary health care administrator to a significant other at home: No Do you presently have visiting nurse or other home services: Yes Alcohol intake: never Patient Tobacco Use Status: Never used Tobacco e-Cigarette/Vaping Use: Never Used Second Hand Smoke Exposure: No Advance Directives: Yes Advance Directives Information Provided: No Advance Directives on File: No service: No Current occupational status: unemployed Cognitive needs: No Hearing needs: No Vision needs: Yes (glasses) Physical Exam ED Vital Signs: Vital Signs - 24 hr 08/03/22 13:36 08/03/22 14:15 08/03/22 15:04 Temperature 103.3 F H 103.3 F H 100.7 F H Pulse Rate 96 109 H 87 Respiratory Rate 26 H 20 20 Blood Pressure 146/67 H 126/57 L Pulse Oximetry 100 99 98 Oxygen Delivery Method Room Air Room Air Room Air BMI result Body Mass Index 28.3 VITAL SIGNS: Reviewed. GENERAL: Well developed, well nourished, in moderate distress. HEAD: Normocephalic/atraumatic EYES: PERRLA, EOMI EARS: Ext canals without abnormality, TMs non-bulging and non-erythematous NOSE: Nares patent bilateral FACE: THERE IS SWELLING NOTED AT THE LEFT ANGLE OF THE JAW JUST INFERIOR THAT IS TENDER TO PALPATION, ERYTHEMATOUS, WARM OROPHARYNX: no oral lesions noted, posterior pharynx clear, no uvula deviation, no tonsillar pillar abnormalities, and non-erythematous without noted tonsillar enlargement/erythema/exudates, no trismus NECK: Supple, no adenopathy LUNGS: Normal breath sounds. No adventitious sounds or accessory muscle use. SpO2<100> CARDIOVASCULAR: Regular rate and rhythm without noted murmurs ABDOMEN: Soft, non-tender, non-distended with bowel sounds. MUSCULOSKELETAL: No tenderness, deformities, or effusions noted on gross inspection. EXTREMITIES: No cyanosis, clubbing or edema. SKIN: Inspection of the skin reveals no rashes NEUROLOGIC: Alert and oriented x 4. Medications Administered Discontinued Medications Generic Name Dose Route Start Last Admin Trade Name Freq PRN Reason Stop Dose Admin Acetaminophen 650 mg 08/03/22 13:40 08/03/22 13:43 Acetaminophen 325 Mg Tablet PO 08/03/22 13:41 650 mg ONCE ONE Administration Acetaminophen 975 mg 08/03/22 13:48 08/03/22 14:08 Acetaminophen 325 Mg Tablet PO 08/03/22 13:49 Not Given ONCE ONE Sodium Chloride 1,000 mls @ 999 mls/hr 08/03/22 14:00 08/03/22 14:12 Ns IV 08/03/22 15:00 999 mls/hr .Q1H1M [place] Administration Piperacillin Sod/Tazobactam 50 mls @ 100 mls/hr 08/03/22 14:16 08/03/22 15:04 Sod 3.375 gm/ Sodium Chloride IV 08/03/22 14:45 100 mls/hr ONCE ONE Administration Ketorolac Tromethamine 15 mg 08/03/22 13:53 08/03/22 14:12 Ketorolac Tromethamine 30 Mg/Ml Vial IVPUSH 08/03/22 13:54 15 mg ONCE ONE Administration Medical Decision Making Medical Decision Making [facility] Narrative: 62-year-old female who presents with suspected parotitis. Patient will be treated with antipyretics, blood cultures and lab workup. I do not think that imaging studies are necessary at this time, records have been requested from [facility]. Patient is allergic to cefuroxime and the mainstay of treatment includes beta lactams/cephalosporins. I reviewed all investigations and my interpretation is that patient has a significant parotitis without evidence of airway or swallowing compromise but will need ongoing IV antibiotics. Remaining investigations are consistent with patient's baseline thrombocytopenia an underlying thyroid condition. Differential Diagnosis Differential Diagnoses: The differential diagnosis associated with the presentation includes Please see the discussion above Consult Healthcare Provider Management of the patient was discussed with: Hospitalist [id number]: I discussed the case with inpatient hospitalist. Lab Data [facility] Lab Attestation statement: I reviewed the patient's lab results. Please see the discussion above 08/03/22 14:01 08/03/22 14:01 Labs: Lab Results 08/03/22 08/03/22 08/03/22 Range/Units 14:01 14:01 14:01 WBC 9.6 (4.8-10.8) X10*3/uL RBC 3.64 L (4.20-5.50) X10*6/uL Hgb 11.3 L (12.0-16.0) g/dl Hct 35.4 L (37.0-47.0) % MCV 97.3 (80.0-98.0) fL MCH 31.0 (27.0-33.0) pg MCHC 31.9 (31.0-35.0) g/dl RDW 13.3 (11.0-16.0) % Plt Count 79 L D (160-400) X10*3/uL MPV 12.8 H (9.4-12.3) fL Immature Gran % (Auto) 0.7 H (0.0-0.4) % Neut % (Auto) 81.5 H (45-73) % Lymph % (Auto) 12.6 L (20-40) % [place] % (Auto) 4.9 (2-11) % Eos % (Auto) 0.1 (0-4) % Baso % (Auto) 0.2 (0-2) % Lymph # (Auto) 1.2 (1.2-4.9) X10*3/uL [place] # (Auto) 0.5 (0.1-1.2) X10*3/uL Eos # (Auto) 0.0 (0.0-0.4) X10*3/uL Baso # (Auto) 0.0 (0.0-0.2) X10*3/uL Abs Immat Gran (auto) 0.07 H (0.00-0.03) X10*3/uL Absolute Neuts (auto) 7.8 (2.0-8.3) x10*3/uL Absolute Nucleated RBC 0.000 (0.0-0.012) X10*3/uL Nucleated RBC % (auto) 0.0 (0.0-0.2) /100WBC PT 13.4 H (10.0-13.1) SEC INR 1.2 H (0.9-1.1) Sodium 140 (135-145) mmol/L Potassium 4.2 (3.3-5.1) mmol/L Chloride 113 H (96-108) mmol/L Carbon Dioxide 17 L (22-29) mmol/L Anion Gap 14 (12-20) BUN 25 H (9-16) mg/dL Creatinine 1.79 H (0.5-1.4) mg/dL Estim Creat Clear Calc 26.4 Estimated GFR 29 Random Glucose 102 (60-115) mg/dL Lactic Acid (0.5-2.0) mmol/L Calcium 9.2 (8.4-10.2) mg/dL Total Bilirubin 0.6 (0.0-1.0) mg/dL AST 31 (5-31) U/L ALT 17 (0-31) U/L Alkaline Phosphatase 181 H (39-117) U/L Total Protein 8.4 H (6.5-8.0) g/dL Albumin 3.3 L (3.5-5.0) g/dL COVID-19 (ONUR) (Negative) COVID-19 Clin Com Influenza Type A (LESLIE) (Negative) Influenza Type B (LESLIE) (Negative) Influenza A & B Note 08/03/22 08/03/22 08/03/22 Range/Units 14:01 14:01 14:01 WBC (4.8-10.8) X10*3/uL RBC (4.20-5.50) X10*6/uL Hgb (12.0-16.0) g/dl Hct (37.0-47.0) % MCV (80.0-98.0) fL MCH (27.0-33.0) pg MCHC (31.0-35.0) g/dl RDW (11.0-16.0) % Plt Count (160-400) X10*3/uL MPV (9.4-12.3) fL Immature Gran % (Auto) (0.0-0.4) % Neut % (Auto) (45-73) % Lymph % (Auto) (20-40) % [place] % (Auto) (2-11) % Eos % (Auto) (0-4) % Baso % (Auto) (0-2) % Lymph # (Auto) (1.2-4.9) X10*3/uL [place] # (Auto) (0.1-1.2) X10*3/uL Eos # (Auto) (0.0-0.4) X10*3/uL Baso # (Auto) (0.0-0.2) X10*3/uL Abs Immat Gran (auto) (0.00-0.03) X10*3/uL Absolute Neuts (auto) (2.0-8.3) x10*3/uL Absolute Nucleated RBC (0.0-0.012) X10*3/uL Nucleated RBC % (auto) (0.0-0.2) /100WBC PT (10.0-13.1) SEC INR (0.9-1.1) Sodium (135-145) mmol/L Potassium (3.3-5.1) mmol/L Chloride (96-108) mmol/L Carbon Dioxide (22-29) mmol/L Anion Gap (12-20) BUN (9-16) mg/dL Creatinine (0.5-1.4) mg/dL Estim Creat Clear Calc Estimated GFR Random Glucose (60-115) mg/dL Lactic Acid 1.0 (0.5-2.0) mmol/L Calcium (8.4-10.2) mg/dL Total Bilirubin (0.0-1.0) mg/dL AST (5-31) U/L ALT (0-31) U/L Alkaline Phosphatase (39-117) U/L Total Protein (6.5-8.0) g/dL Albumin (3.5-5.0) g/dL COVID-19 (ONUR) Negative (Negative) COVID-19 Clin Com See Note Influenza Type A (LESILE) Negative (Negative) Influenza Type B (LESLIE) Negative (Negative) Influenza A & B Note See Note External Record Review External record reviewed: Outpatient record, Prior outpatient labs and Outside ED record Chronic Conditions Patient?s care impacted by: Hypertension Critical Care Time Critical Care Time Critical Care Time: Yes Total Critical Care Time: 30 Attestation: I personally attest to this time spent taking care of the patient. Discharge Plan Discharge Clinical Impression: Sepsis, Acute parotitis Patient Disposition: Admitted As Inpatient Prescriptions: No Action Linzess 145 mcg capsule 145 mcg PO DAILY 30 Days Qty: 30 3RF loratadine 10 mg tablet 10 mg PO DAILY 90 Days Qty: 90 1RF escitalopram oxalate 10 mg tablet 10 mg PO DAILY 90 Days Qty: 90 1RF (REJI Dexter See Rx Instructions .Route Qty: 1 0RF Rx Instructions: As directed omeprazole 40 mg capsule,delayed release(DR/EC) 40 mg PO DAILY 90 Days Qty: 90 2RF sennosides [Senna Laxative] 8.6 mg tablet 8.6 mg PO BID Qty: 60 2RF cholecalciferol (vitamin D3) 50 mcg (2,000 unit) capsule 50 mcg PO DAILY 90 Days Qty: 90 3RF levothyroxine 125 mcg tablet 125 mcg PO DAILY 90 Days Qty: 90 0RF
[2022-08-03 14:07] LABS: MANUAL DIFF FLAG NO
[2022-08-03 14:10] LABS: Basophils Percent Auto 0.2 % (0-2); Eosinophils Percent Auto 0.1 % (0-4); Hematocrit 35.4 % (37.0-47.0); Hemoglobin 11.3 g/dl (12.0-16.0); Imm Gran Abs Auto 0.07 X10*3/uL (0.00-0.03); Imm Gran Pct Auto 0.7 % (0.0-0.4); Lymphocytes Absolute Auto 1.2 X10*3/uL (1.2-4.9); Lymphocytes Percent Auto 12.6 % (20-40); Mean Corpuscular HGB Conc 31.9 g/dl (31.0-35.0); Mean Corpuscular Volume 97.3 fL (80.0-98.0); Mean Platelet Volume 12.8 fL (9.4-12.3); Monocytes Absolute Auto 0.5 X10*3/uL (0.1-1.2); Monocytes Percent Auto 4.9 % (2-11); Neutrophils Absolute Auto 7.8 x10*3/uL (2.0-8.3); Neutrophils Percent Auto 81.5 % (45-73); Red Blood Count 3.64 X10*6/uL (4.20-5.50); Red Cell Distribution Width 13.3 % (11.0-16.0); White Blood Count 9.6 X10*3/uL (4.8-10.8)
[2022-08-03 14:12] LABS: Platelet Count 79 X10*3/uL (160-400)
[2022-08-03] MEDS: Ketorolac Tromethamine 30 MG/ML VIAL 15 MG IVPUSH (14:12)
[2022-08-03] MEDS: 0.9 % Sodium Chloride 1,000 ML 999 ML IV (14:12)
[2022-08-03 14:14] LABS: INTERNATIONAL NORM RATIO 1.2 (0.9-1.1); Prothrombin Time 13.4 SEC (10.0-13.1)
[2022-08-03 14:15] VITALS: PULSE 109; RESP 20; TEMP 39.6; O2SAT 99
[2022-08-03 14:25] LABS: Alanine Aminotransferase 17 U/L (0-31); Albumin Level 3.3 g/dL (3.5-5.0); Alkaline Phosphatase 181 U/L (39-117); Anion Gap 14 (12-20); Aspartate Amino Transferase 31 U/L (5-31); Bilirubin Total 0.6 mg/dL (0.0-1.0); Blood Urea Nitrogen 25 mg/dL (9-16); Calcium 9.2 mg/dL (8.4-10.2); Carbon Dioxide 17 mmol/L (22-29); Chloride 113 mmol/L (96-108); Creatinine Clr Calc Pharmacy 26.4; Estimated Glomerular Filt Rate 29; Glucose Random 102 mg/dL (60-115); Potassium 4.2 mmol/L (3.3-5.1); Sodium 140 mmol/L (135-145); Total Protein 8.4 g/dL (6.5-8.0)
[2022-08-03 14:30] LABS: COVID-19 Test Negative (Negative); IDNOW Serial# 16C4AD1C; IDNOW Serial# BCCEAD1C; Influenza A Negative (Negative); Influenza B2 Negative (Negative)
[2022-08-03 15:04] VITALS: BP 126/57; PULSE 87; RESP 20; TEMP 38.2; O2SAT 98
[2022-08-03] MEDS: Piperacillin Sodium/Tazobactam 3.375 GM in 0.9 % Sodium Chloride 50 ML IV (15:04)
[2022-08-03 15:42] VITALS: TEMP 38.2
[2022-08-03] MEDS: vancomycin HCL 1,500 MG in 0.9 % Sodium Chloride 500 ML 333.33 MG IV (15:57)
--- NOTE | 2022-08-03 16:02 | PC.NURSE ---
Alert and oriented, respirations even and unlabored. IV established, fluids and antibiotics infusing. Hospitalist at the bedside to admit pt. Ultrasound obtained. Pt noted to have large, painful lump behind left ear. States it has been hurting for past two days and causing discomfort with swallowing. Airway open and intact, speaking in full clear sentences. Call red within reach.
--- NOTE | 2022-08-03 16:16 | P.HPHOSP_ITS ---
History of Present Illness Date of Service: 08/03/22 Attending physician on admission: Richar Orozco Chief Complaint: Left neck swelling and fever 62-year-old female patient with past medical history significant for autoimmune hepatitis, Minla's thyroiditis, chronic constipation, asthma, hypertension, chronic anemia and chronic kidney disease who presented to [facility] with 2-3 days history of fever chills and left facial swelling with decreased by mouth intake prior to that 1 week ago patient had cough productive of yellowish- green phlegm associated with shortness of breath, patient did not seek treatment for that, patient had similar symptoms 3 months ago on right-side on neck required hospitalization at [facility] dx with right parotitis,and was treated with IV fluids and antibiotics and was recommended outpatient ENT follow-up, in the ER patient was noted to have fever of 103.3, tachycardia and tachypnea, normal WBC count, stable kidney function with baseline chronic kidney disease, patient treated in the emergency room with IV fluid, IV vancomycin and Zosyn, blood cultures x2 obtained, head and neck ultrasound obtained report pending patient will be admitted with a diagnosis of sepsis due to left parotitis. Review of Systems Review of Systems: General no headache no dizziness + fever, chills. CVS no chest pain, no palpitation. Respiratory dry cough, no shortness of breath Gastrointestinal no nausea no vomiting, chronic left upper abdominal pain no urinary urgency, no frequency Skin no rash Yes all other systems are reviewed and are negative [facility] Medical History Arthritis Asthma Autoimmune hepatitis Back pain Chest pain Chronic constipation Chronic iron deficiency anemia Chronic renal insufficiency CKD (chronic kidney disease) CKD (chronic kidney disease) stage 4, GFR 15-29 ml/min Depression Depression Elevated cholesterol GERD (gastroesophageal reflux disease) History of depression History of DVT (deep vein thrombosis) Hx pulmonary embolism Hypertension Hypothyroid Hypothyroidism Iron deficiency anemia MDD (major depressive disorder), recurrent, severe, with psychosis Mild recurrent major depression Noncompliance with medication regimen Panic disorder Right ankle injury (~2000) Seasonal allergies Family History Father Myocardial infarction H/O ETOH abuse Hypertension Mother Diabetes High cholesterol Hypertension Stroke Paternal Aunt Mental health disorder Paternal Uncle Mental health disorder Sister Cancer Ovarian cancer Surgical History History of ankle surgery History of colonoscopy (~2019) History of liver biopsy Hx of endoscopy (06/26/17) Social History Household Members: None Housing: Apartment Are you a primary child care counselor to a significant other at home: No Do you presently have visiting nurse or other home services: Yes Alcohol intake: never Patient Tobacco Use Status: Never used Tobacco e-Cigarette/Vaping Use: Never Used Second Hand Smoke Exposure: No Advance Directives: Yes Advance Directives Information Provided: No Advance Directives on File: No service: No Current occupational status: disabled Cognitive needs: No Hearing needs: No Vision needs: Yes (glasses) Meds Allergies Allergy/AdvReac Type Severity Reaction Status Date / Time cefuroxime [From Ceftin] Allergy Intermediate rash Verified 07/19/22 15:13 Fvbopav-UCA-TmE Reductase Allergy Intermediate transaminit Verified 07/19/22 15:13 Inhibitor is [Xodailo-Gdq-Lbe Reductase Inhibitor] Active Medications: Current Medications Acetaminophen (Acetaminophen 325 Mg Tablet) 650 mg PO Q6H PRN PRN Reason: Pain, Mild (Pain Scale 1-3) Piperacillin Sod/Tazobactam (Sod 2.25 gm/ Sodium Chloride) 50 mls @ 100 mls/hr IV Q6H [place] Lactated Ringer's (Lr) 1,000 mls @ 100 mls/hr IVCONT .Q10H [place] Melatonin (Melatonin 3 Mg Tablet) 3 mg PO BEDTIME PRN PRN Reason: Insomnia Ondansetron HCl (Ondansetron Hcl 4 Mg/2 Ml Vial) 4 mg IVPUSH Q8H PRN PRN Reason: Nausea and Vomiting Oxycodone HCl (Oxycodone Hcl Immed Release 5 Mg Tablet) 5 mg PO Q6H PRN PRN Reason: Pain, Severe (Pain Scale 7-10) Pharmacy Consult (Consult Rx Perform Med Rec) 1 each MISCELLANE ONCE PRN PRN Reason: Consult order Sodium Chloride (0.9 % Sodium Chloride Flush 3 Ml Syringe) 3 ml IVFLUSH QSHIFT [facility] Home Medications Medication Instructions Recorded Confirmed Last Taken Type sennosides 8.6 mg tablet (Senna 8.6 mg PO DAILY 08/03/22 08/03/2208/03/23 History Laxative) Physical Exam Vital Signs and Narrative: Vital Signs: Last Vital Signs Temp 100.7 F H 08/03/22 15:42 Pulse 87 08/03/22 15:04 Resp 20 08/03/22 15:04 BP 126/57 L 08/03/22 15:04 Pulse Ox 98 08/03/22 15:04 O2 Del Method 08/03/22 15:04 BMI result Body Mass Index 28.3 Const: Other: General awake alert x3 resting comfortably in no acute distress. Neck left parotid swelling with warmth and tenderness to palpation, no redness, no fluctuation CVS regular rate rhythm, Respiratory lungs clear to auscultation, no respiratory distress, no wheeze, no rhonchi. Gastrointestinal abdomen soft, mild left upper quadrant tenderness, bowel sounds audible, no guarding , no rigidity. Extremities no edema. Neuro nonfocal Skin no rash Psych appropriate affect Results Labs 08/03/22 14:01 08/03/22 14:01 Labs: Laboratory Results - last 24 hr 08/03/22 08/03/22 08/03/22 14:01 14:01 14:01 MCV 97.3 MCH 31.0 MCHC 31.9 RDW 13.3 Plt Count 79 L D MPV 12.8 H Immature Gran % (Auto) 0.7 H Neut % (Auto) 81.5 H Lymph % (Auto) 12.6 L [place] % (Auto) 4.9 Eos % (Auto) 0.1 Baso % (Auto) 0.2 Lymph # (Auto) 1.2 [place] # (Auto) 0.5 Eos # (Auto) 0.0 Baso # (Auto) 0.0 Abs Immat Gran (auto) 0.07 H Absolute Neuts (auto) 7.8 Absolute Nucleated RBC 0.000 Nucleated RBC % (auto) 0.0 PT 13.4 H INR 1.2 H Anion Gap 14 Estim Creat Clear Calc 26.4 Estimated GFR 29 Random Glucose 102 Lactic Acid Calcium 9.2 Total Bilirubin 0.6 AST 31 ALT 17 Alkaline Phosphatase 181 H Total Protein 8.4 H Albumin 3.3 L COVID-19 (ONUR) COVID-19 Clin Com Influenza Type A (LESLIE) Influenza Type B (LESLIE) Influenza A & B Note 08/03/22 08/03/22 08/03/22 14:01 14:01 14:01 MCV MCH MCHC RDW Plt Count MPV Immature Gran % (Auto) Neut % (Auto) Lymph % (Auto) [place] % (Auto) Eos % (Auto) Baso % (Auto) Lymph # (Auto) [place] # (Auto) Eos # (Auto) Baso # (Auto) Abs Immat Gran (auto) Absolute Neuts (auto) Absolute Nucleated RBC Nucleated RBC % (auto) PT INR Anion Gap Estim Creat Clear Calc Estimated GFR Random Glucose Lactic Acid 1.0 Calcium Total Bilirubin AST ALT Alkaline Phosphatase Total Protein Albumin COVID-19 (ONUR) Negative COVID-19 Clin Com See Note Influenza Type A (LESLIE) Negative Influenza Type B (LESLIE) Negative Influenza A & B Note See Note Assessment and Plan (1) Sepsis: Status: Acute (2) Acute parotitis: Status: Acute (3) CKD (chronic kidney disease) stage 3, GFR 30-59 ml/min: Status: Acute Plan 62-year-old female patient with past medical history of autoimmune hepatitis, she motors thyroiditis in chronic kidney disease presented to [facility] with left facial swelling fever and chills of 2-3 days duration and diagnosed to have acute left parotitis will be admitted to [facility]. Sepsis due to left acute parotitis Patient had a recent episode of right acute parotitis requiring hospitalization to [facility] question autoimmune parotitis with underlying history of Minal's thyroiditis and autoimmune hepatitis Will treat with IV fluids, full liquid diet, analgesics recommend to suck on hard candy Continue IV Zosyn and vancomycin Follow-up on head and neck ultrasound, follow blood cultures Follow BMP and CMP ID consult Hypothyroidism continue Synthroid Chronic kidney disease stage 3 stable renal function Chronic thrombocytopenia likely due to autoimmune hepatitis Code status full code DVT prophylaxis with compression boot due to thrombocytopenia Patient will need 2 night inpatient stay due to sepsis requiring IV antibiotics and close clinical follow-up Time Spent With Patient Time: Total time managing care of this patient today ____ minutes. Quality Stroke Does the patient have a stroke diagnosis?: No VTE Prior VTE?: No VTE Risk Level:: Medical - moderate - high VTE Device Contraindication: N/A - Device Ordered VTE Drug Contraindication: Treatment Not Indicated
--- NOTE | 2022-08-03 16:27 | PHA.MEDREC ---
Pharmacy Consult ? Medication Reconciliation Pharmacy has completed the medication reconciliation.
[2022-08-03 17:22] LABS: Lactic Acid 0.8 mmol/L (0.5-2.0)
[2022-08-03 19:17] VITALS: BP 133/57; PULSE 73; RESP 20; TEMP 37.6; O2SAT 98
[2022-08-03] MEDS: Lactated Ringers 1,000 ML 100 ML IVCONT (19:26)
[2022-08-03 19:30] VITALS: BP 141/64; PULSE 75; RESP 18; TEMP 37.3; O2SAT 98
--- NOTE | 2022-08-03 19:35 | PC.NURSE ---
This repairer typewriter assumed care of this PT at 1900. PT A&Ox4, reports 8/10 L ear pain. L upper neck area swollen, red and warm to touch. IV fluids running. Meds given as documented.
[2022-08-03] MEDS: Piperacillin Sodium/Tazobactam 2.25 GM in 0.9 % Sodium Chloride 50 ML IV (21:26)
[2022-08-04 00:01] VITALS: BP 140/62; PULSE 79; RESP 18; TEMP 37.2; O2SAT 98
--- NOTE | 2022-08-04 01:32 | PC.NURSE ---
PT ambulated to BR with stand by assist, urine sample collected and sent to lab.
[2022-08-04 01:39] LABS: Appearance Urine Clear; Color Urine Yellow; Glucose Urine UA Negative (Negative); Leukocyte Esterase Urine Small (1+) (Negative); Nitrite Urine Negative (Negative); Specific Gravity - Urine 1.015 (1.005-1.025); UMIC TRIGGER UACC YES; Urine Blood Negative (Negative); Urine Ketones Negative (Negative); Urine Protein Negative (Neg-Trace)
[2022-08-04] MEDS: traMADoL HCL 50 MG TABLET PO (01:39)
[2022-08-04 01:46] LABS: Bacteria Urine None Seen (None Seen); Hyaline Casts Urine 0-2 /LPF (0-2); RBC Urine 0-2 /HPF (0-2); Squamous Epithelial Cell Urine 0-2 /HPF (0-2); UACC Culture Trigger YES; WBC Urine 0-5 /HPF (0-5)
[2022-08-04] MEDS: Piperacillin Sodium/Tazobactam 2.25 GM in 0.9 % Sodium Chloride 50 ML IV ×4 (03:31→21:36)
[2022-08-04] MEDS: Lactated Ringers 1,000 ML 100 ML IVCONT ×2 (05:42→17:11)
[2022-08-04] MEDS: Levothyroxine Sodium 125 MCG TABLET PO (05:43)
[2022-08-04 06:46] VITALS: BP 145/71; PULSE 76; RESP 21; TEMP 37.4; O2SAT 98
[2022-08-04] MEDS: Omeprazole 40 MG CAPSULE.DR PO (07:01)
[2022-08-04 07:45] LABS: Hematocrit 28.9 % (37.0-47.0); Hemoglobin 9.2 g/dl (12.0-16.0); Mean Corpuscular HGB Conc 31.8 g/dl (31.0-35.0); Mean Corpuscular Hemoglobin 31.1 pg (27.0-33.0); Mean Corpuscular Volume 97.6 fL (80.0-98.0); Mean Platelet Volume 12.8 fL (9.4-12.3); Red Blood Count 2.96 X10*6/uL (4.20-5.50); Red Cell Distribution Width 13.6 % (11.0-16.0); White Blood Count 8.8 X10*3/uL (4.8-10.8)
[2022-08-04 07:47] LABS: Platelet Count 66 X10*3/uL (160-400)
[2022-08-04 07:59] LABS: Anion Gap 12 (12-20); Blood Urea Nitrogen 23 mg/dL (9-16); Calcium 8.3 mg/dL (8.4-10.2); Carbon Dioxide 15 mmol/L (22-29); Chloride 118 mmol/L (96-108); Creatinine Clr Calc Pharmacy 32.3; Estimated Glomerular Filt Rate 36; Glucose Random 72 mg/dL (60-115); Potassium 3.8 mmol/L (3.3-5.1); Sodium 141 mmol/L (135-145)
[2022-08-04] MEDS: Sennosides 8.6 MG TABLET PO (09:27)
[2022-08-04] MEDS: Escitalopram Oxalate 10 MG TABLET PO (09:27)
[2022-08-04] MEDS: Cholecalciferol (Vitamin D3) 25 MCG TABLET 50 MCG PO (09:27)
[2022-08-04 10:08] VITALS: BP 137/61; PULSE 75; RESP 14; TEMP 37.2; O2SAT 97
[2022-08-04] MEDS: 0.9 % Sodium Chloride Flush 3 ML SYRINGE IVFLUSH ×2 (10:29→17:20)
--- NOTE | 2022-08-04 11:33 | MHC.CM.PN ---
Patient will be staying with her Sister/Elida at time of dc. 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 Home/self care is the goal and CM has initiated and will follow for dc planning. Patient sunita received Covid vax x4 and her PCP is Dr. Nanda Alaniz. Patient's Niece/Shaina is her HCP.
--- NOTE | 2022-08-04 11:55 | PC.NURSE ---
RESUMED CARE OF PT AT 7A THIS MORNING, NICARDIPINE GTT STOPPED WHEN PO MEDS GIVEN LAST BP 129/99
--- NOTE | 2022-08-04 13:15 | P.PNIM_ITS ---
Subjective Subjective Date of Service: 08/04/22 Interval History: Complaining of persistent left neck discomfort unable to swallow due to pain, no fever, since last evening no chills, no shortness of breath no headache, no dizziness, no nausea, no vomiting, no abdominal pain. Review of Systems Review of Systems: Yes all other systems are reviewed and are negative Physical Exam Vital Signs: Vital Signs: Last Vital Signs Temp 98.9 F 08/04/22 10:08 Pulse 75 08/04/22 10:08 Resp 14 08/04/22 10:08 BP 137/61 08/04/22 10:08 Pulse Ox 97 08/04/22 10:08 O2 Del Method 08/04/22 10:08 BMI result Body Mass Index 28.3 Const: Other: General awake alert x3 resting comfortably in no acute distress.? Neck left parotid swelling with warmth and tenderness to palpation, no redness, no fluctuation, slightly better since yesterday CVS? regular rate rhythm, Respiratory lungs clear to auscultation, no respiratory distress, no wheeze, no rhonchi. Gastrointestinal abdomen soft, mild left upper quadrant tenderness ( chronic per patient) bowel sounds audible, no guarding , no rigidity. Extremities no? edema. Neuro nonfocal Skin no rash Psych appropriate affect Objective Data Active Medications Acetaminophen (Acetaminophen 325 Mg Tablet) 650 mg PO Q6H PRN PRN Reason: Pain, Mild (Pain Scale 1-3) Last Admin: 08/03/22 19:33 Dose: 650 mg Documented By: RANDALL Benzocaine (Throat Lozenge, Medicated Lozenge) 1 lozenge MUCOUS MEM Q2H REPLACED BY [facility] Stop: 08/05/22 00:01 Escitalopram Oxalate (Escitalopram Oxalate 10 Mg Tablet) 10 mg PO DAILY REPLACED BY [facility] Last Admin: 08/04/22 09:27 Dose: 10 mg Documented By: DILAN Piperacillin Sod/Tazobactam (Sod 2.25 gm/ Sodium Chloride) 50 mls @ 100 mls/hr IV Q6H REPLACED BY [facility] Last Admin: 08/04/22 10:29 Dose: 100 mls/hr Documented By: DILAN Lactated Ringer's (Lr) 1,000 mls @ 100 mls/hr IVCONT .Q10H REPLACED BY [facility] Last Admin: 08/04/22 05:42 Dose: 100 mls/hr Documented By: RANDALL Levothyroxine Sodium (Levothyroxine Sodium 125 Mcg Tablet) 125 mcg PO DAILY@0600 REPLACED BY [facility] Last Admin: 08/04/22 05:43 Dose: 125 mcg Documented By: RANDALL Melatonin (Melatonin 3 Mg Tablet) 3 mg PO BEDTIME PRN PRN Reason: Insomnia Omeprazole (Omeprazole 40 Mg Capsule.Dr) 40 mg PO DAILY@0630 REPLACED BY [facility] Last Admin: 08/04/22 07:01 Dose: 40 mg Documented By: RANDALL Ondansetron HCl (Ondansetron Hcl 4 Mg/2 Ml Vial) 4 mg IVPUSH Q8H PRN PRN Reason: Nausea and Vomiting Oxycodone HCl (Oxycodone Hcl Immed Release 5 Mg Tablet) 5 mg PO Q6H PRN PRN Reason: Pain, Severe (Pain Scale 7-10) Pharmacy Consult (Consult Rx Perform Med Rec) 1 each MISCELLANE ONCE PRN PRN Reason: Consult order Senna (Sennosides 8.6 Mg Tablet) 8.6 mg PO DAILY REPLACED BY [facility] Last Admin: 08/04/22 09:27 Dose: 8.6 mg Documented By: DILAN Sodium Chloride (0.9 % Sodium Chloride Flush 3 Ml Syringe) 3 ml IVFLUSH QSHIFT REPLACED BY [facility] Last Admin: 08/04/22 10:29 Dose: 3 ml Documented By: DILAN Vitamin D (Cholecalciferol (Vitamin D3) 25 Mcg Tablet) 50 mcg PO DAILY REPLACED BY [facility] Last Admin: 08/04/22 09:27 Dose: 50 mcg Documented By: DILAN Labs 08/04/22 07:31 08/04/22 07:31 Labs: Laboratory Results - last 24 hr 08/03/22 08/03/22 08/03/22 14:01 14:01 14:01 MCV 97.3 MCH 31.0 MCHC 31.9 RDW 13.3 Plt Count 79 L D MPV 12.8 H Immature Gran % (Auto) 0.7 H Neut % (Auto) 81.5 H Lymph % (Auto) 12.6 L [place] % (Auto) 4.9 Eos % (Auto) 0.1 Baso % (Auto) 0.2 Lymph # (Auto) 1.2 [place] # (Auto) 0.5 Eos # (Auto) 0.0 Baso # (Auto) 0.0 Abs Immat Gran (auto) 0.07 H Absolute Neuts (auto) 7.8 Absolute Nucleated RBC 0.000 Nucleated RBC % (auto) 0.0 PT 13.4 H INR 1.2 H Anion Gap 14 Estim Creat Clear Calc 26.4 Estimated GFR 29 Random Glucose 102 Lactic Acid Calcium 9.2 Total Bilirubin 0.6 AST 31 ALT 17 Alkaline Phosphatase 181 H Total Protein 8.4 H Albumin 3.3 L Urine Color Urine Appearance Urine pH Ur Specific [place] Urine Protein Urine Glucose (UA) Urine Ketones Urine Blood Urine Nitrite Ur Leukocyte Esterase Urine RBC Urine WBC Ur Squamous Epith Cells Urine Bacteria Hyaline Casts COVID-19 (ONUR) COVID-19 Clin Com Influenza Type A (LESLIE) Influenza Type B (LESLIE) Influenza A & B Note 08/03/22 08/03/22 08/03/22 14:01 14:01 14:01 MCV MCH MCHC RDW Plt Count MPV Immature Gran % (Auto) Neut % (Auto) Lymph % (Auto) [place] % (Auto) Eos % (Auto) Baso % (Auto) Lymph # (Auto) [place] # (Auto) Eos # (Auto) Baso # (Auto) Abs Immat Gran (auto) Absolute Neuts (auto) Absolute Nucleated RBC Nucleated RBC % (auto) PT INR Anion Gap Estim Creat Clear Calc Estimated GFR Random Glucose Lactic Acid 1.0 Calcium Total Bilirubin AST ALT Alkaline Phosphatase Total Protein Albumin Urine Color Urine Appearance Urine pH Ur Specific [place] Urine Protein Urine Glucose (UA) Urine Ketones Urine Blood Urine Nitrite Ur Leukocyte Esterase Urine RBC Urine WBC Ur Squamous Epith Cells Urine Bacteria Hyaline Casts COVID-19 (ONUR) Negative COVID-19 Clin Com See Note Influenza Type A (LESLIE) Negative Influenza Type B (LESLIE) Negative Influenza A & B Note See Note 08/03/22 08/04/22 08/04/22 16:59 01:34 07:31 MCV 97.6 MCH 31.1 MCHC 31.8 RDW 13.6 Plt Count 66 L MPV 12.8 H Immature Gran % (Auto) Neut % (Auto) Lymph % (Auto) [place] % (Auto) Eos % (Auto) Baso % (Auto) Lymph # (Auto) [place] # (Auto) Eos # (Auto) Baso # (Auto) Abs Immat Gran (auto) Absolute Neuts (auto) Absolute Nucleated RBC 0.000 Nucleated RBC % (auto) 0.0 PT INR Anion Gap Estim Creat Clear Calc Estimated GFR Random Glucose Lactic Acid 0.8 Calcium Total Bilirubin AST ALT Alkaline Phosphatase Total Protein Albumin Urine Color Yellow Urine Appearance Clear Urine pH 6.0 Ur Specific [place] 1.015 Urine Protein Negative Urine Glucose (UA) Negative Urine Ketones Negative Urine Blood Negative Urine Nitrite Negative Ur Leukocyte Esterase Small (1+) H Urine RBC 0-2 Urine WBC 0-5 Ur Squamous Epith Cells 0-2 Urine Bacteria None Seen Hyaline Casts 0-2 COVID-19 (ONUR) COVID-19 Clin Com Influenza Type A (LESLIE) Influenza Type B (LESLIE) Influenza A & B Note 08/04/22 07:31 MCV MCH MCHC RDW Plt Count MPV Immature Gran % (Auto) Neut % (Auto) Lymph % (Auto) [place] % (Auto) Eos % (Auto) Baso % (Auto) Lymph # (Auto) [place] # (Auto) Eos # (Auto) Baso # (Auto) Abs Immat Gran (auto) Absolute Neuts (auto) Absolute Nucleated RBC Nucleated RBC % (auto) PT INR Anion Gap 12 Estim Creat Clear Calc 32.3 Estimated GFR 36 Random Glucose 72 Lactic Acid Calcium 8.3 L D Total Bilirubin AST ALT Alkaline Phosphatase Total Protein Albumin Urine Color Urine Appearance Urine pH Ur Specific [place] Urine Protein Urine Glucose (UA) Urine Ketones Urine Blood Urine Nitrite Ur Leukocyte Esterase Urine RBC Urine WBC Ur Squamous Epith Cells Urine Bacteria Hyaline Casts COVID-19 (ONUR) COVID-19 Clin Com Influenza Type A (LESLIE) Influenza Type B (LESLIE) Influenza A & B Note Assessment and Plan (1) Acute parotitis: Status: Acute (2) Sepsis: Status: Acute Plan 62-year-old female patient with past medical history of autoimmune hepatitis, she motors thyroiditis in chronic kidney disease presented to [facility] with left facial swelling fever and chills of 2-3 days duration and diagnosed to have acute left parotitis will be admitted to [facility]. Sepsis due to left acute parotitis Sepsis resolved Status post 1 dose of IV vancomycin, Continue IV Zosyn, IV fluids, full liquid diet, will add Cepacol lozenges to suck s/p recent episode of right acute parotitis requiring hospitalization to [facility] question autoimmune parotitis with underlying history of Minal's thyroiditis and autoimmune hepatitis head and neck ultrasound showed large vascular parotid mass, IR recommended neck MRI or contrast enhanced CT spoke with interventional radiologist Dr. Cason since patient is febrile and had similar episode on right-side seems more likely infection, follow blood cultures will Repeat ultrasound of neck after clearance of swelling for follow-up Await ID input Follow BMP and CBC Hypothyroidism continue Synthroid Chronic kidney disease stage 3 stable renal function Chronic thrombocytopenia likely due to autoimmune hepatitis Code status full code DVT prophylaxis with compression boot due to thrombocytopenia Patient will need continued inpatient stay due to sepsis requiring IV antibiotics and close clinical follow-up Time Spent With Patient Time: Total time managing care of this patient today ____ minutes. Quality Stroke Does the patient have a stroke diagnosis?: No VTE Prior VTE?: No VTE Risk Level:: Medical - moderate - high VTE Device Contraindication: N/A - Device Ordered VTE Drug Contraindication: Treatment Not Indicated
[2022-08-04 14:28] VITALS: BP 132/56; PULSE 67; RESP 18; TEMP 37.4; O2SAT 96
--- NOTE | 2022-08-04 15:25 | PHA.PROG ---
Admission Date/Time: August 03, 2022 16:09 Indication: Sepsis due to left acute parotitis Weight in k.503 kg Adjusted body weight in K.503 [place] body weight in Kg: Obesity Dosing Indication % IBW: Serum Creatinine - Last 168 Hours 08/03/22 08/04/22 14:01 07:31 Creatinine 1.79 H 1.46 H Estimated CrCl and GFR - Last 168 Hours 08/03/22 08/04/22 14:01 07:31 Estim Creat Clear Calc 26.4 32.3 Estimated GFR 29 36 Vancomycin Loading Dose: 1500 mg Current Vancomycin Dosing Regimen: 1000 mg Q24H Date and Time for next Vancomycin Level to be drawn: 08/06 @ 1400 Pharmacist Comments on Vancomycin Plan: Patient received an adequate loading dose of vanomcyin 1500 mg on 08/03 @ 1557. Maintenance dose vancomcyin 1000 mg Q24H is schedule to start 08/04 @ 1600. Expected AUC 517 with a trough of 16.2 Trough is schedule to be drawn prior to 4th dose Pharmacy to monitor renal function daily Saloni Tapia PharmD Vancomycin dosing will take advantage of [employer] as a clinical decision support tool that uses Bayesian modeling to calculate individual patient's pharmacokinetic parameters and forecast the patient's drug concentration time course with the target goal AUC 24 range of 400 - 600 mg/L/hr.
[2022-08-04 16:44] VITALS: BMI 28.0
[2022-08-04 16:52] VITALS: BP 151/69; PULSE 72; RESP 18; TEMP 37.4; O2SAT 98
[2022-08-04] MEDS: Throat Lozenge, Medicated LOZENGE 1 LOZENGE MUCOUS MEM (17:10)
[2022-08-04] MEDS: vancomycin HCL 1,000 MG in 0.9 % Sodium Chloride 250 ML 270 MG IV (17:11)
[2022-08-04 20:00] VITALS: BP 138/62; PULSE 69; RESP 18; TEMP 37.4; O2SAT 96
[2022-08-05] VITALS: BP 139/65; PULSE 73; RESP 18; TEMP 36.9; O2SAT 95
[2022-08-05] MEDS: oxyCODONE HCl Immed Release 5 MG TABLET PO ×2 (01:29→14:36)
[2022-08-05] MEDS: Piperacillin Sodium/Tazobactam 2.25 GM in 0.9 % Sodium Chloride 50 ML IV ×4 (02:52→20:55)
[2022-08-05] MEDS: Lactated Ringers 1,000 ML 100 ML IVCONT (03:36)
[2022-08-05 04:00] VITALS: BP 129/59; PULSE 70; RESP 18; TEMP 36.4; O2SAT 94
[2022-08-05] MEDS: Levothyroxine Sodium 125 MCG TABLET PO (05:33)
[2022-08-05] MEDS: Omeprazole 40 MG CAPSULE.DR PO (05:33)
[2022-08-05 06:50] LABS: Anion Gap 14 (12-20); Blood Urea Nitrogen 22 mg/dL (9-16); Calcium 8.5 mg/dL (8.4-10.2); Carbon Dioxide 15 mmol/L (22-29); Chloride 116 mmol/L (96-108); Creatinine Clr Calc Pharmacy 33.8; Estimated Glomerular Filt Rate 38; Glucose Random 58 mg/dL (60-115); Sodium 141 mmol/L (135-145)
[2022-08-05 07:12] LABS: Glucose, Whole Blood 75 mg/dL (60-115)
--- NOTE | 2022-08-05 07:15 | PC.NURSE ---
Lab called with a critical glucose =58 at 0647, pt is alert and oriented, denies any complaints, [place] juice 250 mls given and tolerated, to check POC at 0705, Dr. Macias was made aware, report given to incoming RN and stressed to follow up on POC and pt.
[2022-08-05 08:00] VITALS: BP 118/56; PULSE 62; RESP 18; TEMP 36.1; O2SAT 94
[2022-08-05] MEDS: Escitalopram Oxalate 10 MG TABLET PO (09:06)
[2022-08-05] MEDS: Sennosides 8.6 MG TABLET PO (09:06)
[2022-08-05] MEDS: Cholecalciferol (Vitamin D3) 25 MCG TABLET 50 MCG PO (09:06)
[2022-08-05] MEDS: 0.9 % Sodium Chloride Flush 3 ML SYRINGE IVFLUSH ×3 (09:07→20:55)
[2022-08-05] MEDS: Throat Lozenge, Medicated LOZENGE 1 LOZENGE MUCOUS MEM ×4 (09:24→16:51)
--- NOTE | 2022-08-05 10:35 | P.PNIM_ITS ---
Subjective Subjective Date of Service: 08/05/22 Interval History: Complaining of less neck discomfort tolerating full liquid diet no fevers, no chills , no lightheadedness, no dizziness no other acute issues overnight. Review of Systems [employer] no headache no dizziness CVS no chest pain Respiratory no cough, no sob Review of Systems: Yes all other systems are reviewed and are negative Physical Exam Vital Signs: Vital Signs: Last Vital Signs Temp 96.9 F 08/05/22 08:00 Pulse 62 08/05/22 08:00 Resp 18 08/05/22 08:00 BP 118/56 L 08/05/22 08:00 Pulse Ox 94 08/05/22 08:00 O2 Del Method 08/05/22 08:00 BMI result Body Mass Index 28.0 Const: Other: General awake alert x3 , in no acute distress.? Neck left parotid swelling firm,tender ,no redness, no fluctuation, slightly better since yesterday CVS? regular rate rhythm, Respiratory lungs clear to auscultation, no respiratory distress, no wheeze, no rhonchi. Gastrointestinal abdomen soft, , bowel sounds audible, no guarding , no rigidity. Extremities no? edema. Neuro nonfocal Skin no rash Psych appropriate affect Objective Data Active Medications Acetaminophen (Acetaminophen 325 Mg Tablet) 650 mg PO Q6H PRN PRN Reason: Pain, Mild (Pain Scale 1-3) Last Admin: 08/03/22 19:33 Dose: 650 mg Documented By: RANDALL Benzocaine (Throat Lozenge, Medicated Lozenge) 1 lozenge MUCOUS MEM Q2H PRN PRN Reason: Sore Throat Last Admin: 08/05/22 09:24 Dose: 1 lozenge Documented By: JARRED Escitalopram Oxalate (Escitalopram Oxalate 10 Mg Tablet) 10 mg PO DAILY [facility] Last Admin: 08/05/22 09:06 Dose: 10 mg Documented By: JARRED Piperacillin Sod/Tazobactam (Sod 2.25 gm/ Sodium Chloride) 50 mls @ 100 mls/hr IV Q6H [facility] Last Infusion: 08/05/22 09:49 Dose: 0 mls/hr Documented By: JARRED Lactated Ringer's (Lr) 1,000 mls @ 100 mls/hr IVCONT .Q10H [facility] Last Admin: 08/05/22 03:36 Dose: 100 mls/hr Documented By: MARRY Vancomycin HCl 1,000 mg/ (Sodium Chloride) 270 mls @ 270 mls/hr IV Q24H [facility] Last Infusion: 08/04/22 18:59 Dose: 0 mls/hr Documented By: SHERRI Levothyroxine Sodium (Levothyroxine Sodium 125 Mcg Tablet) 125 mcg PO DAILY@0600 [facility] Last Admin: 08/05/22 05:33 Dose: 125 mcg Documented By: MARRY Melatonin (Melatonin 3 Mg Tablet) 3 mg PO BEDTIME PRN PRN Reason: Insomnia Omeprazole (Omeprazole 40 Mg Capsule.Dr) 40 mg PO DAILY@0630 [facility] Last Admin: 08/05/22 05:33 Dose: 40 mg Documented By: MARRY Ondansetron HCl (Ondansetron Hcl 4 Mg/2 Ml Vial) 4 mg IVPUSH Q8H PRN PRN Reason: Nausea and Vomiting Oxycodone HCl (Oxycodone Hcl Immed Release 5 Mg Tablet) 5 mg PO Q6H PRN PRN Reason: Pain, Severe (Pain Scale 7-10) Last Admin: 08/05/22 01:29 Dose: 5 mg Documented By: MARRY Pharmacy Consult (Consult Rx Perform Med Rec) 1 each MISCELLANE ONCE PRN PRN Reason: Consult order Pharmacy Consult (Consult Rx Vancomycin Dosing) 1 each MISCELLANE DAILY PRN PRN Reason: Consult order Senna (Sennosides 8.6 Mg Tablet) 8.6 mg PO DAILY [facility] Last Admin: 08/05/22 09:06 Dose: 8.6 mg Documented By: JARRED Sodium Chloride (0.9 % Sodium Chloride Flush 3 Ml Syringe) 3 ml IVFLUSH QSHIFT [facility] Last Admin: 08/05/22 09:07 Dose: 3 ml Documented By: JARRED Vitamin D (Cholecalciferol (Vitamin D3) 25 Mcg Tablet) 50 mcg PO DAILY [facility] Last Admin: 08/05/22 09:06 Dose: 50 mcg Documented By: JARRED Labs 08/04/22 07:31 08/05/22 05:13 Labs: Laboratory Results - last 24 hr 08/05/22 08/05/22 05:13 07:09 Anion Gap 14 Estim Creat Clear Calc 33.8 Estimated GFR 38 POC Glucose 75 Random Glucose 58 L* Calcium 8.5 Microbiology Microbiology Results: Microbiology 08/03/22 14:01 Blood Culture - Preliminary Blood - Venous No growth after 24 hours. 08/03/22 14:01 Blood Culture - Preliminary Blood - Venous No growth after 24 hours. Assessment and Plan (1) Acute parotitis: Status: Acute (2) Sepsis: Status: Acute Plan 62-year-old female patient with past medical history of autoimmune hepatitis, she motors thyroiditis in chronic kidney disease presented to [facility] with left facial swelling fever and chills of 2-3 days duration and diagnosed to have acute left parotitis will be admitted to [facility]. Sepsis due to left acute parotitis. Sepsis resolved, tolerating full liquid diet,bcx2 neg. on IV vancomycin, IV Zosyn day 3, continue IV fluids, advanced diet to pureed , continue Cepacol lozenges to suck s/p recent episode of right acute parotitis treated at [facility] question autoimmune parotitis with underlying history of Minal's thyroiditis and autoimmune hepatitis head and neck ultrasound showed large vascular parotid mass, IR recommended neck MRI or contrast enhanced CT spoke with interventional radiologist Dr. Cason since patient is febrile and had similar episode on right-side seems more likely infection,will Repeat ultrasound of neck after clearance of swelling for follow-up Await ID input stable BMP and CBC Hypothyroidism continue Synthroid Chronic kidney disease stage 3 stable renal function Chronic thrombocytopenia likely due to autoimmune hepatitis Code status full code DVT prophylaxis with compression boot due to thrombocytopenia, recommend ambulation Patient will need continued inpatient stay due to sepsis requiring IV antibiotics and close clinical follow-up Time Spent With Patient Time: Total time managing care of this patient today ____ minutes. Quality Stroke Does the patient have a stroke diagnosis?: No VTE Prior VTE?: No VTE Risk Level:: Medical - moderate - high VTE Device Contraindication: N/A - Device Ordered VTE Drug Contraindication: Treatment Not Indicated
--- NOTE | 2022-08-05 10:54 | MHC.CM.PN ---
PT NOT YET MEDICALLY CLEARED PT WILL DC TO SISTERS HOME ONCE CLEARED SISTER WILL TRANSPORT
--- NOTE | 2022-08-05 13:54 | MHC.CLN ---
NUTRITION CONSULT FOR WEIGHT LOSS. PATIENT WITH RECENT RIGHT PAROTITIS AND NOW WITH LEFT PAROTITIS. REVIEW OF WEIGHT HISTORY SHOWS -4.7% WEIGHT LOSS X 3 MONTHS; -6.3% WEIGHT LOSS X 6 MONTHS. WEIGHT LOSS NOT SIGNIFICANT. DIET ADVANCED FROM FULL LIQUID TO PUREE. PATIENT DID NOT EAT ANYTHING THIS LUNCH. WOULD LIKE ENSURE BID. PROVIDES ADDITIONAL 700 KCALS, [address] TO FOLLOW UP WEEKLY.
[2022-08-05 15:37] VITALS: BP 158/70; PULSE 60; RESP 18; TEMP 36.7; O2SAT 96
--- NOTE | 2022-08-05 16:06 | P.CNID_ITS ---
History of Present Illness Data of Consult Service Date: 08/05/22 Requesting physician: Richar Orozco Primary Care Provider: Nanda Alaniz MD HPI Reason for consult: left parotitis She presents with pain and swelling for three days worsening on left side She has no fever or chills. She had admission [facility] 05/03/2022 concern over right sided parotid swelling and received Augmentin on dicharge. Review of Systems Review of Systems: Yes all other systems are reviewed and are negative [facility] Past Medical History Medical History Arthritis Asthma Autoimmune hepatitis Back pain Chest pain Chronic constipation Chronic iron deficiency anemia Chronic renal insufficiency CKD (chronic kidney disease) CKD (chronic kidney disease) stage 4, GFR 15-29 ml/min Depression Depression Elevated cholesterol GERD (gastroesophageal reflux disease) History of depression History of DVT (deep vein thrombosis) Hx pulmonary embolism Hypertension Hypothyroid Hypothyroidism Iron deficiency anemia MDD (major depressive disorder), recurrent, severe, with psychosis Mild recurrent major depression Noncompliance with medication regimen Panic disorder Right ankle injury (~2000) Seasonal allergies Family History Family History Father Myocardial infarction H/O ETOH abuse Hypertension Mother Diabetes High cholesterol Hypertension Stroke Paternal Aunt Mental health disorder Paternal Uncle Mental health disorder Sister Cancer Ovarian cancer Family history: reviewed and not pertinent Surgical History Surgical History History of ankle surgery History of colonoscopy (~2018) History of liver biopsy Hx of endoscopy (06/26/17) Social History Social History Household Members: Family Housing: Apartment Are you a primary animal caregiver to a significant other at home: No Do you presently have visiting nurse or other home services: Yes Alcohol intake: never Patient Tobacco Use Status: Never used Tobacco e-Cigarette/Vaping Use: Never Used Second Hand Smoke Exposure: No Advance Directives Date on File: 07/21/21 service: No Current occupational status: disabled Cognitive needs: No Hearing needs: No Vision needs: Yes (glasses) Meds Allergies Allergy/AdvReac Type Severity Reaction Status Date / Time cefuroxime [From Ceftin] Allergy Intermediate rash Verified 07/19/22 15:13 [id number] Reductase Allergy Intermediate transaminit Verified 07/19/22 15:13 Inhibitor is [Osmzmlb-Ldx-Rsp Reductase Inhibitor] Active Medications: Current Medications Acetaminophen (Acetaminophen 325 Mg Tablet) 650 mg PO Q6H PRN PRN Reason: Pain, Mild (Pain Scale 1-3) Last Admin: 08/03/22 19:33 Dose: 650 mg Benzocaine (Throat Lozenge, Medicated Lozenge) 1 lozenge MUCOUS MEM Q2H PRN PRN Reason: Sore Throat Last Admin: 08/05/22 09:24 Dose: 1 lozenge Benzocaine (Throat Lozenge, Medicated Lozenge) 1 lozenge MUCOUS MEM Q3H [facility] Stop: 08/06/22 19:46 Last Admin: 08/05/22 14:35 Dose: 1 lozenge Escitalopram Oxalate (Escitalopram Oxalate 10 Mg Tablet) 10 mg PO DAILY [facility] Last Admin: 08/05/22 09:06 Dose: 10 mg Piperacillin Sod/Tazobactam (Sod 2.25 gm/ Sodium Chloride) 50 mls @ 100 mls/hr IV Q6H [facility] Last Admin: 08/05/22 14:36 Dose: 100 mls/hr Lactated Ringer's (Lr) 1,000 mls @ 80 mls/hr IVCONT .[id number] [facility] Last Admin: 08/05/22 03:36 Dose: 100 mls/hr Vancomycin HCl 1,000 mg/ (Sodium Chloride) 270 mls @ 270 mls/hr IV Q24H [facility] Last Infusion: 08/04/22 18:59 Dose: Infused Levothyroxine Sodium (Levothyroxine Sodium 125 Mcg Tablet) 125 mcg PO DAILY@0600 [facility] Last Admin: 08/05/22 05:33 Dose: 125 mcg Melatonin (Melatonin 3 Mg Tablet) 3 mg PO BEDTIME PRN PRN Reason: Insomnia Omeprazole (Omeprazole 40 Mg Capsule.Dr) 40 mg PO DAILY@0630 [facility] Last Admin: 08/05/22 05:33 Dose: 40 mg Ondansetron HCl (Ondansetron Hcl 4 Mg/2 Ml Vial) 4 mg IVPUSH Q8H PRN PRN Reason: Nausea and Vomiting Oxycodone HCl (Oxycodone Hcl Immed Release 5 Mg Tablet) 5 mg PO Q6H PRN PRN Reason: Pain, Severe (Pain Scale 7-10) Last Admin: 08/05/22 14:36 Dose: 5 mg Pharmacy Consult (Consult Rx Perform Med Rec) 1 each MISCELLANE ONCE PRN PRN Reason: Consult order Pharmacy Consult (Consult Rx Vancomycin Dosing) 1 each MISCELLANE DAILY PRN PRN Reason: Consult order Senna (Sennosides 8.6 Mg Tablet) 8.6 mg PO DAILY [facility] Last Admin: 08/05/22 09:06 Dose: 8.6 mg Sodium Bicarbonate (Sodium Bicarbonate 650 Mg Tablet) 650 mg PO BID [facility] Sodium Chloride (0.9 % Sodium Chloride Flush 3 Ml Syringe) 3 ml IVFLUSH QSHIFT [facility] Last Admin: 08/05/22 09:07 Dose: 3 ml Vitamin D (Cholecalciferol (Vitamin D3) 25 Mcg Tablet) 50 mcg PO DAILY [facility] Last Admin: 08/05/22 09:06 Dose: 50 mcg Home Medications Medication Instructions Recorded Confirmed Last Taken Type sennosides 8.6 mg tablet (Senna 8.6 mg PO DAILY 08/03/22 08/03/22 08/03/22 History Laxative) Physical Exam Vital Signs: Vital Signs: Last Vital Signs Temp 98.0 F 08/05/22 15:37 Pulse 60 08/05/22 15:37 Resp 18 08/05/22 15:37 BP 158/70 H 08/05/22 15:37 Pulse Ox 96 08/05/22 15:37 O2 Del Method 08/05/22 15:37 BMI result Body Mass Index 28.0 Const: General: cooperative HEENT: Other: left 5 cm firm area parotid gland Face and sinus: Yes normal facial exam Mouth: Normal oral and palatal mucosa present Teeth and gingiva: dentition normal Eyes: General: appearance normal, both eyes and all related structures Pupils: Equal, round and reactive pupils present Resp: Effort & Inspection: normal respiratory effort Cardio: Rate: regular rate Rhythm: regular rhythm GI: Palpation (GI): Soft to palpation and nontender : General: Yes no CVA tenderness Back/Spine/Pelvis: Back: no CVA tenderness Skin: General skin exam: no rashes or lesions noted Neuro: General: moves all extremities Cranial nerves: Yes Equal, round and reactive pupils present Extrem: General: Yes normal to inspection Psych: Appearance: grossly normal Results Labs 08/04/22 07:31 08/05/22 05:13 Labs: BMP 08/05/22 05:13 Sodium 141 Potassium 4.0 Chloride 116 H Carbon Dioxide 15 L BUN 22 H Creatinine 1.39 Calcium 8.5 Microbiology Microbiology Results: Microbiology 08/03/22 14:01 Blood - Venous Blood Culture - Preliminary No growth after 48 hours. 08/04/22 00:00 Urine clean catch - Clean Catch Midstream Urine Culture - Final 08/03/22 14:01 Blood - Venous Blood Culture - Preliminary No growth after 24 hours. Assessment and Plan (1) Sepsis: Status: Acute (2) Acute parotitis: Status: Acute She has possible infectious or autoimmune parotitis. She had similar presentation [facility] in April Plan Check HIV test. Continue Vancomycin and Zosyn and likely po Augmentin and Doxycycline for total 14 days antibiotics. Time Spent With Patient Time: Total time managing care of this patient today ____ minutes.
[2022-08-05] MEDS: vancomycin HCL 1,000 MG in 0.9 % Sodium Chloride 250 ML 270 MG IV (16:45)
[2022-08-05 19:37] VITALS: BP 147/67; PULSE 62; RESP 18; TEMP 36.9; O2SAT 97
[2022-08-05] MEDS: Sodium Bicarbonate 650 MG TABLET PO (20:55)
[2022-08-05 23:49] VITALS: BP 132/61; PULSE 61; RESP 17; TEMP 36.9; O2SAT 96
[2022-08-06] MEDS: Lactated Ringers 1,000 ML 100 ML IVCONT (01:17)
[2022-08-06] MEDS: Piperacillin Sodium/Tazobactam 2.25 GM in 0.9 % Sodium Chloride 50 ML IV ×4 (03:16→20:35)
[2022-08-06 03:40] VITALS: BP 150/69; PULSE 61; RESP 18; TEMP 36.8; O2SAT 95
[2022-08-06] MEDS: Levothyroxine Sodium 125 MCG TABLET PO (06:11)
[2022-08-06] MEDS: Omeprazole 40 MG CAPSULE.DR PO (06:11)
[2022-08-06 06:48] LABS: Creatinine Clr Calc Pharmacy 32.6; Estimated Glomerular Filt Rate 37
[2022-08-06 08:00] VITALS: BP 134/63; PULSE 67; RESP 18; TEMP 36.9; O2SAT 98
[2022-08-06 08:08] LABS: Anion Gap 15 (12-20); Blood Urea Nitrogen 19 mg/dL (9-16); C Reactive Protein 8.04 mg/dL (< or = 0.50); Calcium 8.5 mg/dL (8.4-10.2); Carbon Dioxide 16 mmol/L (22-29); Chloride 113 mmol/L (96-108); Glucose Random 70 mg/dL (60-115); Sodium 140 mmol/L (135-145)
[2022-08-06] MEDS: Throat Lozenge, Medicated LOZENGE 1 LOZENGE MUCOUS MEM ×2 (09:16→16:28)
[2022-08-06] MEDS: Escitalopram Oxalate 10 MG TABLET PO (09:17)
[2022-08-06] MEDS: Cholecalciferol (Vitamin D3) 25 MCG TABLET 50 MCG PO (09:17)
[2022-08-06] MEDS: 0.9 % Sodium Chloride Flush 3 ML SYRINGE IVFLUSH ×2 (09:17→15:18)
[2022-08-06] MEDS: Sodium Bicarbonate 650 MG TABLET PO ×2 (09:17→20:36)
[2022-08-06] MEDS: Sennosides 8.6 MG TABLET PO (09:17)
--- NOTE | 2022-08-06 11:37 | HO.PM.IMPN ---
Subjective Subjective Date of Service: 08/06/22 Interval History: This history was taken in Chinese from the patient. parotid swelling improved poor appetite no fever Review of Systems Review of Systems: Yes all other systems are reviewed and are negative Physical Exam Vital Signs: Vital Signs: Last Vital Signs Temp 98.5 F 08/06/22 08:00 Pulse 67 08/06/22 08:00 Resp 18 08/06/22 08:00 BP 134/63 08/06/22 08:00 Pulse Ox 98 08/06/22 08:00 O2 Del Method 08/06/22 08:00 BMI result Body Mass Index 28.0 Const: Other: General awake alert x3 , in no acute distress.? Neck left parotid swelling firm,tender ,no redness, no fluctuation CVS? regular rate rhythm, Respiratory lungs clear to auscultation, no respiratory distress, no wheeze, no rhonchi. Gastrointestinal abdomen soft, , bowel sounds audible, no guarding , no rigidity. Extremities no? edema. Neuro nonfocal Skin no rash Psych appropriate affect Objective Data Active Medications Acetaminophen (Acetaminophen 325 Mg Tablet) 650 mg PO Q6H PRN PRN Reason: Pain, Mild (Pain Scale 1-3) Last Admin: 08/03/22 19:33 Dose: 650 mg Documented By: RANDALL Benzocaine (Throat Lozenge, Medicated Lozenge) 1 lozenge MUCOUS MEM Q2H PRN PRN Reason: Sore Throat Last Admin: 08/05/22 09:24 Dose: 1 lozenge Documented By: JARRED Benzocaine (Throat Lozenge, Medicated Lozenge) 1 lozenge MUCOUS MEM Q3H [place] Stop: 08/06/22 19:46 Last Admin: 08/06/22 10:58 Dose: Not Given Documented By: JARRED Non-Admin Reason: Patient Refused Escitalopram Oxalate (Escitalopram Oxalate 10 Mg Tablet) 10 mg PO DAILY [facility] Last Admin: 08/06/22 09:17 Dose: 10 mg Documented By: JARRED Piperacillin Sod/Tazobactam (Sod 2.25 gm/ Sodium Chloride) 50 mls @ 100 mls/hr IV Q6H [facility] Last Infusion: 08/06/22 10:53 Dose: 0 mls/hr Documented By: JARRED Vancomycin HCl 1,000 mg/ (Sodium Chloride) 270 mls @ 270 mls/hr IV Q24H [facility] Last Infusion: 08/05/22 18:03 Dose: 0 mls/hr Documented By: JARRED Levothyroxine Sodium (Levothyroxine Sodium 125 Mcg Tablet) 125 mcg PO DAILY@0600 [facility] Last Admin: 08/06/22 06:11 Dose: 125 mcg Documented By: NATTY Melatonin (Melatonin 3 Mg Tablet) 3 mg PO BEDTIME PRN PRN Reason: Insomnia Omeprazole (Omeprazole 40 Mg Capsule.Dr) 40 mg PO DAILY@0630 [facility] Last Admin: 08/06/22 06:11 Dose: 40 mg Documented By: NATTY Ondansetron HCl (Ondansetron Hcl 4 Mg/2 Ml Vial) 4 mg IVPUSH Q8H PRN PRN Reason: Nausea and Vomiting Oxycodone HCl (Oxycodone Hcl Immed Release 5 Mg Tablet) 5 mg PO Q6H PRN PRN Reason: Pain, Severe (Pain Scale 7-10) Last Admin: 08/05/22 14:36 Dose: 5 mg Documented By: JARRED Pharmacy Consult (Consult Rx Perform Med Rec) 1 each MISCELLANE ONCE PRN PRN Reason: Consult order Pharmacy Consult (Consult Rx Vancomycin Dosing) 1 each MISCELLANE DAILY PRN PRN Reason: Consult order Senna (Sennosides 8.6 Mg Tablet) 8.6 mg PO DAILY [facility] Last Admin: 08/06/22 09:17 Dose: 8.6 mg Documented By: JARRED Sodium Bicarbonate (Sodium Bicarbonate 650 Mg Tablet) 650 mg PO BID [facility] Last Admin: 08/06/22 09:17 Dose: 650 mg Documented By: JARRED Sodium Chloride (0.9 % Sodium Chloride Flush 3 Ml Syringe) 3 ml IVFLUSH QSHIFT [facility] Last Admin: 08/06/22 09:17 Dose: 3 ml Documented By: JARRED Vitamin D (Cholecalciferol (Vitamin D3) 25 Mcg Tablet) 50 mcg PO DAILY [facility] Last Admin: 08/06/22 09:17 Dose: 50 mcg Documented By: JARRED Labs 08/04/22 07:31 08/06/22 05:34 Labs: Laboratory Results - last 24 hr 08/06/22 05:34 Anion Gap 15 Estim Creat Clear Calc 32.6 Estimated GFR 37 Random Glucose 70 Calcium 8.5 C-Reactive Protein 8.04 H Microbiology Microbiology Results: Microbiology 08/03/22 14:01 Blood Culture - Preliminary Blood - Venous No growth after 48 hours. 08/03/22 14:01 Blood Culture - Preliminary Blood - Venous No growth after 48 hours. 08/04/22 00:00 Urine Culture - Final Urine clean catch - Clean Catch Midstream Assessment and Plan (1) Acute parotitis: Status: Acute (2) Sepsis: Status: Acute Plan hospital d#4 62-year-old female patient with past medical history of autoimmune hepatitis, Hashimotos thyroiditis, and chronic kidney disease presented to [facility] with left facial swelling fever and chills of 2-3 days duration and diagnosed to have acute left parotitis # sepsis due to left acute parotitis. - sepsis resolved, tolerating regular diet, BCx2 neg. - on IV vancomycin + Zosyn day 4, continue IV fluids, continue Cepacol lozenges to suck - s/p recent episode of right acute parotitis treated at ; question autoimmune parotitis with underlying history of Minal's thyroiditis and autoimmune hepatitis - head and neck ultrasound showed large vascular parotid mass, IR recommended neck MRI or contrast enhanced CT; spoke with interventional radiologist Dr. Cason since patient is afebrile and had similar episode on right-side seems more likely infection; will repeat ultrasound of neck after clearance of swelling for follow-up - ID consulted, HIV pending # Hypothyroidism - continue Synthroid # Chronic kidney disease stage 3 - stable renal function # Chronic thrombocytopenia - likely due to autoimmune hepatitis Code status full code DVT prophylaxis with compression boot due to thrombocytopenia; recommend ambulation Patient will need continued inpatient stay due to sepsis requiring IV antibiotics and close clinical follow-up Time Spent With Patient Time: Total time managing care of this patient today __45__ minutes. Quality Stroke Does the patient have a stroke diagnosis?: No VTE Prior VTE?: No VTE Risk Level:: Medical - moderate - high VTE Device Contraindication: N/A - Device Ordered VTE Drug Contraindication: Treatment Not Indicated
[2022-08-06 14:58] LABS: Vancomycin Trough 15.9 mcg/mL (10.0-20.0)
--- NOTE | 2022-08-06 15:09 | HE.PHANOTE ---
Vancomycin Dosing Addendum Vancomycin Trough 15.9. continue with current regimen. Predicted AUC 537 , tox 12 %, trough 16.8. Continue to monitor renal function and obtain level 08/07/22 @1400.
[2022-08-06 15:34] VITALS: BP 152/69; PULSE 58; RESP 17; TEMP 36.8; O2SAT 98
[2022-08-06] MEDS: vancomycin HCL 1,000 MG in 0.9 % Sodium Chloride 250 ML 270 MG IV (16:28)
[2022-08-06 20:00] VITALS: BP 145/78; PULSE 62; RESP 16; TEMP 37; O2SAT 97
[2022-08-06 23:54] VITALS: BP 145/65; PULSE 70; RESP 18; TEMP 36.2; O2SAT 98
[2022-08-07] MEDS: 0.9 % Sodium Chloride Flush 3 ML SYRINGE IVFLUSH ×4 (00:21→20:12)
[2022-08-07] MEDS: Piperacillin Sodium/Tazobactam 2.25 GM in 0.9 % Sodium Chloride 50 ML IV ×4 (03:20→20:11)
[2022-08-07 03:30] VITALS: BP 122/57; PULSE 56; RESP 18; TEMP 36.1; O2SAT 97
[2022-08-07] MEDS: Levothyroxine Sodium 125 MCG TABLET PO (05:17)
[2022-08-07] MEDS: Omeprazole 40 MG CAPSULE.DR PO (05:17)
[2022-08-07 06:40] LABS: Hematocrit 28.6 % (37.0-47.0); Hemoglobin 9.3 g/dl (12.0-16.0); Mean Corpuscular HGB Conc 32.5 g/dl (31.0-35.0); Mean Corpuscular Hemoglobin 30.8 pg (27.0-33.0); Mean Corpuscular Volume 94.7 fL (80.0-98.0); Mean Platelet Volume 12.8 fL (9.4-12.3); Red Blood Count 3.02 X10*6/uL (4.20-5.50); Red Cell Distribution Width 13.2 % (11.0-16.0); White Blood Count 4.9 X10*3/uL (4.8-10.8)
[2022-08-07 06:42] LABS: Platelet Count 69 X10*3/uL (160-400)
[2022-08-07 07:02] LABS: Anion Gap 13 (12-20); Blood Urea Nitrogen 18 mg/dL (9-16); Calcium 8.4 mg/dL (8.4-10.2); Carbon Dioxide 19 mmol/L (22-29); Chloride 112 mmol/L (96-108); Creatinine Clr Calc Pharmacy 37.3; Estimated Glomerular Filt Rate 43; Glucose Random 72 mg/dL (60-115); Potassium 3.7 mmol/L (3.3-5.1); Sodium 140 mmol/L (135-145)
[2022-08-07 08:00] VITALS: BP 155/70; PULSE 59; RESP 17; TEMP 37.4; O2SAT 96
[2022-08-07] MEDS: Cholecalciferol (Vitamin D3) 25 MCG TABLET 50 MCG PO (09:51)
[2022-08-07] MEDS: Escitalopram Oxalate 10 MG TABLET PO (09:51)
[2022-08-07] MEDS: Sodium Bicarbonate 650 MG TABLET PO ×2 (09:52→20:12)
[2022-08-07] MEDS: Sennosides 8.6 MG TABLET PO (09:52)
--- NOTE | 2022-08-07 11:29 | P.PNIM_ITS ---
Subjective Subjective Date of Service: 08/07/22 Interval History: History obtained via cardiopulmonary technician and eeg tech, mild throat discomfort decreased by mouth intake, decrease swelling, no fevers no chills, no acute issues overnight. Review of Systems Review of Systems: Yes all other systems are reviewed and are negative Physical Exam Vital Signs: Vital Signs: Last Vital Signs Temp 99.4 F 08/07/22 08:00 Pulse 59 08/07/22 08:00 Resp 17 08/07/22 08:00 BP 155/70 H 08/07/22 08:00 Pulse Ox 96 08/07/22 08:00 O2 Del Method 08/07/22 08:00 BMI result Body Mass Index 28.0 Const: Other: General awake alert x3 , in no acute distress.? Neck left parotid swelling improving, firm,tender ,no redness, no fluctuation CVS? regular rate rhythm, Respiratory lungs clear to auscultation, no respiratory distress, no wheeze, no rhonchi. Gastrointestinal abdomen soft, , bowel sounds audible, no guarding , no rigidity. Extremities no? edema. Neuro nonfocal Skin no rash Psych appropriate affect Objective Data Active Medications Acetaminophen (Acetaminophen 325 Mg Tablet) 650 mg PO Q6H PRN PRN Reason: Pain, Mild (Pain Scale 1-3) Last Admin: 08/03/22 19:33 Dose: 650 mg Documented By: RANDALL Benzocaine (Throat Lozenge, Medicated Lozenge) 1 lozenge MUCOUS MEM Q2H PRN PRN Reason: Sore Throat Last Admin: 08/05/22 09:24 Dose: 1 lozenge Documented By: JARRED Escitalopram Oxalate (Escitalopram Oxalate 10 Mg Tablet) 10 mg PO DAILY [facility] Last Admin: 08/07/22 09:51 Dose: 10 mg Documented By: JARRED Piperacillin Sod/Tazobactam (Sod 2.25 gm/ Sodium Chloride) 50 mls @ 100 mls/hr IV Q6H [facility] Last Infusion: 08/07/22 10:28 Dose: 0 mls/hr Documented By: JARRED Vancomycin HCl 1,000 mg/ (Sodium Chloride) 270 mls @ 270 mls/hr IV Q24H [facility] Last Infusion: 08/06/22 17:33 Dose: 0 mls/hr Documented By: JARRED Levothyroxine Sodium (Levothyroxine Sodium 125 Mcg Tablet) 125 mcg PO DAILY@0600 [facility] Last Admin: 08/07/22 05:17 Dose: 125 mcg Documented By: BUZZ Melatonin (Melatonin 3 Mg Tablet) 3 mg PO BEDTIME PRN PRN Reason: Insomnia Omeprazole (Omeprazole 40 Mg Capsule.Dr) 40 mg PO DAILY@0630 [facility] Last Admin: 08/07/22 05:17 Dose: 40 mg Documented By: BUZZ Ondansetron HCl (Ondansetron Hcl 4 Mg/2 Ml Vial) 4 mg IVPUSH Q8H PRN PRN Reason: Nausea and Vomiting Oxycodone HCl (Oxycodone Hcl Immed Release 5 Mg Tablet) 5 mg PO Q6H PRN PRN Reason: Pain, Severe (Pain Scale 7-10) Last Admin: 08/05/22 14:36 Dose: 5 mg Documented By: JARRED Pharmacy Consult (Consult Rx Perform Med Rec) 1 each MISCELLANE ONCE PRN PRN Reason: Consult order Pharmacy Consult (Consult Rx Vancomycin Dosing) 1 each MISCELLANE DAILY PRN PRN Reason: Consult order Senna (Sennosides 8.6 Mg Tablet) 8.6 mg PO DAILY [facility] Last Admin: 08/07/22 09:52 Dose: 8.6 mg Documented By: JARRED Sodium Bicarbonate (Sodium Bicarbonate 650 Mg Tablet) 650 mg PO BID [facility] Last Admin: 08/07/22 09:52 Dose: 650 mg Documented By: JARRED Sodium Chloride (0.9 % Sodium Chloride Flush 3 Ml Syringe) 3 ml IVFLUSH [facility] Last Admin: 08/07/22 09:52 Dose: 3 ml Documented By: JARRED Vitamin D (Cholecalciferol (Vitamin D3) 25 Mcg Tablet) 50 mcg PO DAILY [facility] Last Admin: 08/07/22 09:51 Dose: 50 mcg Documented By: JARRED Labs 08/07/22 06:09 08/07/22 06:09 Labs: Laboratory Results - last 24 hr 08/06/22 08/07/22 08/07/22 14:31 06:09 06:09 MCV 94.7 MCH 30.8 MCHC 32.5 RDW 13.2 Plt Count 69 L MPV 12.8 H Absolute Nucleated RBC 0.000 Nucleated RBC % (auto) 0.0 Anion Gap 13 Estim Creat Clear Calc 37.3 Estimated GFR 43 Random Glucose 72 Calcium 8.4 Vancomycin Trough 15.9 Assessment and Plan (1) Acute parotitis: Status: Acute (2) Sepsis: Status: Acute Plan 62-year-old female patient with past medical history of autoimmune hepatitis, Hashimotos thyroiditis, and chronic kidney disease presented to [facility] with left facial swelling fever and chills of 2-3 days duration and diagnosed to have acute left parotitis # sepsis due to left acute parotitis. - sepsis resolved, tolerating regular diet, BCx2 neg. - on IV vancomycin + Zosyn day 5, recommend hard candy to suck - s/p recent episode of right acute parotitis treated at ; question autoimmune parotitis with underlying history of Minal's thyroiditis and autoimmune hepatitis - head and neck ultrasound showed large vascular parotid mass, IR recommended neck MRI or contrast enhanced CT; spoke with interventional radiologist Dr. Cason since patient is afebrile and had similar episode on right-side seems more likely infection; will repeat ultrasound of neck after clearance of infection for follow-up - ID recommend doxycycline and Augmentin times 14 days, HIV pending On pureed diet will advance to mechanical ground,if able to tolerate will discharge home on by mouth antibiotics. # Hypothyroidism - continue Synthroid # Chronic kidney disease stage 3 - stable renal function # Chronic thrombocytopenia - likely due to autoimmune hepatitis Code status full code DVT prophylaxis with compression boot due to thrombocytopenia; recommend ambulation Patient will need continued inpatient stay due to sepsis requiring IV antibiotics and close clinical follow-up Time Spent With Patient Time: Total time managing care of this patient today ____ minutes. Quality Stroke Does the patient have a stroke diagnosis?: No VTE Prior VTE?: No VTE Risk Level:: Medical - moderate - high VTE Device Contraindication: N/A - Device Ordered VTE Drug Contraindication: Treatment Not Indicated
[2022-08-07 14:09] LABS: Vancomycin Trough 16.6 mcg/mL (10.0-20.0)
--- NOTE | 2022-08-07 14:16 | HE.PHANOTE ---
Vanco Dosing Level 16.6 today. Continue current regimen. Next level 08/09 @ 1400. Saloni Tapia, SebastienD
[2022-08-07 16:00] VITALS: BP 174/80; PULSE 56; RESP 14; TEMP 36.7; O2SAT 96
[2022-08-07] MEDS: vancomycin HCL 1,000 MG in 0.9 % Sodium Chloride 250 ML 270 MG IV (16:23)
[2022-08-07 19:05] VITALS: BP 190/81; PULSE 52; RESP 18; TEMP 36.5; O2SAT 98
[2022-08-07 20:27] VITALS: BP 180/82; PULSE 61
[2022-08-07] MEDS: hydrALAZINE HCl 20 MG/ML VIAL 10 MG IVPUSH (21:37)
[2022-08-07 23:58] VITALS: BP 140/66; PULSE 65; RESP 18; TEMP 36.5; O2SAT 96
[2022-08-08 00:01] VITALS: BP 157/69; PULSE 67
--- NOTE | 2022-08-08 00:37 | PC.NURSE ---
Pt had BP= 190/81 with machine and 180/82 manual, rest of vitals WNL, pt denies any symptoms, Dr. Gilberto paul made aware, Hydralazine 10 mg IV given, BP rechecked after = 157/69.
[2022-08-08] MEDS: Piperacillin Sodium/Tazobactam 2.25 GM in 0.9 % Sodium Chloride 50 ML IV (02:50)
[2022-08-08 03:41] VITALS: BP 143/64; PULSE 63; RESP 18; TEMP 36.4; O2SAT 98
[2022-08-08] MEDS: Omeprazole 40 MG CAPSULE.DR PO (05:44)
[2022-08-08] MEDS: Levothyroxine Sodium 125 MCG TABLET PO (05:44)
[2022-08-08 07:51] VITALS: BP 125/58; PULSE 60; RESP 18; TEMP 37.2; O2SAT 97
[2022-08-08 07:52] VITALS: BP 125/58; PULSE 58; RESP 18; TEMP 37.2; O2SAT 97
[2022-08-08 08:10] LABS: HIV AB/AG Nonreactive (Nonreactive); HIV Num 1 0.09 S/CO (0.00-0.99)
[2022-08-08] MEDS: Sodium Bicarbonate 650 MG TABLET PO (08:51)
[2022-08-08] MEDS: Doxycycline Monohydrate 100 MG CAPSULE PO (08:51)
[2022-08-08] MEDS: Escitalopram Oxalate 10 MG TABLET PO (08:51)
[2022-08-08] MEDS: Cholecalciferol (Vitamin D3) 25 MCG TABLET 50 MCG PO (08:52)
[2022-08-08] MEDS: Sennosides 8.6 MG TABLET PO (08:52)
[2022-08-08] MEDS: 0.9 % Sodium Chloride Flush 3 ML SYRINGE IVFLUSH (10:29)
--- NOTE | 2022-08-08 10:55 | PM.DS ---
DS: Providers Provider Date of Service: 08/08/22 Date of admission: 08/03/22 16:09 Primary care physician: Nanda Alaniz MD Consults: 08/03/22 14:18 Consult to Infectious Diseases Stat Consulting Provider: Shruthi Levy Reason for consultation: recurrent parotitis DS: Diagnosis Discharge Diagnosis (1) Acute parotitis: Status: Acute (2) Sepsis: Status: Acute DS: Summary Hospital Course Hospital Course: Date of Service: 08/03/22 Attending physician on admission: Richar Orozco Chief Complaint: Left neck swelling and fever 62-year-old female patient with past medical history significant for autoimmune hepatitis, Minal's thyroiditis, chronic constipation, asthma, hypertension, chronic anemia and chronic kidney disease who presented to [facility] with 2-3 days history of fever, chills ,and left facial swelling with decreased by mouth intake, prior to that 1 week ago patient had cough productive of yellowish-green phlegm, associated with shortness of breath, patient did not seek treatment for that, patient had similar symptoms 3 months ago on right-side on neck required hospitalization at [facility] dx with right parotitis,and was treated with IV fluids and antibiotics and was recommended outpatient ENT follow-up, in the ER patient was noted to have fever of 103.3, tachycardia and tachypnea, normal WBC count, stable kidney function with baseline chronic kidney disease, patient treated in the emergency room with IV fluid, IV vancomycin and Zosyn, blood cultures x2 obtained, head and neck ultrasound obtained report pending patient will be admitted with a diagnosis of sepsis due to left parotitis. 62-year-old female patient with past medical history of autoimmune hepatitis, Hashimotos thyroiditis, and chronic kidney disease presented to [facility] with left facial swelling fever and chills of 2-3 days duration and diagnosed to have acute left parotitis # sepsis due to left acute parotitis, patient admitted to medical floor was treated with IV vancomycin and IV Zosyn, had normal WBC count, blood cultures x2 negative,head and neck ultrasound showed large vascular parotid mass, IR recommended neck MRI or contrast enhanced CT; spoke with interventional radiologist Dr. Cason since patient is febrile and had similar episode on right-side,felt more likely infection, therefore was treated with antibiotics with significant improvement in swelling, patient seen by infectious disease HIV test negative, is being discharged home on by mouth Augmentin and doxycycline for total 14 days strongly recommend to follow up with PCP and obtain a repeat ultrasound of neck after clearance of infection for follow-up. Patient tolerating ground mechanical diet and clear liquids with no difficulty # Hypothyroidism- continue Synthroid. # Chronic kidney disease stage 3 with acidosis- stable renal function, added soda bicarb 650 mg 1 tablet twice daily recommend outpatient renal follow-up. # Chronic thrombocytopenia no bleeding noted, platelets stable, likely due to autoimmune hepatitis Time Spent with Patient Time attestation: Total time managing care of this patient today ____ minutes. Discharge coordination time: Greater than 30 minutes Quality: Safe Use of Opioids Does Pt have an Active Cancer Diagnosis on the Problem List?: No Quality: Stroke Does the patient have a stroke diagnosis?: No Physical Exam Vital Signs: Vital Signs: Last Vital Signs Temp 98.9 F 08/08/22 07:52 Pulse 58 08/08/22 07:52 Resp 18 08/08/22 07:52 BP 125/58 L 08/08/22 07:52 Pulse Ox 97 08/08/22 07:52 O2 Del Method 08/08/22 07:52 BMI result Body Mass Index 28.0 Const: Other: General awake alert x3 , in no acute distress.? Neck left parotid swelling significant leave improved, small nontender swelling persists. CVS? regular rate rhythm, Respiratory lungs clear to auscultation, no respiratory distress, no wheeze, no rhonchi. Gastrointestinal abdomen soft, , bowel sounds audible, no guarding , no rigidity. Extremities no? edema. Neuro nonfocal Skin no rash Psych appropriate affect DS: Data Data Completed and Pending Labs on day of discharge: Laboratory Results - last 24 hr 08/06/22 08/07/22 08/07/22 05:34 06:09 13:35 Iron Cancelled TIBC Cancelled % Saturation Cancelled Unsat Iron Binding Cancelled Ferritin Cancelled Vancomycin Trough 16.6 HIV 1&2 Ab/P24 Ag 4thGn Nonreactive Preliminary micro results at discharge 08/03/22 14:01 Blood Culture - Preliminary Blood - Venous No growth after 48 hours. 08/03/22 14:01 Blood Culture - Preliminary Blood - Venous No growth after 48 hours. Discharge Plan Discharge Anticipated Discharge Date/Time: 08/08/22 10:47 Patient Disposition: Home, Self-Care Discharge Diagnosis: Acute parotitis Referrals: Nanda Fiore MD [Primary Care Provider] - 1 Week Discharge Medications: New sodium bicarbonate 650 mg Tablet 650 mg PO BID Qty: 60 0RF doxycycline monohydrate 100 mg Capsule 100 mg PO Q12H Qty: 18 0RF amoxicillin-pot clavulanate 875-125 mg tablet 1 tab PO BID Qty: 18 0RF Continued escitalopram oxalate 10 mg tablet 10 mg PO DAILY 90 Days Qty: 90 1RF (DME) jeri Dexter See Rx Instructions .Route Qty: 1 0RF Rx Instructions: As directed omeprazole 40 mg capsule,delayed release(DR/EC) 40 mg PO DAILY 90 Days Qty: 90 2RF cholecalciferol (vitamin D3) 50 mcg (2,000 unit) capsule 50 mcg PO DAILY 90 Days Qty: 90 3RF levothyroxine 125 mcg tablet 125 mcg PO DAILY 90 Days Qty: 90 0RF sennosides [Senna Laxative] 8.6 mg tablet 8.6 mg PO DAILY Discharge Orders: Discharge Order (Routine); Ordered 08/08/22 Ordered By: Richar Orozco Diet: Advance to usual diet Activity on Discharge: As tolerated Stand Alone Forms: Patient Portal Discharge page Care Plan Goals: Take by mouth antibiotic doxycycline 100 mg twice daily and Augmentin 875 mg twice daily for 9 more days Rinse mouth after each meal, suck on hard candy Return to check with worsening left facial swelling or difficulty swallowing Need out of patient head and neck ultrasound for follow-up on abnormality in 7-10 days Health Concerns: Take all home medications as prescribed started on soda bicarb 1 tablet twice daily due to acidosis Plan of Treatment: Follow-up with primary care physician call for appointment in 1 week to obtain head and neck ultrasound for follow-up on acute parotitis Assessment: As above Discharge Date/Time: 08/08/22 11:54
--- NOTE | 2022-08-08 11:02 | MHC.CM.PN ---
PT WILL DC HOME TODAY WITH NO SERVICES FAMILY TO TRANSPORT
== END 2022-08-08 11:54 | disposition home or self-care (01) | DRG 720 ==
LOC: HO.ED 15:40 → HO.EDOVER 16:22 → HO.S3 08-04 14:21
PROVIDERS: Family Medicine; Admitting Provider Hospitalist; Emergency Provider Student in an Organized Health Care Education/Training Program; PCP Internal Medicine; Visit Provider Hospitalist
DX: A41.9 Sepsis, unspecified organism (principal); D69.59 Other secondary thrombocytopenia; K75.4 Autoimmune hepatitis; E06.3 Autoimmune thyroiditis; K11.22 Acute recurrent sialoadenitis; N18.30 Chronic kidney disease, stage 3 unspecified; I12.9 Hypertensive chronic kidney disease with stage 1 through stage 4 chronic kidney disease, or unspecified chronic kidney disease; K59.09 Other constipation; Z20.822 Contact with and (suspected) exposure to COVID-19; Z86.718 Personal history of other venous thrombosis and embolism; Z86.711 Personal history of pulmonary embolism; Z88.1 Allergy status to other antibiotic agents; Z88.8 Allergy status to other drugs, medicaments and biological substances; Z79.890 Hormone replacement therapy; Z79.899 Other long term (current) drug therapy
CPT/HCPCS: 36415; 76536; 80048; 80053; 80202; 81001; 82565; 82947; 83605; 85025; 85027; 85610; 86140; 87040; 87086; 87389; 87502; 87635; 99221; 99285; J1885; J2543; J3370; J3371

== ENCOUNTER 2022-09-16 14:18 | Outpatient (REF) | payer OTHER, SELFPAY ==
--- NOTE | ~2022-09-16 | US_ITS ---
EXAMINATION: US RETROPERITONEAL LIMITED (RENAL ONLY) CLINICAL INFORMATION: CKD stage 4. COMPARISON: Ultrasound abdomen complete 02/14/2022 TECHNIQUE: Real-time imaging of the kidneys. FINDINGS: RIGHT KIDNEY: 11.3 x 4.4 x 4.2 cm (SAG x AP x TRV). The kidney is normal in size and contour. Increased parenchymal echogenicity. No calculi or focal parenchymal lesions. No hydronephrosis. LEFT KIDNEY: 9.5 x 4.5 x 4.4 cm (SAG x AP x TRV). The kidney is normal in size and contour. Increased parenchymal echogenicity. No calculi or focal parenchymal lesions. No hydronephrosis. US/US renal BI IMPRESSION: Echogenic kidneys suggesting chronic medical renal disease.
== END 2022-09-16 14:19 | disposition home or self-care (01) ==
LOC: HO.US 14:18
PROVIDERS: PCP Internal Medicine; Visit Provider Internal Medicine Nephrology
DX: N18.4 Chronic kidney disease, stage 4 (severe) (principal); N25.0 Renal osteodystrophy
CPT/HCPCS: 76775

== ENCOUNTER 2022-09-16 14:41 | Outpatient (REF) | payer OTHER, SELFPAY ==
[2022-09-16 16:08] LABS: Alanine Aminotransferase 26 U/L (0-31); Albumin Level 3.1 g/dL (3.5-5.0); Alkaline Phosphatase 188 U/L (39-117); Anion Gap 13 (12-20); Aspartate Amino Transferase 38 U/L (5-31); Bilirubin Total 0.5 mg/dL (0.0-1.0); Blood Urea Nitrogen 35 mg/dL (9-16); Calcium 9.2 mg/dL (8.4-10.2); Carbon Dioxide 14 mmol/L (22-29); Chloride 117 mmol/L (96-108); Estimated Glomerular Filt Rate 31; Glucose Random 85 mg/dL (60-115); Potassium 4.9 mmol/L (3.3-5.1); Sodium 139 mmol/L (135-145); Total Protein 7.7 g/dL (6.5-8.0)
[2022-09-16 16:20] LABS: Thyroid Stimulating Hormone 0.51 uIU/mL (0.32-4.0)
== END 2022-09-16 14:42 | disposition home or self-care (01) ==
LOC: HO.LAB 14:41
PROVIDERS: Nurse Practitioner Family; PCP Internal Medicine; Visit Provider Internal Medicine
DX: N18.30 Chronic kidney disease, stage 3 unspecified (principal); E06.3 Autoimmune thyroiditis
CPT/HCPCS: 36415; 80053; 84443

== ENCOUNTER 2022-10-24 13:50 | Outpatient (REF) | payer OTHER, SELFPAY ==
--- NOTE | ~2022-10-24 | CT_ITS ---
EXAMINATION: CT SOFT TISSUE NECK WITHOUT CONTRAST CLINICAL INFORMATION: Other disease of the salivary glands COMPARISON: Previous soft tissue head and neck ultrasound July [address] of the soft tissues of the neck April 2022 TECHNIQUE: Helical imaging was performed in the axial plane with generation of coronal and sagittal reformatted images. This CT examination was performed using dose optimization techniques as appropriate, variously including the following: *Automated exposure control *Adjustment of mA and/or kV according to patient size (this includes techniques or standardized protocols for targeted exams where dose is matched to indication/reason for exam; i.e. extremities or head) *Use of iterative reconstruction technique DLP: 292 mGy-cm FINDINGS: There is a small calcification in the right parotid gland. This is similar to previous exam April 2022. The parotid glands are otherwise unremarkable. No mass is seen. Previously identified enlargement of the right parotid gland and stranding of the surrounding fat April 2022 CT is no longer seen. The parotid glands are normal in size. The fat surrounding the parotid glands is normal. Findings on prior ultrasound July 2022 may have represented parotiditis. The salivary glands are otherwise unremarkable. The thyroid gland appears small. No nodule is appreciated by CT. Visualized intracranial structures are normal. The orbits are normal. Visualized paranasal sinuses, mastoid air cells and middle ears are clear. The naso, faboi-and hypopharynx and larynx are normal. There are small bilateral cervical lymph nodes. No enlarged lymph nodes are seen. There is bilateral carotid calcification. There are small lymph nodes seen in the superior mediastinum. No enlarged lymph nodes are seen. Visualized lung apices are clear. Mild degenerative changes of the cervical spine. CT/CT soft tissue neck wo IV con IMPRESSION: Small calcification in the right parotid gland. Parotid glands are otherwise normal. Findings on July 2022 left neck ultrasound may have corresponded to parotiditis.
== END 2022-10-24 13:51 | disposition home or self-care (01) ==
LOC: HO.CT 13:50
PROVIDERS: PCP Internal Medicine; Visit Provider Internal Medicine
DX: K11.8 Other diseases of salivary glands (principal)
CPT/HCPCS: 70490

== ENCOUNTER 2022-11-04 10:07 | Outpatient (REF) | payer OTHER, SELFPAY ==
--- NOTE | ~2022-11-04 | MM_ITS ---
EXAMINATION: MM SCREENING DIGITAL BREAST TOMOSYNTHESIS, BILATERAL CLINICAL INFORMATION: Screening. Asymptomatic. The lifetime risk of breast cancer based on the Tyrer-Cuzick Model is 4%. COMPARISON: Mammography: 10/13/2021, 04/06/2018 TECHNIQUE: Digital breast tomosynthesis is performed in both the craniocaudal and mediolateral oblique views along with computer-aided detection (CAD). Synthesized 2D images are generated from the tomosynthesis. Additional bilateral CC views are provided. FINDINGS: There are scattered areas of fibroglandular density (ACR BI-RADS breast composition Category b). No architectural abnormality or developing density or significant change from prior studies. There are no significant masses, abnormal calcifications, or other abnormalities. The axilla and skin contours are unremarkable. MM/MM tomosynthesis screening BI IMPRESSION: No mammographic evidence of malignancy. ASSESSMENT: BI-RADS 1: Negative RECOMMENDATION: Routine annual mammography screening. This patient's information was entered into a reminder system with a target due date for their next mammogram.
== END 2022-11-04 10:08 | disposition home or self-care (01) ==
LOC: HO.MAMMO 10:07
PROVIDERS: PCP Internal Medicine; Visit Provider Internal Medicine
DX: Z12.31 Encounter for screening mammogram for malignant neoplasm of breast (principal)
CPT/HCPCS: 77063; 77067

== ENCOUNTER 2022-11-08 12:04 | Outpatient (REF) | payer OTHER, SELFPAY | END 2022-11-08 12:05 | disposition home or self-care (01) | LOC: HO.MDS 12:04 | PROVIDERS: Visit Provider Internal Medicine Medical Oncology | DX: D50.9 Iron deficiency anemia, unspecified (principal) | CPT/HCPCS: 96365; J1756 ==

== ENCOUNTER 2022-11-15 11:52 | Outpatient (REF) | payer OTHER, SELFPAY | END 2022-11-15 11:53 | disposition home or self-care (01) | LOC: HO.MDS 11:52 | PROVIDERS: Visit Provider Internal Medicine Medical Oncology | DX: D50.9 Iron deficiency anemia, unspecified (principal) | CPT/HCPCS: 96365; J1756 ==

== ENCOUNTER 2022-11-24 12:01 | Outpatient (REF) | payer OTHER, SELFPAY | END 2022-11-24 12:02 | disposition home or self-care (01) | LOC: HO.MDS 12:01 | PROVIDERS: Visit Provider Internal Medicine Medical Oncology | DX: D50.9 Iron deficiency anemia, unspecified (principal) | CPT/HCPCS: 96365; J1756 ==

== ENCOUNTER 2022-12-01 09:51 | Outpatient (REF) | payer OTHER, SELFPAY ==
[2022-12-01 10:41] LABS: Basophils Percent Auto 0.3 % (0-2); Eosinophils Absolute Auto 0.1 X10*3/uL (0.0-0.4); Eosinophils Percent Auto 2.9 % (0-4); Hematocrit 26.5 % (37.0-47.0); Hemoglobin 8.9 g/dl (12.0-16.0); Imm Gran Abs Auto 0.01 X10*3/uL (0.00-0.03); Imm Gran Pct Auto 0.3 % (0.0-0.4); Lymphocytes Absolute Auto 1.3 X10*3/uL (1.2-4.9); Lymphocytes Percent Auto 38.6 % (20-40); Mean Corpuscular HGB Conc 33.6 g/dl (31.0-35.0); Mean Corpuscular Hemoglobin 32.2 pg (27.0-33.0); Monocytes Absolute Auto 0.3 X10*3/uL (0.1-1.2); Monocytes Percent Auto 8.8 % (2-11); Neutrophils Absolute Auto 1.7 x10*3/uL (2.0-8.3); Neutrophils Percent Auto 49.1 % (45-73); Red Blood Count 2.76 X10*6/uL (4.20-5.50); Red Cell Distribution Width 14.8 % (11.0-16.0)
[2022-12-01 10:42] LABS: Platelet Count 58 X10*3/uL (160-400); White Blood Count 3.4 X10*3/uL (4.8-10.8)
[2022-12-01 11:18] LABS: Ferritin 1458 ng/mL (10-250)
== END 2022-12-01 09:52 | disposition home or self-care (01) ==
LOC: HO.MDS 09:51
PROVIDERS: Visit Provider Internal Medicine Medical Oncology
DX: D50.9 Iron deficiency anemia, unspecified (principal)
CPT/HCPCS: 36415; 82728; 85025; 96365; J1756

== ENCOUNTER 2022-12-02 08:54 | Outpatient (AMB) | payer OTHER, SELFPAY ==
--- NOTE | 2022-12-02 09:02 | MHC.OFFVIS ---
Intake Vital Signs 12/02/22 09:10 Height 4 ft 11 in Weight 138 lb BMI 27.9 BP 115/53 L Blood Pressure Location Lt brachial Position Sitting Pulse 70 Intake Visit Reasons: Anemia Intake Note: Patient follow up for Anemia. Patient cc: abdominal pain with bloating, constipation, light headaches and also dysphagia with solid food. Compound Machine Operator Required: No Accompanied by: Sister Allergies cefuroxime [From Ceftin] Allergy (Intermediate, Verified 12/13/22 10:37) rash Izejvkz-SBB-UaA Reductase Inhibitor [Ntrxsqg-Fma-Lzg Reductase Inhibitor] Allergy (Intermediate, Verified 12/13/22 10:37) transaminitis Medication List - Last Reconciled 12/02/22 by Tamar Negrete MD cetirizine 10 mg PO DAILY PRN 90 days cholecalciferol (vitamin D3) 50 mcg PO DAILY 90 days escitalopram oxalate 10 mg PO DAILY 90 days levothyroxine 125 mcg PO DAILY 90 days omeprazole 40 mg PO DAILY 90 days sennosides (Senna Laxative) 8.6 mg PO DAILY sodium bicarbonate 650 mg PO BID walker As directed HPI Anemia HPI Details GI CLINIC VISIT FOR THIS 62-YEAR-OLD FEMALE FOR FOLLOW-UP OF IRON DEFICIENCY ANEMIA, CHRONIC CONSTIPATION AND AUTOIMMUNE HEPATITIS. Pt returns after a hiatus of 20 months [facility]?07/08 H&H OF 10.6 AND 32.1 (IMPROVED FROM 30/2 0.1 ON 03/14), PLATELET 123 ? BUN 31CREATININE 1.72, AST 86, ALT 39, ALKALINE PHOSPHATASE 148, ALBUMIN 3.5 ? 03/14/19 STOOL OCCULT BLOOD X3 WERE NEGATIVE ? IMAGING STUDIES:?02/05/19 ABDOMINAL ULTRASOUND SHOWED: ? IMPRESSION: ? Stable appearance of the liver with an increased echotexture. Atrophy ? of the left hepatic lobe. ? Nonspecific conspicuous appearance of the medullary pyramids in the ? kidneys without evidence of hydronephrosis. Question mildly increased ? renal cortical echogenicity bilaterally as well. ?ENDOSCOPIC STUDIES: 11/2017 egd SHOWED: ? ESOPHAGUS - normal ? STOMACH - Two benign appearing nodule with clean based ulcers in the center - ? biopsies showed hyperplastic polyp and negative for H Pylori ? No clear source of bleeding seen in the upper GI tract during EGD. ? Melena probably related to LGI source. ? 11/2017 COLONOSCOPY SHOWED: Terminal Ileum Distal 10 cms examined and appeared normal Cecum a 3-4 mm sessile polyp removed with cold biopsy and a 2 cms polyp raised with 2 cc on normal saline and removed with hot snare. (TA on bx) Ascending Colon - normal Transverse Colon - A 3-4 mm sessile polyp removed with cold biopsy (TA on bx) Descending Colon Normal Sigmoid Colon Moderate diverticulosis. Rectum A 7- 8- mm sessile polyp removed with cold snare and polyp was not retrieved and a 3-4 mm sessile polyp removed with cold biopsy. Anorectum - Moderate non inflammed internal hemorrhoids Colon preparation: Good after flushing and suctioning ? Five polyps removed - rectal polyp not retrieved ? Moderate Diverticulosis seen in the sigmoid colon ? Moderate hemorrhoids on retroflexed exam. ? Mild diffuse melanosis coli ? GI Bleed likely from Gastric ulcer in the setting of elevated INR. ? Plan: Repeat Colonoscopy interval based on path results - if cecal polyp is ? adenomatous, recommend repeat colonoscopy in 2 years to check polypectomy site. ? OK to discharge home since she has not had any further bleeding. ? If she has recurrent melena or anemia, further evaluation with capsule endoscopy can be considered. ?biopsies showed: ? A. TUBULAR ADENOMAS. ? B. TUBULAR ADENOMA. ? C. MINUTE SPECIMEN; DID NOT SURVIVE PROCESSING. ?TODAY'S VISIT Pt is accompanied by her sister. Pt reports intermittent abd pain and constipation Denies black stools or rectal bleeding. Eats very little since she has dysphagia. Dysphagia to solids and is able to take mashed potatoes. wt loss of 15 lbs over the past 2 years. PAST VISIT: Lab results were reviewed with the patient. Had an episode of abdominal pain, nausea and vomiting which resolved spontaneously after 2 weeks. No BM for 4 days if she forgets to take the pills. Has a BM every 2 days if she takes the Senna. Cancelled her EGD and Colon appt in Jun, 2020 due to concern for COVID. Vaccinated for COVID 4 months ago. ? She is getting iron infusion twice a week,? last infusion is on ? Mostly staying home and sometimes goes to get groceries with her sister ? Notes improvement in fatigue and dizziness. ? Sometimes she has black?stools PFSH Medical History (Updated 02/02/23 @ 17:31 by Tamar Negrete MD) Arthritis Asthma Autoimmune hepatitis Back pain Chest pain Chronic constipation Chronic iron deficiency anemia CKD (chronic kidney disease) stage 3, GFR 30-59 ml/min CKD (chronic kidney disease) stage 4, GFR 15-29 ml/min Elevated cholesterol GERD (gastroesophageal reflux disease) History of COVID-19 History of DVT (deep vein thrombosis) Hx pulmonary embolism Hypertension Hypothyroid Iron deficiency anemia MDD (major depressive disorder), recurrent, severe, with psychosis Noncompliance with medication regimen Panic disorder Right ankle injury (~2000) Seasonal allergies Surgical History (Updated 02/01/23 @ 10:52 by Sol Monk RN) History of ankle surgery History of colonoscopy (~2018) History of liver biopsy Hx of endoscopy (06/26/17) S/P insertion of inferior vena caval filter Family History Father Myocardial infarction H/O ETOH abuse Hypertension Mother Diabetes High cholesterol Hypertension Stroke Paternal Aunt Mental health disorder Paternal Uncle Mental health disorder Sister Cancer Ovarian cancer Social History Household Members: Family Housing: Apartment Are you a primary healthcare economics manager to a significant other at home: No Do you presently have visiting nurse or other home services: Yes Alcohol intake: never Patient Tobacco Use Status: Never used Tobacco e-Cigarette/Vaping Use: Never Used Second Hand Smoke Exposure: No Advance Directives Date on File: 07/21/21 service: No Current occupational status: disabled Cognitive needs: No Hearing needs: No Vision needs: Yes (glasses) Review of Systems Const All systems reviewed & are unremarkable except as noted in HPI and below Physical Exam Vital Signs: Last Vital Signs Pulse 70 12/02/22 09:10 BP 115/53 L 12/02/22 09:10 BMI result Body Mass Index 27.9 Const General: no acute distress Nutritional Appearance: overweight Orientation/consciousness: patient oriented x3 Limitations: no limitations HEENT Head: Yes normal to inspection Ears: hearing grossly normal bilaterally Eyes Sclerae: sclerae normal Pupils: Equal, round and reactive pupils present Neck Neck: Yes normal visual inspection Chest Chest palpation & inspection: normal inspection of the chest Resp Effort & Inspection: normal respiratory effort Auscultation: clear to auscultation bilaterally Cardio Palpation: normal PMI Rate: regular rate Rhythm: regular rhythm Heart sounds: S1 normal heart sound present, S2 normal heart sound present and no murmurs GI Palpation (GI): Soft to palpation, nontender and No hepatosplenomegaly present Auscultation: normal bowel sounds Rectal Exam - Female: deferred Skin General skin exam: no rashes or lesions noted Neuro General: patient oriented x3, gait normal and moves all extremities Cranial nerves: Yes Equal, round and reactive pupils present Psych Appearance: grossly normal Mental Status: mental status grossly normal Assessment & Plan Assessment & Plan (1) Chronic constipation: Comment: continue Linzess and senna Code(s): K59.09 - Other constipation (2) Screening for colon cancer: Code(s): Z12.11 - Encounter for screening for malignant neoplasm of colon (3) Gallbladder polyp: Code(s): K82.4 - Cholesterolosis of gallbladder (4) Cirrhosis: Code(s): K74.60 - Unspecified cirrhosis of liver (5) Autoimmune hepatitis: Comment: monitor LFTs every 4 months. Code(s): K75.4 - Autoimmune hepatitis (6) GERD (gastroesophageal reflux disease): Comment: Continue omeprazole 40 mg twice daily Code(s): K21.9 - Gastro-esophageal reflux disease without esophagitis Qualifiers: Esophagitis presence: esophagitis presence not specified Qualified Code(s): K21.9 - Gastro-esophageal reflux disease without esophagitis (7) History of colon polyps: Code(s): Z86.010 - Personal history of colonic polyps Plan 62 YF with depression (past suicide attempt ), hypertension, Hypothyroidism, vitamin D deficiency PE (pulmonary thromboembolism) and DVT followed in GI for autoimmune hepatitis, iron deficiency anemia and chronic constipation. Patient was treated with prednisone 20 mg daily for 10 months for autoimmune hepatitis. Her prednisone was discontinued in August for unclear reasons. Recent LFTs are minimally elevated. Patient was advised to have her LFTs monitored every 3-4 months. If her LFTs are increasing I will restart prednisone and azathioprine for autoimmune hepatitis. No clear etiology for iron deficiency anemia was found on upper endoscopy and colonoscopy last year.? Patient continues to refuse to undergo capsule endoscopy. Continue Linzess and Senna for constipation since symptoms have improved. 11/28/17 Five polyps were removed during colonoscopy including a 2 cms polyp in the cecum). ? follow-up colonoscopy was advised in 2 years and patient missed several of her Fu appt and is overdue. Patient was advised to schedule an upper endoscopy (MARTY) and colonoscopy (FU of multiple colon polyps) during her last visit in 2020 and procedures were not scheduled.? Pt was advised to reschedule EGD and Colon Follow-up in 3 months Orders: Orders US abdomen kyle w elastography 12/02/22 K75.4 - Autoimmune hepatitis Medications: New dicyclomine 10 mg PO TID PRN 30 caps 1RF esophageal spasm 30 days R10.13 - Epigastric pain bisacodyl (Dulcolax (bisacodyl)) Take 2 tablets at 12 pm daily starting 2 days before colonoscopy appointment 10 mg (2 x 5 mg) PO ONCE 4 tabs 0RF colon prep 2 days polyethylene glycol 3350 (Miralax) Mix Miralax with 64 oz(8 cups) of Crystal light. Take 2 tablets of Dulcolax qt 12 pm. Wait to have your 1st bowel movement, then begin drinking Miralax. Drink a glass of Miralax every 10-15 minutes until you are finished. You will drink at least another 4 cups of clear liquid of your choice over the next 2 hours. Please drink as many clear liquids as possible You may have clear liquids up to four hours before your procedure 17 grams PO ONCE 17 grams 0RF 1 day Coding Level of Care Code Est Pt Level 4 (35421) Diagnoses Chronic constipation K59.09 Screening for colon cancer Z12.11 Gallbladder polyp K82.4 Cirrhosis K74.60 Autoimmune hepatitis K75.4 GERD (gastroesophageal reflux disease) K21.9 Esophagitis presence: esophagitis presence not specified History of colon polyps Z86.010 Time Spent (min) 27
[2022-12-02 09:10] VITALS: BP 115/53; PULSE 70; BMI 27.9
== END 2022-12-02 11:24 | disposition home or self-care (01) ==
PROVIDERS: PCP Internal Medicine; Visit Provider Internal Medicine Gastroenterology
DX: K59.09 Other constipation (principal); Z12.11 Encounter for screening for malignant neoplasm of colon; K82.4 Cholesterolosis of gallbladder; K74.60 Unspecified cirrhosis of liver; K75.4 Autoimmune hepatitis; K21.9 Gastro-esophageal reflux disease without esophagitis; Z86.010 Personal history of colon polyps
CPT/HCPCS: 99214

== ENCOUNTER → 2022-12-02 08:54 | Outpatient (BNVA) | payer OTHER, SELFPAY | PROVIDERS: PCP Internal Medicine; Visit Provider Internal Medicine Gastroenterology | DX: Z12.11 Encounter for screening for malignant neoplasm of colon (principal); K59.09 Other constipation; K82.4 Cholesterolosis of gallbladder; K74.60 Unspecified cirrhosis of liver; K75.4 Autoimmune hepatitis; K21.9 Gastro-esophageal reflux disease without esophagitis; Z86.010 Personal history of colon polyps | CPT/HCPCS: 99212 ==

== ENCOUNTER 2022-12-06 12:36 | Outpatient (REF) | payer OTHER, SELFPAY | END 2022-12-06 12:37 | disposition home or self-care (01) | LOC: HO.MDS 12:36 | PROVIDERS: Visit Provider Internal Medicine Medical Oncology | DX: D50.9 Iron deficiency anemia, unspecified (principal) | CPT/HCPCS: 96374; J1756 ==

== ENCOUNTER 2022-12-13 10:26 | Outpatient (REF) | payer OTHER, SELFPAY ==
[2022-12-15 21:17] LABS: HPV mRNA E6/E7 rflx Not Detected (Not Detected)
== END 2022-12-13 10:27 | disposition home or self-care (01) ==
LOC: HO.LNP 10:26
PROVIDERS: PCP Internal Medicine; Visit Provider Advanced Practice Midwife
DX: Z01.419 Encounter for gynecological examination (general) (routine) without abnormal findings (principal); Z11.51 Encounter for screening for human papillomavirus (HPV)
CPT/HCPCS: 87624; 88142

== ENCOUNTER 2023-02-03 09:31 | Day surgery (SDC) | payer OTHER, SELFPAY ==
[2023-02-01 10:50] VITALS: BMI 27.9
--- NOTE | 2023-02-02 09:39 | HO.ANESPROP2 ---
Documented by User: Valerie Copeland NP 02/02/23 09:42 HPI - Anesthesia Eval Consult details Narrative: 62yo F for Upper Endoscopy and Colonoscopy Hx PE. IVC filter in situ. No longer on OAC PMFSH Active Problems Active Problems: All Active Problems (Updated 02/01/23 @ 10:54 by Sol Monk RN) Depression (Acute) Hypothyroidism (Acute) Vitamin deficiency (Acute) History of pulmonary embolism (Acute) Family history of colonic polyps (Acute) GERD (gastroesophageal reflux disease) (Acute) Adenomatous colon polyp (Acute) Mild recurrent major depression (Acute) Upper respiratory tract infection (Acute) Bilateral foot pain (Acute) Elevated serum creatinine (Acute) Numbness and tingling of both feet (Acute) Cirrhosis (Acute) Gallbladder polyp (Acute) Back pain (Acute) Hospital discharge follow-up (Acute) Minal's disease (Acute) Weight loss (Acute) Dysphagia (Acute) COVID-19 (Acute) High anion gap metabolic acidosis (Acute) Lumbar pain (Acute) Parotid swelling (Acute) Cervical cancer screening (Acute) Screening for colon cancer (Acute) Adult general medical exam (Acute) Acute parotitis (Acute) Parotid mass (Acute) Chronic constipation (Acute) Arthritis (Acute) Chest pain (Acute) Hypertension (Acute) Autoimmune hepatitis (Acute) Past Medical History Medical History Arthritis Asthma Autoimmune hepatitis Back pain Chest pain Chronic constipation Chronic iron deficiency anemia CKD (chronic kidney disease) stage 3, GFR 30-59 ml/min CKD (chronic kidney disease) stage 4, GFR 15-29 ml/min Elevated cholesterol GERD (gastroesophageal reflux disease) History of COVID-19 History of DVT (deep vein thrombosis) Hx pulmonary embolism Hypertension Hypothyroid Iron deficiency anemia MDD (major depressive disorder), recurrent, severe, with psychosis Noncompliance with medication regimen Panic disorder Right ankle injury (~2000) Seasonal allergies Family History Family History Father Myocardial infarction H/O ETOH abuse Hypertension Mother Diabetes High cholesterol Hypertension Stroke Paternal Aunt Mental health disorder Paternal Uncle Mental health disorder Sister Cancer Ovarian cancer Surgical History Surgical History History of ankle surgery History of colonoscopy (~2019) History of liver biopsy Hx of endoscopy (06/26/17) S/P insertion of inferior vena caval filter Social History Social History Household Members: Family Housing: Apartment Are you a primary furnace caretaker to a significant other at home: No Do you presently have visiting nurse or other home services: Yes Alcohol intake: never Patient Tobacco Use Status: Never used Tobacco e-Cigarette/Vaping Use: Never Used Second Hand Smoke Exposure: No Use of substances other than those prescribed or required for medical reasons: No Are you DNR?: Yes Advance Directives: No Advance Directives Information Provided: Yes Advance Directives Date on File: 07/21/21 service: No Current occupational status: disabled Cognitive needs: No Hearing needs: No Vision needs: Yes (glasses) Meds Allergies Allergy/AdvReac Type Severity Reaction Status Date / Time cefuroxime [From Ceftin] Allergy Intermediate rash Verified 12/13/22 10:37 Ezedkxp-BYF-ItV Reductase Allergy Intermediate transaminit Verified 12/13/22 10:37 Inhibitor is [Xgzirvo-Wwo-Dvu Reductase Inhibitor] Exam Exam Date and Time: February 02, 2023 0939 Height,Weight and Vital Signs: Height 4 ft 11 in Weight 62.596 kg Pertinent Lab Results Pertinent Lab Results: Laboratory Tests 10/27/22 11:23 Sodium 142 Potassium 4.4 Chloride 117 H Carbon Dioxide 18 L BUN 33 H Creatinine 1.96 H Assessment and Plan Assessment Anesthesia Assessment: Chart Reviewed Documented by User: Jessica Dykes MD 02/03/23 11:55 PMFSH Past Medical History Medical History Arthritis Asthma Autoimmune hepatitis Back pain Chest pain Chronic constipation Chronic iron deficiency anemia CKD (chronic kidney disease) stage 3, GFR 30-59 ml/min CKD (chronic kidney disease) stage 4, GFR 15-29 ml/min Elevated cholesterol GERD (gastroesophageal reflux disease) History of COVID-19 History of DVT (deep vein thrombosis) Hx pulmonary embolism Hypertension Hypothyroid Iron deficiency anemia MDD (major depressive disorder), recurrent, severe, with psychosis Noncompliance with medication regimen Panic disorder Right ankle injury (~2000) Seasonal allergies Family History Family History Father Myocardial infarction H/O ETOH abuse Hypertension Mother Diabetes High cholesterol Hypertension Stroke Paternal Aunt Mental health disorder Paternal Uncle Mental health disorder Sister Cancer Ovarian cancer Family history of problems with anesthesia: No Surgical History Surgical History History of ankle surgery History of colonoscopy (~2018) History of liver biopsy Hx of endoscopy (06/26/17) S/P insertion of inferior vena caval filter History of Problems with Anesthesia: No Social History Social History Household Members: Family Housing: Apartment Are you a primary furnace caretaker to a significant other at home: No Do you presently have visiting nurse or other home services: Yes Alcohol intake: never Patient Tobacco Use Status: Never used Tobacco e-Cigarette/Vaping Use: Never Used Second Hand Smoke Exposure: No Use of substances other than those prescribed or required for medical reasons: No Are you DNR?: Yes Advance Directives: No Advance Directives Information Provided: Yes Advance Directives Date on File: 07/21/21 service: No Current occupational status: disabled Cognitive needs: No Hearing needs: No Vision needs: Yes (glasses) Meds Allergies Allergy/AdvReac Type Severity Reaction Status Date / Time cefuroxime [From Ceftin] Allergy Intermediate rash Verified 12/13/22 10:37 Yvaqxay-XJB-HuN Reductase Allergy Intermediate transaminit Verified 12/13/22 10:37 Inhibitor is [Ntuaujv-Xvn-Gij Reductase Inhibitor] Exam Airway Mallampati Class: II TM Dist: >3cm Neck ROM: Full Heart: rrr Lungs: cta Assessment and Plan Assessment Anesthesia Assessment: Anesthesia Plan Discussed Final Anesthetic Review Family History of Problems with Anesthesia: No History of Problems with Anesthesia: No NPO: Yes ASA Class: III Final Preanesthetic Review: No Changes in Pt Med Stat, Meds/Allgs Chart Reviewed, Consent Obtained/Reviewed and Anes Risks/Benef Reviewed Patient Risk: Intermediate Procedure Risk: Low Anesthetic Plan Anesthetic Plan: MAC: Disposition: Standard PACU
[2023-02-03 10:45] LABS: Hematocrit 34.5 % (37.0-47.0); Hemoglobin 11.3 g/dl (12.0-16.0); Mean Corpuscular HGB Conc 32.8 g/dl (31.0-35.0); Mean Corpuscular Hemoglobin 31.5 pg (27.0-33.0); Mean Corpuscular Volume 96.1 fL (80.0-98.0); Mean Platelet Volume 11.7 fL (9.4-12.3); Red Blood Count 3.59 X10*6/uL (4.20-5.50); White Blood Count 3.7 X10*3/uL (4.8-10.8)
[2023-02-03 10:46] LABS: Platelet Count 68 X10*3/uL (160-400)
[2023-02-03 10:49] LABS: Prothrombin Time 12.2 SEC (11.1-13.3)
[2023-02-03 10:51] VITALS: BP 130/54; PULSE 65; RESP 16; TEMP 37.1; O2SAT 98
[2023-02-03] MEDS: Lactated Ringers 1,000 ML 100 ML IVCONT (10:52)
--- NOTE | 2023-02-03 11:05 | MHC.SHP ---
Pre-Procedural Eval Section A Date of Service: 02/03/23 The patient is an INPATIENT: No The History & Physical has been completed within 30 days and I have reviewed it.: No Section B Chief Complaint: fu of colon polyps, MARTY, dysphagia Relevant Family History (Specify if Yes): No Relevant Social History: None Present Medications: see Short Stay Collaborative assessment Medical History: Significant History (Autoimmune hepatitis Back pain Chest pain Chronic constipation Chronic iron deficiency anemia CKD (chronic kidney disease) stage 3, GFR 30-59 ml/min CKD (chronic kidney disease) stage 4, GFR 15-29 ml/min Elevated cholesterol GERD (gastroesophageal reflux disease) History of COVID-19 History of DVT () History of Previous Operations: Relevant previous surgery/procedure and date(s) (History of ankle surgery History of colonoscopy (~2018) History of liver biopsy Hx of endoscopy (06/26/17) S/P insertion of inferior vena caval filte) Allergies: Allergies Allergy/AdvReac Type Severity Reaction Status Date / Time cefuroxime [From Ceftin] Allergy Intermediate rash Verified 12/13/22 10:37 Rcuuonn-ZOR-JqY Reductase Allergy Intermediate transaminit Verified 12/13/22 10:37 Inhibitor is [Knbrnly-Bet-Ggy Reductase Inhibitor] Review of Systems Sugical H&P ROS: Negative: Constitution, Cardiovascular and Respiratory and Yes, Specify: Gastrointestinal (dysphagia) Exam Surgical H&P Exam: Normal: Heart, Normal: Lungs, Normal: Extremities and Normal: Abdomen Plan Diagnosis/Plan: Unchanged I have reviewed the history and physical and performed a pertinent physical examination on my patient. No changes have occurred unless specified. Time Spent With Patient Time: Total time managing care of this patient today ____ minutes.
--- NOTE | 2023-02-03 12:07 | P.OP_ITS ---
Operative Note Operative Note Date of Service: 02/03/23 Narrative: FLEXIBLE TRANSORAL UPPER GASTROINTESTINAL ENDOSCOPY WITH BIOPSIES AND ESOPHAGEAL BALLOON DILATION AND COLONOSCOPY TILL CECUM WITH BIOPSIES, SNARE POLYPECTOMY AND SUBMUCOSAL INJECTION Pre-op diagnosis: Surveillance for colon polyps, GERD, iron deficiency anemia, dysphagia Post-op diagnosis: Colon polyps, diverticulosis, hemorrhoids, gastric polyps, gastritis? Endoscopist:? Tamar Negrete MD Anesthesia:?MAC UPPER ENDOSCOPY Consent: Indications for the procedure and potential complications of bleeding, perforation, reaction to medications and missed diagnosis were discussed with the patient and informed consent was obtained. Instrument: Olympus GIF H 190 mid size upper endoscope Monitoring: Vital signs and clinical assessment, continuous EKG monitoring, Pulse oximetry, Carbon Dioxide monitoring and blood pressure monitoring were done throughout the procedure. Procedure: The patient was placed in the left lateral decubitis position and pre-procedure medications were administered and a bite block was placed. The endoscope was inserted into the mouth and advanced under direct vision to the third part of duodenum. A careful inspection was made as the upper endoscope was withdrawn including a retroflexed examination of the proximal stomach; Findings and interventions are described below. Findings: Larynx: Normal Esophagus: GE junction at 35 cms. No esophagitis or De Jesus's. No stricture or ring seen - empiric balloon dilation was performed with a 20 mm (60 F) CRE balloon x 60 seconds Stomach: Two 7-8 mm benign appearing polyps in the gastric body - biopsied. Mild gastric erythema. Biopsies were obtained. Decreased fundal folds and grade 2 flap valve on retroflexed examination of the cardia. Duodenum: Normal bulb and descending duodenum Intervention: Biopsies as noted above COLONOSCOPY PROCEDURE NOTE Consent: Indications for the procedure and potential complications of bleeding, perforation, reaction to medications and missed diagnosis were discussed with the patient and informed consent was obtained. Instrument: Olympus PCF H 190 L variable stiffness pediatric colonoscope Monitoring: Vital signs and clinical assessment, intermittent blood pressure monitoring, continuous EKG monitoring, Pulse oximetry and Carbon Dioxide monitoring were done throughout the procedure. Colon withdrawl time was 18 minutes. Procedure: The patient was placed in the left lateral decubitis position and pre-procedure medications were administered. After a digital rectal examination of the ano-rectum, the video colonoscope was inserted into the rectum and advanced through the colon to the cecum. The colonoscope was slowly withdrawn in a retrograde panoramic fashion and the colon mucosa was carefully examined including a retroflexed view of the rectum. Findings and interventions are described below. Procedure Difficulty: colon was long and there was some loop formation. left lower quadrant pressure was applied to intubate the cecum Findings: Terminal Ileum: Not evaluated Cecum: Normal Ascending Colon: A 15-18 mm sessile polyp in the mid ascending colon at 80 cms - removed with a hot snare. polypectomy site was marked with Kathy ink. Two 10-12 mm sessile polyps in the distal ascending colon - removed with a cold snare Mild melanosis coli throughout the colon - random biopsies were obtained from the right colon Transverse Colon: Normal Descending Colon: moderate diverticulosis Sigmoid Colon: Moderate diverticulosis Rectum: Normal Ano-rectum: Moderate internal hemorrhoids Colon preparation: Good after some irrigation Impression and Post Procedure Diagnosis: Endoscopy Findings: ESOPHAGUS: No stricture or ring seen - empiric balloon dilation was performed with a 20 mm (60 F) CRE balloon x 60 seconds Dysphagia is likely due to esophageal motility disorder. STOMACH: Benign-appearing gastric polyps and mild gastritis Colonoscopy Findings: Three medium sized polyps removed Moderate diverticulosis seen in the left colon Moderate hemorrhoids on retroflexed exam. Plan: Await pathology results Patient has an appointment on 03/23/23 in the GI Clinic with Tamar Negrete M.D. Repeat Colonoscopy interval based on path results - in 2-3 years if polyps are adenomatous and 5 years if polyps are hyperplastic (due to a hx of adenomatous colon polyps). Above findings were reviewed with the patient and colon polyps and diverticulosis handouts were given in the discharge area ?BIOPSIES SHOWED: A. Stomach, antrum, biopsy: Gastric antral mucosa with mild chronic inactive gastritis; negative for Helicobacter pylori, intestinal metaplasia and dysplasia. B. Stomach, polyps, biopsy: Hyperplastic gastric polyp (s). C. Colon, ascending, polypectomy x2: Tubular adenoma (2); negative for high- grade dysplasia. D. Colon mid-ascending, polypectomy: Sessile serrated polyp/lesion without d ysplasia. E. Colon, right, biopsy: Colonic mucosa with melanosis coli, otherwise within normal limits; negative for active, chronic or microscopic colitis Patient placed on a 2 year recall list for follow-up colonoscopy
[2023-02-03 13:08] VITALS: BP 104/54; PULSE 74; RESP 17; TEMP 36.3; O2SAT 100
[2023-02-03 13:23] VITALS: BP 112/55; PULSE 75; RESP 16; TEMP 36.4; O2SAT 99
[2023-02-03 13:38] VITALS: BP 115/55; PULSE 70; RESP 18; TEMP 36.5; O2SAT 100
[2023-02-03 13:53] VITALS: BP 120/60; PULSE 60; RESP 18; TEMP 36.5; O2SAT 100
== END 2023-02-03 14:30 | disposition home or self-care (01) ==
PROVIDERS: Anesthesiology; Nurse Practitioner; PCP Internal Medicine; Visit Provider Internal Medicine Gastroenterology
PROC: (CPT 45385; principal; 2023-02-03 11:30)
DX: Z12.11 Encounter for screening for malignant neoplasm of colon (principal); D12.2 Benign neoplasm of ascending colon; K57.30 Diverticulosis of large intestine without perforation or abscess without bleeding; K64.8 Other hemorrhoids; Z86.010 Personal history of colon polyps; Z83.71 Family history of colonic polyps; K22.82 Esophagogastric junction polyp; K29.60 Other gastritis without bleeding; K21.9 Gastro-esophageal reflux disease without esophagitis; D64.9 Anemia, unspecified; K59.09 Other constipation; K82.4 Cholesterolosis of gallbladder; K74.60 Unspecified cirrhosis of liver; D50.9 Iron deficiency anemia, unspecified; K75.4 Autoimmune hepatitis; R13.14 Dysphagia, pharyngoesophageal phase; E03.9 Hypothyroidism, unspecified; E56.9 Vitamin deficiency, unspecified; I12.9 Hypertensive chronic kidney disease with stage 1 through stage 4 chronic kidney disease, or unspecified chronic kidney disease; N18.4 Chronic kidney disease, stage 4 (severe); J45.909 Unspecified asthma, uncomplicated; Z86.711 Personal history of pulmonary embolism; Z86.718 Personal history of other venous thrombosis and embolism; Z79.899 Other long term (current) drug therapy
CPT/HCPCS: 45385; 45380; 45381; 43239; 43249; 36415; 85027; 85610; 88305; 88342; C1726

== ENCOUNTER → 2023-02-03 09:31 | Outpatient (BNV) | payer OTHER, SELFPAY | PROVIDERS: PCP Internal Medicine; Visit Provider Internal Medicine Gastroenterology | DX: Z12.11 Encounter for screening for malignant neoplasm of colon (principal); Z86.010 Personal history of colon polyps; K21.9 Gastro-esophageal reflux disease without esophagitis; K63.5 Polyp of colon | CPT/HCPCS: 99499 ==

== ENCOUNTER 2023-02-13 14:46 | Outpatient (AMB) | payer OTHER, SELFPAY ==
[2023-02-13 14:51] VITALS: BP 124/82; PULSE 65; O2SAT 97; BMI 27.9
--- NOTE | 2023-02-13 14:51 | A.OFFPC_ITS ---
Vital Signs 02/13/23 14:51 Height 4 ft 11 in Weight 138 lb BMI 27.9 BP 124/82 Blood Pressure Location Lt brachial Position Sitting Pulse 65 Pulse Source Pulse Oximeter Pulse Oximetry (%) 97 Oxygen Delivery Method Room Air Intake Visit Reasons: thyroid,liver Allergies cefuroxime [From Ceftin] Allergy (Intermediate, Verified 02/13/23 14:51) rash Vybubwf-IGZ-DmA Reductase Inhibitor [Cabaewg-Exg-Ykc Reductase Inhibitor] Allergy (Intermediate, Verified 02/13/23 14:51) transaminitis Medication List - Last Reconciled 02/13/23 by Elle Crooks MD cetirizine 10 mg PO DAILY PRN 90 days cholecalciferol (vitamin D3) 50 mcg PO DAILY 90 days dicyclomine 10 mg PO TID PRN escitalopram oxalate 10 mg PO DAILY 90 days levothyroxine 125 mcg PO DAILY 90 days linaclotide (Linzess) 145 mcg PO DAILY omeprazole 40 mg PO DAILY 90 days sennosides (senna) 8.6 mg PO BID sodium bicarbonate 650 mg PO BID walker As directed Tobacco use date assessed: 07/19/22 Dental Screening Dental Screen Date: 02/13/23 Did you have a dental visit in the last 12 months?: No Did you have a dental problem in the last 6 months where you did not have access to dental care?: No Was dental information given to patient?: No HPI thyroid,liver HPI Details 63-year-old overweight female recently had a endoscopy and colonoscopy January 2023 noted polyp. Patient also follows up with Nephrology has chronic kidney disease 3 hypertensive question of Rheumatology problem and has anemia of chronic kidney disease. Patient has a history of hypertension, cirrhosis GERD history of pulmonary embolism hypothyroidism and depression. Patient is here for follow-up [facility] Medical History Arthritis Asthma Autoimmune hepatitis Back pain Chest pain Chronic constipation Chronic iron deficiency anemia CKD (chronic kidney disease) stage 3, GFR 30-59 ml/min CKD (chronic kidney disease) stage 4, GFR 15-29 ml/min Elevated cholesterol GERD (gastroesophageal reflux disease) History of COVID-19 History of DVT (deep vein thrombosis) Hx pulmonary embolism Hypertension Hypothyroid Iron deficiency anemia MDD (major depressive disorder), recurrent, severe, with psychosis Noncompliance with medication regimen Panic disorder Right ankle injury (~2000) Seasonal allergies Surgical History History of ankle surgery History of colonoscopy (~2018) History of liver biopsy Hx of endoscopy (06/26/17) S/P insertion of inferior vena caval filter Family History Father Myocardial infarction H/O ETOH abuse Hypertension Mother Diabetes High cholesterol Hypertension Stroke Paternal Aunt Mental health disorder Paternal Uncle Mental health disorder Sister Cancer Ovarian cancer Social History Household Members: Family Housing: Apartment Are you a primary long term care phlebotomist to a significant other at home: No Do you presently have visiting nurse or other home services: Yes Alcohol intake: never Patient Tobacco Use Status: Never used Tobacco e-Cigarette/Vaping Use: Never Used Second Hand Smoke Exposure: No Advance Directives Date on File: 07/21/21 service: No Current occupational status: disabled Cognitive needs: No Hearing needs: No Vision needs: Yes (glasses) Questionnaire PHQ-9 Over the last 2 weeks, how often have you been bothered by any of the following problems? 1. Little interest or pleasure in doing things: not at all 2. Feeling down, depressed, or hopeless: not at all 3. Trouble falling or staying asleep, or sleeping too much: not at all 4. Feeling tired or having little energy: not at all 5. Poor appetite or overeating: not at all 6. Feeling bad about yourself - or that you are a failure or have let yourself or your family down: not at all 7. Trouble concentrating on things, such as reading the newspaper or watching television: not at all 8. Moving or speaking so slowly that other people could have noticed. Or the opposite - being so fidgety or restless that you have been moving around a lot more than usual: not at all 9. Thoughts that you would be better off or of hurting yourself in some way: not at all Total score: 0 Depression Screening Interpretation: Negative 19296 - PHQ-9 Billing: Yes Source: Developed by Drs. Kwame Granda, Elida B.Robert Hale and colleagues, with an educational severino from [employer]. Thrive Questionnaire Date Thrive assessed: 07/19/22 AUDIT C Alcohol Use Questionnaire (AUDIT-C) 1. How often do you have a drink containing alcohol?: Never Total Score: 0 Score Reviewed/Action Taken: No TIFFANY-7 AMB Questionnaire TIFFANY-7 Date TIFFANY - 7 assessed: 07/19/22 Source: Developed by Drs. Kwame Granda, Robert Olvera and colleagues, with an educational severino from [employer]. Physical exam (Primary Care) Vital Signs: Last Vital Signs Pulse 65 02/13/23 14:51 BP 124/82 02/13/23 14:51 Pulse Ox 97 02/13/23 14:51 Oxygen Delivery Method Room Air 02/13/23 14:51 BMI result Body Mass Index 27.9 Tobacco/Smoking Status: Tobacco use Status Tobacco use date assessed 07/19/22 02/13/23 14:56 Patient Tobacco Use Status Never used Tobacco 02/13/23 14:56 e-Cigarette/Vaping Use Never Used 02/13/23 14:56 PHQ-9: PHQ-9 Score PHQ-9: Total score 0 02/13/23 14:56 Depression Screening Interpretation: Negative Thrive Assessment: Date of Thrive Assessment Date Thrive assessed 07/19/22 02/13/23 14:56 Const General: alert; No acute distress Eyes Conjunctivae: conjunctivae normal Resp Auscultation: clear to auscultation bilaterally Cardio Rate: regular rate Rhythm: regular rhythm GI Inspection: Yes normal to inspection Extrem General: Yes normal to inspection and No edema Assessment and Plan Assessment & Plan (1) History of colon polyps: Comment: January 2023 colonoscopy Code(s): Z86.010 - Personal history of colonic polyps Plan: Patient follows up with Gastroenterology status post colonoscopy (2) Depression: Comment: history of suicide attempt Code(s): F32.9 - Major depressive disorder, single episode, unspecified Plan: Continue with Lexapro 10 mg once a day. decline counselling referral (3) Hypothyroidism: Code(s): E03.9 - Hypothyroidism, unspecified Qualifiers: Hypothyroidism type: unspecified Qualified Code(s): E03.9 - Hypothyroidism, unspecified Plan: Continue with thyroid medication August 2022 last blood work. blood work need to be done. reminded (4) GERD (gastroesophageal reflux disease): Comment: Continue omeprazole 40 mg twice daily Code(s): K21.9 - Gastro-esophageal reflux disease without esophagitis Qualifiers: Esophagitis presence: esophagitis presence not specified Qualified Code(s): K21.9 - Gastro-esophageal reflux disease without esophagitis Plan: Avoid the foods that causes that usually spicy foods, tomato products, juices, coffee, soda and foods that your sensitive to. After eating do not lie down, allow 3-4 hours before in lie down. And keep the head of bed above 30 degrees to avoid the acid from going up. (5) Cirrhosis: Code(s): K74.60 - Unspecified cirrhosis of liver (6) Hypertension: Code(s): I10 - Essential (primary) hypertension Plan: Blood pressure is under control without any medication Medications: New linaclotide (Linzess) 145 mcg PO DAILY 30 caps 3RF K59.09 - Other constipation Coding Level of Care Code Est Pt Level 4 (72527) Diagnoses History of colon polyps Z86.010 Depression F32.9 Hypothyroidism E03.9 Hypothyroidism type: unspecified GERD (gastroesophageal reflux disease) K21.9 Esophagitis presence: esophagitis presence not specified Cirrhosis K74.60 Hypertension I10
== END 2023-02-13 15:52 | disposition home or self-care (01) ==
PROVIDERS: PCP Internal Medicine; Visit Provider Internal Medicine
DX: E03.9 Hypothyroidism, unspecified (principal); K74.60 Unspecified cirrhosis of liver; F33.0 Major depressive disorder, recurrent, mild; K21.9 Gastro-esophageal reflux disease without esophagitis; I10 Essential (primary) hypertension
CPT/HCPCS: 99214

== ENCOUNTER 2023-04-03 09:38 | Outpatient (REF) | payer OTHER, SELFPAY ==
[2023-04-03 10:35] LABS: MANUAL DIFF FLAG NO
[2023-04-03 10:43] LABS: Appearance Urine Cloudy; Color Urine Yellow; Glucose Urine UA Negative (Negative); Leukocyte Esterase Urine Large (3+) (Negative); Nitrite Urine Negative (Negative); Specific Gravity - Urine 1.015 (1.005-1.025); UMIC TRIGGER UA YES; Urine Blood Negative (Negative); Urine Ketones Negative (Negative); Urine Protein Negative (Neg-Trace)
[2023-04-03 10:46] LABS: Bacteria Urine 4+ (None Seen); RBC Urine 0-2 /HPF (0-2); Squamous Epithelial Cell Urine 0-2 /HPF (0-2); WBC Urine >50 /HPF (0-5)
[2023-04-03 10:50] LABS: Basophils Percent Auto 0.3 % (0-2); Eosinophils Absolute Auto 0.1 X10*3/uL (0.0-0.4); Hematocrit 32.3 % (37.0-47.0); Hemoglobin 10.3 g/dl (12.0-16.0); Lymphocytes Absolute Auto 0.9 X10*3/uL (1.2-4.9); Lymphocytes Percent Auto 29.6 % (20-40); Mean Corpuscular HGB Conc 31.9 g/dl (31.0-35.0); Mean Corpuscular Hemoglobin 31.5 pg (27.0-33.0); Mean Corpuscular Volume 98.8 fL (80.0-98.0); Mean Platelet Volume 11.4 fL (9.4-12.3); Monocytes Absolute Auto 0.3 X10*3/uL (0.1-1.2); Monocytes Percent Auto 9.1 % (2-11); Neutrophils Absolute Auto 1.7 x10*3/uL (2.0-8.3); Platelet Count 79 X10*3/uL (160-400); Red Blood Count 3.27 X10*6/uL (4.20-5.50); Red Cell Distribution Width 13.9 % (11.0-16.0)
[2023-04-03 12:08] LABS: Creatinine Urine 118.19 mg/dL; Microalbum/Creatinine Ratio Ur 11.8 ug/mg cr (<30); Protein/Creatinine Ratio, Ur 0.11 (<0.2); Total Protein Urine Random 13 mg/dL (<12)
[2023-04-03 13:05] LABS: Albumin Level 3.4 g/dL (3.5-5.0); Anion Gap 12 (12-20); Blood Urea Nitrogen 42 mg/dL (9-16); Calcium 9.7 mg/dL (8.4-10.2); Carbon Dioxide 18 mmol/L (22-29); Chloride 114 mmol/L (96-108); Estimated Glomerular Filt Rate 29; Magnesium 2.3 mg/dL (1.6-2.6); Phosphorus 4.3 mg/dL (2.7-4.5); Potassium 4.1 mmol/L (3.3-5.1); Sodium 140 mmol/L (135-145); Vitamin D 25-OH Total 29.5 ng/mL (>30)
[2023-04-04 15:48] LABS: Calcium (PTHI) 9.1 mg/dL (8.6-10.4); PTHI 38 pg/mL (16-77)
== END 2023-04-03 09:39 | disposition home or self-care (01) ==
LOC: HO.10HDL 09:38
PROVIDERS: Visit Provider Internal Medicine Nephrology
DX: N18.32 Chronic kidney disease, stage 3b (principal); N25.0 Renal osteodystrophy; D68.62 Lupus anticoagulant syndrome
CPT/HCPCS: 36415; 80051; 81001; 82040; 82043; 82306; 82310; 82565; 82570; 83735; 83970; 84100; 84156; 84520; 85025

== ENCOUNTER 2023-05-17 12:51 | Outpatient (AMB) | payer OTHER, SELFPAY ==
--- NOTE | 2023-05-17 12:56 | A.OFFPC_ITS ---
Vital Signs 05/17/23 12:57 Height 4 ft 11 in Weight 137 lb BMI 27.7 BP 126/70 Blood Pressure Location Lt brachial Position Sitting Pulse 63 Pulse Source Pulse Oximeter Pulse Oximetry (%) 99 Oxygen Delivery Method Room Air Intake Visit Reasons: HTN, CKD Intake Note: Patient here for a follow up CKD, HTN Health Care Marketing Manager Required: No Accompanied by: Self / Same As Patient Allergies cefuroxime [From Ceftin] Allergy (Intermediate, Verified 05/17/23 13:14) rash Wztwnux-FXK-YdE Reductase Inhibitor [Zuxydkr-Nbj-Beu Reductase Inhibitor] Allergy (Intermediate, Verified 05/17/23 13:14) transaminitis Medication List - Last Reconciled 05/17/23 by Nanda Alaniz MD cetirizine 10 mg PO DAILY PRN 90 days cholecalciferol (vitamin D3) 50 mcg PO DAILY 90 days dicyclomine 10 mg PO TID PRN escitalopram oxalate 10 mg PO DAILY 90 days levothyroxine 125 mcg PO DAILY 90 days linaclotide (Linzess) 145 mcg PO DAILY omeprazole 40 mg PO DAILY 90 days sennosides (senna) 8.6 mg PO BID sodium bicarbonate 650 mg PO BID walker As directed Tobacco use date assessed: 07/19/22 Dental Screening Dental Screen Date: 05/17/23 Did you have a dental visit in the last 12 months?: No Did you have a dental problem in the last 6 months where you did not have access to dental care?: No Was dental information given to patient?: Patient has dentist HPI HPI Comments History of Present Illness Details This is a 63-year-old female with hypothyroidism, GERD, chronic kidney disease stage 4 and mild recurrent major depression that comes today for follow- up on her conditions. TSH was ordered. GERD stable with PPIs. Has chronic kidney disease which is stage IV but GFR has improved to 29. This is follow by Nephrology which recently did a kidney biopsy but results are not available for me to see. Depression stable with escitalopram. She does have cirrhosis and follows with Gastroenterology. [facility] Medical History (Updated 05/17/23 @ 14:11 by Nanda Alaniz MD) CKD (chronic kidney disease) stage 4, GFR 15-29 ml/min History of COVID-19 CKD (chronic kidney disease) stage 3, GFR 30-59 ml/min Panic disorder MDD (major depressive disorder), recurrent, severe, with psychosis Noncompliance with medication regimen Chest pain Elevated cholesterol Back pain Arthritis Seasonal allergies Hypothyroid GERD (gastroesophageal reflux disease) Hx pulmonary embolism Iron deficiency anemia Asthma Autoimmune hepatitis Chronic constipation Chronic iron deficiency anemia Right ankle injury (~2000) History of DVT (deep vein thrombosis) Hypertension Surgical History History of esophagogastroduodenoscopy (EGD) S/P insertion of inferior vena caval filter History of liver biopsy History of ankle surgery Hx of endoscopy (06/26/17) History of colonoscopy (~2018) Family History Father Myocardial infarction H/O ETOH abuse Hypertension Mother Diabetes High cholesterol Hypertension Stroke Paternal Aunt Mental health disorder Paternal Uncle Mental health disorder Sister Cancer Ovarian cancer Social History Household Members: Family Housing: Apartment Are you a primary nurse behavioral health care to a significant other at home: No Do you presently have visiting nurse or other home services: Yes Alcohol intake: never Patient Tobacco Use Status: Never used Tobacco e-Cigarette/Vaping Use: Never Used Second Hand Smoke Exposure: No Advance Directives Date on File: 07/21/21 service: No Current occupational status: disabled Cognitive needs: No Hearing needs: No Vision needs: Yes (glasses) Questionnaire Thrive Questionnaire Date Thrive assessed: 07/19/22 TIFFANY-7 AMB Questionnaire TIFFANY-7 Date TIFFANY - 7 assessed: 07/19/22 Source: Developed by Drs. Kwame Granda, Elida Mccullough, Robert Sosa and colleagues, with an educational severino from [employer]. Review of Systems Const All systems reviewed & are unremarkable except as noted in HPI and below Eyes Reports no additional complaints, Denies change in vision and Denies other visual disturbances Card Denies chest pain at rest, Denies chest pain with activity, Denies edema, Denies irregular heart rhythm, Denies claudication, Denies dyspnea, Denies dyspnea on exertion, Denies orthopnea, Denies paroxysmal nocturnal dyspnea and Denies slow heart rate Resp Denies cough, Denies dyspnea and Denies dyspnea on exertion GI Denies abdominal pain, Denies change in bowel habits, Denies excessive flatus, Denies nausea and Denies vomiting Denies urinary incontinence, Denies urinary hesitancy and Denies urinary urgency Musc Denies abnormal gait, Denies atrophy, Denies deformity and Denies limited range of motion Skin/Breast Denies bleeding lesions, Denies changing lesions and Denies rash Neuro Denies abnormal gait and Denies lack of coordination Physical exam (Primary Care) Vital Signs: Last Vital Signs Pulse 63 05/17/23 12:57 BP 126/70 05/17/23 12:57 Pulse Ox 99 05/17/23 12:57 Oxygen Delivery Method Room Air 05/17/23 12:57 BMI result Body Mass Index 27.7 Tobacco/Smoking Status: Tobacco use Status Tobacco use date assessed 07/19/22 05/17/23 13:01 Patient Tobacco Use Status Never used Tobacco 05/17/23 13:01 e-Cigarette/Vaping Use Never Used 05/17/23 13:01 Thrive Assessment: Date of Thrive Assessment Date Thrive assessed 07/19/22 05/17/23 13:01 Eyes General: appearance normal, both eyes and all related structures Eyelids: Yes eyelids normal Conjunctivae: conjunctivae normal Neck Neck: Yes normal visual inspection and Yes supple Resp Effort & Inspection: normal respiratory effort Auscultation: clear to auscultation bilaterally Cardio Jugular venous distension: no JVD Rate: regular rate Rhythm: regular rhythm Heart sounds: S1 normal heart sound present and S2 normal heart sound present Extrem General: Yes full ROM Office Procedures Flu Questionnaire Does the patient have a severe egg allergy?: No Immunizations flu vacc [id number] 6mos up(PF) 60 mcg(15 mcgx4)/0.5 mL IM syringe Performing Provider: Nanda Alaniz MD [facility] Documented (not given) by: TOMMY Perez on 05/17/23 13:02 Reason Not Given: Patient Refused Assessment and Plan Assessment & Plan (1) Mild recurrent major depression: Code(s): F33.0 - Major depressive disorder, recurrent, mild Plan: Continue escitalopram. (2) CKD (chronic kidney disease) stage 4, GFR 15-29 ml/min: Code(s): N18.4 - Chronic kidney disease, stage 4 (severe) Plan: Avoid NSAIDs. Keep blood pressure less than 130/80. Follow-up with nephrology. (3) Hypothyroidism: Code(s): E03.9 - Hypothyroidism, unspecified Qualifiers: Hypothyroidism type: unspecified Qualified Code(s): E03.9 - Hypothyroidism, unspecified Plan: Continue levothyroxine. Monitor TSH. (4) GERD (gastroesophageal reflux disease): Comment: Continue omeprazole 40 mg twice daily Code(s): K21.9 - Gastro-esophageal reflux disease without esophagitis Qualifiers: Esophagitis presence: esophagitis presence not specified Qualified Code(s): K21.9 - Gastro-esophageal reflux disease without esophagitis Plan: Continue PPIs. Orders: Orders Thyroid Stimulating Hormone Today E03.9 - Hypothyroidism, unspecified Lipid Panel 2 Months E78.5 - Hyperlipidemia, unspecified Influenza [id number] Immunization Today Z23 - Encounter for immunization Vitamin D 25-OH Total Today E55.9 - Vitamin D deficiency, unspecified Comprehensive Evarts. Panel Fast 2 Months K21.9 - Gastro-esophageal reflux disease without esophagitis Coding Level of Care Code Est Pt Level 4 (72039) Diagnoses Mild recurrent major depression F33.0 CKD (chronic kidney disease) stage 4, GFR 15-29 ml/min N18.4 Hypothyroidism, unspecified type E03.9 Hypothyroidism type: unspecified Gastroesophageal reflux disease, unspecified whether esophagitis present K21.9 Esophagitis presence: esophagitis presence not specified Time Spent (min) 22
[2023-05-17 12:57] VITALS: BP 126/70; PULSE 63; O2SAT 99; BMI 27.7
== END 2023-05-17 13:21 | disposition home or self-care (01) ==
PROVIDERS: PCP Internal Medicine; Visit Provider Internal Medicine
DX: E03.9 Hypothyroidism, unspecified (principal); F33.0 Major depressive disorder, recurrent, mild; N18.4 Chronic kidney disease, stage 4 (severe); K21.9 Gastro-esophageal reflux disease without esophagitis
CPT/HCPCS: 99214

== ENCOUNTER 2023-08-11 10:52 | Outpatient (AMB) | payer OTHER, SELFPAY ==
--- NOTE | 2023-08-11 11:04 | A.OFFVIS_ITS ---
Intake Vital Signs 08/11/23 11:06 Height 4 ft 11 in Weight 136 lb 0.403 oz BMI 27.5 BP 116/72 Blood Pressure Location Rt brachial Position Sitting Pulse 74 Pulse Source Pulse Oximeter Temp 97.4 F Temp Source Skin Pulse Oximetry (%) 98 Oxygen Delivery Method Room Air Intake Visit Reasons: Joint Pain Intake Note: New patient, internally referred, presents to office today for joint pain. Joints affected: legs, knees, elbows, hands, back, fingers Pain began approx: years ago, mid 50's Has tried: oral meds and patches Seam Steamer Required: No Accompanied by: Sister Allergies cefuroxime [From Ceftin] Allergy (Intermediate, Verified 08/11/23 11:05) rash Plavqus-PQW-DpD Reductase Inhibitor [Bczrwak-Caz-Poa Reductase Inhibitor] Allergy (Intermediate, Verified 08/11/23 11:05) transaminitis HPI HPI Comments History of Present Illness Details Ms. Salas is a 63-year-old female dense today accompanied by her sister Elida. She was referred by Nephrology for evaluation to determine if an autoimmune connective tissue disease, such as SLE, underlies her kidney disease. She has a PMH significant for hypothyroidism, GERD, chronic kidney disease stage 4, autoimmune cirrhosis and mild recurrent major depression. The patient has had declining kidney function for the last 2 years and has been worked up for cause. She has had 2 the biopsies of the left kidney in February and April of 2023. Upon inquiry the patient admits to severe dry eyes and dry mouth. She uses eyedrops 3-4 times per day. She has increased cavities due to the dry mouth. She has had an episode of parotitis and was hospitalized for 3 days in July of 2022. At that time she could only eats soup and smooth foods such as mashed potato. She reports that her mandibular area was very swollen. She has chronic mouth sores, can not expose herself to the sun or else she will feel weak and tired. She also develop rashes on her face and any exposed areas. She has to wear long sleeves, pants and a hat whenever she goes in the sun. She describes possible Raynaud's when her fingers are cold. She says they turn very white and then bluish, so does her toes. Patient denies butterfly rash on face; denies blood or froth in urine. She does not think she has had Carditis or Pleuritis. Patient endorses history of DVT, but never had miscarriages or have had to take aspirin or a blood thinner during the successful pregnancies. Denies fevers, but has excessive fatigue, unexplained weight-loss of 40 lbs, thinning hair and hair loss. Her joints do hurt and sometimes feel swollen. --cirrhosis follows with Gastroenterolog y 04/2022 Walk [facility] Intake Notes: Patient presents today with left calf pain. She was admitted to [facility] 04/29 through 05/03, and received IV antibiotics for a parotitis diagnosis. she was discharged on p.o. Augmentin, and is on day 8 of 10 of that prescription currently. She reports that since discharge from the hospital she has had bilateral lower extremity swelling, which she has not had previously. She also reports left calf pain and swelling. She reports having a DVT in her right leg about 2 years ago. REPLACED BY [facility] Medical History (Updated 08/14/23 @ 22:45 by AILIN Bowling-JANNA) Low complement measurement History of elevated antinuclear antibody (WILFRED) Pain in joint involving multiple sites SLE (systemic lupus erythematosus related syndrome) CKD (chronic kidney disease) stage 4, GFR 15-29 ml/min History of COVID-19 CKD (chronic kidney disease) stage 3, GFR 30-59 ml/min Panic disorder MDD (major depressive disorder), recurrent, severe, with psychosis Noncompliance with medication regimen Chest pain Elevated cholesterol Back pain Arthritis Seasonal allergies Hypothyroid GERD (gastroesophageal reflux disease) Hx pulmonary embolism Iron deficiency anemia Asthma Autoimmune hepatitis Chronic constipation Chronic iron deficiency anemia Right ankle injury (~2000) History of DVT (deep vein thrombosis) Hypertension Surgical History History of esophagogastroduodenoscopy (EGD) S/P insertion of inferior vena caval filter History of liver biopsy History of ankle surgery Hx of endoscopy (06/26/17) History of colonoscopy (~2018) Family History Father Myocardial infarction H/O ETOH abuse Hypertension Mother Diabetes High cholesterol Hypertension Stroke Arthritis Paternal Aunt Mental health disorder Paternal Uncle Mental health disorder Sister Cancer Ovarian cancer Social History Household Members: Family Housing: Apartment Are you a primary skin care specialist to a significant other at home: No Do you presently have visiting nurse or other home services: Yes Alcohol intake: never Patient Tobacco Use Status: Never used Tobacco e-Cigarette/Vaping Use: Never Used Second Hand Smoke Exposure: No Advance Directives Date on File: 07/21/21 service: No Current occupational status: disabled Cognitive needs: No Hearing needs: No Vision needs: Yes (glasses) Female Reproductive History Menstrual Total pregnancies: 2 Ab spontaneous: 0 Review of Systems Const All systems reviewed & are unremarkable except as noted in HPI and below Physical Exam Vital Signs: Last Vital Signs Temp 97.4 F 08/11/23 11:06 Pulse 74 08/11/23 11:06 BP 116/72 08/11/23 11:06 Pulse Ox 98 08/11/23 11:06 Oxygen Delivery Method Room Air 08/11/23 11:06 BMI result Body Mass Index 27.5 APPEARANCE: Patient in no acute distress, but sad affect, groomed and emaciated. EYES no redness, normal EARS:? External ear normal. NOSE/SINUS:? Airflow through both nares, no nasal discharge, no bleeding THROAT:? Dry mucosa moist, no ulcerations NECK:? No thyromegaly or masses, no adenopathy, trachea midline. HEART:? Regular rhythm, S1-S2 heard, no murmurs, rubs or gallops. LUNG:? Clear to percussion and auscultation EXTREMITIES:? No edema, no calf tenderness, normal peripheral pulses. NEURO:? Oriented and alert x3.? No focal weakness.? Reflexes symmetric.? Gait normal. SKIN:? There are no skin lesions evident. No objective signs of Raynaud's phenomenon but patient will take picture of next subjective occurrence. Thinning hair with scalp areas quite visible. No skin lesions or skin atrophy seen JOINT EXAM: Cervical Spine:.? Full range of motion without pain; no tenderness. Thoracic Spine:.? No scoliosis.? No tenderness on palpation. Lumbar Spine:.? Alignment normal.? Full range of motion without pain, no tenderness. Chest Wall:.? No tenderness, swelling, increased warmth or erythema. Hands:.? Normal pain-free range of motion without tenderness, swelling, incre ased warmth or erythema. Able to make a full fist and has a good bi report developer strength. Wrists:.? Normal pain-free range of motion without tenderness, swelling, increased warmth or erythema. Elbows:. Normal pain-free range of motion without tenderness, swelling, increased warmth or erythema. Shoulders:.?? Full range of motion without pain. No tenderness, weakness, swelling, increased warmth or erythema. Hips:.? Full range of motion without pain. Hip bursa:.? No tenderness. Knees:.?? Normal pain-free range of motion without tenderness, swelling, increased warmth or erythema.? There is no effusion or crepitation Ankles:.? Normal pain-free range of motion without tenderness, swelling, increased warmth or erythema. Feet:.? Normal pain-free range of motion without tenderness, swelling, increased warmth or erythema. Tender points:? No tenderness to digital palpation at the occiput, trapezius, second rib, lateral epicondyle, knees, greater trochanter and gluteal area bilaterally. ? Results Reviewed Results Reviewed: Laboratory Tests 02/09/22 02/09/22 02/09/22 08:08 08:08 08:08 WILFRED Titer 1:320 H WILFRED Pattern Nuclear, Speckled A WILFRED Pattern 2 Complement C3 80 L Complement C4 02/09/22 03/14/22 03/14/22 08:08 12:33 12:33 WILFRED Titer 1:1280 H WILFRED Pattern WILFRED Pattern 2 Nuclear, Homogeneous A Complement C3 Complement C4 11 L 03/14/22 03/14/22 12:33 12:33 WILFRED Titer WILFRED Pattern WILFRED Pattern 2 Complement C3 59 L Complement C4 8 L Laboratory Tests 03/14/22 12:33 Double Strand DNA Ab 19 H Laboratory Tests 10/27/18 05:23 Anti-Cardiolipin IgG Ab <14 Anti-Cardiolipin IgM Ab 21 H Assessment & Plan Assessment & Plan (1) CKD (chronic kidney disease) stage 4, GFR 15-29 ml/min: Code(s): N18.4 - Chronic kidney disease, stage 4 (severe) (2) Pain in joint involving multiple sites: Code(s): M25.50 - Pain in unspecified joint (3) History of elevated antinuclear antibody (WILFRED): Code(s): Z87.898 - Personal history of other specified conditions (4) Low complement measurement: Code(s): R79.89 - Other specified abnormal findings of blood chemistry (5) SLE (systemic lupus erythematosus related syndrome): Code(s): M32.9 - Systemic lupus erythematosus, unspecified Plan is here for evaluation to determine if her kidney condition caused by lupus. Based the HPI and PE, I can see that she certainly has clinical presentation that would favor a connective tissue disease process. A review of past lab results show that she has a high titer WILFRED (1:1280) with, +anti-dsDNA (19) and low complement back in January and February 2022. At least based on labs, at that time, she would have met the criteria for SLE. Simultaneously she was found to have thyroid antibodies so that might have become the focus of the positive WILFRED? Additionally, lab results showed elevated kappa and lambda light chains and which can be seen in the setting of Kidney disease, chronic inflammation or an immune system disorder. There is a lab result from October 2018 that shows elevated anti-cardiolipin IgM antibodies and KYLIE Specific and Polyspecific in VIVO were also positive. It was around this time also the patient's were starting to show low platelets. The levels of these antibodies can be high in people with?abnormal blood clotting, autoimmune diseases like systemic lupus erythematosus (SLE), or repeated miscarriages. Per HPI, the patient also reported episode of DVT but denies miscarriages. Incidental finding of IVC filter noted on 01/14/2022 CT Abdomen/Pelvis. In 04/2022 and 07/2022, patient was treated for episodes of parotitis which can be seen with Sjogren's and Sjogren's often is comorbid with SLE as secondary sjogren's. As reported in HPI, she has dry eyes eye dros 3-4 times per day) and dry mouth - dry oral mucosa on PE. In light of all this, it is highly possible that the patient's liver and kidney pathology is incited or complicated by lupus. The GI visit notes from 04/2020 to 11/2022 inferred that at some point she was on Azathioprine and Prednisone for autoimmune Hepatitis (Plan excerpt: Recent LFTs are minimally elevated. Patient was advised to have her LFTs monitored every 3-4 months. If her LFTs are increasing I will restart prednisone and azathioprine for autoimmune hepatitis . ) It is not clear when the Prednisone and azathoprine were stopped but it is possible that this combination may have been incidentally addressing the lupus. I will obtain updated labs for, among other things, SLE, APS, Lupus anticoagulants and Sjogren's. If the new labs are similar to the 2021 findings, in combination with her current clinical presentation, it will affirm that the patient has SLE. Nonetheless, given her overall clinical presentation, even in the absence of updated labs, It is reasonable to say that the patient does have SLE. I spent 90 minutes, reviewing history, evaluating and counseling patient and ordering and documenting. f/u in three weeks. Orders: Orders Complement C3 08/11/23 M32.9 - Systemic lupus erythematosus, unspecified, N18.4 - Chronic kidney disease, stage 4 (severe) Anti Extractable Nuclear Ag 08/11/23 M32.9 - Systemic lupus erythematosus, unspecified, N18.4 - Chronic kidney disease, stage 4 (severe) Complement C4 08/11/23 M3.9 - Systemic lupus erythematosus, unspecified, N18.4 - Chronic kidney disease, stage 4 (severe) DNA Double Stranded-Crithidia 08/11/23 M32.9 - Systemic lupus erythematosus, unspecified, N18.4 - Chronic kidney disease, stage 4 (severe) Erythrocyte Sedimentation Rate 08/11/23 M32.9 - Systemic lupus erythematosus, unspecified, N18.4 - Chronic kidney disease, stage 4 (severe) Cyclic Citrullinated Peptide 08/11/23 M32.9 - Systemic lupus erythematosus, unspecified, N18.4 - Chronic kidney disease, stage 4 (severe) Rheumatoid Factor 08/11/23 M32.9 - Systemic lupus erythematosus, unspecified, N18.4 - Chronic kidney disease, stage 4 (severe) Beta-2 Glycoprotein Antibody 08/11/23 M32.9 - Systemic lupus erythematosus, unspecified, N18.4 - Chronic kidney disease, stage 4 (severe) Cardiolipin Antibodies 08/11/23 M32.9 - Systemic lupus erythematosus, unspecified, N18.4 - Chronic kidney disease, stage 4 (severe) Sjogren's Antibodies 08/11/23 M32.9 - Systemic lupus erythematosus, unspecified, N18.4 - Chronic kidney disease, stage 4 (severe) Scleroderma 70 Antibody 08/11/23 M32.9 - Systemic lupus erythematosus, unspecified, N18.4 - Chronic kidney disease, stage 4 (severe) XR hand RT min 3V 08/11/23 M25.50 - Pain in unspecified joint, M32.9 - Systemic lupus erythematosus, unspecified XR lumbar spine 2-3V 08/11/23 M25.50 - Pain in unspecified joint, M32.9 - Systemic lupus erythematosus, unspecified C Reactive Protein 08/11/23 M32.9 - Systemic lupus erythematosus, unspecified, N18.4 - Chronic kidney disease, stage 4 (severe) UA w Microscopic 08/11/23 M32.9 - Systemic lupus erythematosus, unspecified, N18.4 - Chronic kidney disease, stage 4 (severe) Lupus Anticoagulant Panel 08/11/23 M32.9 - Systemic lupus erythematosus, unspecified, N18.4 - Chronic kidney disease, stage 4 (severe) WILFRED Reflex Titer and Pattern 08/11/23 M32.9 - Systemic lupus erythematosus, unspecified, N18.4 - Chronic kidney disease, stage 4 (severe) Anti-Centromere B Antibodies 08/11/23 M32.9 - Systemic lupus erythematosus, unspecified, N18.4 - Chronic kidney disease, stage 4 (severe) Anti DNA DS Antibody 08/11/23 M32.9 - Systemic lupus erythematosus, unspecified, N18.4 - Chronic kidney disease, stage 4 (severe) XR hand LT min 3V 08/11/23 M25.50 - Pain in unspecified joint, M32.9 - Systemic lupus erythematosus, unspecified Coding Level of Care Code New Pt Level 5 (73310) Diagnoses CKD (chronic kidney disease) stage 4, GFR 15-29 ml/min N18.4 Pain in joint involving multiple sites M25.50 History of elevated antinuclear antibody (WILFRED) Z87.898 Low complement measurement R79.89 SLE (systemic lupus erythematosus related syndrome) M32.9
[2023-08-11 11:06] VITALS: BP 116/72; PULSE 74; TEMP 36.3; O2SAT 98; BMI 27.5
== END 2023-08-11 12:11 | disposition home or self-care (01) ==
PROVIDERS: PCP Internal Medicine; Visit Provider Nurse Practitioner Family
DX: N18.4 Chronic kidney disease, stage 4 (severe) (principal); M32.9 Systemic lupus erythematosus, unspecified; R79.89 Other specified abnormal findings of blood chemistry; M25.59 Pain in other specified joint; Z87.898 Personal history of other specified conditions
CPT/HCPCS: 99205

== ENCOUNTER → 2023-08-11 10:52 | Outpatient (BNVA) | payer OTHER, SELFPAY | PROVIDERS: PCP Internal Medicine; Visit Provider Nurse Practitioner Family | DX: N18.4 Chronic kidney disease, stage 4 (severe) (principal); M25.50 Pain in unspecified joint; M32.9 Systemic lupus erythematosus, unspecified; R79.89 Other specified abnormal findings of blood chemistry; Z87.898 Personal history of other specified conditions | CPT/HCPCS: 99202 ==

== ENCOUNTER 2023-08-17 11:05 | Outpatient (REF) | payer OTHER, SELFPAY ==
--- NOTE | ~2023-08-17 | XR_ITS ---
EXAMINATION: XR LUMBOSACRAL SPINE CLINICAL INFORMATION: Systemic lupus unspecified. COMPARISON: CT abdomen and pelvis of 01/14/2022. TECHNIQUE: 3 views of the lumbosacral spine. FINDINGS: Rightward curvature of the lumbar spine. Moderate degenerative changes on limited views of the bilateral hips. IVC filter projects over the upper lumbar spine on the right. Facet arthritis in the lower lumbar spine. Mild multilevel lumbar spondylosis. XR/XR lumbar spine 2-3V IMPRESSION: Mild multilevel lumbar spondylosis.
--- NOTE | ~2023-08-17 | XR_ITS ---
EXAMINATION: XR HAND, BILATERAL CLINICAL INFORMATION: Systemic lupus erythematosus. COMPARISON: Bilateral hands of 11/01/2007. TECHNIQUE: PA, lateral, and oblique views of the each hand. FINDINGS: Right Hand: Mild osteoarthritic changes in the first carpometacarpal joint. Redemonstration of small ossicles adjacent to the right radial styloid and ulnar styloid, possibly representing accessory ossification centers or old, healed avulsion fractures. Left Hand: Mild osteoarthritic changes in the first carpometacarpal joint. Alignment preserved. No displaced fracture. XR/XR hand RT min 3V IMPRESSION: 1. Mild osteoarthritic changes in the bilateral first carpometacarpal joints. 2. Redemonstration of small ossicles adjacent to the right radial styloid and ulnar styloid, possibly representing accessory ossification centers or old, healed avulsion fractures. 3. No acute displaced fracture. Recommend follow-up imaging in 10-14 days if fracture is suspected.
--- NOTE | ~2023-08-17 | XR_ITS ---
EXAMINATION: XR HAND, BILATERAL CLINICAL INFORMATION: Systemic lupus erythematosus. COMPARISON: Bilateral hands of 11/01/2007. TECHNIQUE: PA, lateral, and oblique views of the each hand. FINDINGS: Right Hand: Mild osteoarthritic changes in the first carpometacarpal joint. Redemonstration of small ossicles adjacent to the right radial styloid and ulnar styloid, possibly representing accessory ossification centers or old, healed avulsion fractures. Left Hand: Mild osteoarthritic changes in the first carpometacarpal joint. Alignment preserved. No displaced fracture. XR/XR hand LT min 3V IMPRESSION: 1. Mild osteoarthritic changes in the bilateral first carpometacarpal joints. 2. Redemonstration of small ossicles adjacent to the right radial styloid and ulnar styloid, possibly representing accessory ossification centers or old, healed avulsion fractures. 3. No acute displaced fracture. Recommend follow-up imaging in 10-14 days if fracture is suspected.
[2023-08-17 12:11] LABS: C Reactive Protein 0.52 mg/dL (< or = 0.50)
[2023-08-17 12:17] LABS: Rheumatoid Factor 63.3 IU/mL (<15.0)
[2023-08-17 12:29] LABS: Erythrocyte Sedimentation Rate 105 MM/HR (0-20)
[2023-08-17 12:43] LABS: Appearance Urine Clear; Color Urine Yellow; Glucose Urine UA Negative (Negative); Leukocyte Esterase Urine Moderate (2+) (Negative); Nitrite Urine Negative (Negative); Specific Gravity - Urine 1.015 (1.005-1.025); UMIC TRIGGER UA YES; Urine Blood Negative (Negative); Urine Ketones Negative (Negative); Urine Protein Negative (Neg-Trace)
[2023-08-17 12:48] LABS: Bacteria Urine 4+ (None Seen); Hyaline Casts Urine 0-2 /LPF (0-2); RBC Urine 0-2 /HPF (0-2)
[2023-08-21 12:59] LABS: Anti-Centromere B Antibodies <1.0 NEG AI (<1.0 NEG); Cardiolipin IgG Ab <2.0 GPL-U/mL; Cardiolipin IgM Ab <2.0 MPL-U/mL
[2023-08-21 14:29] LABS: PTT (LAC) Screen 37 sec (<=40)
[2023-08-21 15:08] LABS: Cyclic Citrullinated Peptide <16 UNITS
[2023-08-21 20:19] LABS: Anti DNA DS Antibody 6 IU/mL; Antibody to SS-A Antigen >8.0 POS AI (<1.0 NEG); Antibody to SS-B Antigen >8.0 POS AI (<1.0 NEG); SM/Ribonucleoprotein Ab <1.0 NEG AI (<1.0 NEG); Scleroderma 70 Antibody <1.0 NEG AI (<1.0 NEG); Smith Protein <1.0 NEG AI (<1.0 NEG)
[2023-08-22 06:34] LABS: Complement C3 102 mg/dL (83-193)
[2023-08-22 21:04] LABS: Beta-2 Glycoprotein IgA 5.3 U/mL (<20.0); Beta-2 Glycoprotein IgG <2.0 U/mL (<20.0); Beta-2 Glycoprotein IgM 2.1 U/mL (<20.0)
[2023-08-24 13:59] LABS: DNAds, Crithidia Antibody Negative (Negative)
[2023-08-25 11:29] LABS: ANA Pattern 2 Nuclear, Homogeneous; Anti Nuclear Antibody Pattern Nuclear, Speckled; Anti Nuclear Antibody Screen POSITIVE (NEGATIVE)
== END 2023-08-17 11:06 | disposition home or self-care (01) ==
LOC: HO.LAB 11:05
PROVIDERS: Visit Provider Nurse Practitioner Family
DX: M54.50 Low back pain, unspecified (principal); M79.642 Pain in left hand; M79.641 Pain in right hand; N18.4 Chronic kidney disease, stage 4 (severe); M32.9 Systemic lupus erythematosus, unspecified; R79.89 Other specified abnormal findings of blood chemistry; Z87.898 Personal history of other specified conditions
CPT/HCPCS: 36415; 72100; 73130; 81001; 85597; 85598; 85613; 85652; 85730; 86038; 86039; 86140; 86146; 86147; 86160; 86200; 86225; 86235; 86255; 86431

== ENCOUNTER 2023-09-08 09:25 | Outpatient (AMB) | payer OTHER, SELFPAY ==
--- NOTE | 2023-09-08 09:32 | A.OFFVIS_ITS ---
Intake Vital Signs 09/08/23 09:38 Height 4 ft 11 in Weight 142 lb 10.225 oz BMI 28.8 BP 138/78 Blood Pressure Location Rt brachial Position Sitting Pulse 87 Pulse Source Pulse Oximeter Temp 97 F Temp Source Skin Pulse Oximetry (%) 100 Oxygen Delivery Method Room Air Intake Visit Reasons: RA/Stopped/CONFIRMED Intake Note: Patient presents today for RA follow up. Engineer Exhauster Required: No Accompanied by: Sister Allergies cefuroxime [From Ceftin] Allergy (Intermediate, Verified 09/08/23 09:32) rash Eetwckh-ZJV-VuQ Reductase Inhibitor [Eakdesu-Skd-Qbr Reductase Inhibitor] Allergy (Intermediate, Verified 09/08/23 09:32) transaminitis HPI HPI Comments History of Present Illness Details Ms. Salas is a 63-year-old female dense today accompanied by her sister Elida. She is here to review results and discuss treatment. She continues with joint pain and depression. No new visits or hospitalization since last visit. Initial Visit: Ms. Salas is a 63-year-old female dense today accompanied by her sister Elida. She was referred by Nephrology for evaluation to determine if an autoimmune connective tissue disease, such as SLE, underlies her kidney disease. She has a PMH significant for hypothyroidism, GERD, chronic kidney disease stage 4, autoimmune cirrhosis and mild recurrent major depression. The patient has had declining kidney function for the last 2 years and has been worked up for cause. She has had 2 the biopsies of the left kidney in February and April of 2023. Upon inquiry the patient admits to severe dry eyes and dry mouth. She uses eyedrops 3-4 times per day. She has increased cavities due to the dry mouth. She has had an episode of parotitis and was hospitalized for 3 days in July of 2022. At that time she could only eats soup and smooth foods such as mashed potato. She reports that her mandibular area was very swollen. She has chronic mouth sores, can not expose herself to the sun or else she will feel weak and tired. She also develop rashes on her face and any exposed areas. She has to wear long sleeves, pants and a hat whenever she goes in the sun. She describes possible Raynaud's when her fingers are cold. She says they turn very white and then bluish, so does her toes. Patient denies butterfly rash on face; denies blood or froth in urine. She does not think she has had Carditis or Pleuritis. Patient endorses history of DVT, but never had miscarriages or have had to take aspirin or a blood thinner during the successful pregnancies. Denies fevers, but has excessive fatigue, unexplained weight-loss of 40 lbs, thinning hair and hair loss. Her joints do hurt and sometimes feel swollen. --cirrhosis follows with Gastroenterolog y 04/2022 Walk [facility] Intake Notes: Patient presents today with left calf pain. She was admitted to [facility] 04/29 through 05/03, and received IV antibiotics for a parotitis diagnosis. she was discharged on p.o. Augmentin, and is on day 8 of 10 of that prescription currently. She reports that since discharge from the hospital she has had bilateral lower extremity swelling, which she has not had previously. She also reports left calf pain and swelling. She reports having a DVT in her right leg about 2 years ago. [facility] Medical History (Updated 09/08/23 @ 09:37 by KALI Bowling) Mixed connective tissue disease Low complement measurement History of elevated antinuclear antibody (WILFRED) Pain in joint involving multiple sites SLE (systemic lupus erythematosus related syndrome) CKD (chronic kidney disease) stage 4, GFR 15-29 ml/min History of COVID-19 CKD (chronic kidney disease) stage 3, GFR 30-59 ml/min Panic disorder MDD (major depressive disorder), recurrent, severe, with psychosis Noncompliance with medication regimen Chest pain Elevated cholesterol Back pain Arthritis Seasonal allergies Hypothyroid GERD (gastroesophageal reflux disease) Hx pulmonary embolism Iron deficiency anemia Asthma Autoimmune hepatitis Chronic constipation Chronic iron deficiency anemia Right ankle injury (~2000) History of DVT (deep vein thrombosis) Hypertension Surgical History History of esophagogastroduodenoscopy (EGD) S/P insertion of inferior vena caval filter History of liver biopsy History of ankle surgery Hx of endoscopy (06/26/17) History of colonoscopy (~2018) Family History Father Myocardial infarction H/O ETOH abuse Hypertension Mother Diabetes High cholesterol Hypertension Stroke Arthritis Paternal Aunt Mental health disorder Paternal Uncle Mental health disorder Sister Cancer Ovarian cancer Social History Household Members: Family Housing: Apartment Are you a primary care manager to a significant other at home: No Do you presently have visiting nurse or other home services: Yes Alcohol intake: never Patient Tobacco Use Status: Never used Tobacco e-Cigarette/Vaping Use: Never Used Second Hand Smoke Exposure: No Advance Directives Date on File: 07/21/21 service: No Current occupational status: disabled Cognitive needs: No Hearing needs: No Vision needs: Yes (glasses) Review of Systems Const All systems reviewed & are unremarkable except as noted in HPI and below Physical Exam Vital Signs: Last Vital Signs Temp 97 F 09/08/23 09:38 Pulse 87 09/08/23 09:38 BP 138/78 09/08/23 09:38 Pulse Ox 100 09/08/23 09:38 Oxygen Delivery Method Room Air 09/08/23 09:38 BMI result Body Mass Index 28.8 HEENT: Normocephalic and atraumatic. External auditory canals without erythema or edema bilaterally. Dry mucous membranes. Skin: Warm and dry. No rashes or lesions noted. Neck: Full and painless range of motion. No cervical lymphadenopathy. Cardio: Regular rate and rhythm. No murmurs, gallops, or rubs. No lower extremity edema. No JVD. Pulmonary: No respiratory distress. No accessory muscle usage. Musculoskeletal: Normal range of motion in joints throughout the body. No deformity or other signs of injury. generalizes tenderness Neuro: Alert and oriented x4. Cranial nerves 2-12 grossly intact. No focal deficits appreciated. Assessment & Plan Assessment & Plan (1) SLE (systemic lupus erythematosus related syndrome): Code(s): M32.9 - Systemic lupus erythematosus, unspecified (2) Mixed connective tissue disease: Code(s): M35.1 - Other overlap syndromes (3) Pain in joint involving multiple sites: Code(s): M25.50 - Pain in unspecified joint (4) Low complement measurement: Code(s): R79.89 - Other specified abnormal findings of blood chemistry Plan Today we will start Ms. Salas on hydroxychloroquine to treat her lupus and overlap syndrome. The patient has labs significant for lupus and rheumatoid arthritis. At this time it is not definitive that she has lupus nephritis. However, in the event that it becomes necessary, the in home sales consultant will increase immunosuppression if more is needed in addition to her treatment for SLE. Today we will treatment for lupus. We will start her with hydroxychloroquine 200 mg per day and prednisone taper. The prednisone should help with her joint pain and stiffness. If she finds the hydroxychloroquine tolerable then we will increase to 200 mg b.i.d.. The goal is to improve her functioning by reducing her joint pain and stabilize her disease process and mitigate any possible negative impact to her kidneys. Patient will come back to visit in 9 weeks and do her labs 1 week before that visit. Initial assessment July 2023 Ms. Salas is here for evaluation to determine if her kidney condition caused by lupus. Based the HPI and PE, I can see that she certainly has clinical presentation that would favor a connective tissue disease process. A review of past lab results show that she has a high titer WILFRED (1:1280) with, +anti-dsDNA (19) and low complement back in January and February 2022. At least based on labs, at that time, she would have met the criteria for SLE. Simultaneously she was found to have thyroid antibodies so that might have become the focus of the positive WILFRED? Additionally, lab results showed elevated kappa and lambda light chains and which can be seen in the setting of Kidney disease, chronic inflammation or an immune system disorder. There is a lab result from October 2018 that shows elevated anti-cardiolipin IgM antibodies and KYLIE Specific and Polyspecific in VIVO were also positive. It was around this time also the patient's were starting to show low platelets. The levels of these antibodies can be high in people with?abnormal blood clotting, autoimmune diseases like systemic lupus erythematosus (SLE), or repeated miscarriages. Per HPI, the patient also reported episode of DVT but denies miscarriages. Incidental finding of IVC filter noted on 01/14/2022 CT Abdomen/Pelvis. In 04/2022 and 07/2022, patient was treated for episodes of parotitis which can be seen with Sjogren's and Sjogren's often is comorbid with SLE as secondary sjogren's. As reported in HPI, she has dry eyes eye dros 3-4 times per day) and dry mouth - dry oral mucosa on PE. In light of all this, it is highly possible that the patient's liver and kidney pathology is incited or complicated by lupus. The GI visit notes from 04/2020 to 11/2022 inferred that at some point she was on Azathioprine and Prednisone for autoimmune Hepatitis (Plan excerpt: Recent LFTs are minimally elevated. Patient was advised to have her LFTs monitored every 3-4 months. If her LFTs are increasing I will restart prednisone and azathioprine for autoimmune hepatitis . ) It is not clear when the Prednisone and azathoprine were stopped but it is possible that this combination may have been incidentally addressing the lupus. I will obtain updated labs for, among other things, SLE, APS, Lupus anticoagulants and Sjogren's. If the new labs are similar to the 2021 findings, in combination with her current clinical presentation, it will affirm that the patient has SLE. Nonetheless, given her overall clinical presentation, even in the absence of updated labs, It is reasonable to say that the patient does have SLE. Orders: Orders Complement C3 09/08/23 M32.9 - Systemic lupus erythematosus, unspecified, M35.1 - Other overlap syndromes Complement C4 09/08/23 M32.9 - Systemic lupus erythematosus, unspecified, M35.1 - Other overlap syndromes C Reactive Protein 09/08/23 M32.9 - Systemic lupus erythematosus, unspecified, M35.1 - Other overlap syndromes Erythrocyte Sedimentation Rate 09/08/23 M32.9 - Systemic lupus erythematosus, unspecified, M35.1 - Other overlap syndromes UA w Microscopic 09/08/23 M32.9 - Systemic lupus erythematosus, unspecified, M35.1 - Other overlap syndromes Comprehensive Met. Panel 09/08/23 M32.9 - Systemic lupus erythematosus, unspecified, M35.1 - Other overlap syndromes Complete Blood Count Auto Diff 09/08/23 M32.9 - Systemic lupus erythematosus, unspecified, M35.1 - Other overlap syndromes Medications: New prednisone 5 tablets x per day x 7 days 4 tablets x per day x 7 days 3 tablets x per day x 7 days 2 tablets x per day x 7 days 1 tablets x per day 100 tabs 1RF M32.9 - Systemic lupus erythematosus, unspecified, M35.1 - Other overlap syndromes hydroxychloroquine 200 mg PO DAILY 90 tabs 1RF M32.9 - Systemic lupus erythematosus, unspecified, M35.1 - Other overlap syndromes Coding Level of Care Code Est Pt Level 3 (94253) Diagnoses SLE (systemic lupus erythematosus related syndrome) M32.9 Mixed connective tissue disease M35.1 Pain in joint involving multiple sites M25.50 Low complement measurement R79.89
[2023-09-08 09:38] VITALS: BP 138/78; PULSE 87; TEMP 36.1; O2SAT 100; BMI 28.8
== END 2023-09-08 10:03 | disposition home or self-care (01) ==
PROVIDERS: PCP Internal Medicine; Visit Provider Nurse Practitioner Family
DX: M32.9 Systemic lupus erythematosus, unspecified (principal); M35.1 Other overlap syndromes; M25.50 Pain in unspecified joint; R79.89 Other specified abnormal findings of blood chemistry
CPT/HCPCS: 99213

== ENCOUNTER → 2023-09-08 09:25 | Outpatient (BNVA) | payer OTHER, SELFPAY | PROVIDERS: PCP Internal Medicine; Visit Provider Nurse Practitioner Family | DX: M35.1 Other overlap syndromes (principal); M32.9 Systemic lupus erythematosus, unspecified; N18.4 Chronic kidney disease, stage 4 (severe); M25.50 Pain in unspecified joint; R79.89 Other specified abnormal findings of blood chemistry | CPT/HCPCS: 99212 ==

== ENCOUNTER 2023-09-23 19:17 | Emergency (ER) | payer OTHER, SELFPAY ==
--- NOTE | ~2023-09-23 | CT_ITS ---
EXAMINATION: CT ABDOMEN AND PELVIS WITHOUT CONTRAST CLINICAL INFORMATION: Abdominal pain COMPARISON: 01/14/2022 TECHNIQUE: Multidetector volumetric imaging was performed from the superior aspect of the liver through the pubic symphysis. Sagittal and coronal reformatted images were obtained on the technologist's workstation. This CT examination was performed using dose optimization techniques as appropriate, variously including the following: *Automated exposure control *Adjustment of mA and/or kV according to patient size (this includes techniques or standardized protocols for targeted exams where dose is matched to indication/reason for exam; i.e. extremities or head) *Use of iterative reconstruction technique DLP: 457 mGy-cm FINDINGS: LUNG BASES: The visualized lung bases are unremarkable. LIVER, GALLBLADDER, AND BILIARY TREE: Left lobe is atrophic. Nodular liver contour. No significant change Small calcified stone again seen in the fundus of the gallbladder. No inflammatory changes or wall thickening PANCREAS: Unremarkable. SPLEEN: Unremarkable. ADRENAL GLANDS: Unremarkable. KIDNEYS AND URETERS: The kidneys are normal in size, shape, and attenuation. No hydronephrosis, hydroureter, or calculi seen. No perinephric stranding. BLADDER: Unremarkable. GASTROINTESTINAL TRACT: The small and large bowel are unremarkable. The appendix is unremarkable. ABDOMINAL WALL: No significant hernia is appreciated. LYMPH NODES: Normal. VASCULAR: Scattered atherosclerotic wall calcifications. IVC filter is in place PELVIC VISCERA: The uterus and adnexa are unremarkable. OSSEOUS STRUCTURES: Unremarkable. CT/CT abdomen pelvis wo IV con IMPRESSION: No acute process. Stable chronic changes
[2023-09-23 19:49] VITALS: BP 157/67; PULSE 83; RESP 18; TEMP 36.2; O2SAT 98; BMI 28.3
--- NOTE | 2023-09-23 19:49 | ED_ITS ---
HPI - Abdominal Pain General Chief Complaint: Abdominal Pain Stated Complaint: ride side pain/vomiting Time Seen by Provider: 09/24/23 00:03 Related Data Home Medications ?Medication ?Instructions ?Recorded ?Confirmed acetaminophen 325 mg capsule 325 mg PO ONCE PRN 08/11/23 (Tylenol) Previous Rx's ?Medication ?Instructions ?Recorded walker #1 ea 04/06/22 sodium bicarbonate 650 mg tablet 650 mg PO BID #60 tabs 08/08/22 escitalopram oxalate 10 mg tablet 10 mg PO DAILY 90 days #90 tabs 09/17/22 dicyclomine 10 mg capsule 10 mg PO TID PRN abdominal pain 01/25/23 #30 caps cetirizine 10 mg tablet 10 mg PO DAILY PRN allergy 02/02/23 symptoms 90 days #90 tabs linaclotide 145 mcg capsule 145 mcg PO DAILY 90 days #90 caps 06/19/23 (Linzess) levothyroxine 125 mcg tablet 125 mcg PO DAILY 90 days #90 tabs 06/20/23 cholecalciferol (vitamin D3) 50 50 mcg PO DAILY 90 days #90 caps 08/18/23 mcg (2,000 unit) capsule hydroxychloroquine 200 mg tablet 200 mg PO DAILY #90 tabs 09/08/23 prednisone 5 mg tablet See Rx Instructions PO DAILY #100 09/08/23 tabs sennosides 8.6 mg tablet (senna) 8.6 mg PO BID #180 tabs 09/11/23 omeprazole 40 mg capsule,delayed 40 mg PO DAILY 90 days #90 caps 09/21/23 release sulfamethoxazole 800 1 tab PO BID #14 tabs 09/24/23 mg-trimethoprim 160 mg tablet (Bactrim DS) Allergies Allergy/AdvReac Type Severity Reaction Status Date / Time cefuroxime [From Ceftin] Allergy Intermediate rash Verified 09/23/23 19:51 Tslzduz-ZUV-HuR Reductase Allergy Intermediate transaminit Verified 09/23/23 19:51 Inhibitor is [Pnjazaa-Qgz-Xsl Reductase Inhibitor] [facility] Past Medical History Medical History Mixed connective tissue disease Low complement measurement History of elevated antinuclear antibody (NANDA) Pain in joint involving multiple sites SLE (systemic lupus erythematosus related syndrome) CKD (chronic kidney disease) stage 4, GFR 15-29 ml/min History of COVID-19 CKD (chronic kidney disease) stage 3, GFR 30-59 ml/min Panic disorder MDD (major depressive disorder), recurrent, severe, with psychosis Noncompliance with medication regimen Chest pain Elevated cholesterol Back pain Arthritis Seasonal allergies Hypothyroid GERD (gastroesophageal reflux disease) Hx pulmonary embolism Iron deficiency anemia Asthma Autoimmune hepatitis Chronic constipation Chronic iron deficiency anemia Right ankle injury (~2000) History of DVT (deep vein thrombosis) Hypertension Surgical History History of esophagogastroduodenoscopy (EGD) S/P insertion of inferior vena caval filter History of liver biopsy History of ankle surgery Hx of endoscopy (06/26/17) History of colonoscopy (~2018) Family History Family History Father Myocardial infarction H/O ETOH abuse Hypertension Mother Diabetes High cholesterol Hypertension Stroke Arthritis Paternal Aunt Mental health disorder Paternal Uncle Mental health disorder Sister Cancer Ovarian cancer Social History Social History Household Members: Family Housing: Apartment Are you a primary ocular care technician to a significant other at home: No Do you presently have visiting nurse or other home services: Yes Alcohol intake: never Patient Tobacco Use Status: Never used Tobacco e-Cigarette/Vaping Use: Never Used Second Hand Smoke Exposure: No Advance Directives: Yes Advance Directives on File: Yes Advance Directives Date on File: 07/21/21 service: No Current occupational status: disabled Cognitive needs: No Hearing needs: No Vision needs: Yes (glasses) Physical Exam ED Vital Signs: Vital Signs - 24 hr 09/23/23 19:49 09/23/23 22:08 09/24/23 00:05 Temperature 97.2 F 98.2 F 98.3 F Pulse Rate 83 77 67 Respiratory Rate 18 18 16 Blood Pressure 157/67 H 164/72 H 158/76 H Pulse Oximetry 98 98 97 Oxygen Delivery Method Room Air Room Air Room Air BMI result Body Mass Index 28.3 Course Course Course Narrative: 63 y/o patient with history of SLE, HTN, GERD, CKD, gallbladder polyp presenting today for evaluation of lower abdominal pain for 5 days and diarrhea starting today. Reports that prior to the episode of diarrhea, she was constipated for 3 days. Abdominal pain starts in the mid abdomen and travel down and to her right flank. Plan: viral panel, labs Medical Decision Making Lab Data 09/23/23 20:19 09/23/23 20:19 Labs: Lab Results 09/23/23 Range/Units 20:19 WBC 11.9 H (4.8-10.8) X10*3/uL RBC 3.22 L (4.20-5.50) X10*6/uL Hgb 10.8 L (12.0-16.0) g/dl Hct 32.6 L (37.0-47.0) % MCV 101.2 H (80.0-98.0) fL MCH 33.5 H (27.0-33.0) pg MCHC 33.1 (31.0-35.0) g/dl RDW 13.1 (11.0-16.0) % Plt Count 89 L (160-400) X10*3/uL MPV 11.1 (9.4-12.3) fL Immature Gran % (Auto) 0.3 (0.0-0.4) % Neut % (Auto) 85.4 H (45-73) % Lymph % (Auto) 7.2 L (20-40) % [place] % (Auto) 6.7 (2-11) % Eos % (Auto) 0.2 (0-4) % Baso % (Auto) 0.2 (0-2) % Lymph # (Auto) 0.9 L (1.2-4.9) X10*3/uL [place] # (Auto) 0.8 (0.1-1.2) X10*3/uL Eos # (Auto) 0.0 (0.0-0.4) X10*3/uL Baso # (Auto) 0.0 (0.0-0.2) X10*3/uL Abs Immat Gran (auto) 0.03 (0.00-0.03) X10*3/uL Absolute Neuts (auto) 10.1 H (2.0-8.3) x10*3/uL Absolute Nucleated RBC 0.000 (0.0-0.012) X10*3/uL Nucleated RBC % (auto) 0.0 (0.0-0.2) /100WBC Smear Tech's Comments VERIFIED Sodium 138 (135-145) mmol/L Potassium 4.7 (3.3-5.1) mmol/L Chloride 115 H (96-108) mmol/L Carbon Dioxide 16 L (22-29) mmol/L Anion Gap 12 (12-20) BUN 37 H (9-16) mg/dL Creatinine 2.22 H (0.5-1.4) mg/dL Estim Creat Clear Calc 21.0 Estimated GFR 22 Random Glucose 124 H (60-115) mg/dL Calcium 9.3 (8.4-10.2) mg/dL Magnesium 2.1 (1.6-2.6) mg/dL Total Bilirubin 0.4 (0.0-1.0) mg/dL Direct Bilirubin 0.1 (0.0-0.5) mg/dL AST 32 H (5-31) U/L ALT 27 (0-31) U/L Alkaline Phosphatase 102 (39-117) U/L Total Protein 7.7 (6.5-8.0) g/dL Albumin 3.4 L (3.5-5.0) g/dL Lipase 42 (8-78) U/L Urine Color Yellow Urine Appearance Clear Urine pH 5.5 (5.0-9.0) Ur Specific [place] 1.020 (1.005-1.025) Urine Protein Negative (Neg-Trace) mg/dL Urine Glucose (UA) Negative (Negative) mg/dL Urine Ketones Negative (Negative) mg/dL Urine Blood Negative (Negative) Urine Nitrite Negative (Negative) Ur Leukocyte Esterase Moderate (2+) H (Negative) Urine RBC 0-2 (0-2) /HPF Urine WBC 11-20 H (0-5) /HPF Ur Squamous Epith Cells 0-2 (0-2) /HPF Urine Bacteria None Seen (None Seen) Hyaline Casts 0-2 (0-2) /LPF Influenza Type A (PCR) NEGATIVE (Negative) Influenza Type B (PCR) NEGATIVE (Negative) RSV RNA Qual (PCR) NEGATIVE (Negative) SARS-CoV-2 RNA (RT-PCR) NEGATIVE (Negative) Discharge Plan Discharge Clinical Impression: Urinary tract infection, Renal failure Patient Disposition: Home, Self-Care Instructions: Urinary Tract Infection in Women (DC) Prescriptions: New sulfamethoxazole-trimethoprim [Bactrim DS] 800-160 mg tablet 1 tab PO BID Qty: 14 0RF No Action (DME) walker Misc See Rx Instructions .Route Qty: 1 0RF Rx Instructions: As directed escitalopram oxalate 10 mg tablet 10 mg PO DAILY 90 Days Qty: 90 1RF dicyclomine 10 mg capsule 10 mg PO TID PRN (Reason: abdominal pain) Qty: 30 1RF cetirizine 10 mg tablet 10 mg PO DAILY PRN (Reason: allergy symptoms) 90 Days Qty: 90 1RF Linzess 145 mcg capsule 145 mcg PO DAILY 90 Days Qty: 90 1RF levothyroxine 125 mcg tablet 125 mcg PO DAILY 90 Days Qty: 90 3RF cholecalciferol (vitamin D3) 50 mcg (2,000 unit) capsule 50 mcg PO DAILY 90 Days Qty: 90 3RF sennosides [senna] 8.6 mg tablet 8.6 mg PO BID Qty: 180 0RF omeprazole 40 mg capsule,delayed release(DR/EC) 40 mg PO DAILY 90 Days Qty: 90 2RF sodium bicarbonate 650 mg Tablet 650 mg PO BID Qty: 60 0RF acetaminophen [Tylenol] 325 mg capsule 325 mg PO ONCE PRN hydroxychloroquine 200 mg tablet 200 mg PO DAILY Qty: 90 1RF prednisone 5 mg tablet See Rx Instructions PO DAILY Qty: 100 1RF Rx Instructions: 5 tablets x per day x 7 days 4 tablets x per day x 7 days 3 tablets x per day x 7 days 2 tablets x per day x 7 days 1 tablets x per day Referrals: Nanda Fiore MD [Primary Care Provider] - 09/27/23 Print Language: Tanzanian
--- NOTE | 2023-09-23 20:21 | MHC.EDTECH ---
Patient brought into triage area,labs,and urine obtained and sent to lab.
[2023-09-23 20:34] LABS: Appearance Urine Clear; Color Urine Yellow; Glucose Urine UA Negative (Negative); Leukocyte Esterase Urine Moderate (2+) (Negative); Nitrite Urine Negative (Negative); PH 5.5 (5.0-9.0); UMIC TRIGGER UACC YES; Urine Blood Negative (Negative); Urine Ketones Negative (Negative); Urine Protein Negative (Neg-Trace)
[2023-09-23 20:37] LABS: Bacteria Urine None Seen (None Seen); Hyaline Casts Urine 0-2 /LPF (0-2); RBC Urine 0-2 /HPF (0-2); Squamous Epithelial Cell Urine 0-2 /HPF (0-2); UACC Culture Trigger YES
[2023-09-23 20:40] LABS: Basophils Percent Auto 0.2 % (0-2); Eosinophils Percent Auto 0.2 % (0-4); PLT CLUMP 1; SCAN SMEAR FLAG 1
[2023-09-23 20:42] LABS: Hematocrit 32.6 % (37.0-47.0); Hemoglobin 10.8 g/dl (12.0-16.0); Imm Gran Abs Auto 0.03 X10*3/uL (0.00-0.03); Imm Gran Pct Auto 0.3 % (0.0-0.4); Lymphocytes Absolute Auto 0.9 X10*3/uL (1.2-4.9); Lymphocytes Percent Auto 7.2 % (20-40); MANUAL DIFF FLAG SCAN; Mean Corpuscular HGB Conc 33.1 g/dl (31.0-35.0); Mean Corpuscular Hemoglobin 33.5 pg (27.0-33.0); Mean Corpuscular Volume 101.2 fL (80.0-98.0); Mean Platelet Volume 11.1 fL (9.4-12.3); Monocytes Absolute Auto 0.8 X10*3/uL (0.1-1.2); Monocytes Percent Auto 6.7 % (2-11); Neutrophils Absolute Auto 10.1 x10*3/uL (2.0-8.3); Neutrophils Percent Auto 85.4 % (45-73); Red Blood Count 3.22 X10*6/uL (4.20-5.50); Red Cell Distribution Width 13.1 % (11.0-16.0)
[2023-09-23 20:45] LABS: Alanine Aminotransferase 27 U/L (0-31); Albumin Level 3.4 g/dL (3.5-5.0); Alkaline Phosphatase 102 U/L (39-117); Anion Gap 12 (12-20); Aspartate Amino Transferase 32 U/L (5-31); Bilirubin Direct 0.1 mg/dL (0.0-0.5); Bilirubin Total 0.4 mg/dL (0.0-1.0); Blood Urea Nitrogen 37 mg/dL (9-16); Calcium 9.3 mg/dL (8.4-10.2); Carbon Dioxide 16 mmol/L (22-29); Chloride 115 mmol/L (96-108); Estimated Glomerular Filt Rate 22; Glucose Random 124 mg/dL (60-115); Lipase 42 U/L (8-78); Magnesium 2.1 mg/dL (1.6-2.6); Potassium 4.7 mmol/L (3.3-5.1); Sodium 138 mmol/L (135-145); Total Protein 7.7 g/dL (6.5-8.0)
[2023-09-23 21:06] LABS: Influenza A PCR NEGATIVE (Negative); Influenza B PCR NEGATIVE (Negative); Resp Syncy Virus RNA Qual PCR NEGATIVE (Negative); SARS COV2 PCR INHOUSE NEGATIVE (Negative)
[2023-09-23 21:07] LABS: Platelet Count 89 X10*3/uL (160-400); White Blood Count 11.9 X10*3/uL (4.8-10.8)
[2023-09-23 21:09] LABS: SLIDE REVIEW VERIFIED
[2023-09-23 22:08] VITALS: BP 164/72; PULSE 77; RESP 18; TEMP 36.8; O2SAT 98
[2023-09-24 00:05] VITALS: BP 158/76; PULSE 67; RESP 16; TEMP 36.8; O2SAT 97
--- NOTE | 2023-09-24 00:48 | ED_ITS ---
HPI - Abdominal Pain General Chief Complaint: Abdominal Pain Stated Complaint: ride side pain/vomiting Time Seen by Provider: 09/24/23 00:03 History of Present Illness HPI narrative: Patient is a 63-year-old female with a history of lupus history of rheumatoid arthritis presents today with having abdominal pain diffuse over the entire abdomen. Had a bowel movement yesterday it was somewhat hard. Patient denies any fever chills. Denies any nausea vomiting. Denies any pain on urination. Patient's pain goes to the right flank area. There was no coughing or congestion or upper respiratory symptoms. There has no vaginal bleeding. No history of bowel obstructions in the past. No history of abdominal surgery in the past. Related Data Home Medications ?Medication ?Instructions ?Recorded ?Confirmed acetaminophen 325 mg capsule 325 mg PO ONCE PRN 08/11/23 (Tylenol) Previous Rx's ?Medication ?Instructions ?Recorded walker #1 ea 04/06/22 sodium bicarbonate 650 mg tablet 650 mg PO BID #60 tabs 08/08/22 escitalopram oxalate 10 mg tablet 10 mg PO DAILY 90 days #90 tabs 09/17/22 dicyclomine 10 mg capsule 10 mg PO TID PRN abdominal pain 01/25/23 #30 caps cetirizine 10 mg tablet 10 mg PO DAILY PRN allergy 02/02/23 symptoms 90 days #90 tabs linaclotide 145 mcg capsule 145 mcg PO DAILY 90 days #90 caps 06/19/23 (Linzess) levothyroxine 125 mcg tablet 125 mcg PO DAILY 90 days #90 tabs 06/20/23 cholecalciferol (vitamin D3) 50 50 mcg PO DAILY 90 days #90 caps 08/18/23 mcg (2,000 unit) capsule hydroxychloroquine 200 mg tablet 200 mg PO DAILY #90 tabs 09/08/23 prednisone 5 mg tablet See Rx Instructions PO DAILY #100 09/08/23 tabs sennosides 8.6 mg tablet (senna) 8.6 mg PO BID #180 tabs 09/11/23 omeprazole 40 mg capsule,delayed 40 mg PO DAILY 90 days #90 caps 09/21/23 release sulfamethoxazole 800 1 tab PO BID #14 tabs 09/24/23 mg-trimethoprim 160 mg tablet (Bactrim DS) Allergies Allergy/AdvReac Type Severity Reaction Status Date / Time cefuroxime [From Ceftin] Allergy Intermediate rash Verified 09/23/23 19:51 Bhlhlwe-JED-TiW Reductase Allergy Intermediate transaminit Verified 09/23/23 19:51 Inhibitor is [Bhmdejm-Smx-Siy Reductase Inhibitor] Review of Systems Review of Systems No fever no chills no diaphoresis Yes all other systems are reviewed and are negative [facility] Past Medical History Medical History Mixed connective tissue disease Low complement measurement History of elevated antinuclear antibody (NANDA) Pain in joint involving multiple sites SLE (systemic lupus erythematosus related syndrome) CKD (chronic kidney disease) stage 4, GFR 15-29 ml/min History of COVID-19 CKD (chronic kidney disease) stage 3, GFR 30-59 ml/min Panic disorder MDD (major depressive disorder), recurrent, severe, with psychosis Noncompliance with medication regimen Chest pain Elevated cholesterol Back pain Arthritis Seasonal allergies Hypothyroid GERD (gastroesophageal reflux disease) Hx pulmonary embolism Iron deficiency anemia Asthma Autoimmune hepatitis Chronic constipation Chronic iron deficiency anemia Right ankle injury (~2000) History of DVT (deep vein thrombosis) Hypertension Surgical History History of esophagogastroduodenoscopy (EGD) S/P insertion of inferior vena caval filter History of liver biopsy History of ankle surgery Hx of endoscopy (06/26/17) History of colonoscopy (~2018) Family History Family History Father Myocardial infarction H/O ETOH abuse Hypertension Mother Diabetes High cholesterol Hypertension Stroke Arthritis Paternal Aunt Mental health disorder Paternal Uncle Mental health disorder Sister Cancer Ovarian cancer Social History Social History Household Members: Family Housing: Apartment Are you a primary senior care manager to a significant other at home: No Do you presently have visiting nurse or other home services: Yes Alcohol intake: never Patient Tobacco Use Status: Never used Tobacco e-Cigarette/Vaping Use: Never Used Second Hand Smoke Exposure: No Advance Directives: Yes Advance Directives on File: Yes Advance Directives Date on File: 07/21/21 service: No Current occupational status: disabled Cognitive needs: No Hearing needs: No Vision needs: Yes (glasses) Physical Exam ED Vital Signs: Vital Signs - 24 hr 09/23/23 19:49 09/23/23 22:08 09/24/23 00:05 Temperature 97.2 F 98.2 F 98.3 F Pulse Rate 83 77 67 Respiratory Rate 18 18 16 Blood Pressure 157/67 H 164/72 H 158/76 H Pulse Oximetry 98 98 97 Oxygen Delivery Method Room Air Room Air Room Air BMI result Body Mass Index 28.3 Appearance: Alert. Oriented X3. No acute distress. Eyes: Pupils equal, round and reactive to light. ENT: Pharynx normal. Neck: Normal inspection. Neck supple. No lymph nodes noted. No crepitus CVS: Normal heart rate and rhythm. Pulses normal. Normal S1 and S2 Respiratory: No respiratory distress. Breath sounds normal. No Wheezing. No rales Abdomen: Soft and nontender. No rigidity. No distention. good BS x4 Skin: Skin warm and dry. Normal skin color. Normal skin turgor. Extremities: No lower extremity edema. Neurovascular intact to all extremities. No Lacerations. No Rash Neuro: Oriented X 3. No motor deficit. No sensory deficit. Moving all extermities. No slurred speech Medical Decision Making Medical Decision Making MDM Narrative: Patient presented today with having abdominal pain. History of rheumatoid arthritis history of lupus. Patient's creatinine is 2 this is approximately baseline. Patient's urine showed a question urinary tract infection. Her white count is 12. Hemoglobin is 10.9. Her electrolytes shows an elevated BUN and creatinine. Have a patient has a history of this in the past. LFTs are normal. CT scan of the abdomen pelvis was done. It showed no acute evidence of obstruction no abscess no perforation. Patient's flu COVID RSV were all negative. Will give a dose of antibiotic here in the emergency department. Patient has an allergy to cephalosporin in the past. Will give a dose of Bactrim and give additional doses of Bactrim on an outpatient basis. Differential Diagnosis Differential Diagnoses: The differential diagnosis associated with the presentation includes Obstruction, abscess, perforation, diverticulitis, UTI, kidney stone Admission/Observation Consideration of admission/observation: Escalation of care including admission/observation considered Lab Data [facility] Lab Attestation statement: I reviewed the patient's lab results. 09/23/23 20:19 09/23/23 20:19 Labs: Lab Results 04/06/24 Range/Units 20:19 WBC 11.9 H (4.8-10.8) X10*3/uL RBC 3.22 L (4.20-5.50) X10*6/uL Hgb 10.8 L (12.0-16.0) g/dl Hct 32.6 L (37.0-47.0) % MCV 101.2 H (80.0-98.0) fL MCH 33.5 H (27.0-33.0) pg MCHC 33.1 (31.0-35.0) g/dl RDW 13.1 (11.0-16.0) % Plt Count 89 L (160-400) X10*3/uL MPV 11.1 (9.4-12.3) fL Immature Gran % (Auto) 0.3 (0.0-0.4) % Neut % (Auto) 85.4 H (45-73) % Lymph % (Auto) 7.2 L (20-40) % [place] % (Auto) 6.7 (2-11) % Eos % (Auto) 0.2 (0-4) % Baso % (Auto) 0.2 (0-2) % Lymph # (Auto) 0.9 L (1.2-4.9) X10*3/uL [place] # (Auto) 0.8 (0.1-1.2) X10*3/uL Eos # (Auto) 0.0 (0.0-0.4) X10*3/uL Baso # (Auto) 0.0 (0.0-0.2) X10*3/uL Abs Immat Gran (auto) 0.03 (0.00-0.03) X10*3/uL Absolute Neuts (auto) 10.1 H (2.0-8.3) x10*3/uL Absolute Nucleated RBC 0.000 (0.0-0.012) X10*3/uL Nucleated RBC % (auto) 0.0 (0.0-0.2) /100WBC Smear Tech's Comments VERIFIED Sodium 138 (135-145) mmol/L Potassium 4.7 (3.3-5.1) mmol/L Chloride 115 H (96-108) mmol/L Carbon Dioxide 16 L (22-29) mmol/L Anion Gap 12 (12-20) BUN 37 H (9-16) mg/dL Creatinine 2.22 H (0.5-1.4) mg/dL Estim Creat Clear Calc 21.0 Estimated GFR 22 Random Glucose 124 H (60-115) mg/dL Calcium 9.3 (8.4-10.2) mg/dL Magnesium 2.1 (1.6-2.6) mg/dL Total Bilirubin 0.4 (0.0-1.0) mg/dL Direct Bilirubin 0.1 (0.0-0.5) mg/dL AST 32 H (5-31) U/L ALT 27 (0-31) U/L Alkaline Phosphatase 102 (39-117) U/L Total Protein 7.7 (6.5-8.0) g/dL Albumin 3.4 L (3.5-5.0) g/dL Lipase 42 (8-78) U/L Urine Color Yellow Urine Appearance Clear Urine pH 5.5 (5.0-9.0) Ur Specific [place] 1.020 (1.005-1.025) Urine Protein Negative (Neg-Trace) mg/dL Urine Glucose (UA) Negative (Negative) mg/dL Urine Ketones Negative (Negative) mg/dL Urine Blood Negative (Negative) Urine Nitrite Negative (Negative) Ur Leukocyte Esterase Moderate (2+) H (Negative) Urine RBC 0-2 (0-2) /HPF Urine WBC 11-20 H (0-5) /HPF Ur Squamous Epith Cells 0-2 (0-2) /HPF Urine Bacteria None Seen (None Seen) Hyaline Casts 0-2 (0-2) /LPF Influenza Type A (PCR) NEGATIVE (Negative) Influenza Type B (PCR) NEGATIVE (Negative) RSV RNA Qual (PCR) NEGATIVE (Negative) SARS-CoV-2 RNA (RT-PCR) NEGATIVE (Negative) Independent Interpretation I performed an independent interpretation of an: CT Scan (No overt obstruction noted) Radiology Impression Discussion of test interpretation with radiology: I have reviewed the radiologist's reading. Independent Historian Clinical information obtained from an independent historian. History obtained from or confirmed by: Other (Family) External Record Review External record reviewed: Inpatient record and Office record Chronic Conditions Lupus, rheumatoid arthritis Social Determinants Patient?s care significantly limited by Social Determinants of Health including: Problems related to primary support group Discharge Plan Discharge Clinical Impression: Urinary tract infection Patient Disposition: Home, Self-Care Instructions: Urinary Tract Infection in Women (DC) Prescriptions: New sulfamethoxazole-trimethoprim [Bactrim DS] 800-160 mg tablet 1 tab PO BID Qty: 14 0RF No Action (DME) jeri Misc See Rx Instructions .Route Qty: 1 0RF Rx Instructions: As directed escitalopram oxalate 10 mg tablet 10 mg PO DAILY 90 Days Qty: 90 1RF dicyclomine 10 mg capsule 10 mg PO TID PRN (Reason: abdominal pain) Qty: 30 1RF cetirizine 10 mg tablet 10 mg PO DAILY PRN (Reason: allergy symptoms) 90 Days Qty: 90 1RF Linzess 145 mcg capsule 145 mcg PO DAILY 90 Days Qty: 90 1RF levothyroxine 125 mcg tablet 125 mcg PO DAILY 90 Days Qty: 90 3RF cholecalciferol (vitamin D3) 50 mcg (2,000 unit) capsule 50 mcg PO DAILY 90 Days Qty: 90 3RF sennosides [senna] 8.6 mg tablet 8.6 mg PO BID Qty: 180 0RF omeprazole 40 mg capsule,delayed release(DR/EC) 40 mg PO DAILY 90 Days Qty: 90 2RF sodium bicarbonate 650 mg Tablet 650 mg PO BID Qty: 60 0RF acetaminophen [Tylenol] 325 mg capsule 325 mg PO ONCE PRN hydroxychloroquine 200 mg tablet 200 mg PO DAILY Qty: 90 1RF prednisone 5 mg tablet See Rx Instructions PO DAILY Qty: 100 1RF Rx Instructions: 5 tablets x per day x 7 days 4 tablets x per day x 7 days 3 tablets x per day x 7 days 2 tablets x per day x 7 days 1 tablets x per day Referrals: Nanda Fiore MD [Primary Care Provider] - 09/27/23 Print Language: Malian
[2023-09-24] MEDS: Sulfamethox/Trimeth 800/160 TABLET 1 TAB PO (01:13)
[2023-09-24 01:14] VITALS: BP 158/76; PULSE 67; RESP 18; TEMP 36.6; O2SAT 97
== END 2023-09-24 01:17 | disposition home or self-care (01) ==
PROVIDERS: Physician Assistant; Emergency Provider Emergency Medicine Emergency Medical Services; PCP Internal Medicine
DX: N39.0 Urinary tract infection, site not specified (principal); R10.2 Pelvic and perineal pain; Z79.899 Other long term (current) drug therapy; Z11.52 Encounter for screening for COVID-19; Z20.828 Contact with and (suspected) exposure to other viral communicable diseases
CPT/HCPCS: 0241U; 36415; 74176; 80048; 80076; 81001; 83690; 83735; 85025; 87086; 99283; 99284

== ENCOUNTER 2023-11-03 10:20 | Outpatient (REF) | payer OTHER, SELFPAY ==
[2023-11-03 10:34] LABS: MANUAL DIFF FLAG NO
[2023-11-03 11:05] LABS: Appearance Urine Cloudy; Color Urine Yellow; Glucose Urine UA Negative (Negative); Leukocyte Esterase Urine Large (3+) (Negative); Nitrite Urine Negative (Negative); PH 6.5 (5.0-9.0); Specific Gravity - Urine 1.015 (1.005-1.025); UMIC TRIGGER UA YES; Urine Blood Negative (Negative); Urine Ketones Negative (Negative); Urine Protein Trace mg/dL (Neg-Trace)
[2023-11-03 11:05] LABS: Basophils Percent Auto 0.3 % (0-2); Eosinophils Absolute Auto 0.1 X10*3/uL (0.0-0.4); Eosinophils Percent Auto 3.1 % (0-4); Hematocrit 31.5 % (37.0-47.0); Hemoglobin 10.1 g/dl (12.0-16.0); Imm Gran Abs Auto 0.01 X10*3/uL (0.00-0.03); Imm Gran Pct Auto 0.3 % (0.0-0.4); Lymphocytes Absolute Auto 0.9 X10*3/uL (1.2-4.9); Lymphocytes Percent Auto 27.9 % (20-40); Mean Corpuscular HGB Conc 32.1 g/dl (31.0-35.0); Mean Corpuscular Hemoglobin 32.2 pg (27.0-33.0); Mean Corpuscular Volume 100.3 fL (80.0-98.0); Mean Platelet Volume 10.7 fL (9.4-12.3); Monocytes Absolute Auto 0.3 X10*3/uL (0.1-1.2); Monocytes Percent Auto 10.1 % (2-11); Neutrophils Absolute Auto 1.9 x10*3/uL (2.0-8.3); Neutrophils Percent Auto 58.3 % (45-73); Platelet Count 104 X10*3/uL (160-400); Red Blood Count 3.14 X10*6/uL (4.20-5.50); Red Cell Distribution Width 13.2 % (11.0-16.0); White Blood Count 3.3 X10*3/uL (4.8-10.8)
[2023-11-03 11:16] LABS: Bacteria Urine 4+ (None Seen); RBC Urine 0-2 /HPF (0-2); WBC Urine 21-50 /HPF (0-5)
[2023-11-03 11:42] LABS: Alanine Aminotransferase 25 U/L (0-31); Albumin Level 3.4 g/dL (3.5-5.0); Alkaline Phosphatase 131 U/L (39-117); Anion Gap 11 (12-20); Aspartate Amino Transferase 35 U/L (5-31); Bilirubin Total 0.4 mg/dL (0.0-1.0); Blood Urea Nitrogen 30 mg/dL (9-16); C Reactive Protein 0.22 mg/dL (< or = 0.50); Calcium 9.1 mg/dL (8.4-10.2); Carbon Dioxide 21 mmol/L (22-29); Chloride 114 mmol/L (96-108); Estimated Glomerular Filt Rate 31; Glucose Random 95 mg/dL (60-115); Potassium 4.3 mmol/L (3.3-5.1); Sodium 142 mmol/L (135-145); Total Protein 7.5 g/dL (6.5-8.0)
[2023-11-03 11:43] LABS: Erythrocyte Sedimentation Rate 96 MM/HR (0-20)
[2023-11-08 08:54] LABS: Complement C3 52 mg/dL (83-193)
[2023-11-09 06:38] LABS: PTT (LAC) Screen 39 sec (<=40)
== END 2023-11-03 10:21 | disposition home or self-care (01) ==
LOC: HO.LAB 10:20
PROVIDERS: PCP Internal Medicine; Visit Provider Nurse Practitioner Family
DX: M35.1 Other overlap syndromes (principal); M32.9 Systemic lupus erythematosus, unspecified; N18.4 Chronic kidney disease, stage 4 (severe)
CPT/HCPCS: 36415; 80053; 81001; 85025; 85597; 85598; 85613; 85652; 85730; 86140; 86160

== ENCOUNTER 2023-12-04 18:55 | Emergency (ER) | payer OTHER, SELFPAY ==
--- NOTE | ~2023-12-04 | XR_ITS ---
EXAMINATION: XR SHOULDER, RIGHT CLINICAL INFORMATION: Pain x3 weeks COMPARISON: None available. TECHNIQUE: Three views of the right shoulder. FINDINGS: No acute visible fracture or dislocation. Calcific focus along superolateral margin of the proximal humeral head suggesting calcific tendinosis in the region of supraspinatus tendon. Joint space alignment otherwise maintained. Soft tissues are unremarkable. Visualized portions of the chest are unremarkable. XR/XR shoulder RT min 2V IMPRESSION: 1. No acute visible fracture or dislocation. 2. Calcific focus along superolateral margin of the proximal humeral head suggesting calcific tendinosis in the region of supraspinatus tendon.
[2023-12-04 20:49] VITALS: BP 194/91; PULSE 89; RESP 18; TEMP 37.4; O2SAT 100; BMI 28.6
--- NOTE | 2023-12-04 20:49 | ED_ITS ---
HPI - Extremity Problem General Chief complaint: Extremity Problem Stated complaint: right should pain no inj Time Seen by Provider: 12/04/23 22:47 Source: patient Mode of arrival: ambulatory Limitations: no limitations History of Present Illness ED Provider: natanael JON Narrative: Patient with chronic right shoulder problem for last few weeks does not remember any trauma seen at urgent care center 1 week ago prescribed prednisone Ankur comes here as pain is still going on painful to abduct her right hand Related Data Home Medications ?Medication ?Instructions ?Recorded ?Confirmed acetaminophen 325 mg capsule 325 mg PO ONCE PRN 08/11/23 (Tylenol) Previous Rx's ?Medication ?Instructions ?Recorded walker #1 ea 04/06/22 sodium bicarbonate 650 mg tablet 650 mg PO BID #60 tabs 08/08/22 escitalopram oxalate 10 mg tablet 10 mg PO DAILY 90 days #90 tabs 09/17/22 dicyclomine 10 mg capsule 10 mg PO TID PRN abdominal pain 01/25/23 #30 caps cetirizine 10 mg tablet 10 mg PO DAILY PRN allergy 02/02/23 symptoms 90 days #90 tabs linaclotide 145 mcg capsule 145 mcg PO DAILY 90 days #90 caps 06/19/23 (Linzess) levothyroxine 125 mcg tablet 125 mcg PO DAILY 90 days #90 tabs 06/20/23 cholecalciferol (vitamin D3) 50 50 mcg PO DAILY 90 days #90 caps 08/18/23 mcg (2,000 unit) capsule hydroxychloroquine 200 mg tablet 200 mg PO DAILY #90 tabs 09/08/23 prednisone 5 mg tablet See Rx Instructions PO DAILY #100 09/08/23 tabs sennosides 8.6 mg tablet (senna) 8.6 mg PO BID #180 tabs 09/11/23 omeprazole 40 mg capsule,delayed 40 mg PO DAILY 90 days #90 caps 09/21/23 release sulfamethoxazole 800 1 tab PO BID #14 tabs 09/24/23 mg-trimethoprim 160 mg tablet (Bactrim DS) acetaminophen 650 mg 650 mg PO Q8H PRN pain 7 days #21 12/02/23 tablet,extended release tabs ibuprofen 600 mg tablet 600 mg PO Q6H PRN fever or pain 12/04/23 #30 tabs oxycodone 5 mg tablet 5 mg PO Q6H PRN pain #20 tabs 12/04/23 Allergies Allergy/AdvReac Type Severity Reaction Status Date / Time cefuroxime [From Ceftin] Allergy Intermediate rash Verified 12/04/23 20:52 Kxdyxjk-LRV-StL Reductase Allergy Intermediate transaminit Verified 12/04/23 20:52 Inhibitor is [Hbfocwo-Cmu-Zwy Reductase Inhibitor] Review of Systems Review of Systems: Yes all other systems are reviewed and are negative [facility] Past Medical History Medical History Mixed connective tissue disease Low complement measurement History of elevated antinuclear antibody (WILFRED) Pain in joint involving multiple sites SLE (systemic lupus erythematosus related syndrome) CKD (chronic kidney disease) stage 4, GFR 15-29 ml/min History of COVID-19 CKD (chronic kidney disease) stage 3, GFR 30-59 ml/min Panic disorder MDD (major depressive disorder), recurrent, severe, with psychosis Noncompliance with medication regimen Chest pain Elevated cholesterol Back pain Arthritis Seasonal allergies Hypothyroid GERD (gastroesophageal reflux disease) Hx pulmonary embolism Iron deficiency anemia Asthma Autoimmune hepatitis Chronic constipation Chronic iron deficiency anemia Right ankle injury (~2000) History of DVT (deep vein thrombosis) Hypertension Surgical History History of esophagogastroduodenoscopy (EGD) S/P insertion of inferior vena caval filter History of liver biopsy History of ankle surgery Hx of endoscopy (06/26/17) History of colonoscopy (~2018) Family History Family History Father Myocardial infarction H/O ETOH abuse Hypertension Mother Diabetes High cholesterol Hypertension Stroke Arthritis Paternal Aunt Mental health disorder Paternal Uncle Mental health disorder Sister Cancer Ovarian cancer Social History Social History Household Members: Family Housing: Apartment Are you a primary caregivers non medical to a significant other at home: No Do you presently have visiting nurse or other home services: Yes Alcohol intake: never Patient Tobacco Use Status: Never used Tobacco Smoked in Last 30 Days: No e-Cigarette/Vaping Use: Never Used Second Hand Smoke Exposure: No Use of substances other than those prescribed or required for medical reasons: No Advance Directives: Yes Advance Directives on File: Yes Advance Directives Date on File: 07/21/21 Do you have a plan to hurt others: No Plan Patient : No service: No Current occupational status: disabled Cognitive needs: No Hearing needs: No Vision needs: Yes (glasses) Physical Exam Vital Signs: Vital Signs: Last Vital Signs Temp 99.4 F 12/04/23 22:29 Pulse 89 12/04/23 22:29 Resp 16 12/04/23 22:29 BP 211/88 H 12/04/23 22:29 Pulse Ox 98 12/04/23 22:29 O2 Del Method Room Air 12/04/23 22:29 BMI result Body Mass Index 28.6 Appearance: Alert. Oriented X3. No acute distress. ENT: Pharynx normal. Oral Mucosa moist Neck: Normal inspection. Neck supple. CVS: Normal heart rate and rhythm. Pulses normal. Respiratory: No respiratory distress. Equal air entry bilateral, no wheezing/rales/rhonchi Abdomen: Soft and nontender. Bowel sounds are present, no mass palpable, no CVA tenderness Skin: Skin warm and dry. Normal skin color. Normal skin turgor. Extremities: No lower extremity edema. No calf tenderness right rotator cuff tenderness painful to abduct open arc sign positive painful to ext rotator Neuro: Oriented X 3. No motor deficit. No sensory deficit.No cerebellar signs , cranial nerves II-XII intact Course Course Course Narrative: This is a rapid medical exam completed by Gareth SALOMONN: Additional HPI, ROS, PE not included below will be deferred to primary provider. Right shoulder pain x 3 weeks. Seen at urgent care on November 26 with xrays and prescribed steroids Medical Decision Making Independent Interpretation I performed an independent interpretation of an: Plain X-Ray Radiology Impression Discussion of test interpretation with radiology: I have reviewed the radiologist's reading. Radiologist Impression: XR/XR shoulder RT min 2V IMPRESSION: 1. No acute visible fracture or dislocation. 2. Calcific focus along superolateral margin of the proximal humeral head suggesting calcific tendinosis in the region of supraspinatus tendon. Discharge Plan Discharge Clinical Impression: Rotator cuff arthropathy of right shoulder Patient Disposition: Home, Self-Care Instructions: Rotator Cuff Tendinitis (ED) Additional Instructions: Wear sling for support Pain medication as advised Follow with Orthopedics Prescriptions: New oxycodone 5 mg tablet 5 mg PO Q6H PRN (Reason: pain) Qty: 20 0RF Rx Instructions: Partial Fill upon patient request. ibuprofen 600 mg tablet 600 mg PO Q6H PRN (Reason: fever or pain) Qty: 30 0RF No Action (DME) jeri Dexter See Rx Instructions .Route Qty: 1 0RF Rx Instructions: As directed escitalopram oxalate 10 mg tablet 10 mg PO DAILY 90 Days Qty: 90 1RF dicyclomine 10 mg capsule 10 mg PO TID PRN (Reason: abdominal pain) Qty: 30 1RF cetirizine 10 mg tablet 10 mg PO DAILY PRN (Reason: allergy symptoms) 90 Days Qty: 90 1RF Linzess 145 mcg capsule 145 mcg PO DAILY 90 Days Qty: 90 1RF levothyroxine 125 mcg tablet 125 mcg PO DAILY 90 Days Qty: 90 3RF cholecalciferol (vitamin D3) 50 mcg (2,000 unit) capsule 50 mcg PO DAILY 90 Days Qty: 90 3RF sennosides [senna] 8.6 mg tablet 8.6 mg PO BID Qty: 180 0RF omeprazole 40 mg capsule,delayed release(DR/EC) 40 mg PO DAILY 90 Days Qty: 90 2RF acetaminophen 650 mg tablet extended release 650 mg PO Q8H PRN (Reason: pain) 7 Days Qty: 21 0RF sodium bicarbonate 650 mg Tablet 650 mg PO BID Qty: 60 0RF sulfamethoxazole-trimethoprim [Bactrim DS] 800-160 mg tablet 1 tab PO BID Qty: 14 0RF acetaminophen [Tylenol] 325 mg capsule 325 mg PO ONCE PRN hydroxychloroquine 200 mg tablet 200 mg PO DAILY Qty: 90 1RF prednisone 5 mg tablet See Rx Instructions PO DAILY Qty: 100 1RF Rx Instructions: 5 tablets x per day x 7 days 4 tablets x per day x 7 days 3 tablets x per day x 7 days 2 tablets x per day x 7 days 1 tablets x per day Referrals: Dima Sahu MD [Physician] - 2 weeks Print Language: Guinean
[2023-12-04 22:29] VITALS: BP 211/88; PULSE 89; RESP 16; TEMP 37.4; O2SAT 98
[2023-12-04] MEDS: oxyCODONE HCl Immed Release 5 MG TABLET 10 MG PO (23:17)
[2023-12-04 23:19] VITALS: BP 140/79; PULSE 91
[2023-12-04 23:26] VITALS: BP 140/79; PULSE 91; RESP 16; TEMP 37.3; O2SAT 100
== END 2023-12-04 23:27 | disposition home or self-care (01) ==
PROVIDERS: Emergency Provider Internal Medicine; PCP Internal Medicine
DX: S43.421A Sprain of right rotator cuff capsule, initial encounter (principal); X58.XXXA Exposure to other specified factors, initial encounter; Y93.9 Activity, unspecified; Y92.9 Unspecified place or not applicable; Y99.8 Other external cause status
CPT/HCPCS: 73030; 99283; 99284

== ENCOUNTER 2023-12-28 09:15 | Outpatient (AMB) | payer OTHER, SELFPAY ==
--- NOTE | 2023-12-28 09:17 | A.OFFVIS_ITS ---
Intake Visit Reasons: N/P right shoulder pain S/P ED 12/04/23 Intake Note: Becky is a 63 year old right hand dominant female who presents today as a new patient for a evaluation of her right shoulder pain. Patient had a injury about a month ago but unsure if she fell on her shoulder or not. No hx of trauma. Her pain is on the the lateral aspect of the shoulder and sometimes her pain radiates up to her neck. Pain is worse with motion. She has mild relief with Aleve, Tylenol, lidocaine patches. Allergies cefuroxime [From Ceftin] Allergy (Intermediate, Verified 12/28/23 09:21) rash Rdvhpws-DPK-StE Reductase Inhibitor [Igdusxk-Keu-Rcl Reductase Inhibitor] Allergy (Intermediate, Verified 12/28/23 09:21) transaminitis HPI HPI N/P right shoulder pain S/P ED 12/04/23: Details: 63-year-old right hand dominant female who presents in the office today, as a new patient, for an evaluation of right shoulder pain and edema. The patient reports being seen at [facility] in [place] on 11/27/2023 where she was prescribed prednisone 10 mg and cyclobenzaprine 5 mg. She contacted her PCP on 12/02/2023 through the portal and was prescribed Tylenol 650 mg. The patient presented to the ED on 12/11/2023 with a complaint of chronic right shoulder pain affecting abduction of the right hand. X-rays of the right shoulder were obtained. She was placed in a sling for support. She was prescribed Oxycodone 5 mg PO Q6H PRN and ibuprofen 600 mg PO Q6H PRN.? ? While in the office today, the patient reports having an injury about a month ago, in 11/2023, however she is unsure if she fell on her right shoulder. Therefore, she denies any trauma. She states she was using a bicycle pump and feels this may have contributed to the pain.?She reports her pain is along the lateral aspect of the right shoulder with occupational radiation to her neck. She claims her pain increases with motion. She denies pain at the right elbow. She reports she has been using the sling daily and has not performed a lot of ROM since presenting to the ED on 12/11/2023. She confirms the use of Aleve, Tylenol, and lidocaine patches with mild relief. ? ?? Patient has a significant medical history of CKD stage 4.?? Patient denies a medical history of diabetes mellitus. ? PFS Medical History Mixed connective tissue disease Low complement measurement History of elevated antinuclear antibody (WILFRED) Pain in joint involving multiple sites SLE (systemic lupus erythematosus related syndrome) CKD (chronic kidney disease) stage 4, GFR 15-29 ml/min History of COVID-19 CKD (chronic kidney disease) stage 3, GFR 30-59 ml/min Panic disorder MDD (major depressive disorder), recurrent, severe, with psychosis Noncompliance with medication regimen Chest pain Elevated cholesterol Back pain Arthritis Seasonal allergies Hypothyroid GERD (gastroesophageal reflux disease) Hx pulmonary embolism Iron deficiency anemia Asthma Autoimmune hepatitis Chronic constipation Chronic iron deficiency anemia Right ankle injury (~2000) History of DVT (deep vein thrombosis) Hypertension Surgical History History of esophagogastroduodenoscopy (EGD) S/P insertion of inferior vena caval filter History of liver biopsy History of ankle surgery Hx of endoscopy (06/26/17) History of colonoscopy (~2018) Family History Father Myocardial infarction H/O ETOH abuse Hypertension Mother Diabetes High cholesterol Hypertension Stroke Arthritis Paternal Aunt Mental health disorder Paternal Uncle Mental health disorder Sister Cancer Ovarian cancer Social History (Updated 12/28/23 @ 09:23 by Radha Dorsey) Household Members: Family Housing: Apartment Are you a primary nursing care attendant to a significant other at home: No Do you presently have visiting nurse or other home services: Yes Alcohol intake: never Patient Tobacco Use Status: Never used Tobacco e-Cigarette/Vaping Use: Never Used Second Hand Smoke Exposure: No Advance Directives Date on File: 07/21/21 service: No Current occupational status: disabled Current occupation: right hand dominant Cognitive needs: No Hearing needs: No Vision needs: Yes (glasses) Review of Systems Const All systems reviewed & are unremarkable except as noted in HPI and below Physical Exam Const General: cooperative and no acute distress Orientation/consciousness: patient oriented x3 Resp Effort & Inspection: normal respiratory effort and able to speak in complete sentences Cardio Peripheral pulses: Peripheral pulses 2+ throughout Skin General skin exam: no rashes or lesions noted Neuro General: patient oriented x3 Extrem Other: Right shoulder: Normal to inspection. No ecchymosis erythema or edema. 10 degrees of forward flexion and abduction. External rotation to neutral only. Unable to perform any additional testing due to ROM limitations and pain. NVI.? Office Procedures Joint Injection/Drain Joint Injection/Drain Primary Site: right shoulder Prep: site was prepped using aseptic technique, ethochloride spray was applied and injection warnings given Injected: 80 mg of, DepoMedrol and with 8 mL of (2% plain lido ) Approach Used: posterolateral Procedure: The patient tolerated the procedure well, but had some pain with the injection and there was some relief with the local anesthesia Coding 16110 - Large joint Procedure code (CPT) selection complete Assessment & Plan Assessment & Plan (1) Adhesive capsulitis of right shoulder: Code(s): M75.01 - Adhesive capsulitis of right shoulder Category: Medical (2) Calcific tendonitis of right shoulder: Code(s): M75.31 - Calcific tendinitis of right shoulder Category: Medical Plan Ms. Salas is a 63-year-old right hand dominant female who presents in the office today, as a new patient, for an evaluation of right shoulder pain and edema. The patient reports being seen at [facility] in [place] on 11/27/2023 where she was prescribed prednisone 10 mg and cyclobenzaprine 5 mg. She contacte d her PCP on 12/02/2023 through the portal and was prescribed Tylenol 650 mg. The patient presented to the ED on 12/11/2023 with a complaint of chronic right shoulder pain affecting abduction of the right hand. X-rays of the right shoulder were obtained. She was placed in a sling for support. She was prescribed Oxycodone 5 mg PO Q6H PRN and ibuprofen 600 mg PO Q6H PRN. ? ?? While in the office today, the patient reports having an injury about a month ago, in 11/2023, however she is unsure if she fell on her right shoulder. Therefore, she denies any trauma. She states she was using a bicycle pump and feels this may have contributed to the pain. She reports her pain is along the lateral aspect of the right shoulder with occupational radiation to her neck. She claims her pain increases with motion. She denies pain at the right elbow. She reports she has been using the sling daily and has not performed a lot of ROM since presenting to the ED on 12/11/2023. She confirms the use of Aleve, Tylenol, and lidocaine patches with mild relief.? Patient has a significant medical history of CKD stage 4.? ? Patient denies a medical history of diabetes mellitus.? ? ? The patient was offered a cortisone injection in the right shoulder with 80 mg of DepoMedrol. The patient was explained the risks, benefits, and alternatives to receiving this injection. After receiving consent for the injection, the patient had the procedure done while in the office today. The patient tolerated the procedure well with no complications.? ? We discussed the role of anti-inflammatory, however, due to the patient having a history of kidney disease she is unable to take this medication. She is able to take OTC Tylenol PRN for pain. A referral for physical therapy was placed in the office today. The patient was instructed to call the office if she has not heard from physical therapy in the next two weeks. She was encouraged to discontinue the use of the sling as soon as possible. Follow-up will be in 4-6 weeks, or sooner if needed. ? ? X-rays of the right shoulder, obtained on 12/11/2023, revealed: ? 1. No acute visible fracture or dislocation.? 2. Calcific focus along superolateral margin of the proximal humeral? head suggesting calcific tendinosis in the region of supraspinatus?tendon.? Patient Instructions: Scribed by Suzanne Noonan medical administrative specialist, for Sherrie Gottlieb PA-C on 12/28/2023 at 9:27 am, EST.? Coding Level of Care Code New Pt Level 4 (40447) Diagnoses Adhesive capsulitis of right shoulder M75.01 Calcific tendonitis of right shoulder M75.31 CPT Codes Coding - 62487 Large joint: 85913 - Large joint ([id number])
== END 2023-12-28 10:08 | disposition home or self-care (01) ==
PROVIDERS: PCP Internal Medicine; Visit Provider Physician Assistant
DX: M75.01 Adhesive capsulitis of right shoulder (principal); M75.31 Calcific tendinitis of right shoulder
CPT/HCPCS: 20610; 99204

== ENCOUNTER → 2023-12-28 09:15 | Outpatient (BNVA) | payer OTHER, SELFPAY | PROVIDERS: PCP Internal Medicine; Visit Provider Physician Assistant | DX: M75.01 Adhesive capsulitis of right shoulder (principal); M75.31 Calcific tendinitis of right shoulder | CPT/HCPCS: 20610; 99202; J1010 ==

== ENCOUNTER 2024-02-09 11:37 | Outpatient (REF) | payer OTHER, SELFPAY ==
--- NOTE | ~2024-02-09 | XR_ITS ---
EXAMINATION: XR SHOULDER, RIGHT CLINICAL INFORMATION: Pain in right shoulder. COMPARISON: X-rays of the right shoulder November 2013. TECHNIQUE: AP external rotation, Grashey, scapular Y, and axillary views of the right shoulder. FINDINGS: Enthesopathic cyst versus old impaction fracture Hill-Sachs lesion along the head tuberosity junction. This is not present on the prior examination although there are differences in projection. Glenohumeral joint: Normal. Acromioclavicular joint: Normal. Partially visualized right chest: Normal other than calcification of the dorsal aorta. XR/XR shoulder RT min 2V IMPRESSION: 1. No acute abnormality. 2. Enthesopathic cyst versus old Hill-Sachs lesion along the anterior tuberosity junction. Although this is not seen on the prior examination the projection on both exams is different and may account for the differences in x-ray appearance. Correlate with any history of shoulder dislocation to help determine likelihood of old fracture. Electronically signed by: Glenn Norman MD 02/16/2024 07:19 AM EDT
== END 2024-02-09 11:38 | disposition home or self-care (01) ==
LOC: HO.XRAY 11:37
PROVIDERS: PCP Internal Medicine; Visit Provider Internal Medicine
DX: M25.511 Pain in right shoulder (principal)
CPT/HCPCS: 73030

== ENCOUNTER 2024-02-12 09:00 | Outpatient (RCR) | payer OTHER, SELFPAY ==
--- NOTE | 2024-01-08 10:00 | MHC.PT.EP ---
[facility] [place] Office [place] Office [place] Office [address] Juan Cartagena [address] [phone] F: [phone] F: [phone] F: [phone] F: [phone] Physical Therapy Plan of Care Date of Evaluation: 01/08/24 Date of Surgery: Diagnosis: calcific tendonitis R shoulder Adhesive capsulitis R shoulder Assessment: 63 y/o R-hand dominant female referred to PT with calcific tendonitis and adhesive capsulitis R shoulder. Reports R shoulder pain for 2 months of insidious onset. She had an injection which helped a little, not much. Currently she reports pain and difficulty with everything - cooking, grooming, washing, global mobility specialist, reaching with R arm, reaching behind back, lifting and sleeping. PMH significant for SLE, anemia, hx PE with IVC filter, hepatitis, and depression. Of note, pt with tremors (B arms, worse on R and some balance deficits); recommended pt f/u with Dr. Peña regarding these tremors and pt in agreement. Examination shows significantly decreased R shoulder A/PROM, R shoulder strength grossly 2-/5, pain, tremors, noted atrophy infraspinatus/ supraspinatus fossas on R, and impaired postural awareness. Recommend PT 2x/week for 6 weeks to address impairments, implement HEP, and optimize functional mobility. Frequency and Duration: The patient will be seen 2x/week for 6 weeks Short Term Goals: 3 weeks I with HEP Demonstrate > 60* active R shoulder flexion to faciliate eating Billet Inspector Goals: 6 weeks I with HEP and self management of sx Pt will be able to sleep through > 50% of the night with pain < 3/10 Pt will be I with grooming with pain < 3/10 Improve SPADI to 100/130 Treatment Plan: Modalities to reduce pain, spasms and effusion. Manual therapy to restore motion and function. Therapeutic exercise to improve strength and flexibility. Neuromuscular re-education for posture and balance. Therapeutic activities to return to functional activities of daily living. Electronically signed by: Rosalba Lane PT Please sign and return to therapist. Thank you for your referral.
--- NOTE | 2024-03-25 09:38 | MHC.PT.DC ---
[facility] [place] [facility] [place] [facility] [place] [facility] [address] Juan Cartagena 140 [facility] [phone] F: [phone] F: [phone] F: [phone] F: [phone] Physical Therapy Discharge Report Diagnosis: calcific tendonitis R shoulder Adhesive capsulitis R shoulder Date of Surgery: Date of Evaluation: 01/08/24 Date of Discharge: 03/25/24 Treatments to Date: 9 Cancellations to Date: 0 No Shows to Date: 0 Discharge Status: Recommend MD Follow-up Discharge Summary: Pt continues with difficulty with AROM exercises and has made minimal-no progress with PT. Educated pt to f/u with MD regarding continued shoulder pain and decreased function. ?whether she may need further imaging with ?RTC involvement. Electronically signed by: Rosalba Lane PT Please sign and return to therapist. Thank you for your referral.
== END 2024-03-25 09:38 | disposition home or self-care (01) ==
LOC: HO.PTCHIC 09:00
PROVIDERS: PCP Internal Medicine; Visit Provider Physician Assistant
DX: M75.31 Calcific tendinitis of right shoulder (principal); M75.01 Adhesive capsulitis of right shoulder
CPT/HCPCS: 97110; 97140; 97162

== ENCOUNTER 2024-02-13 09:22 | Outpatient (AMB) | payer OTHER, SELFPAY ==
--- NOTE | 2024-02-13 09:23 | MHC.OFFVIS ---
Vital Signs 02/13/24 09:29 Height 4 ft 11 in Weight 139 lb 12.369 oz BMI 28.2 BP 134/80 Blood Pressure Location Lt brachial Position Sitting Pulse 71 Pulse Source Pulse Oximeter Pulse Oximetry (%) 100 Oxygen Delivery Method Room Air Intake Visit Reasons: MCTD/SLE Intake Note: Patient presents for MCTD/SLE. Allergies cefuroxime [From Ceftin] Allergy (Intermediate, Verified 02/13/24 09:28) rash Lirngjd-BLE-DwD Reductase Inhibitor [Hrjoxyk-Dnq-Cpn Reductase Inhibitor] Allergy (Intermediate, Verified 02/13/24 09:28) transaminitis Medication List - Last Reconciled 02/13/24 by Randal Shin MD acetaminophen ER 650 mg PO Q8H PRN 7 days cetirizine 10 mg PO DAILY PRN 90 days cholecalciferol (vitamin D3) 50 mcg PO DAILY 90 days dicyclomine 10 mg PO TID PRN escitalopram oxalate 10 mg PO DAILY 90 days hydroxychloroquine 200 mg PO DAILY levothyroxine 125 mcg PO DAILY 90 days lidocaine 4% (Aspercreme (lidocaine)) 1 patch topical DAILY PRN 30 days linaclotide (Linzess) 145 mcg PO DAILY 90 days omeprazole 40 mg PO DAILY 90 days sennosides (senna) 8.6 mg PO BID sodium bicarbonate 650 mg PO BID jeri As directed HPI Comments Details: 64-year-old female with lupus/Sjogren's overlap who returns for follow-up. She has been taking hydroxychloroquine regularly since last visit. She states that she was recently evaluated by her trackwalker Dr. Caldera and her repeat kidney biopsy was still inconclusive and the tissue is sent to a tertiary center for a 2nd opinion. She continues to have significant limitation of motion of right shoulder. She was evaluated by Orthopedics and had a steroid injection without much improvement she has done 8 of 10 scheduled for physical therapy sessions without much improvement. Initial Visit by Leandra Ramirez: Ms. Salas is a 63-year-old female dense today accompanied by her sister Elida. She was referred by Nephrology for evaluation to determine if an autoimmune connective tissue disease, such as SLE, underlies her kidney disease. She has a PMH significant for hypothyroidism, GERD, chronic kidney disease stage 4, autoimmune cirrhosis and mild recurrent major depression. The patient has had declining kidney function for the last 2 years and has been worked up for cause. She has had 2 the biopsies of the left kidney in February and April of 2023. Upon inquiry the patient admits to severe dry eyes and dry mouth. She uses eyedrops 3-4 times per day. She has increased cavities due to the dry mouth. She has had an episode of parotitis and was hospitalized for 3 days in July of 2022. At that time she could only eats soup and smooth foods such as mashed potato. She reports that her mandibular area was very swollen. She has chronic mouth sores, can not expose herself to the sun or else she will feel weak and tired. She also develop rashes on her face and any exposed areas. She has to wear long sleeves, pants and a hat whenever she goes in the sun. She describes possible Raynaud's when her fingers are cold. She says they turn very white and then bluish, so does her toes. Patient denies butterfly rash on face; denies blood or froth in urine. She does not think she has had Carditis or Pleuritis. Patient endorses history of DVT, but never had miscarriages or have had to take aspirin or a blood thinner during the successful pregnancies. Denies fevers, but has excessive fatigue, unexplained weight-loss of 40 lbs, thinning hair and hair loss. Her joints do hurt and sometimes feel swollen. --cirrhosis follows with Gastroenterology 04/2022 [facility] Intake Notes: Patient presents today with left calf pain. She was admitted to [facility] 04/29 through 05/03, and received IV antibiotics for a parotitis diagnosis. she was discharged on p.o. Augmentin, and is on day 8 of 10 of that prescription currently. She reports that since discharge from the hospital she has had bilateral lower extremity swelling, which she has not had previously. She also reports left calf pain and swelling. She reports having a DVT in her right leg about 2 years ago. FORMERLY [facility], [facility] Medical History (Updated 02/13/24 @ 10:07 by Randal Shin MD) Pain in joint involving multiple sites CKD (chronic kidney disease) stage 4, GFR 15-29 ml/min History of COVID-19 CKD (chronic kidney disease) stage 3, GFR 30-59 ml/min Panic disorder MDD (major depressive disorder), recurrent, severe, with psychosis Noncompliance with medication regimen Chest pain Elevated cholesterol Back pain Arthritis Seasonal allergies Hypothyroid GERD (gastroesophageal reflux disease) Hx pulmonary embolism Iron deficiency anemia Asthma Autoimmune hepatitis Chronic constipation Chronic iron deficiency anemia Right ankle injury (~2000) History of DVT (deep vein thrombosis) Hypertension Surgical History History of esophagogastroduodenoscopy (EGD) S/P insertion of inferior vena caval filter History of liver biopsy History of ankle surgery Hx of endoscopy (06/26/17) History of colonoscopy (~2018) Family History Father Myocardial infarction H/O ETOH abuse Hypertension Mother Diabetes High cholesterol Hypertension Stroke Arthritis Paternal Aunt Mental health disorder Paternal Uncle Mental health disorder Sister Cancer Ovarian cancer Social History Household Members: Family Housing: Apartment Are you a primary memory care program resident to a significant other at home: No Do you presently have visiting nurse or other home services: Yes Alcohol intake: never Patient Tobacco Use Status: Never used Tobacco e-Cigarette/Vaping Use: Never Used Second Hand Smoke Exposure: No Advance Directives Date on File: 07/21/21 service: No Current occupational status: disabled Current occupation: right hand dominant Cognitive needs: No Hearing needs: No Vision needs: Yes (glasses) Female Reproductive History Menstrual Total pregnancies: 2 Ab spontaneous: 0 Review of Systems Const Reports weakness ENT Reports dry mouth Musc Reports arthralgias and Reports limited range of motion Skin/Breast Reports alopecia Neuro Reports weakness Physical Exam Vital Signs: Last Vital Signs Pulse 71 02/13/24 09:29 BP 134/80 02/13/24 09:29 Pulse Ox 100 02/13/24 09:29 Oxygen Delivery Method Room Air 02/13/24 09:29 BMI result Body Mass Index 28.2 Const General: cooperative, healthy appearing and comfortable Nutritional Appearance: overweight Orientation/consciousness: patient oriented x3 Limitations: no limitations HEENT Head: Yes normocephalic and Yes atraumatic Mouth: moist mucous membranes Resp Effort & Inspection: normal respiratory effort and able to speak in complete sentences Auscultation: clear to auscultation bilaterally Cardio Rate: regular rate Rhythm: regular rhythm Skin Other: Few areas of hyperpigmentation on her forearms Thinning hair on her crown Neuro General: patient oriented x3 Extrem Other: No active synovitis Assessment & Plan Assessment & Plan (1) SLE (systemic lupus erythematosus): Code(s): M32.9 - Systemic lupus erythematosus, unspecified Category: Medical Qualifiers: Systemic lupus erythematosus type: unspecified Systemic lupus erythematosus organ involvement: other Qualified Code(s): M32.19 - Other organ or system involvement in systemic lupus erythematosus Plan: This is a 64-year-old female with overlap syndrome, likely Sjogren's with SLE who presents for follow-up. This is her 1st visit with me. According to patient's sister, she had a 2nd kidney biopsy and it was inconclusive, no diagnosis was given and tissue was sent to a tertiary center for 2nd opinion. Patient has tolerated hydroxychloroquine well. Ask patient to continue with hydroxychloroquine 200 mg daily Labs before next visit in 3 months (2) Adhesive capsulitis of right shoulder: Code(s): M75.01 - Adhesive capsulitis of right shoulder Category: Medical Plan: Advised patient to return to Orthopedics (3) Long-term use of hydroxychloroquine: Code(s): Z79.899 - Other acid blower (current) drug therapy Category: Medical Plan: Discussed risk of retinopathy associated with hydroxychloroquine. Advised patient to make an appointment with bulb grower Plan I spent 30 minutes reviewing patient's chart, evaluating patient, ordering diagnostic workup, counseling patient and documenting in the chart Orders: Orders Anti DNA DS Antibody 3 Months M32.9 - Systemic lupus erythematosus, unspecified Complement C4 3 Months M32.9 - Systemic lupus erythematosus, unspecified Erythrocyte Sedimentation Rate 3 Months M32.9 - Systemic lupus erythematosus, unspecified Protein Creatinine Ratio, Ur 3 Months M32.9 - Systemic lupus erythematosus, unspecified Hepatitis A,B,C Profile 3 Months Z11.59 - Encounter for screening for other viral diseases Complement C3 3 Months M32.9 - Systemic lupus erythematosus, unspecified C Reactive Protein 3 Months M32.9 - Systemic lupus erythematosus, unspecified Complete Blood Count Auto Diff 3 Months M32.9 - Systemic lupus erythematosus, unspecified Comprehensive Met. Panel 3 Months M32.9 - Systemic lupus erythematosus, unspecified T Spot TB 3 Months Z11.7 - Encounter for testing for latent tuberculosis infection Medications: Refilled hydroxychloroquine 200 mg PO DAILY 90 tabs 1RF M32.9 - Systemic lupus erythematosus, unspecified, M35.1 - Other overlap syndromes Coding Level of Care Code Est Pt Level 4 (49928) Diagnoses Systemic lupus erythematosus with other organ involvement, unspecified SLE type M32.19 Systemic lupus erythematosus type: unspecified Systemic lupus erythematosus organ involvement: other Adhesive capsulitis of right shoulder M75.01 Long-term use of hydroxychloroquine Z79.899
[2024-02-13 09:29] VITALS: BP 134/80; PULSE 71; O2SAT 100; BMI 28.2
== END 2024-02-13 10:00 | disposition home or self-care (01) ==
PROVIDERS: PCP Internal Medicine; Visit Provider Student in an Organized Health Care Education/Training Program
DX: M32.19 Other organ or system involvement in systemic lupus erythematosus (principal); M75.01 Adhesive capsulitis of right shoulder; Z79.899 Other long term (current) drug therapy
CPT/HCPCS: 99214

== ENCOUNTER → 2024-02-13 09:22 | Outpatient (BNVA) | payer OTHER, SELFPAY | PROVIDERS: PCP Internal Medicine; Visit Provider Student in an Organized Health Care Education/Training Program | DX: M32.19 Other organ or system involvement in systemic lupus erythematosus (principal); M75.01 Adhesive capsulitis of right shoulder; Z79.899 Other long term (current) drug therapy | CPT/HCPCS: 99212 ==

== ENCOUNTER 2024-03-15 09:44 | Outpatient (AMB) | payer OTHER, SELFPAY ==
--- NOTE | 2024-03-15 09:45 | A.OFFVIS_ITS ---
Intake Visit Reasons: OV - rt shoulder capsulitis, last inj 12/28/23 Intake Note: Becky is a 63 year old right hand dominant female who presents today for a follow up of her right shoulder pain, last inj 12/28/23. Patient reports that she is still limited in her ROM. She emotions that PT did give her relief but they recommended her to get an MRI. Allergies cefuroxime [From Ceftin] Allergy (Intermediate, Verified 03/15/24 09:49) rash Bwqbndz-ECL-ZfC Reductase Inhibitor [Eiwhntm-Nzm-Kex Reductase Inhibitor] Allergy (Intermediate, Verified 03/15/24 09:49) transaminitis HPI HPI OV - rt shoulder capsulitis, last inj 12/28/23: Details: 64-year-old right hand dominant female who presents in the office today for a follow-up of right shoulder pain. I last saw the patient on 12/28/23 when she was given a cortisone injection in the right shoulder. She was referred to physical therapy and was recommended to take OTC Tylenol PRN for pain relief. She is unable to take anti-inflammatory due to the medical history of kidney disease. While in the office today, the patient reports she continues to have limited ROM in the right shoulder. She mentions her last cortisone injection provided her mild relief. She has been attending physical therapy that has provided her relief; however, she was recommended to have an MRI by the physical therapist. The patient has a significant medical history of CKD stage 4. Patient denies a medical history of diabetes mellitus. [facility] Medical History (Updated 02/13/24 @ 10:07 by Randal Shin MD) Pain in joint involving multiple sites CKD (chronic kidney disease) stage 4, GFR 15-29 ml/min History of COVID-19 CKD (chronic kidney disease) stage 3, GFR 30-59 ml/min Panic disorder MDD (major depressive disorder), recurrent, severe, with psychosis Noncompliance with medication regimen Chest pain Elevated cholesterol Back pain Arthritis Seasonal allergies Hypothyroid GERD (gastroesophageal reflux disease) Hx pulmonary embolism Iron deficiency anemia Asthma Autoimmune hepatitis Chronic constipation Chronic iron deficiency anemia Right ankle injury (~2000) History of DVT (deep vein thrombosis) Hypertension Surgical History History of esophagogastroduodenoscopy (EGD) S/P insertion of inferior vena caval filter History of liver biopsy History of ankle surgery Hx of endoscopy (06/26/17) History of colonoscopy (~2019) Family History Father Myocardial infarction H/O ETOH abuse Hypertension Mother Diabetes High cholesterol Hypertension Stroke Arthritis Paternal Aunt Mental health disorder Paternal Uncle Mental health disorder Sister Cancer Ovarian cancer Social History Household Members: Family Housing: Apartment Are you a primary doggy daycare activities director to a significant other at home: No Do you presently have visiting nurse or other home services: Yes Alcohol intake: never Patient Tobacco Use Status: Never used Tobacco e-Cigarette/Vaping Use: Never Used Second Hand Smoke Exposure: No Advance Directives Date on File: 07/21/21 service: No Current occupational status: disabled Current occupation: right hand dominant Cognitive needs: No Hearing needs: No Vision needs: Yes (glasses) Review of Systems Const All systems reviewed & are unremarkable except as noted in HPI and below Physical Exam Const General: cooperative and no acute distress Orientation/consciousness: patient oriented x3 Resp Effort & Inspection: normal respiratory effort and able to speak in complete sentences Cardio Peripheral pulses: Peripheral pulses 2+ throughout Skin General skin exam: no rashes or lesions noted Neuro General: patient oriented x3 Extrem Other: Right shoulder: Normal to inspection. No ecchymosis erythema or edema. 40 degrees of forward flexion and abduction. External rotation to neutral only. Unable to perform any additional testing due to ROM limitations and pain. NVI.? Assessment & Plan Assessment & Plan (1) Adhesive capsulitis of right shoulder: Code(s): M75.01 - Adhesive capsulitis of right shoulder Category: Medical (2) Calcific tendonitis of right shoulder: Code(s): M75.31 - Calcific tendinitis of right shoulder Category: Medical Plan Ms. Salas is a 64-year-old right hand dominant female who presents in the office today for a follow-up of right shoulder pain. I last saw the patient on 12/28/23 when she was given a cortisone injection in the right shoulder. She was referred to physical therapy and was recommended to take OTC Tylenol PRN for pain relief. She is unable to take anti-inflammatory due to the medical history of kidney disease. While in the office today, the patient reports she continues to have limited ROM in the right shoulder. She mentions her last cortisone injection provided her mild relief. She has been attending physical therapy that has provided her relief; however, she was recommended to have an MRI by the physical therapist. The patient continues to have extremely limited ROM in her right shoulder. Therefore, we will proceed with an MRI to further evaluate the integrity of the shoulder. I have placed an order for an MRI of the right shoulder. She was supplied with my business card and will contact the office to schedule a telehealth appointment to discuss the MRI results. Follow-up will be via telephone after an MRI is obtained, or sooner if needed. Orders: Orders MR shoulder RT wo con Today M75.01 - Adhesive capsulitis of right shoulder Patient Instructions: Scribed by Annalise Caazres, medical record specialist, for Sherrie Gottleib PA-C on 03/15/24 at 10:10 am EST. Coding Level of Care Code Est Pt Level 3 (84155) Diagnoses Adhesive capsulitis of right shoulder M75.01 Calcific tendonitis of right shoulder M75.31
== END 2024-03-15 10:03 | disposition home or self-care (01) ==
PROVIDERS: PCP Internal Medicine; Visit Provider Physician Assistant
DX: M75.01 Adhesive capsulitis of right shoulder (principal); M75.31 Calcific tendinitis of right shoulder
CPT/HCPCS: 99213

== ENCOUNTER → 2024-03-15 09:44 | Outpatient (BNVA) | payer OTHER, SELFPAY | PROVIDERS: PCP Internal Medicine; Visit Provider Physician Assistant | DX: M75.01 Adhesive capsulitis of right shoulder (principal); M75.31 Calcific tendinitis of right shoulder | CPT/HCPCS: 99212 ==

== ENCOUNTER 2024-03-29 10:03 | Outpatient (REF) | payer OTHER, SELFPAY ==
[2024-03-29 10:19] LABS: MANUAL DIFF FLAG NO
[2024-03-29 10:46] LABS: Basophils Percent Auto 0.7 % (0-2); Eosinophils Absolute Auto 0.1 X10*3/uL (0.0-0.4); Eosinophils Percent Auto 3.5 % (0-4); Hematocrit 33.7 % (37.0-47.0); Hemoglobin 10.7 g/dl (12.0-16.0); Imm Gran Abs Auto 0.01 X10*3/uL (0.00-0.03); Imm Gran Pct Auto 0.4 % (0.0-0.4); Lymphocytes Absolute Auto 0.7 X10*3/uL (1.2-4.9); Lymphocytes Percent Auto 25.9 % (20-40); Mean Corpuscular HGB Conc 31.8 g/dl (31.0-35.0); Mean Corpuscular Hemoglobin 32.9 pg (27.0-33.0); Mean Corpuscular Volume 103.7 fL (80.0-98.0); Mean Platelet Volume 10.7 fL (9.4-12.3); Monocytes Absolute Auto 0.3 X10*3/uL (0.1-1.2); Neutrophils Absolute Auto 1.7 x10*3/uL (2.0-8.3); Neutrophils Percent Auto 58.5 % (45-73); Platelet Count 111 X10*3/uL (160-400); Red Blood Count 3.25 X10*6/uL (4.20-5.50); Red Cell Distribution Width 13.5 % (11.0-16.0); White Blood Count 2.8 X10*3/uL (4.8-10.8)
[2024-03-29 10:47] LABS: Appearance Urine Clear; Color Urine Yellow; Glucose Urine UA Negative (Negative); Leukocyte Esterase Urine Moderate (2+) (Negative); Nitrite Urine Negative (Negative); PH 6.5 (5.0-9.0); Specific Gravity - Urine 1.015 (1.005-1.025); UMIC TRIGGER UA YES; Urine Blood Negative (Negative); Urine Ketones Negative (Negative); Urine Protein Negative (Neg-Trace)
[2024-03-29 10:54] LABS: Bacteria Urine Trace (None Seen); Hyaline Casts Urine 0-2 /LPF (0-2); RBC Urine 0-2 /HPF (0-2)
[2024-03-29 11:51] LABS: Parathyroid Hormone Intact 68.1 pg/mL (8.7-77.1)
[2024-03-29 12:01] LABS: Albumin Level 3.7 g/dL (3.5-5.0); Anion Gap 11 (12-20); Blood Urea Nitrogen 30 mg/dL (9-16); Calcium 9.4 mg/dL (8.4-10.2); Carbon Dioxide 24 mmol/L (22-29); Chloride 113 mmol/L (96-108); Estimated Glomerular Filt Rate 26; Magnesium 2.7 mg/dL (1.6-2.6); Phosphorus 3.9 mg/dL (2.7-4.5); Sodium 143 mmol/L (135-145); Vitamin D 25-OH Total 35.4 ng/mL (>30)
[2024-03-29 12:01] LABS: Creatinine Urine 72.16 mg/dL; Microalbum/Creatinine Ratio Ur 33.2 ug/mg cr (<30); Protein/Creatinine Ratio, Ur 0.12 (<0.2); Total Protein Urine Random 9 mg/dL (<12)
== END 2024-03-29 10:04 | disposition home or self-care (01) ==
LOC: HO.LAB 10:03
PROVIDERS: PCP Internal Medicine; Visit Provider Internal Medicine Nephrology
DX: N18.4 Chronic kidney disease, stage 4 (severe) (principal); D68.62 Lupus anticoagulant syndrome; N25.0 Renal osteodystrophy
CPT/HCPCS: 36415; 80051; 81001; 82040; 82043; 82306; 82310; 82565; 82570; 83735; 83970; 84100; 84156; 84520; 85025

== ENCOUNTER 2024-04-20 10:49 | Outpatient (REF) | payer OTHER, SELFPAY ==
--- NOTE | ~2024-04-20 | MR_ITS ---
EXAMINATION: MR SHOULDER WITHOUT CONTRAST, RIGHT CLINICAL INFORMATION: Adhesive capsulitis. COMPARISON: X-ray 02/08/2023. TECHNIQUE: MRI of the shoulder without contrast was performed on a high-field scanner. FINDINGS: Motion artifact on the coronal and axial sequences, limiting evaluation. ROTATOR CUFF: Evaluation limited by motion artifact. There is increased signal in the supraspinatus and infraspinatus tendon suggesting mild-moderate tendinosis. There is ill-definition of the articular and bursal surface of the tendon, which could be due to motion artifact versus fraying/partial tear. There is thinning of the conjoined fibers of supraspinatus/infraspinatus, measuring approximately 1.2 cm transverse, 1.3 cm AP, concerning for possible partial tearing. Teres minor is intact. Mild-moderate subscapularis tendinosis. No muscle atrophy or fatty infiltration. BICEPS: Motion artifact limiting evaluation. Apparent thinning of the tendon. The intra-articular portion of the tendon is not visualized. Findings suspicious for partial thickness tearing. CORACOACROMIAL ARCH: The undersurface of the acromion is curved with no subacromial spur. Mild acromioclavicular arthritis. Mild subacromial subdeltoid bursitis. LABRUM/CAPSULE: Motion artifact markedly limits evaluation. Labrum is not reliably evaluated. There is apparent abnormal signal diffusely in the labrum, raising concern for possible tearing. GLENOHUMERAL JOINT/MARROW: There is flattening of the posterolateral humeral head involving a segment approximately 2.6 cm mediolateral. This could reflect sequela of prior impaction injury/Hill-Sachs lesion. Suspected glenohumeral joint arthritis, evaluation limited. Abnormal signal in the posterior glenoid, could reflect degenerative changes, with component of undisplaced fracture not excluded. Small joint fluid. MR/MR shoulder RT wo con IMPRESSION: 1. Mild-moderate supraspinatus and infraspinatus tendinosis. Ill-definition of the articular and bursal surface of the tendon, could be due to motion artifact versus fraying/partial tear. Possible partial tearing of the conjoined supraspinatus/infraspinatus fibers measuring partial tearing. 2. Mild-moderate subscapularis tendinosis. 3. Suspected biceps tendon tear, limiting evaluation. . 4. Mild acromioclavicular arthritis. Mild subacromial subdeltoid bursitis. 5.Labrum is not reliably evaluated. There is apparent abnormal signal diffusely in the labrum, raising concern for possible tearing. 6. Flattening of the posterior-lateral humeral head, could reflect sequela of prior impaction injury/Hill-Sachs lesion. 7.Suspected glenohumeral joint arthritis, evaluation limited. Abnormal findings in the posterior glenoid could reflect degenerative changes or an age-indeterminate fracture. Electronically signed by: Christo Hyman MD 05/10/2024 10:35 AM RAMOS SHEPARD
== END 2024-04-20 10:50 | disposition home or self-care (01) ==
LOC: HO.MRI 10:49
PROVIDERS: PCP Internal Medicine; Visit Provider Physician Assistant
DX: M75.01 Adhesive capsulitis of right shoulder (principal)
CPT/HCPCS: 73221

== ENCOUNTER 2024-09-09 10:41 | Outpatient (AMB) | payer OTHER, SELFPAY ==
[2024-09-09 10:45] VITALS: BMI 29.9
--- NOTE | 2024-09-09 10:45 | A.OFFVIS_ITS ---
Vital Signs 09/09/24 10:45 Height 4 ft 11 in Weight 148 lb BMI 29.9 Intake Visit Reasons: OV - right shoulder MRI review Intake Note: Becky is a 64 year old right hand dominant female who presents today for a right shoulder MRI review. She has previously seen Sherrie Gottlieb who administered an injection on 12/28/2023 which only provided mild relief. She was also referred to Physical Therapy which has helped and Takes Tylenol PRN Pain. MRI done at [facility] [place] [facility] 04/20/2024 IMPRESSION: 1. Mild-moderate supraspinatus and infraspinatus tendinosis. Ill-definition of the articular and bursal surface of the tendon, could be due to motion artifact versus fraying/partial tear. Possible partial tearing of the conjoined supraspinatus/infraspinatus fibers measuring partial tearing. 2. Mild-moderate subscapularis tendinosis. 3. Suspected biceps tendon tear, limiting evaluation. . 4. Mild acromioclavicular arthritis. Mild subacromial subdeltoid bursitis. 5.Labrum is not reliably evaluated. There is apparent abnormal signal diffusely in the labrum, raising concern for possible tearing. 6. Flattening of the posterior-lateral humeral head, could reflect sequela of prior impaction injury/Hill-Sachs lesion. 7.Suspected glenohumeral joint arthritis, evaluation limited. Abnormal findings in the posterior glenoid could reflect degenerative changes or an age-indeterminate fracture. Allergies cefuroxime [From Ceftin] Allergy (Intermediate, Verified 09/09/24 10:46) rash Cuatblh-AQU-NwL Reductase Inhibitor [Quhbnew-Mmg-Umm Reductase Inhibitor] Allergy (Intermediate, Verified 09/09/24 10:46) transaminitis HPI HPI OV - right shoulder MRI review: Details: Becky is a 64 year old right hand dominant female who presents today for a right shoulder MRI review. She has previously seen Sherrie Gottlieb who administered an injection on 12/28/2023 which only provided mild relief. She was also referred to Physical Therapy which has helped and Takes Tylenol PRN Pain. MRI done at [facility] 04/20/2024. Was diagnosed with adhesive capsulitis. She is improving with respect to pain and ROM. [facility] Medical History Pain in joint involving multiple sites CKD (chronic kidney disease) stage 4, GFR 15-29 ml/min History of COVID-19 CKD (chronic kidney disease) stage 3, GFR 30-59 ml/min Panic disorder MDD (major depressive disorder), recurrent, severe, with psychosis Noncompliance with medication regimen Chest pain Elevated cholesterol Back pain Arthritis Seasonal allergies Hypothyroid GERD (gastroesophageal reflux disease) Hx pulmonary embolism Iron deficiency anemia Asthma Autoimmune hepatitis Chronic constipation Chronic iron deficiency anemia Right ankle injury (~2000) History of DVT (deep vein thrombosis) Hypertension Surgical History History of esophagogastroduodenoscopy (EGD) S/P insertion of inferior vena caval filter History of liver biopsy History of ankle surgery Hx of endoscopy (06/26/17) History of colonoscopy (~2018) Family History Father Myocardial infarction H/O ETOH abuse Hypertension Mother Diabetes High cholesterol Hypertension Stroke Arthritis Paternal Aunt Mental health disorder Paternal Uncle Mental health disorder Sister Cancer Ovarian cancer Social History Household Members: Family Housing: Apartment Are you a primary urgent care nurse practitioner to a significant other at home: No Do you presently have visiting nurse or other home services: Yes Alcohol intake: never Patient Tobacco Use Status: Never used Tobacco e-Cigarette/Vaping Use: Never Used Second Hand Smoke Exposure: No Advance Directives Date on File: 07/21/21 service: No Current occupational status: disabled Current occupation: right hand dominant Cognitive needs: No Hearing needs: No Vision needs: Yes (glasses) Physical Exam Vital Signs: BMI result Body Mass Index 29.9 Extrem Other: ER to 15 deg Abd to 70 with recruitment RTC testing not possible due to stiffness and pain Results Reviewed Results Reviewed: I personally reviewed the MR images. IMPRESSION: 1. Mild-moderate supraspinatus and infraspinatus tendinosis. Ill-definition of the articular and bursal surface of the tendon, could be due to motion artifact versus fraying/partial tear. Possible partial tearing of the conjoined supraspinatus/infraspinatus fibers measuring partial tearing. 2. Mild-moderate subscapularis tendinosis. 3. Suspected biceps tendon tear, limiting evaluation. . 4. Mild acromioclavicular arthritis. Mild subacromial subdeltoid bursitis. 5.Labrum is not reliably evaluated. There is apparent abnormal signal diffusely in the labrum, raising concern for possible tearing. 6. Flattening of the posterior-lateral humeral head, could reflect sequela of prior impaction injury/Hill-Sachs lesion. 7.Suspected glenohumeral joint arthritis, evaluation limited. Abnormal findings in the posterior glenoid could reflect degenerative changes or an age-indeterminate fracture. Assessment & Plan Assessment & Plan (1) Adhesive capsulitis of right shoulder: Code(s): M75.01 - Adhesive capsulitis of right shoulder Category: Medical Plan: 64 yo with sdhesive capsulitis. MRI c/w tendinosis and generalized degenerative changes. PT for ROM. Surgical intervention not clinically warranted. Stage 4 kidney disease increases surgical contra indications (2) CKD (chronic kidney disease) stage 4, GFR 15-29 ml/min: Code(s): N18.4 - Chronic kidney disease, stage 4 (severe) Category: Medical Plan: Under the care of Renal Coding Level of Care Code Est Pt Level 3 (32950) Complex EM visit Add On G2211 Diagnoses Adhesive capsulitis of right shoulder M75.01 CKD (chronic kidney disease) stage 4, GFR 15-29 ml/min N18.4
== END 2024-09-09 11:13 | disposition home or self-care (01) ==
LOC: HO.HOS 10:42
PROVIDERS: PCP Internal Medicine; Visit Provider Orthopaedic Surgery
DX: M75.01 Adhesive capsulitis of right shoulder (principal); N18.4 Chronic kidney disease, stage 4 (severe)
CPT/HCPCS: 99213; G2211

== ENCOUNTER → 2024-09-09 10:41 | Outpatient (BNVA) | payer OTHER, SELFPAY | PROVIDERS: PCP Internal Medicine; Visit Provider Orthopaedic Surgery | DX: M75.01 Adhesive capsulitis of right shoulder (principal); N18.4 Chronic kidney disease, stage 4 (severe) | CPT/HCPCS: 99212 ==

== ENCOUNTER 2024-12-23 10:55 | Outpatient (REF) | payer OTHER, SELFPAY ==
--- NOTE | ~2024-12-23 | MM_ITS ---
EXAMINATION: MM SCREENING DIGITAL BREAST TOMOSYNTHESIS, BILATERAL CLINICAL INFORMATION: Screening. Asymptomatic. COMPARISON: Comparison made to multiple prior, most recent November 04, 2022, and most remote December 12, 2015. TECHNIQUE: Digital breast tomosynthesis is performed in both the craniocaudal and mediolateral oblique views along with computer-aided detection (CAD). Synthesized 2D images are generated from the tomosynthesis. FINDINGS: BREAST COMPOSITION: There are scattered areas of fibroglandular density (ACR BI-RADS breast composition Category b). BILATERAL BREASTS: No significant masses, suspicious calcifications or other abnormalities are seen in either breast. MM/MM tomosynthesis screening BI IMPRESSION: BILATERAL BREASTS: Negative, no evidence of malignancy. Normal interval follow-up is recommended in 12 months. ASSESSMENT: BI-RADS BI-RADS 1 - Negative RECOMMENDATION: Routine annual mammography screening. 1 year F/U This examination should not preclude the clinical evaluation of a suspicious palpable abnormality. This patient's information was entered into a reminder system with a target due date for their next mammogram. Electronically signed by: Hilary Ramesh MD 01/02/2025 04:56 PM EDT
--- OUTSIDE RECORDS SUMMARY | 2024-12-23 11:54 | XMS_ITS | Encounter Summary ---
Author Organization [facility] Address [address] [address] Phone Care Team Providers Care Color Control Operator Name Role Phone Nanda Fiore MD Primary Care Provider [phone] Encounter Details Date Type Department Care Team (Late Contact Info) Description 10/22/2024 Office Communication [facility] [address] [address] Jessica Preciado [address] [address] Social History Tobacco Use Types Packs/Day Years Used Date Smoking Tobacco: Never Smokeless Tobacco: Never Alcohol Use Standard Drinks/Week Comments Never 0 (1 standard drink = 0.6 oz pur e alcohol) Comments Unknown Sex and Gender Information Value Date Recorded Sex Assigned at Not on file Legal Sex Female 11:05 AM EDT Gender Identity Not on file Sexual Orientation Not on file documented as of this encounter Plan of Treatment Upcoming Encounters Date Type Department Care Team (Late st Contact Info) Description 01/27/2025 1:00 PM EDT Office Visit [facility] [address] [place] [id number] Miguel Caldera MD [address] [address] documented as of this encounter Visit Diagnoses Not on filedocumented in this encounter Care Teams Color Control Operator Relationship Specialty Start Date End Date Nanda Fiore MD [address] [place], [place] PCP - General Internal Medicine 10/13/21 documented as of this encounter
== END 2024-12-23 10:56 | disposition home or self-care (01) ==
LOC: HO.MAMMO 10:55
PROVIDERS: PCP Internal Medicine; Visit Provider Internal Medicine
DX: Z12.31 Encounter for screening mammogram for malignant neoplasm of breast (principal)
CPT/HCPCS: 77063; 77067

== ENCOUNTER → 2024-12-23 11:15 | Outpatient (BNV) | payer OTHER, SELFPAY | PROVIDERS: PCP Internal Medicine; Visit Provider Radiology Body Imaging | DX: Z12.31 Encounter for screening mammogram for malignant neoplasm of breast (principal) | CPT/HCPCS: 77063; 77067 ==

== ENCOUNTER 2024-12-31 10:50 | Outpatient (REF) | payer OTHER, SELFPAY ==
[2024-12-31 11:06] LABS: MANUAL DIFF FLAG NO
[2024-12-31 11:38] LABS: Hematocrit 28.1 % (37.0-47.0); Hemoglobin 9.0 g/dl (12.0-16.0); Imm Gran Abs Auto 0.01 X10*3/uL (0.00-0.03); Imm Gran Pct Auto 0.4 % (0.0-0.4); Lymphocytes Absolute Auto 0.6 X10*3/uL (1.2-4.9); Mean Corpuscular HGB Conc 32.0 g/dl (31.0-35.0); Mean Corpuscular Hemoglobin 30.7 pg (27.0-33.0); Mean Corpuscular Volume 95.9 fL (80.0-98.0); NRBC Abs Auto 0.000 X10*3/uL (0.0-0.012); NRBC Pct Auto 0.0 /100WBC (0.0-0.2); Platelet Count 100 X10*3/uL (160-400); Red Blood Count 2.93 X10*6/uL (4.20-5.50); White Blood Count 2.8 X10*3/uL (4.8-10.8)
[2024-12-31 11:39] LABS: Appearance Urine Clear; Glucose Urine UA Negative (Negative); PH 6.5 (5.0-9.0); Specific Gravity - Urine 1.010 (1.005-1.025); UMIC TRIGGER UA YES
--- OUTSIDE RECORDS SUMMARY | 2024-12-31 12:11 | XMS_ITS | Encounter Summary ---
Author Organization [facility] Address [address] [address] Phone Care Team Providers Care Health Occupations Instructor Name Role Phone Nanda Fiore MD Primary Care Provider [phone] Encounter Details Date Type Department Care Team ([facility] Contact Info) Description 12/31/2024 Orders Only [facility] [address] [place] [phone] Miguel Caldera MD [facility] [address] Social History Tobacco Use Types [...] Office Visit [facility] [address] [place] [address] Miguel Caldera MD [address] [address] documented as of this encounter Procedures Procedure Name Priority Date/Time Associated Diagnosis Comments CBC AND DIFFERENTIAL Routine 12/31/2024 11:04 AM EDT documented in this encounter Results * (ABNORMAL) CBC and Differential (12/31/2024 11:04 AM EDT) WBC 2.8(L) 4.8 - 10.8 X10*3/uL See order comments RBC 2.93(L) 4.20 - 5.50 X10*6/uL See order comments Hgb 9.0(L) 12.0 - 16.0 g/dl See order comments Hematocrit 28.1(L) 37.0 - 47.0 % See order comments MCV 95.9 80.0 - 98.0 fL See order comments MCH 30.7 27.0 - 33.0 pg See order comments MCHC 32.0 31.0 - 35.0 g/dl See order comments RDW 13.3 11.0 - 16.0 % See order comments Platelets 100(L) 160 - 400 X10*3/uL See order comments MPV 10.5 9.4 - 12.3 fL See order comments Neutrophils % Auto 63.5 45 - 73 % See order comments Immature Granulocytes 0.4 0.0 - 0.4 % See order comments Lymphocytes Relative 21.8 20 - 40 % See order comments Monocytes 8.9 2 - 11 % See order comments Eosinophils Relative 5.0(H) 0 - 4 % See order comments Basophils Relative 0.4 0 - 2 % See order comments nRBC Count 0.0 0.0 - 0.2 /100WBC See order comments Neutrophils Absolute 1.8(L) 2.0 - 8.3 x10*3/uL See order comments Immature Grans (Absolute) 0.01 0.00 - 0.03 X10*3/uL See order comments Lymphocytes Absolute 0.6(L) 1.2 - 4.9 X10*3/uL See order comments Monocytes Absolute 0.3 0.1 - 1.2 X10*3/uL See order comments Eosinophils Absolute 0.1 0.0 - 0.4 X10*3/uL See order comments Basophils Absolute 0.0 0.0 - 0.2 X10*3/uL See order comments NRBC Absolute 0.000 0.0 - 0.012 X10*3/uL See order comments 12/31/2024 11:0 4 AM EDT 12/31/2024 11:04 AM EDT us Miguel Caldera MD LAB BLOOD ORDERABLES [facility] See order comments [place] [address] documented in this encounter Visit Diagnoses Not on filedocumented in this encounter Care Teams Health Occupations Instructor Relationship Specialty Start Date End Date Nanda Fiore MD [address] [place] PCP - General Internal Medicine 10/13/21 documented as of this encounter
[2024-12-31 12:12] LABS: Parathyroid Hormone Intact 83.2 pg/mL (8.7-77.1)
[2024-12-31 12:30] LABS: Albumin Level 3.6 g/dL (3.5-5.0); Anion Gap 12 (12-20); Blood Urea Nitrogen 32 mg/dL (9-16); Calcium 9.1 mg/dL (8.4-10.2); Carbon Dioxide 21 mmol/L (22-29); Chloride 115 mmol/L (96-108); Estimated Glomerular Filt Rate 26; Iron 61 mcg/dL (30-160); Magnesium 2.5 mg/dL (1.6-2.6); Percent Iron Saturation 36 % (15-50); Potassium 4.6 mmol/L (3.3-5.1); Sodium 143 mmol/L (135-145); Total Iron Binding Capacity 169 mcg/dL (228-428); Unsaturated Iron Binding 108 ug/dL
[2024-12-31 12:32] LABS: Ferritin 935 ng/mL (10-250)
[2024-12-31 12:32] LABS: Microalbum/Creatinine Ratio Ur 15.0 ug/mg cr (<30); Total Protein Urine Random < 7 mg/dL (<12)
[2025-01-06 13:03] LABS: Anti Nuclear Antibody Pattern Nuclear, Speckled; Anti Nuclear Antibody Screen POSITIVE (NEGATIVE); Anti Nuclear Antibody Titer 1:1280 titer
== END 2024-12-31 10:51 | disposition home or self-care (01) ==
LOC: HO.LAB 10:50
PROVIDERS: Absent Provider Student in an Organized Health Care Education/Training Program; PCP Internal Medicine; Visit Provider Internal Medicine Nephrology
DX: I12.9 Hypertensive chronic kidney disease with stage 1 through stage 4 chronic kidney disease, or unspecified chronic kidney disease (principal); N18.32 Chronic kidney disease, stage 3b; N25.0 Renal osteodystrophy; D68.62 Lupus anticoagulant syndrome
CPT/HCPCS: 36415; 80051; 81001; 82040; 82043; 82306; 82310; 82565; 82570; 82728; 83540; 83735; 83970; 84100; 84156; 84520; 85025; 86038; 86039; 86160; 87086